=== PATIENT | female | born 1945 | race American Indian/Alaskan Native ===

== ENCOUNTER 2019-01-13 01:59 | Inpatient (IN) | payer MEDICARE ==
[2019-01-13 02:06] VITALS: BMI 47.2
--- NOTE | 2019-01-13 02:09 | ED PDOC ---
Arrival/HPI <Pete Bear - Last Filed: 01/13/19 04:54> - General Historian: Patient - History of Present Illness Narrative History of Present Illness (Text): 01/13/19 02:09 Patient is a 73 yo AA female with T2DM, PVD, GERD, uterine CA s/p radiation, iron deficiency anemia, CKD, and obesity who presents with abdominal pain. Patient states that she ate dinner around 9PM that consisted of mac and cheese, ribs, and su greens. Soon after eating, she felt intense abdominal cramping and acid reflux. She took Mylanta and Rika-seltzer without relief. She then felt nauseated and vomited twice. She says the pain is now radiating to her back. She states that she also feels constipated. She attempted to have a BM tonight but could not. She had a BM on Sunday, but prior to that, she had no BM for a week. She reports ending her radiation sessions about 1 week ago. Time/Duration: 4-6 hours Symptom Onset: Gradual Symptom Course: Worsening Quality: Cramping Severity Level: 10 Activities at Onset: Eating <Ivis Echavarria - Last Filed: 01/13/19 05:20> - General Chief Complaint: Abdominal Pain Time Seen by Provider: 01/13/19 02:00 Past Medical History - Provider Review Nursing Documentation Reviewed: Yes - Tetanus Immunization Tetanus Immunization: Unknown <Ivis Echavarria - Last Filed: 01/13/19 05:20> Family/Social History - Physician Review Nursing Documentation Reviewed: Yes Family/Social History: Unknown Family HX <Ivis Echavarria - Last Filed: 01/13/19 05:20> Allergies/Home Meds <Pete Bear - Last Filed: 01/13/19 04:54> <Ivis Echavarria - Last Filed: 01/13/19 05:20> Allergies/Adverse Reactions: Allergies Penicillins Allergy (Verified 01/13/19 05:05) ANGIOEDEMA strawberry Allergy (Verified 01/13/19 05:05) ANGIOEDEMA Home Medications: Home Meds Medication Instructions Recorded Confirmed Rosuvastatin Calcium [Crestor] 20 mg PO HS 01/13/19 01/13/19 amLODIPine [Norvasc] 5 mg PO DAILY 01/13/19 01/13/19 Review of Systems - Review of Systems Constitutional: absent: Fatigue, Fevers Eyes: absent: Vision Changes ENT: absent: Hearing Changes Respiratory: absent: SOB, Cough Cardiovascular: Chest Pain. absent: Palpitations Gastrointestinal: Abdominal Pain, Constipation, Nausea, Vomiting. absent: Diarrhea, Hematemesis Genitourinary Female: absent: Dysuria, Hematuria Musculoskeletal: Back Pain Skin: absent: Rash, Pruritis, Skin Lesions Neurological: absent: Headache, Dizziness, Focal Weakness Endocrine: absent: Diaphoresis Hemo/Lymphatic: absent: Adenopathy <Ivis Echavarria - Last Filed: 01/13/19 05:20> Physical Exam Vital Signs Temp Pulse Resp BP Pulse Ox 01/13/19 02:06 97.5 F L 72 18 167/71 H 99 <Pete Bear - Last Filed: 01/13/19 04:54> Vital Signs Reviewed: Yes - Systems Exam Head: Present: Atraumatic, Normocephalic Pupils: Present: PERRL Extroacular Muscles: Present: EOMI Conjunctiva: Present: Normal Mouth: Present: Dry Respiratory/Chest: Present: Clear to Auscultation, Good Air Exchange Cardiovascular: Present: Regular Rate and Rhythm, Normal S1, S2 Abdomen: Present: Tenderness, Normal Bowel Sounds. No: Distention, Peritoneal Signs Back: Present: Normal Inspection, Paraspinal Tenderness Lower Extremity: Present: Normal Inspection. No: Edema Neurological: Present: GCS=15, CN II-XII Intact, Speech Normal Skin: Present: Warm, Dry, Normal Color Psychiatric: Present: Alert, Oriented x 3, Normal Insight, Normal Concentration <Ivis Echavarria - Last Filed: 01/13/19 05:20> Medical Decision Making ED Course and Treatment: Impression: Patient Seen with Resident: In agreement with resident note which contains more details about the patient. Patient seen and evaluated with resident. Came up with plan and treatment together. Pt, whose past medical history includes Type 2 diabetes, peripheral vascular disease, GERD, uterine cancer s/p radiating, anemia, chronic kidney disease, and obesity, presented for abdominal cramping, nausea, and vomiting. Plan: -- CT Abdomen and Pelvis -- Labs, lipase -- IV fluids -- Zofran -- Morphine -- Reassess and disposition - RAD Interpretation Narrative RAD Interpretations (Text): CT Abdomen and Pelvis: FINDINGS: Mild cardiomegaly. Mild pericardial effusion. Enlarged uterus. 3.9 cm intramural fundal uterine fibroid. Mild diffuse thickening of the bladder, probably cystitis. Moderate partial uncomplicated small bowel obstruction. No bowel perforation or pneumatosis intestinalis. Transition zone in the right lower quadrant. Uncomplicated colonic diverticulosis. Mild amount of fecal residue in the large bowel suggestive of mild constipation. 3 mm left renal nonobstructing stone. Cholelithiasis without acute cholecystitis. Mild left renal atrophy, chronic finding. The visualized lung bases are unremarkable. Normal unenhanced liver. Normal extrahepatic biliary system. Normal unenhanced spleen. Normal pancreas. Normal bilateral adrenal glands. Normal size of the right kidney. There is no right renal mass. There are no right renal calculi. There is no right hydronephrosis. Normal visualized right ureter. There is no left renal mass. There is no left hydronephrosis. Normal visualized left ureter. The appendix is visualized and appears normal. There is no demonstrated peritoneal fluid. Normal abdominal aorta. Normal inferior vena cava. Normal retroperitoneum. Normal urinary bladder. There is no pelvic mass lesion or lymphadenopathy. There is no pelvic fluid. Normal abdominal wall. Moderate diffuse spondylosis. IMPRESSION: Mild cardiomegaly. Mild pericardial effusion. Enlarged uterus. 3.9 cm intramural fundal uterine fibroid. Mild diffuse thickening of the bladder, probably cystitis. Moderate partial uncomplicated small bowel obstruction. No bowel perforation or pneumatosis intestinalis. Transition zone in the right lower quadrant. Uncomplicated colonic diverticulosis. Mild amount of fecal residue in the large bowel suggestive of mild constipation. 3 mm left renal nonobstructing stone. Cholelithiasis without acute cholecystitis. Mild left renal atrophy, chronic finding. Electronically signed on January 13, 2019 4:54:03 AM EDT by: Asa Yates M.D., Certified by ABR, MSK, Neuroradiology Radiology Orders: 01/13/19 02:15 ABD & PELVIS W/O PO OR IV CONT [CT] Stat Hatchery Man: Radiologist - Medication Orders Current Medication Orders: Discontinued Medications Sodium Chloride (Sodium Chloride 0.9%) 1,000 mls @ 999 mls/hr IV .Q1H1M STA Stop: 01/13/19 03:15 Last Admin: 01/13/19 02:50 Dose: 999 mls/hr eMAR Start Stop Document 01/13/19 02:50 KV (Rec: 01/13/19 02:56 KV [id number]) Intravenous Solution Start Date 01/13/19 Start Time 02:50 Morphine Sulfate (Morphine) 4 mg IVP STAT STA Stop: 01/13/19 02:16 Last Admin: 01/13/19 02:50 Dose: 4 mg MAR Pain Assessment Document 01/13/19 02:50 KV (Rec: 01/13/19 02:54 KV [id number]) Pain Reassessment Is this a pain reassessment? No Presence of Pain Presence of Pain Yes Pain Scale Used Protocol: PSCALES Pain Scale Used Numeric Location Pain Location Body Site Abdomen Description Description Constant Intensity of Pain at present 6 IVP Administration Document 01/13/19 02:50 KV (Rec: 01/13/19 02:54 KV [id number]) Charges for Administration # of IVP Administrations 1 Ondansetron HCl (Zofran Inj) 4 mg IVP STAT STA Stop: 01/13/19 02:16 Last Admin: 01/13/19 02:50 Dose: 4 mg IVP Administration Document 01/13/19 02:50 KV (Rec: 01/13/19 02:53 KV [id number]) Charges for Administration # of IVP Administrations 1 <Pete Bear - Last Filed: 01/13/19 04:54> ED Course and Treatment: 01/13/19 04:59 Gen surg consult for partial SBO 01/13/19 05:08 Patient vomiting- nonbloody, nonbilious. 01/13/19 05:[address] Gomez who accepts patient for observation. Re-evaluation Time: 04:59 Reassessment Condition: Unchanged - RAD Interpretation Radiology Orders: CT A/P - EKG Interpretation EKG Interpretation (Text): 01/13/19 02:24 NSR, LBBB Interpreted by ED Physician: Yes Type: 12 lead EKG Comparison: No previous EKG avail. - Medication Orders Current Medication Orders: 01/13/19 02:19 Morphine 4 mg IVP Zofran 4 mg IVP NS 1L bouls <Ivis Echavarria - Last Filed: 01/13/19 05:20> Disposition/Present on Arrival <Pete Bear - Last Filed: 01/13/19 04:54> - Present on Arrival Any Indicators Present on Arrival: No - Disposition Have Diagnosis and Disposition been Completed?: Yes Disposition Time: 05:20 Patient Plan: Admission, Observation <Ivis Echavarria - Last Filed: 01/13/19 05:20> - Disposition Diagnosis: SBO (small bowel obstruction) Disposition: HOSPITALIZED Condition: FAIR Forms: [employer]ise (Maltese)
[2019-01-13] MEDS ORDERED: Sodium Chloride 0.9% 1,000 ML IV STA ×2 (02:15→06:09)
[2019-01-13] MEDS ORDERED: Morphine 4 mg/ml ISec IVP STA ×2 (02:15→05:05)
[2019-01-13 02:45] LABS: BASO # 0.01 K/mm3 (0.0-2.0); BASO % 0.1 % (0.0-3.0); EOS # 0.1 (0.0-0.7); EOS % 1.5 % (1.5-5.0); HEMOGLOBIN 10.5 g/dL (12.0-16.0); LYMPH # 0.8 (1.2-3.4); LYMPH % 8.6 % (22.0-35.0); MEAN CELL VOLUME 76.5 fl (80.0-105.0); MEAN CORPUSCULAR HEMOGLOBIN 24.4 pg (25.0-35.0); MEAN CORPUSCULAR HGB CONC 31.9 g/dl (31.0-37.0); MEAN PLATELET VOLUME 10.8 fl (7.0-11.0); MONO # 0.3 (0.1-0.6); MONO % 3.3 % (1.0-6.0); RBC 4.3 10^6/uL (3.5-6.1); RED CELL DISTRIBUTION WIDTH 17.8 % (11.5-14.5); WHITE BLOOD COUNT 9.5 10^3/uL (4.5-11.0)
[2019-01-13] MEDS ORDERED: Magnesium Citrate Oral SOL (300 ml) PO ONE (03:19)
[2019-01-13] MEDS ORDERED: Bisacodyl 5mg EC Tab PO ONE (03:19)
[2019-01-13 03:24] LABS: ALBUMIN 4.2 g/dL (3.0-4.8); CALCIUM 9.8 mg/dL (8.4-10.5)
[2019-01-13 03:34] LABS: TROPONIN I 0.02 ng/mL
--- NOTE | 2019-01-13 06:01 | CP.PCM.HP ---
<Uriah Ma - Last Filed: 01/14/19 03:26> History of Present Illness - History of Present Illness History of Present Illness: HISTORY & PHYSICAL NOTE FOR HOSPITALIST SERVICE URIAH MA PGY1 73 y/o F with PMH uterine ca s/p radiation therapy, CAD s/p 6 stents, IDDM2, CKD, PVD, HTN, chronic iron-deficiency anemia (previously had aranesp infusions), PVD, L-sided carotid stenosis s/p endarterectomy, obesity presents to ED with complaints of severe, 10/10, diffuse, crampy abdominal pain with associated nausea & non-bloody non-bilious vomiting that began yesterday evening about 9pm after she ate dinner consisting of mac and cheese, ribs, and su greens. She noticed intense, severe pain after her meal. She tried mylanta & danish-seltzer without relief. She said her last BM was 2 days ago and hasn't passed gas or had a bowel movement since. She reports she completed her 5-week course of radiation therapy for uterine cancer on 12/30/18. She she completed her therapy, she noted some uterine spotting. She report she has been following with her doctors as scheduled. 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 She reports she has had chills for several weeks as well. She denies fevers, headache, dizziness, numbness, tingling, chest pain, palpitations, shortness of breath, dysuria, hematuria, hematochezia. PMH: uterine ca s/p radiation therapy, CAD s/p 6 stents, IDDM2, CKD, PVD, HTN, chronic anemia, PVD, L-sided carotid stenosis s/p endarterectomy, obesity All: PCN: itchiness, strawberry PSH: L toe amputation: 2010 SH: Denies smoking. Occasional ETOH use, Denies illicit drug. 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 [place]: Breast ca Meds: reviewed & reconciled on NOV Colonoscopy 2002: negative Mammogram 2017: negative PMD: Dr[facility] Cam[facility] Dr[facility] Narayan Kelley Pharm: [facility] MAR, 1 [facility] Present on Admission - Present on Admission Any Indicators Present on Admission: No Review of Systems - Review of Systems Review of Systems: per HPI Past Patient History - Tetanus Immunizations Tetanus Immunization: Unknown - Past Social History Smoking Status: Never Smoked - CARDIAC Hx Cardiac Disorders: Yes Hx Heart Attack: Yes Hx Hypercholesterolemia: Yes Hx Hypertension: Yes - PULMONARY Hx Respiratory Disorders: No - NEUROLOGICAL Hx Neurological Disorder: Yes HX Cerebrovascular Accident: Yes - HEENT Hx HEENT Problems: No - RENAL Hx Chronic Kidney Disease: Yes Hx Renal Failure: Yes (stage 4 renal failure, denies having dialysis tx) - ENDOCRINE/METABOLIC Hx Endocrine Disorders: Yes Hx Diabetes Mellitus Type 2: Yes - HEMATOLOGICAL/ONCOLOGICAL Hx Blood Disorders: Yes Hx Anemia: Yes - INTEGUMENTARY Hx Dermatological Problems: No - MUSCULOSKELETAL/RHEUMATOLOGICAL Hx Musculoskeletal Disorders: No - GASTROINTESTINAL Hx Gastrointestinal Disorders: No - GENITOURINARY/GYNECOLOGICAL Hx Genitourinary Disorders: Yes Hx Uterine Cancer: Yes - PSYCHIATRIC Hx Psychophysiologic Disorder: No Hx Substance Use: No - SURGICAL HISTORY Hx Surgeries: Yes Hx Amputation: Yes (L great toe) Hx Cardiac Catheterization: Yes Hx Coronary Stent: Yes Hx Vascular Surgery: Yes (2 stents placed in legs bilaterally d/t PVD) - ANESTHESIA Hx Anesthesia: Yes Hx Anesthesia Reactions: No Hx Malignant Hyperthermia: No Meds Allergies/Adverse Reactions: Allergies Allergy/AdvReac Type Severity Reaction Status Date / Time Penicillins Allergy ANGIOEDEMA Verified 01/13/19 05:05 strawberry Allergy ANGIOEDEMA Verified 01/13/19 05:05 Physical Exam - Constitutional Appears: Well, Non-toxic, Chronically Ill - Head Exam Head Exam: NORMAL INSPECTION, NORMOCEPHALIC - Eye Exam Eye Exam: EOMI, Normal appearance - ENT Exam ENT Exam: Mucous Membranes Moist, Normal Exam - Neck Exam Neck exam: Positive for: Normal Inspection Additional comments: L CEA scar noted. - Respiratory Exam Respiratory Exam: Clear to Auscultation Bilateral, NORMAL BREATHING PATTERN - Cardiovascular Exam Cardiovascular Exam: REGULAR RHYTHM, +S1, +S2 - GI/Abdominal Exam GI & Abdominal Exam: Hypoactive Bowel Sounds, Soft, Tenderness (diffuse). absent: Pulsatile Mass, Rebound, Rigid - Extremities Exam Extremities exam: Positive for: normal inspection. Negative for: calf tenderness - Back Exam Back exam: NORMAL INSPECTION - Neurological Exam Neurological exam: Alert, Oriented x3 - Psychiatric Exam Psychiatric exam: Normal Affect, Normal Mood - Skin Skin Exam: Dry, Intact, Warm Results - Vital Signs Recent Vital Signs: Last Vital Signs Temp 97.5 F L 01/13/19 02:06 Pulse 72 01/13/19 04:23 Resp 16 01/13/19 04:23 BP 188/87 H 01/13/19 04:23 Pulse Ox 97 01/13/19 04:23 - Labs Result Diagrams: 01/13/19 02:37 01/13/19 02:45 Labs: Laboratory Results - last 24 hr 01/13/19 01/13/19 02:37 02:45 WBC 9.5 RBC 4.30 Hgb 10.5 L Hct 32.9 L MCV 76.5 L MCH 24.4 L MCHC 31.9 RDW 17.8 H Plt Count 228 MPV 10.8 Neut % (Auto) 86.5 H Lymph % (Auto) 8.6 L Sully % (Auto) 3.3 Eos % (Auto) 1.5 Baso % (Auto) 0.1 Lymph # (Auto) 0.8 L Sully # (Auto) 0.3 Eos # (Auto) 0.1 Baso # (Auto) 0.01 Absolute Neuts (auto) 8.25 H Sodium 142 Potassium 4.0 Chloride 101 Carbon Dioxide 29 Anion Gap 15 BUN 31 H Creatinine 2.5 H Est GFR ( Amer) 23 Est GFR (Non-Af Amer) 19 Random Glucose 111 H Calcium 9.8 Phosphorus 3.5 Magnesium 2.0 Total Bilirubin 0.4 AST 30 ALT 13 Alkaline Phosphatase 89 Total Creatine Kinase 110 Troponin I 0.02 Total Protein 8.5 H Albumin 4.2 Globulin 4.3 Albumin/Globulin Ratio 1.0 L Lipase 150 Assessment & Plan - Assessment and Plan (Free Text) Assessment: 73 y/o F with PMH uterine ca s/p radiation therapy, CAD s/p 6 stents, IDDM2, CKD, PVD, HTN, chronic anemia, PVD, L-sided carotid stenosis s/p endarterectomy, obesity admitted for partial small bowel obstruct Plan: Partial Small Bowel obstruction -Abdomen, soft, diffusely tender, hypoactive bowel sounds. No peritoneal signs noted. No history of abdominal surgeries. Likely in the setting of radiation -CT A/P 01/13 (prelim): Mild cardiomegaly. Mild pericardial effusion. Enlarged uterus. 3.9cm intramural fundal uterine fibroid. Mild diffuse thickening of the bladder, probabaly cystitis. Moderate partial uncomplicated small bowel obstruction. No bowel perforation or pneumatosis intestinalis. Transition zone in the RLQ, Uncomplicated colonic diverticulosis. Mild amount of fecal residue in the large bowel suggestive of mild constipation. 3mm L renal nonobstructing stoene. Cholelithiasis w/o acute cholecystitis. Mild L renal atrophy, chronic findings. -Keep NPO -NS@ 150/hr -Pain control, antiemetics w/ zofran -Monitor for BM/flatus -NGT if symptoms worsen -serial abdominal exams -surgery consulted, appreciate recs CKD -no baseline creatinine -f/u U/A, urine lytes, urine creatinine, urine output CAD s/p stents No chest pain. EKG reveals NSR, LBBB. Initial trop <0.02 continue aspirin, plavix, beta-poly, IDDM2 -continue home levemir 15u SC q12 HTN -continue amlodipine, carvedilol, hydralazine, imdur HLD -continue home rosuvastatin DVT/GI: Hep SC/pepcid Case seen, examined and discussed with attending physician, Dr. Jason Ma PGY1 <Kalpesh Gomez - Last Filed: 01/16/19 05:58> Results - Vital Signs Recent Vital Signs: Last Vital Signs Temp 98.8 F 01/15/19 22:00 Pulse 103 H 01/15/19 22:00 Resp 21 01/15/19 16:25 BP 80/44 L 01/15/19 17:30 Pulse Ox 98 01/15/19 17:29 - Labs Result Diagrams: 01/16/19 05:15 01/16/19 05:15 Labs: Laboratory Results - last 24 hr 01/14/19 01/15/19 01/15/19 15:43 01:39 06:00 WBC 14.7 H D RBC 3.89 Hgb 9.2 L Hct 30.7 L MCV 78.9 L MCH 23.7 L MCHC 30.0 L RDW 18.9 H Plt Count 191 MPV 10.5 Neut % (Auto) 88.7 H Lymph % (Auto) 3.2 L Sully % (Auto) 8.0 H Eos % (Auto) 0.0 L Baso % (Auto) 0.1 Lymph # (Auto) 0.5 L Sully # (Auto) 1.2 H Eos # (Auto) 0.0 Baso # (Auto) 0.01 Absolute Neuts (auto) 13.06 H Neutrophils % (Manual) 77 H Band Neutrophils % 9 H Lymphocytes % (Manual) 8 L Monocytes % (Manual) 6 Platelet Evaluation Normal Anisocytosis (manual) 1+ Microcytosis (manual) 1+ Schistocytes Slight PT INR APTT pCO2 pO2 HCO3 ABG pH ABG Total CO2 ABG O2 Saturation ABG Base Excess ABG Potassium Glucose Lactate FiO2 Crit Value Called To Crit Value Called By Blood Gas Notified Time Sodium Potassium Chloride Carbon Dioxide Anion Gap BUN Creatinine Est GFR ( Amer) Est GFR (Non-Af Amer) POC Glucose (mg/dL) 185 H Random Glucose Calcium Phosphorus Magnesium Total Bilirubin AST ALT Alkaline Phosphatase Troponin I Total Protein Albumin Globulin Albumin/Globulin Ratio Arterial Blood Potassium Blood Type O POSITIVE Antibody Screen Negative Crossmatch See Detail BBK History Checked No verified bt 01/15/19 01/15/19 01/15/19 06:00 11:06 12:40 WBC 10.2 D RBC 3.31 L Hgb 8.0 L Hct 26.0 L MCV 78.5 L MCH 24.2 L MCHC 30.8 L RDW 19.1 H Plt Count 158 MPV 10.6 Neut % (Auto) 88.5 H Lymph % (Auto) 4.7 L Sully % (Auto) 6.7 H Eos % (Auto) 0.0 L Baso % (Auto) 0.1 Lymph # (Auto) 0.5 L Sully # (Auto) 0.7 H Eos # (Auto) 0.0 Baso # (Auto) 0.01 Absolute Neuts (auto) 9.02 H Neutrophils % (Manual) Band Neutrophils % Lymphocytes % (Manual) Monocytes % (Manual) Platelet Evaluation Anisocytosis (manual) Microcytosis (manual) Schistocytes PT INR APTT pCO2 pO2 HCO3 ABG pH ABG Total CO2 ABG O2 Saturation ABG Base Excess ABG Potassium Glucose Lactate FiO2 Crit Value Called To Crit Value Called By Blood Gas Notified Time Sodium 140 Potassium 5.5 H Chloride 110 H Carbon Dioxide 16 L Anion Gap 19 BUN 52 H Creatinine 5.3 H Est GFR ( Amer) 10 Est GFR (Non-Af Amer) 8 POC Glucose (mg/dL) 133 H Random Glucose 140 H Calcium 7.9 L Phosphorus 9.0 H Magnesium 2.3 H Total Bilirubin 0.4 AST 852 H D ALT 833 H Alkaline Phosphatase 57 Troponin I Total Protein 5.9 Albumin 2.7 L Globulin 3.2 Albumin/Globulin Ratio 0.8 L Arterial Blood Potassium Blood Type Antibody Screen Crossmatch BBK History Checked 01/15/19 01/15/19 01/15/19 12:40 13:00 16:09 WBC 6.9 D RBC 4.16 Hgb 10.5 L D Hct 33.0 L MCV 79.3 L MCH 25.2 MCHC 31.8 RDW 18.6 H Plt Count 131 MPV Neut % (Auto) 90.3 H Lymph % (Auto) 4.9 L Sully % (Auto) 4.8 Eos % (Auto) 0.0 L Baso % (Auto) 0.0 Lymph # (Auto) 0.3 L Sully # (Auto) 0.3 Eos # (Auto) 0.0 Baso # (Auto) 0.00 Absolute Neuts (auto) 6.26 Neutrophils % (Manual) Band Neutrophils % Lymphocytes % (Manual) Monocytes % (Manual) Platelet Evaluation Anisocytosis (manual) Microcytosis (manual) Schistocytes PT INR APTT pCO2 34 L pO2 180.0 H HCO3 12.7 L ABG pH 7.18 L* ABG Total CO2 13.7 L ABG O2 Saturation 99.5 H ABG Base Excess -14.6 L ABG Potassium 4.7 Glucose 118 H Lactate 5.8 H* FiO2 100.0 Crit Value Called To maryellen Cardenas Crit Value Called By Xena Blood Gas Notified Time 1310 Sodium 140 139.0 Potassium 5.1 H Chloride 111 H 115.0 H Carbon Dioxide 16 L Anion Gap 17 BUN 51 H Creatinine 4.5 H Est GFR ( Amer) 12 Est GFR (Non-Af Amer) 10 POC Glucose (mg/dL) Random Glucose 117 H Calcium 7.3 L Phosphorus 7.1 H Magnesium 1.9 Total Bilirubin 0.3 AST 961 H ALT 857 H Alkaline Phosphatase 50 Troponin I Total Protein 4.7 L Albumin 2.1 L Globulin 2.6 Albumin/Globulin Ratio 0.8 L Arterial Blood Potassium 4.7 Blood Type Antibody Screen Crossmatch BBK History Checked 01/15/19 01/15/19 01/15/19 16:09 16:09 16:09 WBC RBC Hgb Hct MCV MCH MCHC RDW Plt Count MPV Neut % (Auto) Lymph % (Auto) Sully % (Auto) Eos % (Auto) Baso % (Auto) Lymph # (Auto) Sully # (Auto) Eos # (Auto) Baso # (Auto) Absolute Neuts (auto) Neutrophils % (Manual) Band Neutrophils % Lymphocytes % (Manual) Monocytes % (Manual) Platelet Evaluation Anisocytosis (manual) Microcytosis (manual) Schistocytes PT 18.8 H INR 1.69 APTT 29.1 pCO2 pO2 HCO3 ABG pH ABG Total CO2 ABG O2 Saturation ABG Base Excess ABG Potassium Glucose Lactate FiO2 Crit Value Called To Crit Value Called By Blood Gas Notified Time Sodium 140 Potassium 4.9 Chloride 113 H Carbon Dioxide 18 L Anion Gap 13 BUN 52 H Creatinine 4.6 H Est GFR ( Amer) 11 Est GFR (Non-Af Amer) 9 POC Glucose (mg/dL) Random Glucose 125 H Calcium 7.9 L Phosphorus 6.7 H Magnesium 1.9 Total Bilirubin 0.5 AST 1285 H ALT 1163 H Alkaline Phosphatase 52 Troponin I 0.23 H* Total Protein 5.0 L Albumin 2.2 L Globulin 2.8 Albumin/Globulin Ratio 0.8 L Arterial Blood Potassium Blood Type Antibody Screen Crossmatch BBK History Checked 01/15/19 01/15/19 01/15/19 16:13 17:46 21:20 WBC RBC Hgb Hct MCV MCH MCHC RDW Plt Count MPV Neut % (Auto) Lymph % (Auto) Sully % (Auto) Eos % (Auto) Baso % (Auto) Lymph # (Auto) Sully # (Auto) Eos # (Auto) Baso # (Auto) Absolute Neuts (auto) Neutrophils % (Manual) Band Neutrophils % Lymphocytes % (Manual) Monocytes % (Manual) Platelet Evaluation Anisocytosis (manual) Microcytosis (manual) Schistocytes PT INR APTT pCO2 39 36 pO2 103.0 H 112.0 H HCO3 16.0 L 16.2 L ABG pH 7.22 L 7.26 L ABG Total CO2 17.2 L 17.3 L ABG O2 Saturation 98.8 H 98.9 H ABG Base Excess -11.1 L -10.0 L ABG Potassium 4.4 4.0 Glucose 130 H 114 H Lactate 3.2 H 2.3 H FiO2 70.0 70.0 Crit Value Called To cristy Smith Crit Value Called By Xena pino Blood Gas Notified Time 1750 2132 Sodium 140.0 140.0 Potassium Chloride 115.0 H 117.0 H Carbon Dioxide Anion Gap BUN Creatinine Est GFR ( Amer) Est GFR (Non-Af Amer) POC Glucose (mg/dL) 135 H Random Glucose Calcium Phosphorus Magnesium Total Bilirubin AST ALT Alkaline Phosphatase Troponin I Total Protein Albumin Globulin Albumin/Globulin Ratio Arterial Blood Potassium 4.4 4.0 Blood Type Antibody Screen Crossmatch BBK History Checked 01/15/19 01/16/19 01/16/19 21:31 05:00 05:15 WBC 7.5 RBC 3.71 Hgb 9.3 L Hct 28.4 L MCV 76.5 L MCH 25.1 MCHC 32.7 RDW 17.9 H Plt Count 119 L MPV Neut % (Auto) 91.6 H Lymph % (Auto) 4.0 L Sully % (Auto) 4.0 Eos % (Auto) 0.3 L Baso % (Auto) 0.1 Lymph # (Auto) 0.3 L Sully # (Auto) 0.3 Eos # (Auto) 0.0 Baso # (Auto) 0.01 Absolute Neuts (auto) 6.83 H Neutrophils % (Manual) Band Neutrophils % Lymphocytes % (Manual) Monocytes % (Manual) Platelet Evaluation Anisocytosis (manual) Microcytosis (manual) Schistocytes PT INR APTT pCO2 38 pO2 131.0 H HCO3 18.7 L ABG pH 7.30 L ABG Total CO2 19.9 L ABG O2 Saturation 99.2 H ABG Base Excess -7.1 L ABG Potassium 4.2 Glucose 83 Lactate 1.5 FiO2 70.0 Crit Value Called To Crit Value Called By Blood Gas Notified Time Sodium 141.0 Potassium Chloride 116.0 H Carbon Dioxide Anion Gap BUN Creatinine Est GFR ( Amer) Est GFR (Non-Af Amer) POC Glucose (mg/dL) Random Glucose Calcium Phosphorus Magnesium Total Bilirubin AST ALT Alkaline Phosphatase Troponin I 0.78 H* D Total Protein Albumin Globulin Albumin/Globulin Ratio Arterial Blood Potassium 4.2 Blood Type Antibody Screen Crossmatch BBK History Checked 01/16/19 05:15 WBC RBC Hgb Hct MCV MCH MCHC RDW Plt Count MPV Neut % (Auto) Lymph % (Auto) Sully % (Auto) Eos % (Auto) Baso % (Auto) Lymph # (Auto) Sully # (Auto) Eos # (Auto) Baso # (Auto) Absolute Neuts (auto) Neutrophils % (Manual) Band Neutrophils % Lymphocytes % (Manual) Monocytes % (Manual) Platelet Evaluation Anisocytosis (manual) Microcytosis (manual) Schistocytes PT INR APTT pCO2 pO2 HCO3 ABG pH ABG Total CO2 ABG O2 Saturation ABG Base Excess ABG Potassium Glucose Lactate FiO2 Crit Value Called To Crit Value Called By Blood Gas Notified Time Sodium 140 Potassium 4.6 Chloride 112 H Carbon Dioxide 21 Anion Gap 11 BUN 58 H Creatinine 4.8 H Est GFR ( Amer) 11 Est GFR (Non-Af Amer) 9 POC Glucose (mg/dL) Random Glucose 91 Calcium 7.2 L Phosphorus 5.5 H Magnesium 1.8 Total Bilirubin 0.6 AST 704 H D ALT 889 H Alkaline Phosphatase 52 Troponin I Total Protein 4.8 L Albumin 2.1 L Globulin 2.7 Albumin/Globulin Ratio 0.8 L Arterial Blood Potassium Blood Type Antibody Screen Crossmatch BBK History Checked Attending/Attestation - Attestation I have personally seen and examined this patient.: Yes I have fully participated in the care of the patient.: Yes I have reviewed all pertinent clinical information: Yes
--- NOTE | 2019-01-13 06:11 | CP.PCM.CON ---
History of Present Illness - History of Present Illness History of Present Illness: SURGERY NOTE FOR DR. JACOBSON Reason: SBO 73F presents with abdominal pain that began yesterday. Patient states the pain started in the lower abdomen. She has never had this type of pain before. She denies nausea, but admits to vomiting even while in the ED. She denies any fevers but admits to chills since she is anemic. She states the pain started after eating last night. She denies being able to pass gas since last night. She feels as though her abdomen is distended. Last BM was sunday. Patient was diagnoses with uterine Ca and is on her 5th dose of radiation. She has not had surgery for it because she had poor cardiac disease. PMH: DM, PVD, GERD, Uterine ca, Anemic, CKD PSH: Left hallux amp, Left LE bypass, Breast cyst excision Social: Denies tobacco, alcohol, or illicit drug use Allergies: Penicillins, strawberry Past Patient History - Tetanus Immunizations Tetanus Immunization: Unknown - Past Social History Smoking Status: Never Smoked - CARDIAC Hx Cardiac Disorders: Yes Hx Heart Attack: Yes Hx Hypercholesterolemia: Yes Hx Hypertension: Yes - PULMONARY Hx Respiratory Disorders: No - NEUROLOGICAL Hx Neurological Disorder: Yes HX Cerebrovascular Accident: Yes - HEENT Hx HEENT Problems: No - RENAL Hx Chronic Kidney Disease: Yes Hx Renal Failure: Yes (stage 4 renal failure, denies having dialysis tx) - ENDOCRINE/METABOLIC Hx Endocrine Disorders: Yes Hx Diabetes Mellitus Type 2: Yes - HEMATOLOGICAL/ONCOLOGICAL Hx Blood Disorders: Yes Hx Anemia: Yes - INTEGUMENTARY Hx Dermatological Problems: No - MUSCULOSKELETAL/RHEUMATOLOGICAL Hx Musculoskeletal Disorders: No - GASTROINTESTINAL Hx Gastrointestinal Disorders: No - GENITOURINARY/GYNECOLOGICAL Hx Genitourinary Disorders: Yes Hx Uterine Cancer: Yes - PSYCHIATRIC Hx Psychophysiologic Disorder: No Hx Substance Use: No - SURGICAL HISTORY Hx Surgeries: Yes Hx Amputation: Yes (L great toe) Hx Cardiac Catheterization: Yes Hx Coronary Stent: Yes Hx Vascular Surgery: Yes (2 stents placed in legs bilaterally d/t PVD) - ANESTHESIA Hx Anesthesia: Yes Hx Anesthesia Reactions: No Hx Malignant Hyperthermia: No Meds Allergies/Adverse Reactions: Allergies Allergy/AdvReac Type Severity Reaction Status Date / Time Penicillins Allergy ANGIOEDEMA Verified 01/13/19 05:05 strawberry Allergy ANGIOEDEMA Verified 01/13/19 05:05 - Medications Medications: Current Medications Amlodipine Besylate (Norvasc) 5 mg PO DAILY [facility] Aspirin (Ecotrin) 81 mg PO DAILY [facility] Carvedilol (Coreg) 12.5 mg PO BID [facility] Clopidogrel Bisulfate (Plavix) 75 mg PO DAILY [facility] Hydralazine HCl (Apresoline) 25 mg PO QID [facility] Insulin Detemir (Levemir) 15 unit SC Q12 [facility] Insulin Human Regular (Humulin R Low) 0 units SC ACHS [facility]; Protocol Isosorbide Mononitrate (Imdur) 60 mg PO DAILY [facility] Non-Formulary Medication (Rosuvastatin Calcium [Crestor]) 20 mg PO HS [facility] Physical Exam - Constitutional Appears: Non-toxic, No Acute Distress, Other (obese) - Eye Exam Eye Exam: EOMI, PERRL - ENT Exam ENT Exam: Mucous Membranes Moist - Respiratory Exam Respiratory Exam: Clear to Auscultation Bilateral, NORMAL BREATHING PATTERN - Cardiovascular Exam Cardiovascular Exam: REGULAR RHYTHM, +S1, +S2 - GI/Abdominal Exam GI & Abdominal Exam: Distended (mildly distended), Soft, Tenderness (lower abdomen). absent: Firm, Guarding, Rebound, Rigid - Extremities Exam Extremities exam: Negative for: pedal edema, tenderness - Neurological Exam Neurological exam: Alert, Oriented x3 - Skin Skin Exam: Dry, Intact, Normal Color, Warm Results - Vital Signs Recent Vital Signs: Last Vital Signs Temp 97.5 F L 01/13/19 02:06 Pulse 72 01/13/19 04:23 Resp 16 01/13/19 04:23 BP 188/87 H 01/13/19 04:23 Pulse Ox 97 01/13/19 04:23 - Labs Result Diagrams: 01/13/19 02:37 01/13/19 02:45 Labs: Laboratory Results - last 24 hr 01/13/19 01/13/19 02:37 02:45 WBC 9.5 RBC 4.30 Hgb 10.5 L Hct 32.9 L MCV 76.5 L MCH 24.4 L MCHC 31.9 RDW 17.8 H Plt Count 228 MPV 10.8 Neut % (Auto) 86.5 H Lymph % (Auto) 8.6 L [place] % (Auto) 3.3 Eos % (Auto) 1.5 Baso % (Auto) 0.1 Lymph # (Auto) 0.8 L [place] # (Auto) 0.3 Eos # (Auto) 0.1 Baso # (Auto) 0.01 Absolute Neuts (auto) 8.25 H Sodium 142 Potassium 4.0 Chloride 101 Carbon Dioxide 29 Anion Gap 15 BUN 31 H Creatinine 2.5 H Est GFR ( Amer) 23 Est GFR (Non-Af Amer) 19 Random Glucose 111 H Calcium 9.8 Phosphorus 3.5 Magnesium 2.0 Total Bilirubin 0.4 AST 30 ALT 13 Alkaline Phosphatase 89 Total Creatine Kinase 110 Troponin I 0.02 Total Protein 8.5 H Albumin 4.2 Globulin 4.3 Albumin/Globulin Ratio 1.0 L Lipase 150 Assessment & Plan - Assessment and Plan (Free Text) Assessment: 73F with hx of uterine ca and radiation presents with small bowel obstruction Plan: - NPO - IVF - UA - Pain control - Anti-emetic - Monitor for BM, Flatus - NGT if she feels nauseous - Serial abdominal exams - Further recs discuss with Dr. Lonny Pappas, PGY3
[2019-01-13] MEDS ORDERED: Sodium Chloride 0.9% 1,000 ML IV SCH ×2 (06:30→12:30)
[2019-01-13 08:47] LABS: FREE T4 1.12 ng/dL (0.78-2.19)
[2019-01-13 09:05] LABS: TOTAL IRON BINDING CAPACITY 232 ug/dL (265-497)
[2019-01-13] MEDS: Insulin Reg-LOW-Coverage SC SCH ×4 (09:05→22:07)
[2019-01-13 09:10] LABS: % IRON SATURATION 33 % (20-55); IRON 76 ug/dL (45-180)
[2019-01-13 09:31] LABS: INR 1.06; PARTIAL THROMBOPLASTIN TIME 32.2 Seconds (26.9-38.3)
[2019-01-13] MEDS: Insulin Detemir 100 units/ml Vial (Levemir) SC SCH ×2 (09:51→22:12)
[2019-01-13] MEDS: HYDROmorphone 0.5 mg/0.5 ml ISec IVP PRN ×2 (10:00→15:15)
[2019-01-13] MEDS: CALCIFEDIOL 30 MCG PO SCH (10:01)
--- NOTE | 2019-01-13 11:00 | CT ---
Date of service: 01/13/2019 PROCEDURE: CT Abdomen and Pelvis without intravenous contrast HISTORY: abd pain COMPARISON: None. TECHNIQUE: Without contrast.. Contrast dose: Radiation dose: Total exam DLP = 1057.16 mGy-cm. This CT exam was performed using one or more of the following dose reduction techniques: Automated exposure control, adjustment of the mA and/or kV according to patient size, and/or use of iterative reconstruction technique. FINDINGS: LOWER THORAX: Unremarkable. LIVER: Unremarkable. No gross lesion or ductal dilatation. GALLBLADDER AND BILE DUCTS: Small gallstone PANCREAS: Unremarkable. No gross lesion or ductal dilatation. SPLEEN: Unremarkable. ADRENALS: Unremarkable. No mass. KIDNEYS AND URETERS: Unremarkable. No hydronephrosis. No solid mass. VASCULATURE: Unremarkable. No aortic aneurysm. Aortic calcification BOWEL: There is partial small bowel obstruction with multiple fluid-filled loops of bowel in the mid and upper abdomen. There is a transition point in the right lower quadrant APPENDIX: Unremarkable. Normal appendix. PERITONEUM: Unremarkable. No free fluid. No free air. LYMPH NODES: Unremarkable. No enlarged lymph nodes. BLADDER: Unremarkable. REPRODUCTIVE: Calcified fibroid measuring 36 mm BONES: No acute fracture. OTHER FINDINGS: The report concurs with the preliminary [facility] report IMPRESSION: There is partial small bowel obstruction with multiple fluid-filled loops of bowel in the mid and upper abdomen. There is a transition point in the right lower quadrant
[2019-01-13 13:02] LABS: FOLATE 10.7 ng/mL
--- NOTE | 2019-01-13 14:02 | CP.PCM.CON ---
History of Present Illness - History of Present Illness History of Present Illness: Nephrology Consultation Note: Assessment: Stable partial SBO Diabetic chronic Kidney Disease (E11.22) Hypertensive Chronic Kidney Disease (I12.9) with HTN urgency Chronic Kidney Disease (N18.4) Stage Anemia (D64.9), Hyperphosphatemia (E83.39), Secondary Hyperparathyroidism (E21.1), HTN (I12.9) obesity uterine ca s/p radiation therapy CAD s/p stents, PVD, L-sided carotid stenosis s/p endarterectomy Plan No acute need for renal replacement therapy at this time. Hypertension control with meds as ordered. Maintain hemodynamics stable. Avoid hypotension. Patient not on ACEI/ARB, can consider as outpt. resume home bp meds Monitor Input/Output, daily weights and renal function with basic metabolic panel continue with current meds pt follows up with magneto repairer for anemia management. TRANG if Hb <10 surgery following lower IVF to NS @ 5o ml/hr while pt npo Dose meds/antibiotics for reduced GFR. Avoid fleets enema/magnesium based laxatives. Avoid nephrotoxins/NSAIDs/ iodinated contrast (unless needed emergently) Glycemic control Further work up/management as per primary team Thanks for allowing me to participate in care of your patient. Will follow patient with you. Please call if any Qs. had d/w team Dr Ant Burrell Office: [phone] Chief Complaint; pain abdomen Reason for consult: CKD management HPI: Pt is a 73 y/o F with PMHx of uterine ca s/p radiation therapy which she completed in december 2018, CAD s/p stents, DM, CKD 4 with baseline cr 2.4, PVD, HTN, L-sided carotid stenosis s/p endarterectomy, obesity presented with complaints of pain abdomen and found to have partial SBO. renal consult for CKD management. she feels better at present. pain abdomen is better. denies CP/SOB Denies OTC/herbal meds or NSAIDs No recent iodinated contrast exposure. No obvious episodes of low BP. ROS: Cardiovascular: No chest pain. Pulmonary: No shortness of breath Gastrointestinal: denies abdominal pain at present No nausea. No vomiting. Genitourinary: No pain while urinating. Denies blood in urine. All other negative except as mentioned in HPI Physical Examination: General Appearance: Comfortable, in no acute respiratory distress, co-operative . obese Vitals reviewed and noted as below Head; Atraumatic, normocephalic ENT: no ulcers no thrush. Tongue is midline. Oropharynx: no rash or ulcers. EYES: Pupils are equal, round and reactive to light accommodation. Eye muscles and extraocular movement intact. Sclera is anicteric. Neck; supple no lymphadenopathy, no thyromegaly or bruit Lungs: Normal respiratory rate/effort. Breath sounds bilateral equal and clear Heart: Normal rate. s1s2 normal. No rub or gallop. Extremities: no edema. No varicose veins Neurological: Patient is alert, awake and oriented to person, place and time. No focal deficit. Strength bilateral appropriate and equal Skin: Warm and dry. Normal turgor. No rash. Palpitation: Normal elasticity for age Abdomen: Abdomen is soft. Bowel sounds +. There is no abdominal tenderness, no guarding/rigidity no organomegaly Psych: normal insight and normal affect/mood MSK: no joint tenderness or swelling. Digits and nails normal, no deformity : kidney or bladder not palpable Labs/imaging reviewed. Past medical history, past surgical history, family history, social history, allergy reviewed and noted as below Family hx: hx of ESKD in son. Rest non-contributory Past Patient History - Tetanus Immunizations Tetanus Immunization: Unknown - Past Social History Smoking Status: Never Smoked - CARDIAC Hx Cardiac Disorders: Yes Hx Hypercholesterolemia: Yes Hx Hypertension: Yes Other/Comment: HEART ATTACK - PULMONARY Hx Respiratory Disorders: No - NEUROLOGICAL Hx Neurological Disorder: Yes HX Cerebrovascular Accident: Yes - HEENT Hx HEENT Problems: No - RENAL Hx Chronic Kidney Disease: Yes Hx Renal Failure: Yes (stage 4 renal failure, denies having dialysis tx) - ENDOCRINE/METABOLIC Hx Endocrine Disorders: Yes Hx Diabetes Mellitus Type 2: Yes - HEMATOLOGICAL/ONCOLOGICAL Hx Blood Disorders: Yes Hx Anemia: Yes - INTEGUMENTARY Hx Dermatological Problems: No - MUSCULOSKELETAL/RHEUMATOLOGICAL Hx Musculoskeletal Disorders: No - GASTROINTESTINAL Hx Gastrointestinal Disorders: No - GENITOURINARY/GYNECOLOGICAL Hx Genitourinary Disorders: Yes - PSYCHIATRIC Hx Psychophysiologic Disorder: No - SURGICAL HISTORY Hx Surgeries: Yes Hx Amputation: Yes (L great toe) Hx Cardiac Catheterization: Yes Hx Coronary Stent: Yes - ANESTHESIA Hx Anesthesia: Yes Hx Anesthesia Reactions: No Hx Malignant Hyperthermia: No Meds Allergies/Adverse Reactions: Allergies Allergy/AdvReac Type Severity Reaction Status Date / Time Penicillins Allergy ANGIOEDEMA Verified 01/13/19 05:05 strawberry Allergy ANGIOEDEMA Verified 01/13/19 05:05 - Medications Medications: Current Medications Amlodipine Besylate (Norvasc) 5 mg PO DAILY [facility] Last Admin: 01/13/19 10:02 Dose: 5 mg Aspirin (Ecotrin) 81 mg PO DAILY [facility] Atorvastatin Calcium (Lipitor) 80 mg PO HS [facility] Carvedilol (Coreg) 12.5 mg PO BID [facility] Last Admin: 01/13/19 10:04 Dose: 12.5 mg Clopidogrel Bisulfate (Plavix) 75 mg PO DAILY [facility] Last Admin: 01/13/19 10:02 Dose: Not Given Famotidine (Pepcid) 20 mg IVP DAILY [facility] Last Admin: 01/13/19 10:04 Dose: 20 mg Heparin Sodium (Porcine) (Heparin) 5,000 units SC Q8 [facility]; Protocol Home Med (Home Med) 1 unit PO DAILY [facility] Last Admin: 01/13/19 10:01 Dose: 1 unit Hydralazine HCl (Apresoline) 25 mg PO QID [facility] Last Admin: 01/13/19 10:03 Dose: 25 mg Hydralazine HCl (Apresoline) 10 mg IVP Q6 PRN PRN Reason: Systolic Blood Pressure Hydromorphone HCl (Dilaudid) 0.5 mg IVP Q6H PRN PRN Reason: Pain, severe (8-10) Last Admin: 01/13/19 10:00 Dose: 0.5 mg Sodium Chloride (Sodium Chloride 0.9%) 1,000 mls @ 50 mls/hr IV .Q20H [facility] Insulin Detemir (Levemir) 15 unit SC Q12 [facility] Last Admin: 01/13/19 09:51 Dose: Not Given Insulin Human Regular (Humulin R Low) 0 units SC ACHS [facility]; Protocol Last Admin: 01/13/19 12:17 Dose: Not Given Isosorbide Mononitrate (Imdur) 60 mg PO DAILY [facility] Last Admin: 01/13/19 10:02 Dose: 60 mg Ondansetron HCl (Zofran Inj) 4 mg IVP Q6 PRN PRN Reason: Nausea/Vomiting Last Admin: 01/13/19 10:04 Dose: 4 mg Results - Vital Signs Recent Vital Signs: Last Vital Signs Temp 98.2 F 01/13/19 07:58 Pulse 81 01/13/19 10:04 Resp 18 01/13/19 08:05 BP 155/71 H 01/13/19 10:04 Pulse Ox 98 01/13/19 06:14 - Labs Result Diagrams: 01/13/19 02:37 01/13/19 02:45 Labs: Laboratory Results - last 24 hr 01/13/19 01/13/19 01/13/19 02:37 02:45 05:16 WBC 9.5 RBC 4.30 Hgb 10.5 L Hct 32.9 L MCV 76.5 L MCH 24.4 L MCHC 31.9 RDW 17.8 H Plt Count 228 MPV 10.8 Neut % (Auto) 86.5 H Lymph % (Auto) 8.6 L [place] % (Auto) 3.3 Eos % (Auto) 1.5 Baso % (Auto) 0.1 Lymph # (Auto) 0.8 L [place] # (Auto) 0.3 Eos # (Auto) 0.1 Baso # (Auto) 0.01 Absolute Neuts (auto) 8.25 H PT INR APTT Sodium 142 Potassium 4.0 Chloride 101 Carbon Dioxide 29 Anion Gap 15 BUN 31 H Creatinine 2.5 H Est GFR ( Amer) 23 Est GFR (Non-Af Amer) 19 POC Glucose (mg/dL) 184 H Random Glucose 111 H Hemoglobin A1c Calcium 9.8 Phosphorus 3.5 Magnesium 2.0 Iron TIBC % Saturation Ferritin Total Bilirubin 0.4 AST 30 ALT 13 Alkaline Phosphatase 89 Total Creatine Kinase 110 Troponin I 0.02 Total Protein 8.5 H Albumin 4.2 Globulin 4.3 Albumin/Globulin Ratio 1.0 L Triglycerides Cholesterol LDL Cholesterol Direct HDL Cholesterol Lipase 150 Vitamin B12 Folate Free T4 TSH 3rd Generation 01/13/19 01/13/19 01/13/19 08:00 08:00 08:00 WBC RBC Hgb Hct MCV MCH MCHC RDW Plt Count MPV Neut % (Auto) Lymph % (Auto) [place] % (Auto) Eos % (Auto) Baso % (Auto) Lymph # (Auto) [place] # (Auto) Eos # (Auto) Baso # (Auto) Absolute Neuts (auto) PT INR APTT Sodium Potassium Chloride Carbon Dioxide Anion Gap BUN Creatinine Est GFR ( Amer) Est GFR (Non-Af Amer) POC Glucose (mg/dL) Random Glucose Hemoglobin A1c 6.8 H Calcium Phosphorus 4.1 Magnesium 1.9 Iron TIBC % Saturation Ferritin 151.0 Total Bilirubin AST ALT Alkaline Phosphatase Total Creatine Kinase Troponin I Total Protein Albumin Globulin Albumin/Globulin Ratio Triglycerides 74 Cholesterol 136 LDL Cholesterol Direct 72 HDL Cholesterol 34 Lipase 88 Vitamin B12 426 Folate 10.7 Free T4 TSH 3rd Generation 01/13/19 01/13/19 01/13/19 08:00 08:00 08:15 WBC RBC Hgb Hct MCV MCH MCHC RDW Plt Count MPV Neut % (Auto) Lymph % (Auto) [place] % (Auto) Eos % (Auto) Baso % (Auto) Lymph # (Auto) [place] # (Auto) Eos # (Auto) Baso # (Auto) Absolute Neuts (auto) PT INR APTT Sodium Potassium Chloride Carbon Dioxide Anion Gap BUN Creatinine Est GFR ( Amer) Est GFR (Non-Af Amer) POC Glucose (mg/dL) 170 H Random Glucose Hemoglobin A1c Calcium Phosphorus Magnesium Iron 76 TIBC 232 L % Saturation 33 Ferritin Total Bilirubin AST ALT Alkaline Phosphatase Total Creatine Kinase Troponin I Total Protein Albumin Globulin Albumin/Globulin Ratio Triglycerides Cholesterol LDL Cholesterol Direct HDL Cholesterol Lipase Vitamin B12 Folate Free T4 1.12 TSH 3rd Generation 2.69 01/13/19 01/13/19 09:00 11:16 WBC RBC Hgb Hct MCV MCH MCHC RDW Plt Count MPV Neut % (Auto) Lymph % (Auto) [place] % (Auto) Eos % (Auto) Baso % (Auto) Lymph # (Auto) [place] # (Auto) Eos # (Auto) Baso # (Auto) Absolute Neuts (auto) PT 12.0 INR 1.06 APTT 32.2 Sodium Potassium Chloride Carbon Dioxide Anion Gap BUN Creatinine Est GFR ( Amer) Est GFR (Non-Af Amer) POC Glucose (mg/dL) 169 H Random Glucose Hemoglobin A1c Calcium Phosphorus Magnesium Iron TIBC % Saturation Ferritin Total Bilirubin AST ALT Alkaline Phosphatase Total Creatine Kinase Troponin I Total Protein Albumin Globulin Albumin/Globulin Ratio Triglycerides Cholesterol LDL Cholesterol Direct HDL Cholesterol Lipase Vitamin B12 Folate Free T4 TSH 3rd Generation
--- NOTE | 2019-01-13 14:55 | US ---
Date of service: 01/13/2019 PROCEDURE: Ultrasound of the Kidneys HISTORY: CKD, Cr 2.5 COMPARISON: None available. TECHNIQUE: Sonogram of the kidneys. FINDINGS: RIGHT KIDNEY: Measures: 9.8 cm. Normal in size, contour diffuse echogenicity. No stone, solid mass lesion or hydronephrosis visualized. LEFT KIDNEY: Measures: 9.7 cm. Normal in size, contour with diffuse increased echogenicity. No stone, solid mass lesion or hydronephrosis visualized. OTHER FINDINGS: None. IMPRESSION: Normal with medical renal disease. No hydronephrosis or nephrolithiasis.
[2019-01-13 16:16] LABS: TRANSFERRIN 148.95 mg/dL (206-381)
--- NOTE | 2019-01-13 17:41 | CARD ---
APPROVED REPORT Date of service: 01/13/2019 EKG Measurement Heart [id number] <Conclusion> Normal sinus rhythm Left bundle branch block Abnormal ECG
[2019-01-13 18:20] LABS: URINE APPEARANCE CLEAR (CLEAR); URINE BILIRUBIN NEGATIVE (NEGATIVE); URINE BLOOD SMALL (NEGATIVE); URINE COLOR YELLOW (YELLOW); URINE GLUCOSE (UA) NEGATIVE (NEGATIVE); URINE LEUKOCYTE ESTERASE NEGATIVE Leu/uL (NEGATIVE); URINE PROTEIN >=300 mg/dL (<30 mg/dL); URINE UROBILINOGEN 0.2 E.U./dL (<1 E.U./dL)
[2019-01-13] MEDS ORDERED: HYDROmorphone 0.5 mg/0.5 ml ISec IVP PRN (18:21)
[2019-01-13 18:31] LABS: URINE BACTERIA TRACE /hpf; URINE EPITHELIAL CELLS 0 - 2 /hpf (0-5); URINE WBC 0 - 2 /hpf (0-6)
[2019-01-13] MEDS ORDERED: Benzocaine/Menthol (Cepacol) Lozenge MT PRN (18:53)
--- NOTE | 2019-01-13 19:01 | CP.PCM.PCO ---
Physician Communication Note - Physician Communication Note Physician Communication Note: Billious emesis --> NGT placed, zofran, cepacol.
[2019-01-13] MEDS ORDERED: HYDROmorphone 0.5 mg/0.5 ml ISec IVP STA (20:06)
[2019-01-13 20:33] LABS: HEMOGLOBIN 10.6 g/dL (12.0-16.0); MEAN CORPUSCULAR HEMOGLOBIN 24.1 pg (25.0-35.0); MEAN CORPUSCULAR HGB CONC 31.3 g/dl (31.0-37.0); RBC 4.4 10^6/uL (3.5-6.1); RED CELL DISTRIBUTION WIDTH 17.9 % (11.5-14.5); WHITE BLOOD COUNT 7.3 10^3/uL (4.5-11.0)
[2019-01-13 20:45] LABS: ALB/GLOB RATIO 0.9 (1.1-1.8); ALBUMIN 3.8 g/dL (3.0-4.8); CALCIUM 9.3 mg/dL (8.4-10.5)
[2019-01-13] MEDS ORDERED: HYDROmorphone 1 mg/ml ISec IVP PRN (20:52)
[2019-01-13] MEDS ORDERED: HYDROmorphone 1 mg/ml ISec IVP STA (21:28)
--- NOTE | 2019-01-13 22:43 | CON ---
DATE: 01/13/2019 CONSULT SERVICE: Cardiology REASON FOR CONSULTATION: Cardiac evaluation, history of coronary stent, history of peripheral stent, history of carotid stent, admitted with a small bowel obstruction, left bundle-branch block. BRIEF CLINICAL HISTORY: This is a 73-year-old morbidly obese female with a past medical history significant for coronary artery disease status post 2 stents in the coronaries, history of severe peripheral arterial disease, 3 stents in the left leg and history of a stent in the left carotid artery, history of a uterine cancer status post radiation therapy, history of hypertension and history of left big toe amputation, admitted with abdominal pain, vomiting, nausea. Working diagnosis of small-bowel obstruction. Cardiology consult was called because the patient is a baseline left bundle branch block and history of multiple stents. The patient denies any history chest pain, shortness of breath, or any palpitation. The patient is not in apparent distress. PAST MEDICAL HISTORY: Significant for coronary stent in 2008 at [place], a year ago at [place] and history of 3 peripheral stents in 2013, history of amputation of the left toe, history of left carotid artery stent in 2008, history of CVA in 2003. PAST SURGICAL HISTORY: History of carotid artery stent, history of multiple lower extremity stents and history of 2 coronary stents and 3 lower extremity stents as well as a carotid artery stent. History of peripheral vascular disease status post left amputation, history of uterine cancer status post radiation and medical treatment. FAMILY HISTORY: Significant for coronary artery disease, having hypertension and breast cancer in the granddaughter and herself with a uterine cancer. SOCIAL HISTORY: Denies any smoking, denies any history of alcohol abuse. ALLERGIES: TO PENICILLIN AND STRAWBERRY. CURRENT MEDICATIONS: The patient at home was taking nifedipine 1 tablet daily, Pletal 1 tablet daily, amlodipine, Norvasc 5 mg daily, Calciferol 1 tablet daily, Protonix 40 mg daily, Coreg 6.25 mg with insulin, hydralazine, Plavix 75 mg daily, aspirin 81 mg daily, and Crestor 20 mg daily. REVIEW OF SYSTEMS: As per history of present illness. PHYSICAL EXAMINATION GENERAL: Height of the patient is 4 feet 11 inches, weight of the patient 239 pounds, body mass index 47 kg/m2. VITAL SIGNS: Temperature afebrile, heart rate of 81, blood pressure 155/71. HEENT: PERRLA, Extraocular muscles intact. NECK: Supple. No carotid bruit or thyromegaly. CHEST: Clear to auscultation. HEART: S1 and S2 regular. ABDOMEN: Soft. EXTREMITIES: Clubbing and cyanosis negative. LABORATORY DATA: Blood workup as follows; WBC of 9.1, hemoglobin of 10.1, hematocrit 32.9, platelet count of 228. Chemistry shows sodium of 140, potassium of 4, chloride of 101, carbon dioxide 21, anion gap of 9, BUN 13, creatinine of 2.5, TSH of 2.69. EKG shows normal sinus, left bundle branch block, no acute ST-T wave changes noted. IMPRESSION: A 73-year-old female with past medical history of obesity, history of uterine cancer, history of coronary artery disease status post 2 stents, one in 2013 possibly in [place], then recently a year ago in [place]. History of peripheral artery disease status post 3 stents in the left lower extremity, history of carotid artery stent, admitted with acute small bowel obstruction, on aspirin and Plavix. No cardiac symptoms at this time. She is at baseline. EKG; left bundle branch block. RECOMMENDATION: We will get echo to assess LV function. We will get lipid profile and hemoglobin A1c, monitor closely with surgical consult. Should the patient need to go for acute surgical exploration, can then go with a [id number] risk level because of underlying comorbidity, but no absolute contraindication. We will follow with you. Thank you Dr. Hernandez for providing us the opportunity in taking care of the patient, Lizabeth Guido. Paula Coronel MD
[2019-01-14] MEDS: HYDROmorphone 1 mg/ml ISec IVP PRN ×2 (00:52→05:34)
--- NOTE | 2019-01-14 07:39 | CP.PCM.PN ---
Subjective - Date & Time of Evaluation Date of Evaluation: 01/14/19 Time of Evaluation: 07:36 - Subjective Subjective: SURGERY NOTE FOR DR. JACOBSON 73F seen and examined at bedside. Patient currently tired from pain medications which have been helping her abdominal pain. Overnight patient has episode of nausea and vomiting, NGT was placed after vomiting which only expressed 20cc of gastric content. NGT was pulled out by patient due to comfort. She currently denies nausea. She denies flatus. Objective - Vital Signs/Intake and Output Vital Signs (last 24 hours): Temp Pulse Resp BP Pulse Ox 98.3 F 78 20 186/97 H 98 01/13/19 16:55 01/14/19 00:24 01/13/19 16:55 01/14/19 00:24 01/13/19 16:55 Intake and Output: 01/14/19 01/14/19 06:59 18:59 Intake Total 0 Balance 0 - Medications Medications: Current Medications Amlodipine Besylate (Norvasc) 10 mg PO DAILY [facility] Aspirin (Ecotrin) 81 mg PO DAILY [facility] Atorvastatin Calcium (Lipitor) 80 mg PO HS [facility] Last Admin: 01/13/19 22:13 Dose: Not Given Benzocaine/Menthol (Cepacol Sore Throat) 1 alyssa [place] Q2H PRN PRN Reason: Sore Throat Carvedilol (Coreg) 12.5 mg PO BID [facility] Last Admin: 01/13/19 17:50 Dose: 12.5 mg Clopidogrel Bisulfate (Plavix) 75 mg PO DAILY [facility] Last Admin: 01/13/19 10:02 Dose: Not Given Famotidine (Pepcid) 20 mg IVP DAILY [facility] Last Admin: 01/13/19 10:04 Dose: 20 mg Heparin Sodium (Porcine) (Heparin) 5,000 units SC Q8 [facility]; Protocol Last Admin: 01/14/19 05:37 Dose: 5,000 units Home Med (Home Med) 1 unit PO DAILY [facility] Last Admin: 01/13/19 10:01 Dose: 1 unit Hydralazine HCl (Apresoline) 25 mg PO QID [facility] Last Admin: 01/13/19 22:11 Dose: Not Given Hydralazine HCl (Apresoline) 10 mg IVP Q6 PRN PRN Reason: Systolic Blood Pressure Last Admin: 01/14/19 00:24 Dose: 10 mg Hydromorphone HCl (Dilaudid) 0.5 mg IVP Q3H PRN PRN Reason: Pain, moderate (4-7) Hydromorphone HCl (Dilaudid) 1 mg IVP Q3H PRN PRN Reason: Pain, severe (8-10) Last Admin: 01/14/19 05:34 Dose: 1 mg Sodium Chloride (Sodium Chloride 0.9%) 1,000 mls @ 50 mls/hr IV .Q20H [facility] Last Admin: 01/13/19 12:30 Dose: 50 mls/hr Insulin Detemir (Levemir) 15 unit SC Q12 [facility] Last Admin: 01/13/19 22:12 Dose: 15 units Insulin Human Regular (Humulin R Low) 0 units SC ACHS [facility]; Protocol Last Admin: 01/13/19 22:07 Dose: Not Given Isosorbide Mononitrate (Imdur) 60 mg PO DAILY [facility] Last Admin: 01/13/19 10:02 Dose: 60 mg Ondansetron HCl (Zofran Inj) 4 mg IVP Q4H PRN PRN Reason: Nausea/Vomiting Last Admin: 01/14/19 05:36 Dose: 4 mg - Labs Labs: 01/13/19 20:25 01/13/19 20:25 PT 12.0 SECONDS (9.4-12.5) 01/13/19 09:00 INR 1.06 01/13/19 09:00 APTT 32.2 Seconds (26.9-38.3) 01/13/19 09:00 - Constitutional Appears: Non-toxic, No Acute Distress, Other (confused to to pain meds) - ENT Exam ENT Exam: Mucous Membranes Moist - Respiratory Exam Respiratory Exam: Clear to Ausculation Bilateral, NORMAL BREATHING PATTERN - Cardiovascular Exam Cardiovascular Exam: REGULAR RHYTHM, +S1, +S2 - GI/Abdominal Exam GI & Abdominal Exam: Distended, Soft, Tenderness. absent: Firm, Guarding, Rig id, Rebound - Extremities Exam Extremities Exam: absent: Pedal Edema, Tenderness - Neurological Exam Neurological Exam: Alert, Awake - Skin Skin Exam: Dry, Intact, Normal Color, Warm Assessment and Plan - Assessment and Plan (Free Text) Assessment: 73F with hx of uterine ca and radiation presents with small bowel obstruction Plan: - NPO - Serial abdominal exams - Monitor for nausea/vomiting - Attempt NGT again once nauseous - Pain control - Monitor for BM - Echocardiogram Further recs discuss with Dr. Lonny Pappas, PGY3
--- NOTE | 2019-01-14 07:40 | CP.PCM.PN ---
Subjective - Date & Time of Evaluation Date of Evaluation: 01/14/19 Time of Evaluation: 06:35 - Subjective Subjective: No distress, lying in bed Reason for consultation and follow up: Cardiac evaluation of bundle branch block on EKG, history of coronary artery disease post stents, peripheral vascular disease post peripheral left leg stents, post left carotid stents, Seen and examined by me and Dr. Coronel Objective - Vital Signs/Intake and Output Vital Signs (last 24 hours): Temp Pulse Resp BP Pulse Ox 98.3 F 78 20 186/97 H 98 01/13/19 16:55 01/14/19 00:24 01/13/19 16:55 01/14/19 00:24 01/13/19 16:55 Intake and Output: 01/14/19 01/14/19 06:59 18:59 Intake Total 0 Balance 0 - Medications Medications: Current Medications Amlodipine Besylate (Norvasc) 10 mg PO DAILY [facility] Aspirin (Ecotrin) 81 mg PO DAILY [facility] Atorvastatin Calcium (Lipitor) 80 mg PO HS [facility] Last Admin: 01/13/19 22:13 Dose: Not Given Benzocaine/Menthol (Cepacol Sore Throat) 1 alyssa MT Q2H PRN PRN Reason: Sore Throat Carvedilol (Coreg) 12.5 mg PO BID [facility] Last Admin: 01/13/19 17:50 Dose: 12.5 mg Clopidogrel Bisulfate (Plavix) 75 mg PO DAILY [facility] Last Admin: 01/13/19 10:02 Dose: Not Given Famotidine (Pepcid) 20 mg IVP DAILY [facility] Last Admin: 01/13/19 10:04 Dose: 20 mg Heparin Sodium (Porcine) (Heparin) 5,000 units SC Q8 [facility]; Protocol Last Admin: 01/14/19 05:37 Dose: 5,000 units Home Med (Home Med) 1 unit PO DAILY [facility] Last Admin: 01/13/19 10:01 Dose: 1 unit Hydralazine HCl (Apresoline) 25 mg PO QID [facility] Last Admin: 01/13/19 22:11 Dose: Not Given Hydralazine HCl (Apresoline) 10 mg IVP Q6 PRN PRN Reason: Systolic Blood Pressure Last Admin: 01/14/19 00:24 Dose: 10 mg Hydromorphone HCl (Dilaudid) 0.5 mg IVP Q3H PRN PRN Reason: Pain, moderate (4-7) Hydromorphone HCl (Dilaudid) 1 mg IVP Q3H PRN PRN Reason: Pain, severe (8-10) Last Admin: 01/14/19 05:34 Dose: 1 mg Sodium Chloride (Sodium Chloride 0.9%) 1,000 mls @ 50 mls/hr IV .Q20H [facility] Last Admin: 01/13/19 12:30 Dose: 50 mls/hr Insulin Detemir (Levemir) 15 unit SC Q12 [facility] Last Admin: 01/13/19 22:12 Dose: 15 units Insulin Human Regular (Humulin R Low) 0 units SC ACHS [facility]; Protocol Last Admin: 01/13/19 22:07 Dose: Not Given Isosorbide Mononitrate (Imdur) 60 mg PO DAILY [facility] Last Admin: 01/13/19 10:02 Dose: 60 mg Ondansetron HCl (Zofran Inj) 4 mg IVP Q4H PRN PRN Reason: Nausea/Vomiting Last Admin: 01/14/19 05:36 Dose: 4 mg - Labs Labs: 01/13/19 20:25 01/13/19 20:25 PT 12.0 SECONDS (9.4-12.5) 01/13/19 09:00 INR 1.06 01/13/19 09:00 APTT 32.2 Seconds (26.9-38.3) 01/13/19 09:00 Assessment and Plan - Assessment and Plan (Free Text) Assessment: A 73 year old morbidly obese female who came in to the ER due to abdominal pain with nausea and vomiting. History of coronary artery disease post stents,(2008, 2017) peripheral vascular disease, post peripheral left leg stents,post left toe amputation, post left carotid endarterectomy (2008), CVA in 2003 chronic kidney disease, hypertension, chronic iron-deficiency anemia, uterine cancer post radiation therapy, diabetes. Baseline EKG showed Left bundle branch block, no ST-T wave changes, denies chest pain. Will order echo to evaluate LV function. Admitted for small bowel obstruction. Cleared for surgery moderate to high risk considering co-morbidities if decided to go for surgery. No absolute contraindication. Had nausea and vomiting overnight. NGT tube inserted with 20 cc drainage however patient pulled out NGT due to discomfort. Cardiac status stable. Plan: Nausea and vomiting overnight NGT inserted however patient pulled out Abdominal X ray done pending results Kept NPO Heart rate stable Blood pressure uncontrolled Unable to take oral medication will switch to IV Cardiac status stable For echo to evaluate LV function Continue current treatment Continue current medications Continue IV for hydration Will follow up Plan and treatment discussed with Dr. Coronel
[2019-01-14] MEDS: Insulin Reg-LOW-Coverage SC SCH ×4 (07:41→22:35)
--- NOTE | 2019-01-14 07:58 | RAD ---
Date of service: 01/13/2019 HISTORY: s/p NGT placement COMPARISON: No prior. TECHNIQUE: 1 view obtained. FINDINGS: LUNGS: No active pulmonary disease. PLEURA: No significant pleural effusion identified, no pneumothorax apparent. CARDIOVASCULAR: No aortic atherosclerotic calcification present. Normal cardiac size. No pulmonary vascular congestion. OSSEOUS STRUCTURES: No significant abnormalities. VISUALIZED UPPER ABDOMEN: Normal. OTHER FINDINGS: None. IMPRESSION: No active disease. Nasogastric tube in satisfactory position
[2019-01-14] MEDS ORDERED: Sodium Chloride 0.9% 1,000 ML IV STA ×4 (08:20→14:38)
--- NOTE | 2019-01-14 08:21 | RAD ---
Date of service: 01/13/2019 HISTORY: abdominal pain COMPARISON: None available. TECHNIQUE: Three view obtained. FINDINGS: BOWEL: Mildly dilated loops of small bowel are seen in the left upper quadrant. The nasogastric tube is in satisfactory position. BONES: Normal. OTHER FINDINGS: None. IMPRESSION: Mildly dilated loops of small bowel are seen in the left upper quadrant. The nasogastric tube is in satisfactory position.
[2019-01-14] MEDS ORDERED: Sodium Chloride 0.9% 500 ML IV STA (09:50)
--- NOTE | 2019-01-14 09:53 | RAD ---
Date of service: 01/14/2019 HISTORY: sbo, hypotensive, N/V COMPARISON: 01/13/2019 TECHNIQUE: 1 view obtained. FINDINGS: LUNGS: No active pulmonary disease. PLEURA: No significant pleural effusion identified, no pneumothorax apparent. CARDIOVASCULAR: No aortic atherosclerotic calcification present. Normal cardiac size. No pulmonary vascular congestion. OSSEOUS STRUCTURES: No significant abnormalities. VISUALIZED UPPER ABDOMEN: Normal. OTHER FINDINGS: None. IMPRESSION: No active disease.
[2019-01-14] MEDS ORDERED: Sodium Chloride 0.9% 1,000 ML IV SCH ×2 (10:25)
[2019-01-14] MEDS: CALCIFEDIOL 30 MCG PO SCH (10:40)
[2019-01-14] MEDS: Insulin Detemir 100 units/ml Vial (Levemir) SC SCH ×2 (10:42→22:40)
--- NOTE | 2019-01-14 12:16 | CP.PCM.PN ---
Subjective - Date & Time of Evaluation Date of Evaluation: 01/14/19 Time of Evaluation: 12:14 - Subjective Subjective: Nephrology Consultation Note: Assessment: critical partial SBO Diabetic chronic Kidney Disease (E11.22) Hypertensive Chronic Kidney Disease (I12.9) with HTN urgency Chronic Kidney Disease (N18.4) Stage Anemia (D64.9), Hyperphosphatemia (E83.39), Secondary Hyperparathyroidism (E21.1), HTN (I12.9) obesity uterine ca s/p radiation therapy CAD s/p stents, PVD, L-sided carotid stenosis s/p endarterectomy Plan No acute need for renal replacement therapy at this time. Hypertension control with meds as ordered. Maintain hemodynamics stable. Avoid hypotension. Patient not on ACEI/ARB, can consider as outpt. resume home bp meds Monitor Input/Output, daily weights and renal function with basic metabolic panel continue with current meds pt follows up with fiber locking supervisor as outpt for anemia management. TRANG if Hb <10 surgery following continue IVF as NS @ 75 ml/hr while pt npo Dose meds/antibiotics for reduced GFR. Avoid fleets enema/magnesium based laxatives. Avoid nephrotoxins/NSAIDs/ iodinated contrast (unless needed emergently) Glycemic control Further work up/management as per primary team Thanks for allowing me to participate in care of your patient. Will follow patient with you. Please call if any Qs. had d/w team Dr Ant Burrell Office: [phone] Chief Complaint; pain abdomen Reason for consult: CKD management HPI: Pt is a 73 y/o F with PMHx of uterine ca s/p radiation therapy which she completed in december 2018, CAD s/p stents, DM, CKD 4 with baseline cr 2.4, PVD, HTN, L-sided carotid stenosis s/p endarterectomy, obesity presented with complaints of pain abdomen and found to have partial SBO. renal consult for CKD management. she feels better at present. pain abdomen is better. denies CP/SOB Denies OTC/herbal meds or NSAIDs No recent iodinated contrast exposure. No obvious episodes of low BP. ROS: noted ovenight events. she got pain meds and she is sleepy at present. unable to provide ros Physical Examination: General Appearance: uncomfortable, in no acute respiratory distress, obese Vitals reviewed and noted as below Head; Atraumatic, normocephalic ENT: no ulcers no thrush. Tongue is midline. Oropharynx: no rash or ulcers. EYES: Pupils are equal, round and reactive to light accommodation. Eye muscles and extraocular movement intact. Sclera is anicteric. Neck; supple no lymphadenopathy, no thyromegaly or bruit Lungs: Normal respiratory rate/effort. Breath sounds bilateral equal and clear Heart: Normal rate. s1s2 normal. No rub or gallop. Extremities: no edema. No varicose veins Neurological: Patient is sleepy but arousable. Skin: Warm and dry. Normal turgor. No rash. Palpitation: Normal elasticity for age Abdomen: There is abdominal tenderness with guarding no organomegaly Psych: deferred MSK: no joint tenderness or swelling. Digits and nails normal, no deformity : kidney or bladder not palpable Labs/imaging reviewed. Past medical history, past surgical history, family history, social history, allergy reviewed and noted as below Family hx: hx of ESKD in son. Rest non-contributory Objective - Vital Signs/Intake and Output Vital Signs (last 24 hours): Temp Pulse Resp BP Pulse Ox 97.8 F 72 20 90/61 L 98 01/14/19 09:38 01/14/19 09:38 01/14/19 09:38 01/14/19 09:38 01/14/19 09:38 Intake and Output: 01/14/19 01/14/19 06:59 18:59 Intake Total 0 Balance 0 - Medications Medications: Current Medications Amlodipine Besylate (Norvasc) 10 mg PO DAILY [facility] Aspirin (Ecotrin) 81 mg PO DAILY [facility] Atorvastatin Calcium (Lipitor) 80 mg PO HS [facility] Last Admin: 01/13/19 22:13 Dose: Not Given Benzocaine/Menthol (Cepacol Sore Throat) 1 alyssa MT Q2H PRN PRN Reason: Sore Throat Carvedilol (Coreg) 12.5 mg PO BID [facility] Clonidine HCl (Catapres-Tts2 0.2 Mg/24 Hr) 1 patch TD Q7D@1000 [facility] Clopidogrel Bisulfate (Plavix) 75 mg PO DAILY [facility] Last Admin: 01/13/19 10:02 Dose: Not Given Famotidine (Pepcid) 20 mg IVP DAILY [facility] Last Admin: 01/13/19 10:04 Dose: 20 mg Heparin Sodium (Porcine) (Heparin) 5,000 units SC Q8 [facility]; Protocol Last Admin: 01/14/19 05:37 Dose: 5,000 units Home Med (Home Med) 1 unit PO DAILY [facility] Last Admin: 01/13/19 10:01 Dose: 1 unit Hydralazine HCl (Apresoline) 25 mg PO QID [facility] Last Admin: 01/13/19 22:11 Dose: Not Given Hydralazine HCl (Apresoline) 10 mg IVP Q6 PRN PRN Reason: Systolic Blood Pressure Last Admin: 01/14/19 00:24 Dose: 10 mg Hydromorphone HCl (Dilaudid) 0.5 mg IVP Q3H PRN PRN Reason: Pain, moderate (4-7) Hydromorphone HCl (Dilaudid) 1 mg IVP Q3H PRN PRN Reason: Pain, severe (8-10) Last Admin: 01/14/19 05:34 Dose: 1 mg Sodium Chloride (Sodium Chloride 0.9%) 1,000 mls @ 75 mls/hr IV .[id number] [facility] Insulin Detemir (Levemir) 15 unit SC Q12 [facility] Last Admin: 01/13/19 22:12 Dose: 15 units Insulin Human Regular (Humulin R Low) 0 units SC ACHS [facility]; Protocol Last Admin: 01/13/19 22:07 Dose: Not Given Isosorbide Mononitrate (Imdur) 60 mg PO DAILY [facility] Last Admin: 01/13/19 10:02 Dose: 60 mg Ondansetron HCl (Zofran Inj) 4 mg IVP Q4H PRN PRN Reason: Nausea/Vomiting Last Admin: 01/14/19 05:36 Dose: 4 mg - Labs Labs: 01/13/19 20:25 01/13/19 20:25 PT 12.0 SECONDS (9.4-12.5) 01/13/19 09:00 INR 1.06 01/13/19 09:00 APTT 32.2 Seconds (26.9-38.3) 01/13/19 09:00
--- NOTE | 2019-01-14 12:59 | CARD ---
APPROVED REPORT Date of service: 01/14/2019 EXAM: Two-dimensional and M-mode echocardiogram with Doppler and color Doppler. INDICATION SBO,POSSIBLE PRE-OP 2D DIMENSIONS Left Atrium (2D)3.7 (1.6-4.0cm)IVSd1.6 (0.7-1.1cm) LVDd3.0 (3.9-5.9cm)PWd1.6 (0.7-1.1cm) LVDs2.2 (2.5-4.0cm)FS (%) 24.7 % LVEF (%)50.6 (>50%) M-Mode DIMENSIONS Aortic Root3.10 (2.2-3.7cm)Aortic Cusp Exc.1.60 (1.5-2.0cm) Aortic Valve AoV Peak Khpvzqcx919.0cm/Yo Peak GR.8mmHg Mitral Valve MV E Tsnpxzsi26.8cm/sMV A Hvifiefq419.0cm/sE/A ratio0.5 TDI Lateral E' Peak V5.95cm/sMedial E' Peak V4.58cm/sE/Lateral E'8.7 E/Medial E'11.3 Pulmonary Valve PV Peak Zsbqpxih211.0cm/sPV Peak Grad.4mmHg Tricuspid Valve TR Peak Mrlnbnkq247qw/sRAP OSAFQVPP48mtLdQP Peak Gr.23mmHg [id number] LEFT VENTRICLE The left ventricle is normal size. There is moderate concentric left ventricular hypertrophy. The left ventricular function is normal.EF50-55% There is mild hypokinesis in the mid-inferoseptal wall. Transmitral Doppler flow pattern is Grade III-reversible restrictive diastolic dysfunction. No left ventricle thrombus noted on this study. There is no ventricular septal defect visualized. There is no left ventricular aneurysm. There is no mass noted in the left ventricle. RIGHT VENTRICLE The right ventricle is normal size. There is normal right ventricular wall thickness. The right ventricular systolic function is normal. ATRIA The left atrium size is normal. The right atrium size is normal. The interatrial septum is intact with no evidence for an atrial septal defect. AORTIC VALVE The aortic valve is thickened but opens well. The aortic valve is moderately sclerotic. There is trace aortic regurgitation. There is no aortic valvular stenosis. There is no aortic valvular vegetation. MITRAL VALVE The mitral valve is thickened but opens well. Mitral annular calcification is severe. TRIVIAL MR There is no mitral valve stenosis. There is no evidence of mitral valve prolapse. TRICUSPID VALVE The tricuspid valve leaflets are thickened , but open well. There is mild tricuspid regurgitation.RVSP-33 mm of Hg. There is no tricuspid valve stenosis. There is no tricuspid valve prolapse or vegetation. PULMONIC VALVE The pulmonary valve is normal in structure. There is trace pulmonic valvular regurgitation. There is no pulmonic valvular stenosis. GREAT VESSELS The aortic root is normal in size. The ascending aorta is normal in size. The pulmonary artery is normal. The IVC is normal in size and collapses >50% with inspiration. PERICARDIAL EFFUSION There is no pleural effusion. There is a trace pericardial effusion. <Conclusion> The left ventricle is normal size. There is moderate concentric left ventricular hypertrophy. The left ventricular function is normal.EF50-55% There is trace aortic regurgitation. TRIVIAL MR There is mild tricuspid regurgitation.RVSP-33 mm of Hg. The IVC is normal in size and collapses >50% with inspiration. There is a trace pericardial effusion.
--- NOTE | 2019-01-14 13:00 | CP.PCM.PN ---
<Paddy Moreno - Last Filed: 01/14/19 16:20> Subjective - Date & Time of Evaluation Date of Evaluation: 01/14/19 Time of Evaluation: 07:30 - Subjective Subjective: Paddy Moreno DO PGY1 Hospitalist Progress Note for Dr Donovan Patient seen and examined at bedside. She is somnolent, lethargic this am and c/o diffuse abdominal pain. As per nursing, she received 4 mg of dilaudid and one ativan dose. Afebrile but hypotensive. Objective - Vital Signs/Intake and Output Vital Signs (last 24 hours): Temp Pulse Resp BP Pulse Ox 97.8 F 72 20 90/61 L 98 01/14/19 09:38 01/14/19 09:38 01/14/19 09:38 01/14/19 09:38 01/14/19 09:38 Intake and Output: 01/14/19 01/14/19 06:59 18:59 Intake Total 0 Balance 0 - Medications Medications: Current Medications Amlodipine Besylate (Norvasc) 10 mg PO DAILY [facility] Aspirin (Ecotrin) 81 mg PO DAILY [facility] Atorvastatin Calcium (Lipitor) 80 mg PO HS [facility] Last Admin: 01/13/19 22:13 Dose: Not Given Benzocaine/Menthol (Cepacol Sore Throat) 1 alyssa MT Q2H PRN PRN Reason: Sore Throat Carvedilol (Coreg) 12.5 mg PO BID [facility] Clonidine HCl (Catapres-Tts2 0.2 Mg/24 Hr) 1 patch TD Q7D@1000 [facility] Clopidogrel Bisulfate (Plavix) 75 mg PO DAILY [facility] Last Admin: 01/13/19 10:02 Dose: Not Given Famotidine (Pepcid) 20 mg IVP DAILY [facility] Last Admin: 01/13/19 10:04 Dose: 20 mg Heparin Sodium (Porcine) (Heparin) 5,000 units SC Q8 [facility]; Protocol Last Admin: 01/14/19 05:37 Dose: 5,000 units Home Med (Home Med) 1 unit PO DAILY [facility] Last Admin: 01/13/19 10:01 Dose: 1 unit Hydralazine HCl (Apresoline) 25 mg PO QID [facility] Last Admin: 01/13/19 22:11 Dose: Not Given Hydralazine HCl (Apresoline) 10 mg IVP Q6 PRN PRN Reason: Systolic Blood Pressure Last Admin: 01/14/19 00:24 Dose: 10 mg Hydromorphone HCl (Dilaudid) 0.5 mg IVP Q3H PRN PRN Reason: Pain, moderate (4-7) Hydromorphone HCl (Dilaudid) 1 mg IVP Q3H PRN PRN Reason: Pain, severe (8-10) Last Admin: 01/14/19 05:34 Dose: 1 mg Sodium Chloride (Sodium Chloride 0.9%) 1,000 mls @ 75 mls/hr IV .[id number] [facility] Insulin Detemir (Levemir) 15 unit SC Q12 [facility] Last Admin: 01/13/19 22:12 Dose: 15 units Insulin Human Regular (Humulin R Low) 0 units SC ACHS [facility]; Protocol Last Admin: 01/13/19 22:07 Dose: Not Given Isosorbide Mononitrate (Imdur) 60 mg PO DAILY [facility] Last Admin: 01/13/19 10:02 Dose: 60 mg Ondansetron HCl (Zofran Inj) 4 mg IVP Q4H PRN PRN Reason: Nausea/Vomiting Last Admin: 01/14/19 05:36 Dose: 4 mg - Labs Labs: 01/13/19 20:25 01/13/19 20:25 PT 12.0 SECONDS (9.4-12.5) 01/13/19 09:00 INR 1.06 01/13/19 09:00 APTT 32.2 Seconds (26.9-38.3) 01/13/19 09:00 - Additional Findings Additional findings: - Constitutional Appears: Non-toxic, lethargic Additional Comments: pale, dry mucous membranes - Head Head Exam: ATRAUMATIC, NORMAL INSPECTION, NORMOCEPHALIC - Eyes Eye Exam: EOMI - Respiratory Exam Respiratory Exam: Clear to Ausculation Bilateral. absent: Rales, Rhonchi, Whee zes - Cardiovascular Exam Cardiovascular Exam: +S1, +S2. absent: Gallop, Rubs - GI/Abdominal Exam GI & Abdominal Exam: Guarding, Soft, Tenderness (diffuse abdominal tenderness in all 4 quadrants), Hypoactive Bowel Sounds. absent: Rigid - Neurological Exam Neurological Exam: Awake, Oriented x3 - Extremities Exam Extremities Exam: Full ROM, Normal Inspection. absent: Pedal Edema Assessment and Plan - Assessment and Plan (Free Text) Assessment: 73 y/o F with PMH uterine ca s/p radiation therapy, CAD s/p PCI, IDDM2, CKD, PVD, HTN, chronic iron-deficiency anemia admitted to med/surg for medical management of SBO Plan: SBO: -CT A/P 01/13: Moderate partial uncomplicated small bowel obstruction. No bowel perforation or pneumatosis intestinalis. Transition zone in the RLQ -afebrile, no leukocytosis -NPO -IVF NS 1L bolus given for hypotension then @150 cc/hr -zofran prn -protonix ivp -serial abdominal exams -dilaudid prn for severe pain -continue medical management -surgery following, Dr Mukherjee CAD s/p PCI: -EKG reveals NSR, LBBB. -trops nagative initially. icreased from 0.02 to 0.11 likely due to hypoperfusion/hypotension -hold anti HTN meds for hypotension -hold anticoagulant DM2: -accucheck -ISS-low -HgA1c 6.8 PPX: DVT: SCD GI:protonix Case reviewed and plan discussed with attending Dr Zion Moreno, DO <Carmel Donovan - Last Filed: 01/15/19 16:01> Objective - Vital Signs/Intake and Output Vital Signs (last 24 hours): Temp Pulse Resp BP Pulse Ox 97.8 F 108 H 20 113/58 L 100 01/14/19 09:38 01/15/19 13:02 01/15/19 09:25 01/15/19 13:02 01/15/19 13:02 Intake and Output: 01/15/19 01/15/19 06:59 18:59 Intake Total 1300 152 Output Total 100 0 Balance 1200 152 - Medications Medications: Current Medications Benzocaine/Menthol (Cepacol Sore Throat) 1 alyssa MT Q2H PRN PRN Reason: Sore Throat Carvedilol (Coreg) 12.5 mg PO BID [facility] Last Admin: 01/15/19 11:31 Dose: Not Given Famotidine (Pepcid) 20 mg IVP DAILY [facility] Last Admin: 01/15/19 11:50 Dose: 20 mg Heparin Sodium (Porcine) (Heparin) 5,000 units SC Q8 [facility]; Protocol Last Admin: 01/15/19 15:48 Dose: Not Given Home Med (Home Med) 1 unit PO DAILY [facility] Last Admin: 01/15/19 11:33 Dose: Not Given Hydromorphone HCl (Dilaudid) 0.5 mg IVP Q3H PRN PRN Reason: Pain, moderate (4-7) Last Admin: 01/15/19 05:26 Dose: 0.5 mg NOREPINEPHRINE BIT/0.9 % NACL (Levophed 4 Mg/ 250 Ml Ns Premixed) 4 mg in 250 mls @ 15 mls/hr IV .[id number] PRN; Protocol PRN Reason: TITRATE PER MD ORDER Last Titration: 01/15/19 09:40 Dose: 0 mcg/min, 0 mls/hr Metronidazole (Flagyl) 500 mg in 100 mls @ 100 mls/hr IVPB Q8 [facility]; Protocol Last Admin: 01/15/19 15:47 Dose: 100 mls/hr Sodium Bicarbonate 75 meq/ (Sodium Chloride) 1,075 mls @ 100 mls/hr IV .[id number] [facility] Aztreonam 500 mg/ Sodium (Chloride) 100 mls @ 100 mls/hr IVPB Q8 [facility] Stop: 01/16/19 06:59 Insulin Detemir (Levemir) 15 unit SC Q12 [facility] Last Admin: 01/14/19 22:40 Dose: Not Given Insulin Human Regular (Humulin R Low) 0 units SC ACHS [facility]; Protocol Last Admin: 01/15/19 11:34 Dose: Not Given Ondansetron HCl (Zofran Inj) 4 mg IVP Q4H PRN PRN Reason: Nausea/Vomiting Last Admin: 01/14/19 05:36 Dose: 4 mg - Labs Labs: 01/15/19 12:40 01/15/19 12:40 PT 14.6 SECONDS (9.4-12.5) H 01/14/19 15:11 INR 1.32 01/14/19 15:11 APTT 29.4 Seconds (26.9-38.3) 01/14/19 15:11 Attending/Attestation - Attestation I have personally seen and examined this patient.: Yes I have fully participated in the care of the patient.: Yes I have reviewed all pertinent clinical information, including history, physical exam and plan: Yes Notes (Text): 01/15/19 15:53 Attending note; Patient seen and examined with resident in the morning. Patient is Lethargic. Able to open her eyes and answers few questions. Patient got multiple doses of Dilaudid and 1 dose of Ativan last night. Patient pulled out NG tube. Currently not in any acute distress. Patient is n.p.o. .continue IV fluids. Patient is a 73-year-old female with PMH uterine cancer s/p radiation therapy, CAD s/p 6 stents, IDDM2, CKD, PVD, HTN, chronic iron-deficiency anemia (previously had aranesp infusions), PVD, L-sided carotid stenosis s/p en darterectomy, obesity presents to ED with complaints of severe, 10/10, diffuse, crampy abdominal pain with associated nausea & non-bloody non-bilious vomiting. 1. Partial small bowel obstruction; CT abdomen and pelvis showed partial small bowel obstruction with multiple air-fluid level and transition point in the right lower quadrant. Patient was evaluated by surgery. Patient had NG tube placement last night. Patient pulled out. Currently n.p.o.. Continue IV fluids. Follow-up with surgery closely. 2. Poor IV access; midline ordered. 3. Hypertension; currently blood pressures on the low side. Hold antihypertensive medication. continue IV fluid hydration. 4. Chronic kidney disease stage III; creatinine at baseline. Nephrology evaluation appreciated. 5. Diabetes; continue Levemir and insulin sliding scale . 6. Anemia; monitor closely. 7. Uterine cancer; status post radiation therapy. Message left with patient's primary oncology team at [facility]. 8. History of coronary stent; cardiology evaluation appreciated. Patient is moderate risk for surgical procedure. 9. carotid endarterectomy peripheral vascular stent; currently aspirin and Plavix on hold. Monitor closely with aggressive IV hydration. Case discussed with patient's family in detail. Patient's daughter and grandson by the bedside.
[2019-01-14] MEDS ORDERED: Naloxone 0.4 mg/ml Inj (Adult) IVP ONE (14:39)
--- NOTE | 2019-01-14 14:47 | CP.PCM.PN ---
Subjective - Date & Time of Evaluation Date of Evaluation: 01/14/19 Time of Evaluation: 14:43 - Subjective Subjective: Surgery Note 73F seen and examined at bedside. Patient continues to be hypotensive, Informed that patient is a hardstick and has not been able to receive fluids, systolics were currently 80s. Spoke with family bedside, daughter. Spoke about patient condition and necessity of central line for fluid resuscitation. Family agrees. Placed central line with medicine team bedside. No complications. Patient continues to have abdominal pain which she states is not improving. Patient receiving fluid and ICU eval. Will follow up CXR and consider re-scan. Further recs will discuss with Dr. Lonny Pappas, PGY3 Objective - Vital Signs/Intake and Output Vital Signs (last 24 hours): Temp Pulse Resp BP Pulse Ox 97.8 F 72 20 90/61 L 98 01/14/19 09:38 01/14/19 09:38 01/14/19 09:38 01/14/19 09:38 01/14/19 09:38 Intake and Output: 01/14/19 01/14/19 06:59 18:59 Intake Total 0 Balance 0 - Medications Medications: Current Medications Amlodipine Besylate (Norvasc) 10 mg PO DAILY [facility] Last Admin: 01/14/19 10:43 Dose: Not Given Atorvastatin Calcium (Lipitor) 80 mg PO HS [facility] Last Admin: 01/13/19 22:13 Dose: Not Given Benzocaine/Menthol (Cepacol Sore Throat) 1 alyssa MT Q2H PRN PRN Reason: Sore Throat Carvedilol (Coreg) 12.5 mg PO BID [facility] Clonidine HCl (Catapres-Tts2 0.2 Mg/24 Hr) 1 patch TD Q7D@1000 [facility] Famotidine (Pepcid) 20 mg IVP DAILY [facility] Last Admin: 01/14/19 10:46 Dose: Not Given Heparin Sodium (Porcine) (Heparin) 5,000 units SC Q8 [facility]; Protocol Last Admin: 01/14/19 10:40 Dose: Not Given Home Med (Home Med) 1 unit PO DAILY [facility] Last Admin: 01/14/19 10:40 Dose: Not Given Hydralazine HCl (Apresoline) 25 mg PO QID [facility] Last Admin: 01/13/19 22:11 Dose: Not Given Hydralazine HCl (Apresoline) 10 mg IVP Q6 PRN PRN Reason: Systolic Blood Pressure Last Admin: 01/14/19 00:24 Dose: 10 mg Hydromorphone HCl (Dilaudid) 0.5 mg IVP Q3H PRN PRN Reason: Pain, moderate (4-7) Hydromorphone HCl (Dilaudid) 1 mg IVP Q3H PRN PRN Reason: Pain, severe (8-10) Last Admin: 01/14/19 05:34 Dose: 1 mg Sodium Chloride (Sodium Chloride 0.9%) 1,000 mls @ 75 mls/hr IV .[id number] [facility] Sodium Chloride (Sodium Chloride 0.9%) 1,000 mls @ 999 mls/hr IV .Q1H1M [facility] Stop: 01/14/19 15:37 Sodium Chloride (Sodium Chloride 0.9%) 1,000 mls @ 999 mls/hr IV .Q1H1M [facility] Stop: 01/14/19 15:38 Sodium Chloride (Sodium Chloride 0.9%) 1,000 mls @ 999 mls/hr IV .Q1H1M [facility] Stop: 01/14/19 15:38 Insulin Detemir (Levemir) 15 unit SC Q12 [facility] Last Admin: 01/14/19 10:42 Dose: Not Given Insulin Human Regular (Humulin R Low) 0 units SC ACHS [facility]; Protocol Last Admin: 01/14/19 12:42 Dose: Not Given Isosorbide Mononitrate (Imdur) 60 mg PO DAILY [facility] Last Admin: 01/13/19 10:02 Dose: 60 mg Ondansetron HCl (Zofran Inj) 4 mg IVP Q4H PRN PRN Reason: Nausea/Vomiting Last Admin: 01/14/19 05:36 Dose: 4 mg - Labs Labs: 01/13/19 20:25 01/13/19 20:25 PT 12.0 SECONDS (9.4-12.5) 01/13/19 09:00 INR 1.06 01/13/19 09:00 APTT 32.2 Seconds (26.9-38.3) 01/13/19 09:00
--- NOTE | 2019-01-14 15:00 | PCM.RRT ---
I.Reason for [employer]IONAL OPERATIONS MANAGER - A) Acute Change in Patient: (Select all that apply): Acute change in SBP below Plan - Assessment of Findings&Treatment Plan -EKG -CXR -CBC, CMP -CTAP -IVF
--- NOTE | 2019-01-14 15:10 | PCM.RRT ---
VAMP STRAP IRONER Nurse Assessment - Situation Date: 01/14/19 Time VAMP STRAP IRONER was called: 14:50 VAMP STRAP IRONER Responder Arrival Time: 14:50 VAMP STRAP IRONER Location:: [address] [place] [address] VAMP STRAP IRONER Reason for Call: Hypotension VAMP STRAP IRONER Called By: Physician - IV IV Inserted during VAMP STRAP IRONER?: Yes - Respiratory Oxygen Delivery Method: Nasal Cannula @L/min Received Nebulizer Treatments:: No Was the Patient Ventilated with Bag/Mask 100% O2?: No Secretions Suctioned?: No Was the Patient Intubated?: No Was the Patient Placed on a Ventilator?: No - Diagnostic Test Ordered EKG: Yes Chest X-Ray: Yes - Stat Labs Ordered VAMP STRAP IRONER Stat Labs Ordered: CBC, BMP, PT/PTT, LACTIC ACID CPR started during VAMP STRAP IRONER?: No - Sheri Coma Scale Coma Scale Eye Opening: Spontaneous Coma Scale Motor: Obeys Commands Movement Coma Scale Verbal: Confused/able to answer - Sepsis Screen Part 1 Sepsis Screen Part 1: Hypotensive - Recommendations 5) VAMP STRAP IRONER Level of Care Recommendations: Remain in current setting Notifications: Attending Physician, Consultations I.Reason for VAMP STRAP IRONER - A) Acute Change in Patient: (Select all that apply): Acute change in SBP below (80/52) - Neurological Status (Select all that apply): Follows Commands, Confused, Lethargic - Respiratory Oxygen Delivery Method: Nasal Cannula @L/min - Constitutional Appears: Non-toxic, Confused - Head Head Exam: ATRAUMATIC, NORMAL INSPECTION, NORMOCEPHALIC - Eyes Eye Exam: EOMI, Normal appearance - Respiratory Exam Respiratory Exam: Clear to Ausculation Bilateral - Cardiovascular Exam Cardiovascular Exam: +S1, +S2. absent: Gallop, RRR - GI/Abdominal Exam GI & Abdominal Exam: Tenderness. absent: Mass - Neurological Exam Neurological Exam: Awake, Oriented x3 - Extremities Exam Extremities Exam: Full ROM Plan - Assessment of Findings&Treatment Plan 73 y/o female admitted to med/surg for SBO. VAMP STRAP IRONER was called as patient was hypotensive and more lethargic. Plan: -
[2019-01-14 15:18] LABS: HEMOGLOBIN 10.7 g/dL (12.0-16.0); LYMPH # 0.6 (1.2-3.4); LYMPH % 6.7 % (22.0-35.0); MEAN CELL VOLUME 79.3 fl (80.0-105.0); MEAN CORPUSCULAR HEMOGLOBIN 24.1 pg (25.0-35.0); MEAN CORPUSCULAR HGB CONC 30.4 g/dl (31.0-37.0); MEAN PLATELET VOLUME 10.1 fl (7.0-11.0); MONO # 0.9 (0.1-0.6); MONO % 9.4 % (1.0-6.0); RBC 4.44 10^6/uL (3.5-6.1); RED CELL DISTRIBUTION WIDTH 18.8 % (11.5-14.5); WHITE BLOOD COUNT 9.1 10^3/uL (4.5-11.0)
--- NOTE | 2019-01-14 15:24 | RAD ---
Date of service: 01/14/2019 HISTORY: 3 LUMEN PLACEMENT COMPARISON: 01/14/2019 FINDINGS: Right-sided central venous catheter terminates at the cavoatrial junction LUNGS: There are low lung volumes. The lungs are clear. PLEURA: No pleural effusions or pneumothorax. CARDIOVASCULAR: The heart is normal in size. No aortic atherosclerotic calcifications present. OSSEOUS STRUCTURES: Within normal limits for the patient's age. VISUALIZED UPPER ABDOMEN: Normal. OTHER FINDINGS: None. IMPRESSION: Right-sided central venous catheter terminates at the cavoatrial junction. No acute findings.
--- NOTE | 2019-01-14 15:25 | PCM.RRT ---
<Paddy Moreno - Last Filed: 01/14/19 15:45> RAISED PRINTER Nurse Assessment - Situation Date: 01/14/19 Time RAISED PRINTER was called: 14:50 RAISED PRINTER Responder Arrival Time: 14:50 RAISED PRINTER Location:: [address] [place] [address] RAISED PRINTER Reason for Call: Hypotension RAISED PRINTER Called By: Physician - IV IV Inserted during RAISED PRINTER?: Yes - Respiratory Oxygen Delivery Method: Nasal Cannula @L/min Received Nebulizer Treatments:: No Was the Patient Ventilated with Bag/Mask 100% O2?: No Secretions Suctioned?: No Was the Patient Intubated?: No Was the Patient Placed on a Ventilator?: No - Medication Medications Administered During RAISED PRINTER: narcan given - Diagnostic Test Ordered EKG: Yes Chest X-Ray: Yes CT Scan: Yes (A/P w PO/IV contrast) - Stat Labs Ordered RAISED PRINTER Stat Labs Ordered: CBC, BMP, PT/PTT, LACTIC ACID CPR started during RAISED PRINTER?: No - Vital Signs Vital Sign: Rapid Response Vital Sign Blood Pressure 118/75 Pulse Rate 87 Respiratory Rate 20 Temperature 98.0 F Oxygen Saturation 98 - Finger Stick Blood Glucose Finger Stick Blood Glucose: 206 - [place] Coma Scale Coma Scale Eye Opening: Spontaneous Coma Scale Motor: Obeys Commands Movement Coma Scale Verbal: Confused/able to answer - Sepsis Screen Part 1 Sepsis Screen Part 1: Hypotensive - Sepsis Screen Part 2 Sepsis Screen Part 2: Glucose elevated, Pt not on steroids - Time RAISED PRINTER Ended Time RAISED PRINTER Ended: 15:05 - Vital Signs at end of RAISED PRINTER Vital Signs at end of RAISED PRINTER: Rapid Response End Vital Sign Blood Pressure 118/72 Pulse Rate 88 Respiratory Rate 20 Temperature 98.0 F O2 Sat by Pulse Oximetry 97 - Recommendations 5) RAISED PRINTER Level of Care Recommendations: Remain in current setting Notifications: Attending Physician, Consultations I.Reason for RAISED PRINTER - A) Acute Change in Patient: (Select all that apply): Acute change in SBP below (80/52) - Neurological Status (Select all that apply): Confused, Lethargic - Respiratory Oxygen Delivery Method: Nasal Cannula @L/min - Constitutional Appears: Non-toxic, Confused Additional Comments: pale, dry mucous membranes - Head Head Exam: ATRAUMATIC, NORMAL INSPECTION, NORMOCEPHALIC - Eyes Eye Exam: EOMI - Respiratory Exam Respiratory Exam: Clear to Ausculation Bilateral. absent: Rales, Rhonchi, Wheezes - Cardiovascular Exam Cardiovascular Exam: +S1, +S2. absent: Gallop, Rubs - GI/Abdominal Exam GI & Abdominal Exam: Guarding, Soft, Tenderness (diffuse abdominal tenderness in all 4 quadrants), Hypoactive Bowel Sounds. absent: Rigid - Neurological Exam Neurological Exam: Awake, Oriented x3 - Extremities Exam Extremities Exam: Full ROM, Normal Inspection. absent: Pedal Edema Plan - Assessment of Findings&Treatment Plan 73 y/o male admitted to med/surg for SBO mangament. RAISED PRINTER was called as patient was getting more lethargic, hypotensive. TLC on right IJ placed prior to Rapid call due to hypotension Plan: -stat EKG: NSR@90 non specific IV block -stat CXR NAD -CBC/CMP/lactic a. -3L bolus NS started -Narcan 1 dose stat given -NG tube placed: yield ~500 of yellowish fluid -CT A/P w po/iv contrast ordered -patient started to feel better after narcan and IVF and NGT placement. BP 118/72 O2 sat 94 on 2L NC -patient transfered to tele -ICU consulted, no indication for ICU transfer -surgery following -night team will follow up with the results -patient seen and examined with attending Dr Zion Moreno, - <Carmel Donovan - Last Filed: 01/15/19 16:04> RAISED PRINTER Nurse Assessment - Vital Signs Vital Sign: Rapid Response Vital Sign Blood Pressure 118/75 Pulse Rate 87 Respiratory Rate 20 Temperature 98.0 F Oxygen Saturation 98 - Vital Signs at end of RAISED PRINTER Vital Signs at end of RAISED PRINTER: Rapid Response End Vital Sign Blood Pressure 118/72 Pulse Rate 88 Respiratory Rate 20 Temperature 98.0 F O2 Sat by Pulse Oximetry 97 Attending/Attestation - Attestation I have personally seen and examined this patient.: Yes I have fully participated in the care of the patient.: Yes I have reviewed all pertinent clinical information, including history, physical exam and plan: Yes Notes (Text): 01/15/19 16:01 Attending note; Patient seen and examined during rapid response. Patient is alert and awake. Patient had right IJ triple-lumen placed. Started on IV fluids. Patient was complaining of severe abdominal and chest discomfort. Episodes of hypotension noted. Hypotension resolved with IV fluid hydration. EKG showed no acute ST elevation. Troponins ordered. Stat blood work ordered. ICU attending by the bedside. Patient's daughter by the bedside. NG tube placed. Had a yellowish drainage. engineering vice president by the bedside. Repeat labs shows acidosis with elevated lactic acid level. BMP showed acute Increase in creatinine. Continue IV fluids. BMP showed elevated potassium. Treated with DuoNeb, IV insulin. Patient will be transferred to ICU. Stat CT abdomen and pelvis ordered. Case discussed with Dr. Mukherjee in detail. Patient was evaluated by surgical team.
[2019-01-14 15:28] LABS: INR 1.32; PARTIAL THROMBOPLASTIN TIME 29.4 Seconds (26.9-38.3); PROTHROMBIN TIME 14.6 SECONDS (9.4-12.5)
[2019-01-14 15:50] LABS: TROPONIN I 0.11 ng/mL
[2019-01-14] MEDS: HYDROmorphone 0.5 mg/0.5 ml ISec IVP PRN ×3 (15:54→23:00)
[2019-01-14] MEDS ORDERED: Barium Sulfate Susp 2.1% w/v, 2.0% w/w 450 mL Bottle PO ONE (16:02)
[2019-01-14 16:05] LABS: ALB/GLOB RATIO 0.9 (1.1-1.8); ALBUMIN 3.1 g/dL (3.0-4.8); CALCIUM 8.3 mg/dL (8.4-10.5)
[2019-01-14] MEDS ORDERED: Insulin Regular 1 UNITS/0.01 ML ML IV ONE (16:17)
[2019-01-14] MEDS ORDERED: Albuterol 0.083% Inhal Sol (2.5 mg/3 mL) UD INH STA (16:17)
[2019-01-14] MEDS ORDERED: Dextrose 50% SYRINGE Inj (50 ml) IVP ONE (16:17)
[2019-01-14] MEDS ORDERED: Iohexol 240 (50 ml) ONE (16:21)
--- NOTE | 2019-01-14 16:25 | RAD ---
Date of service: 01/14/2019 HISTORY: cxr placement of tripple lumen COMPARISON: No prior. TECHNIQUE: 1 view obtained. FINDINGS: LUNGS: No active pulmonary disease. PLEURA: No significant pleural effusion identified, no pneumothorax apparent. CARDIOVASCULAR: No aortic atherosclerotic calcification present. Normal cardiac size. No pulmonary vascular congestion. OSSEOUS STRUCTURES: No significant abnormalities. VISUALIZED UPPER ABDOMEN: Normal. OTHER FINDINGS: NG tube in satisfactory position IMPRESSION: The right IJ line is seen at the junction of the SVC and right atrium. There is no pneumothorax.
[2019-01-14] MEDS ORDERED: Calcium Gluconate in NS 1 GM/50 ML BAG IV ONE (16:30)
--- NOTE | 2019-01-14 16:57 | CP.PCM.CON ---
History of Present Illness - History of Present Illness History of Present Illness: MICU Consult 73F with hx of CAD, uterine Ca s/p reds now admitted with abdominal pain found to have partial SBO. Overnight while have NGT placed was given large doses of dilaudid. Lethargic all day today and borderline hypotensive. PMH: DM, PVD, GERD, Uterine ca, Anemic, CKD PSH: Left hallux amp, Left LE bypass, Breast cyst excision Social: Denies tobacco, alcohol, or illicit drug use Allergies: Penicillins, Past Patient History - Tetanus Immunizations Tetanus Immunization: Unknown - Past Social History Smoking Status: Never Smoked - CARDIAC Hx Cardiac Disorders: Yes Hx Heart Attack: Yes Hx Hypercholesterolemia: Yes Hx Hypertension: Yes - PULMONARY Hx Respiratory Disorders: No - NEUROLOGICAL Hx Neurological Disorder: Yes HX Cerebrovascular Accident: Yes - HEENT Hx HEENT Problems: No - RENAL Hx Chronic Kidney Disease: Yes Hx Renal Failure: Yes (stage 4 renal failure, denies having dialysis tx) - ENDOCRINE/METABOLIC Hx Endocrine Disorders: Yes Hx Diabetes Mellitus Type 2: Yes - HEMATOLOGICAL/ONCOLOGICAL Hx Blood Disorders: Yes Hx Anemia: Yes - INTEGUMENTARY Hx Dermatological Problems: No - MUSCULOSKELETAL/RHEUMATOLOGICAL Hx Musculoskeletal Disorders: No - GASTROINTESTINAL Hx Gastrointestinal Disorders: No - GENITOURINARY/GYNECOLOGICAL Hx Genitourinary Disorders: Yes Hx Uterine Cancer: Yes - PSYCHIATRIC Hx Psychophysiologic Disorder: No Hx Substance Use: No - SURGICAL HISTORY Hx Surgeries: Yes Hx Amputation: Yes (L great toe) Hx Cardiac Catheterization: Yes Hx Coronary Stent: Yes Hx Vascular Surgery: Yes (2 stents placed in legs bilaterally d/t PVD) - ANESTHESIA Hx Anesthesia: Yes Hx Anesthesia Reactions: No Hx Malignant Hyperthermia: No Meds Allergies/Adverse Reactions: Allergies Allergy/AdvReac Type Severity Reaction Status Date / Time Penicillins Allergy ANGIOEDEMA Verified 01/13/19 05:05 strawberry Allergy ANGIOEDEMA Verified 01/13/19 05:05 - Medications Medications: Current Medications Amlodipine Besylate (Norvasc) 10 mg PO DAILY [facility] Last Admin: 01/14/19 10:43 Dose: Not Given Atorvastatin Calcium (Lipitor) 80 mg PO HS [facility] Last Admin: 01/13/19 22:13 Dose: Not Given Benzocaine/Menthol (Cepacol Sore Throat) 1 alyssa MT Q2H PRN PRN Reason: Sore Throat Carvedilol (Coreg) 12.5 mg PO BID [facility] Clonidine HCl (Catapres-Tts2 0.2 Mg/24 Hr) 1 patch TD Q7D@1000 [facility] Famotidine (Pepcid) 20 mg IVP DAILY [facility] Last Admin: 01/14/19 10:46 Dose: Not Given Heparin Sodium (Porcine) (Heparin) 5,000 units SC Q8 [facility]; Protocol Last Admin: 01/14/19 10:40 Dose: Not Given Home Med (Home Med) 1 unit PO DAILY [facility] Last Admin: 01/14/19 10:40 Dose: Not Given Hydralazine HCl (Apresoline) 25 mg PO QID [facility] Last Admin: 01/13/19 22:11 Dose: Not Given Hydralazine HCl (Apresoline) 10 mg IVP Q6 PRN PRN Reason: Systolic Blood Pressure Last Admin: 01/14/19 00:24 Dose: 10 mg Hydromorphone HCl (Dilaudid) 0.5 mg IVP Q3H PRN PRN Reason: Pain, moderate (4-7) Last Admin: 01/14/19 15:54 Dose: 0.5 mg Hydromorphone HCl (Dilaudid) 1 mg IVP Q3H PRN PRN Reason: Pain, severe (8-10) Last Admin: 01/14/19 05:34 Dose: 1 mg Sodium Chloride (Sodium Chloride 0.9%) 1,000 mls @ 75 mls/hr IV .[id number] [facility] Calcium Gluconate (Calcium Gluconate 1g/50ml Ns) 1 gm in 50 mls @ 50 mls/hr IV ONCE ONE Stop: 01/14/19 17:29 Insulin Detemir (Levemir) 15 unit SC Q12 [facility] Last Admin: 01/14/19 10:42 Dose: Not Given Insulin Human Regular (Humulin R Low) 0 units SC ACHS [facility]; Protocol Last Admin: 01/14/19 12:42 Dose: Not Given Isosorbide Mononitrate (Imdur) 60 mg PO DAILY [facility] Last Admin: 01/13/19 10:02 Dose: 60 mg Ondansetron HCl (Zofran Inj) 4 mg IVP Q4H PRN PRN Reason: Nausea/Vomiting Last Admin: 01/14/19 05:36 Dose: 4 mg Physical Exam - Constitutional Appears: In Acute Distress Additional comments: awake alert - Head Exam Head Exam: ATRAUMATIC, NORMAL INSPECTION, NORMOCEPHALIC - Neck Exam Neck exam: Positive for: Normal Inspection - Respiratory Exam Respiratory Exam: Clear to Auscultation Bilateral, NORMAL BREATHING PATTERN. absent: Wheezes - Cardiovascular Exam Cardiovascular Exam: REGULAR RHYTHM - GI/Abdominal Exam GI & Abdominal Exam: Distended, Tenderness Results - Vital Signs Recent Vital Signs: Last Vital Signs Temp 97.8 F 01/14/19 09:38 Pulse 72 01/14/19 09:38 Resp 20 01/14/19 09:38 BP 90/61 L 01/14/19 09:38 Pulse Ox 98 01/14/19 09:38 - Labs Result Diagrams: 01/14/19 15:11 01/14/19 15:11 Labs: Laboratory Results - last 24 hr 01/13/19 01/13/19 01/13/19 18:13 20:25 20:25 WBC 7.3 D RBC 4.40 Hgb 10.6 L Hct 33.9 L MCV 77.0 L MCH 24.1 L MCHC 31.3 RDW 17.9 H Plt Count 214 MPV 10.0 Neut % (Auto) Lymph % (Auto) Imperial % (Auto) Eos % (Auto) Baso % (Auto) Lymph # (Auto) [place] # (Auto) Eos # (Auto) Baso # (Auto) Absolute Neuts (auto) PT INR APTT Sodium Potassium Chloride Carbon Dioxide Anion Gap BUN Creatinine Est GFR ( Amer) Est GFR (Non-Af Amer) POC Glucose (mg/dL) Random Glucose Lactic Acid 1.4 Calcium Phosphorus Magnesium Total Bilirubin AST ALT Alkaline Phosphatase Troponin I Total Protein Albumin Globulin Albumin/Globulin Ratio Urine Color Yellow Urine Appearance Clear Urine pH 6.0 Ur Specific Reese >= 1.030 Urine Protein >=300 H Urine Glucose (UA) Negative Urine Ketones Negative Urine Blood Small H Urine Nitrate Negative Urine Bilirubin Negative Urine Urobilinogen 0.2 Ur Leukocyte Esterase Negative Urine RBC 1 - 3 H Urine WBC 0 - 2 Ur Epithelial Cells 0 - 2 Urine Bacteria Trace Blood Type Antibody Screen Crossmatch BBK History Checked 01/13/19 01/13/19 01/14/19 20:25 21:57 07:29 WBC RBC Hgb Hct MCV MCH MCHC RDW Plt Count MPV Neut % (Auto) Lymph % (Auto) Imperial % (Auto) Eos % (Auto) Baso % (Auto) Lymph # (Auto) Imperial # (Auto) Eos # (Auto) Baso # (Auto) Absolute Neuts (auto) PT INR APTT Sodium 141 Potassium 4.1 Chloride 106 Carbon Dioxide 24 Anion Gap 14 BUN 28 H Creatinine 2.3 H Est GFR ( Amer) 25 Est GFR (Non-Af Amer) 21 POC Glucose (mg/dL) 265 H 294 H Random Glucose 245 H Lactic Acid Calcium 9.3 Phosphorus Magnesium Total Bilirubin 0.5 AST 31 ALT 15 Alkaline Phosphatase 89 Troponin I Total Protein 7.8 Albumin 3.8 Globulin 4.0 Albumin/Globulin Ratio 0.9 L Urine Color Urine Appearance Urine pH Ur Specific Reese Urine Protein Urine Glucose (UA) Urine Ketones Urine Blood Urine Nitrate Urine Bilirubin Urine Urobilinogen Ur Leukocyte Esterase Urine RBC Urine WBC Ur Epithelial Cells Urine Bacteria Blood Type Antibody Screen Crossmatch BBK History Checked 01/14/19 01/14/19 01/14/19 09:07 11:08 15:11 WBC 9.1 D RBC 4.44 Hgb 10.7 L Hct 35.2 L MCV 79.3 L MCH 24.1 L MCHC 30.4 L RDW 18.8 H Plt Count 219 MPV 10.1 Neut % (Auto) 83.9 H Lymph % (Auto) 6.7 L Imperial % (Auto) 9.4 H Eos % (Auto) 0.0 L Baso % (Auto) 0.0 Lymph # (Auto) 0.6 L Imperial # (Auto) 0.9 H Eos # (Auto) 0.0 Baso # (Auto) 0.00 Absolute Neuts (auto) 7.63 H PT INR APTT Sodium Potassium Chloride Carbon Dioxide Anion Gap BUN Creatinine Est GFR ( Amer) Est GFR (Non-Af Amer) POC Glucose (mg/dL) 261 H 227 H Random Glucose Lactic Acid Calcium Phosphorus Magnesium Total Bilirubin AST ALT Alkaline Phosphatase Troponin I Total Protein Albumin Globulin Albumin/Globulin Ratio Urine Color Urine Appearance Urine pH Ur Specific Reese Urine Protein Urine Glucose (UA) Urine Ketones Urine Blood Urine Nitrate Urine Bilirubin Urine Urobilinogen Ur Leukocyte Esterase Urine RBC Urine WBC Ur Epithelial Cells Urine Bacteria Blood Type Antibody Screen Crossmatch BBK History Checked 01/14/19 01/14/19 01/14/19 15:11 15:11 15:40 WBC RBC Hgb Hct MCV MCH MCHC RDW Plt Count MPV Neut % (Auto) Lymph % (Auto) Imperial % (Auto) Eos % (Auto) Baso % (Auto) Lymph # (Auto) Imperial # (Auto) Eos # (Auto) Baso # (Auto) Absolute Neuts (auto) PT 14.6 H INR 1.32 APTT 29.4 Sodium 141 Potassium 5.7 H* D Chloride 108 H Carbon Dioxide 17 L Anion Gap 22 H BUN 42 H Creatinine 4.1 H Est GFR ( Amer) 13 Est GFR (Non-Af Amer) 11 POC Glucose (mg/dL) Random Glucose 179 H Lactic Acid 7.4 H* Calcium 8.3 L Phosphorus 9.3 H Magnesium 2.4 H Total Bilirubin 0.4 AST 173 H D ALT 121 H Alkaline Phosphatase 69 Troponin I 0.11 D Total Protein 6.5 Albumin 3.1 Globulin 3.4 Albumin/Globulin Ratio 0.9 L Urine Color Urine Appearance Urine pH Ur Specific Reese Urine Protein Urine Glucose (UA) Urine Ketones Urine Blood Urine Nitrate Urine Bilirubin Urine Urobilinogen Ur Leukocyte Esterase Urine RBC Urine WBC Ur Epithelial Cells Urine Bacteria Blood Type Antibody Screen Crossmatch BBK History Checked 01/14/19 15:43 WBC RBC Hgb Hct MCV MCH MCHC RDW Plt Count MPV Neut % (Auto) Lymph % (Auto) [place] % (Auto) Eos % (Auto) Baso % (Auto) Lymph # (Auto) [place] # (Auto) Eos # (Auto) Baso # (Auto) Absolute Neuts (auto) PT INR APTT Sodium Potassium Chloride Carbon Dioxide Anion Gap BUN Creatinine Est GFR ( Amer) Est GFR (Non-Af Amer) POC Glucose (mg/dL) Random Glucose Lactic Acid Calcium Phosphorus Magnesium Total Bilirubin AST ALT Alkaline Phosphatase Troponin I Total Protein Albumin Globulin Albumin/Globulin Ratio Urine Color Urine Appearance Urine pH Ur Specific Reese Urine Protein Urine Glucose (UA) Urine Ketones Urine Blood Urine Nitrate Urine Bilirubin Urine Urobilinogen Ur Leukocyte Esterase Urine RBC Urine WBC Ur Epithelial Cells Urine Bacteria Blood Type O POSITIVE Antibody Screen Negative Crossmatch See Detail BBK History Checked No verified bt Assessment & Plan - Assessment and Plan (Free Text) Assessment: 73F with hx of CAD, uterine Ca s/p reds now admitted with abdominal pain found to have partial SBO. Overnight while have NGT placed was given large doses of dilaudid. Lethargic all day today and borderline hypotensive. I suspected her volume status was low given her patial SBO and patients who drop their MAP with narcotics are often under resucitated.Patient lost IV access. Surg team placing TLC. I recommended IVF and narcan reversal. After TLC was placed, narcan fluids resulted in patient waking up being much more alert however in moderate amount of pain. Her BP 118/75 and HR 76 normalized and 02 sat was 97& on 2L NC At this time the patient does not require ICU Level care Patient should be upgraded to tele given cardiac history Follow surg recs for possible OR Please recall is any concerns or changes d/w Hospitalist and team Marybel Cevallos MD MICU Attending
--- NOTE | 2019-01-14 18:17 | CP.PCM.PCO ---
Physician Communication Note - Physician Communication Note Physician Communication Note: Communicated lab work, EKG, x ray and transfer to ICU with daughter, Daxa.
[2019-01-14 20:22] LABS: ALB/GLOB RATIO 0.9 (1.1-1.8); ALBUMIN 2.6 g/dL (3.0-4.8)
[2019-01-14 20:33] LABS: TROPONIN I 0.15 ng/mL
--- NOTE | 2019-01-14 20:50 | CARD ---
APPROVED REPORT Date of service: 01/14/2019 EKG Measurement Heart [id number] <Conclusion> Normal sinus rhythm intraventricular block of LBBB type T wave abnormalities Abnormal ECG
[2019-01-15] MEDS: HYDROmorphone 0.5 mg/0.5 ml ISec IVP PRN ×3 (02:33→21:13)
--- NOTE | 2019-01-15 06:13 | CP.PCM.PN ---
Subjective - Date & Time of Evaluation Date of Evaluation: 01/14/19 Time of Evaluation: 21:30 - Subjective Subjective: ICU Overnight Progress Note: Lab work from 8 PM reviewed: Lactic acid trending down 7.4->5.9, Cr 4.2, troponin 0.15 (from 0.11 earlier). EKG NSR, LBBB, no new changes. Dr Coronel aware, recommends continuing current treatment, no intervention currently. Will monitor closely. Misty Wallace, PGY2 Objective - Vital Signs/Intake and Output Vital Signs (last 24 hours): Temp Pulse Resp BP Pulse Ox 97.8 F 80 33 H 101/43 L 96 01/14/19 09:38 01/15/19 05:36 01/15/19 01:16 01/15/19 01:01 01/15/19 01:10 Intake and Output: 01/14/19 01/15/19 18:59 06:59 Intake Total 1300 Output Total 100 Balance 1200 - Medications Medications: Current Medications Amlodipine Besylate (Norvasc) 10 mg PO DAILY [facility] Last Admin: 01/14/19 10:43 Dose: Not Given Atorvastatin Calcium (Lipitor) 80 mg PO HS [facility] Last Admin: 01/13/19 22:13 Dose: Not Given Benzocaine/Menthol (Cepacol Sore Throat) 1 alyssa MT Q2H PRN PRN Reason: Sore Throat Carvedilol (Coreg) 12.5 mg PO BID [facility] Last Admin: 01/14/19 17:47 Dose: Not Given Clonidine HCl (Catapres-Tts2 0.2 Mg/24 Hr) 1 patch TD Q7D@1000 [facility] Famotidine (Pepcid) 20 mg IVP DAILY [facility] Last Admin: 01/14/19 10:46 Dose: Not Given Heparin Sodium (Porcine) (Heparin) 5,000 units SC Q8 [facility]; Protocol Last Admin: 01/15/19 05:09 Dose: 5,000 units Home Med (Home Med) 1 unit PO DAILY [facility] Last Admin: 01/14/19 10:40 Dose: Not Given Hydralazine HCl (Apresoline) 25 mg PO QID [facility] Last Admin: 01/13/19 22:11 Dose: Not Given Hydralazine HCl (Apresoline) 10 mg IVP Q6 PRN PRN Reason: Systolic Blood Pressure Last Admin: 01/14/19 00:24 Dose: 10 mg Hydromorphone HCl (Dilaudid) 0.5 mg IVP Q3H PRN PRN Reason: Pain, moderate (4-7) Last Admin: 01/15/19 05:26 Dose: 0.5 mg Hydromorphone HCl (Dilaudid) 1 mg IVP Q3H PRN PRN Reason: Pain, severe (8-10) Last Admin: 01/14/19 05:34 Dose: 1 mg Insulin Detemir (Levemir) 15 unit SC Q12 [facility] Last Admin: 01/14/19 22:40 Dose: Not Given Insulin Human Regular (Humulin R Low) [address] [facility]; Protocol Last Admin: 01/14/19 22:35 Dose: Not Given Isosorbide Mononitrate (Imdur) 60 mg PO DAILY [facility] Last Admin: 01/13/19 10:02 Dose: 60 mg Ondansetron HCl (Zofran Inj) 4 mg IVP Q4H PRN PRN Reason: Nausea/Vomiting Last Admin: 01/14/19 05:36 Dose: 4 mg - Labs Labs: 01/14/19 15:11 01/14/19 20:00 PT 14.6 SECONDS (9.4-12.5) H 01/14/19 15:11 INR 1.32 01/14/19 15:11 APTT 29.4 Seconds (26.9-38.3) 01/14/19 15:11
[2019-01-15] MEDS ORDERED: Sodium Chloride 0.9% 1,000 ML IV SCH (06:45)
[2019-01-15 07:01] LABS: BASO # 0.01 K/mm3 (0.0-2.0); BASO % 0.1 % (0.0-3.0); HEMOGLOBIN 9.2 g/dL (12.0-16.0); LYMPH # 0.5 (1.2-3.4); LYMPH % 3.2 % (22.0-35.0); MEAN CELL VOLUME 78.9 fl (80.0-105.0); MEAN CORPUSCULAR HEMOGLOBIN 23.7 pg (25.0-35.0); MEAN PLATELET VOLUME 10.5 fl (7.0-11.0); MONO # 1.2 (0.1-0.6); PLATELET COUNT 191 10^3/uL (120.0-450.0); RBC 3.89 10^6/uL (3.5-6.1); RED CELL DISTRIBUTION WIDTH 18.9 % (11.5-14.5); WHITE BLOOD COUNT 14.7 10^3/uL (4.5-11.0)
[2019-01-15 07:25] LABS: ALB/GLOB RATIO 0.8 (1.1-1.8); ALBUMIN 2.7 g/dL (3.0-4.8); CALCIUM 7.9 mg/dL (8.4-10.5)
[2019-01-15] MEDS ORDERED: Etomidate 20 mg/10ml Inj IV ONE ×2 (07:58→14:03)
[2019-01-15] MEDS ORDERED: Succinylcholine 200 mg/10 ml Inj IV ONE ×2 (07:59→14:04)
[2019-01-15] MEDS ORDERED: ePHEDrine 50 mg/ml Inj ONE (08:05)
[2019-01-15] MEDS ORDERED: Bupivacaine 0.5% 50 ML IJ ONE (08:12)
[2019-01-15] MEDS ORDERED: Bupivacaine Liposomal Inj 20 ml ONE (08:13)
[2019-01-15] MEDS ORDERED: Oxychlorosene Topical 2 gm Packet TOP ONE (08:13)
[2019-01-15] MEDS ORDERED: Rocuronium 10 mg/ml (5 ml) ONE (08:14)
[2019-01-15 08:25] LABS: BAND 9 % (0-2); LYMPHOCYTE 8 % (22.0-35.0); MONOCYTE 6 % (1.0-6.0); NEUTROPHIL 77 % (50.0-70.0)
[2019-01-15 08:26] LABS: ANISOCYTOSIS 1+; MICROCYTOSIS 1+; PLATELET ESTIMATE NORMAL (NORMAL); SCHISTOCYTES SLIGHT
[2019-01-15] MEDS ORDERED: metroNIDAZOLE IV 500 mg/100 ml 500 MG/100 ML BAG ONE (08:28)
[2019-01-15] MEDS ORDERED: Midazolam 2 MG/2 ML VIAL ONE ×2 (08:52→13:58)
[2019-01-15] MEDS ORDERED: NOREPINEPHRINE BIT/0.9 % NACL 4 MG/250 ML BAG IV PRN (09:03)
[2019-01-15] MEDS ORDERED: NOREPINEPHRINE BIT/0.9 % NACL 4 MG/250 ML BAG IV ONE (09:11)
[2019-01-15] MEDS: Lactated Ringer's 1,000 ML IV SCH ×3 (09:20→10:10)
[2019-01-15] MEDS: metroNIDAZOLE IV 500 mg/100 ml 500 MG/100 ML BAG IVPB SCH ×3 (09:46→21:13)
--- NOTE | 2019-01-15 10:12 | PCM.PROC ---
Procedures Attestation:: I certify that I have explained the specified Operation(s) or Procedure(s), risks, benefits and reasonable alternatives to the Patient and/or other person responsible. The opportunity was given to ask questions and all questions answered - Arterial Line Right Femoral Aseptic technique was employed throughout the procedure: Hand Hygiene done prior to procedure, Full sterile barriers (mask, hair cover, sterile gown, sterile gloves), Chloraprep Antiseptic: 2 minute prep for Femoral Time Out Performed: Yes Pt. placed on Pulse Ox Monitor: Yes Local Anesthesia Used: Lidocaine 1% Ultrasound Used for Placement: Yes Gauge (Size): 20 gauge Technique Used: Guide Wire Technique Secured by: Suture Post procedure dressing: Gauze, Chlorhexidine disc (Biopatch) Patient Tolerated Procedure: well Immediate Complications: none
[2019-01-15] MEDS ORDERED: Lactated Ringer's 1,000 ML IV SCH (10:30)
--- NOTE | 2019-01-15 11:10 | CP.CCUPN ---
<Delfin Hylton - Last Filed: 01/15/19 11:46> CCU Subjective - Physician Review Subjective (Free Text): PGY-2 ICU progress note for Dr Castle Patient received 6.5L NS yesterday and was put on maintenance fluids at 75 cc/hr, overnight she became hypotensive and rate was increased to 125 cc/hr. This morning surgery was aborted as patient became hypotensive after administration of anesthesia and returned back to ICU. Patient is now intubated, an a-line was put in, and is being aggressively resuscitated while on levophed. 01/15/19 11:46 Critical Care Time Spent (in minutes): 75 CCU Objective - Vital Signs / Intake & Output Vital Signs (Last 4 hours): Vital Signs Pulse Resp BP Pulse Ox 01/15/19 09:40 112 H 100 01/15/19 09:37 111 H 100 01/15/19 09:36 111 H 100 01/15/19 09:34 112 H 180/39 H 100 01/15/19 09:30 112 H 100 01/15/19 09:27 111 H 100 01/15/19 09:25 20 100 01/15/19 09:20 109 H 19 97 01/15/19 09:12 96/34 L 01/15/19 09:11 109 H 25 H 01/15/19 09:10 108 H 25 H 01/15/19 09:09 85/20 L 01/15/19 09:08 108 H 33 H 01/15/19 09:07 111 H 13 01/15/19 08:00 82 38 H 94/40 L 91 L 01/15/19 07:50 83 40 H 89 L 01/15/19 07:40 89 25 H 93 L 01/15/19 07:30 82 31 H 90 L 01/15/19 07:20 82 40 H 92 L 01/15/19 07:10 82 38 H 93 L Intake and Output (Last 8hrs): Intake & Output 01/14/19 01/15/19 01/15/19 22:59 06:59 14:59 Intake Total 1300 Output Total 100 Balance 1200 Intake: IV 1300 Right Internal Jugular 1300 Output: Urine 100 Urethral ([place]) 100 - Physical Exam Physical Exam Limitations: Positive for: Other (intubated) Head: Positive for: Atraumatic, Normocephalic Pupils: Positive for: PERRL Extroacular Muscles: Positive for: EOMI Conjunctiva: Positive for: Normal Mouth: Positive for: Dry Respiratory/Chest: Positive for: Clear to Auscultation, Good Air Exchange Cardiovascular: Positive for: Regular Rate and Rhythm, Normal S1, S2 Abdomen: Positive for: Tenderness, Distention. Negative for: Normal Bowel Sounds (hypoactive bowel sounds), Peritoneal Signs Upper Extremity: Positive for: Edema, Capillary Refill < 2s Lower Extremity: Positive for: Edema, Swelling, Capillary Refill < 2 s Skin: Positive for: Warm, Dry, Normal Color - Medications Active Medications: Active Medications Generic Name Dose Route Start Last Admin Trade Name Freq PRN Reason Stop Dose Admin Benzocaine/Menthol 1 alyssa 01/13/19 18:53 Cepacol Sore Throat MT Q2H PRN Sore Throat Carvedilol 12.5 mg 01/14/19 10:30 01/14/19 17:47 Coreg PO Not Given BID [facility] Famotidine 20 mg 01/13/19 10:00 01/14/19 10:46 Pepcid IVP Not Given DAILY [facility] Heparin Sodium (Porcine) 5,000 units 01/13/19 14:00 01/15/19 05:09 Heparin SC 5,000 units Q8 [facility] Administration Protocol Home Med 1 unit 01/13/19 10:00 01/14/19 10:40 Home Med PO Not Given DAILY [facility] Hydralazine HCl 10 mg 01/13/19 11:30 01/14/19 00:24 Apresoline IVP 10 mg Q6 PRN Administration Systolic Blood Pressure Hydromorphone HCl 0.5 mg 01/13/19 20:55 01/15/19 05:26 Dilaudid IVP 0.5 mg Q3H PRN Administration Pain, moderate (4-7) Hydromorphone HCl 1 mg 01/13/19 20:56 01/14/19 05:34 Dilaudid IVP 1 mg Q3H PRN Administration Pain, severe (8-10) Sodium Chloride 1,000 mls @ 125 mls/hr 01/15/19 06:45 01/15/19 07:01 Sodium Chloride 0.9% IV 125 mls/hr .Q8H [facility] Administration Aztreonam 500 mg/ Sodium 100 mls @ 100 mls/hr 01/15/19 08:30 01/15/19 09:30 Chloride IVPB 01/15/19 14:59 100 mls/hr Q8 [facility] Administration Protocol NOREPINEPHRINE BIT/0.9 % NACL 4 mg in 250 mls @ 15 mls/hr 01/15/19 09:03 Levophed 4 Mg/ 250 Ml Ns Premixed IV .[id number] PRN TITRATE PER MD ORDER Protocol 4 MCG/MIN Lactated Ringer's 1,000 mls @ 1,000 mls/hr 01/15/19 09:15 Lactated Ringer's IV 01/15/19 12:14 .Q1H [facility] Metronidazole 500 mg in 100 mls @ 100 mls/hr 01/15/19 09:45 01/15/19 09:46 Flagyl IVPB 100 mls/hr Q8 [facility] Administration Protocol Lactated Ringer's 1,000 mls @ 150 mls/hr 01/15/19 10:30 Lactated Ringer's IV .[id number] [facility] Insulin Detemir 15 unit 01/13/19 10:00 01/14/19 22:40 Levemir SC Not Given Q12 [facility] Insulin Human Regular 0 units 01/13/19 07:30 01/14/19 22:35 Humulin R Low SC Not Given ACHS [facility] Protocol Ondansetron HCl 4 mg 01/13/19 18:21 01/14/19 05:36 Zofran Inj IVP 4 mg Q4H PRN Administration Nausea/Vomiting - Patient Studies Lab Studies: Microbiology Studies 01/13/19 22:29 Urine Culture - Final Urine,Clean Catch No Growth (<1,000 CFU/ML) Lab Studies 01/15/19 01/15/19 01/15/19 Range/Units 06:00 06:00 01:39 WBC 14.7 H D (4.5-11.0) 10^3/uL RBC 3.89 (3.5-6.1) 10^6/uL Hgb 9.2 L (12.0-16.0) g/dL Hct 30.7 L (36.0-48.0) % MCV 78.9 L (80.0-105.0) fl MCH 23.7 L (25.0-35.0) pg MCHC 30.0 L (31.0-37.0) g/dl RDW 18.9 H (11.5-14.5) % Plt Count 191 (120.0-450.0) 10^3/uL MPV 10.5 (7.0-11.0) fl Neut % (Auto) 88.7 H (50.0-68.0) % Lymph % (Auto) 3.2 L (22.0-35.0) % Shelby % (Auto) 8.0 H (1.0-6.0) % Eos % (Auto) 0.0 L (1.5-5.0) % Baso % (Auto) 0.1 (0.0-3.0) % Lymph # (Auto) 0.5 L (1.2-3.4) Shelby # (Auto) 1.2 H (0.1-0.6) Eos # (Auto) 0.0 (0.0-0.7) Baso # (Auto) 0.01 (0.0-2.0) K/mm3 Absolute Neuts (auto) 13.06 H (1.4-6.5) Neutrophils % (Manual) 77 H (50.0-70.0) % Band Neutrophils % 9 H (0-2) % Lymphocytes % (Manual) 8 L (22.0-35.0) % Monocytes % (Manual) 6 (1.0-6.0) % Platelet Evaluation Normal (NORMAL) Anisocytosis (manual) 1+ Microcytosis (manual) 1+ Schistocytes Slight PT (9.4-12.5) SECONDS INR APTT (26.9-38.3) Seconds Sodium 140 (132-148) mmol/L Potassium 5.5 H (3.6-5.0) mmol/L Chloride 110 H (98-107) mmol/L Carbon Dioxide 16 L (21-33) mmol/L Anion Gap 19 (10-20) BUN 52 H (7-21) mg/dL Creatinine 5.3 H (0.7-1.2) mg/dl Est GFR ( Amer) 10 Est GFR (Non-Af Amer) 8 POC Glucose (mg/dL) 185 H (65-110) mg/dL Random Glucose 140 H (70-110) mg/dL Lactic Acid (0.7-2.1) mmol/L Calcium 7.9 L (8.4-10.5) mg/dL Phosphorus 9.0 H (2.5-4.5) mg/dL Magnesium 2.3 H (1.7-2.2) mg/dL Total Bilirubin 0.4 (0.2-1.3) mg/dL AST 852 H D (14-36) U/L ALT 833 H (7-56) U/L Alkaline Phosphatase 57 (38-126) U/L Troponin I ng/mL Total Protein 5.9 (5.8-8.3) g/dL Albumin 2.7 L (3.0-4.8) g/dL Globulin 3.2 gm/dL Albumin/Globulin Ratio 0.8 L (1.1-1.8) Blood Type Blood Type Confirm Antibody Screen Crossmatch BBK History Checked 01/15/19 01/14/19 01/14/19 Range/Units 01:30 20:00 20:00 WBC (4.5-11.0) 10^3/uL RBC (3.5-6.1) 10^6/uL Hgb (12.0-16.0) g/dL Hct (36.0-48.0) % MCV (80.0-105.0) fl MCH (25.0-35.0) pg MCHC (31.0-37.0) g/dl RDW (11.5-14.5) % Plt Count (120.0-450.0) 10^3/uL MPV (7.0-11.0) fl Neut % (Auto) (50.0-68.0) % Lymph % (Auto) (22.0-35.0) % Shelby % (Auto) (1.0-6.0) % Eos % (Auto) (1.5-5.0) % Baso % (Auto) (0.0-3.0) % Lymph # (Auto) (1.2-3.4) Shelby # (Auto) (0.1-0.6) Eos # (Auto) (0.0-0.7) Baso # (Auto) (0.0-2.0) K/mm3 Absolute Neuts (auto) (1.4-6.5) Neutrophils % (Manual) (50.0-70.0) % Band Neutrophils % (0-2) % Lymphocytes % (Manual) (22.0-35.0) % Monocytes % (Manual) (1.0-6.0) % Platelet Evaluation (NORMAL) Anisocytosis (manual) Microcytosis (manual) Schistocytes PT (9.4-12.5) SECONDS INR APTT (26.9-38.3) Seconds Sodium 140 (132-148) mmol/L Potassium 4.8 (3.6-5.0) mmol/L Chloride 110 H (98-107) mmol/L Carbon Dioxide 18 L (21-33) mmol/L Anion Gap 18 (10-20) BUN 45 H (7-21) mg/dL Creatinine 4.2 H (0.7-1.2) mg/dl Est GFR ( Amer) 13 Est GFR (Non-Af Amer) 10 POC Glucose (mg/dL) (65-110) mg/dL Random Glucose 210 H (70-110) mg/dL Lactic Acid 5.9 H* (0.7-2.1) mmol/L Calcium 8.0 L (8.4-10.5) mg/dL Phosphorus (2.5-4.5) mg/dL Magnesium (1.7-2.2) mg/dL Total Bilirubin 0.3 (0.2-1.3) mg/dL AST 612 H D (14-36) U/L ALT 563 H (7-56) U/L Alkaline Phosphatase 58 (38-126) U/L Troponin I 0.21 H* D 0.15 H* D ng/mL Total Protein 5.7 L (5.8-8.3) g/dL Albumin 2.6 L (3.0-4.8) g/dL Globulin 3.1 gm/dL Albumin/Globulin Ratio 0.9 L (1.1-1.8) Blood Type Blood Type Confirm Antibody Screen Crossmatch BBK History Checked 01/14/19 01/14/19 01/14/19 Range/Units 17:30 17:06 15:43 WBC (4.5-11.0) 10^3/uL RBC (3.5-6.1) 10^6/uL Hgb (12.0-16.0) g/dL Hct (36.0-48.0) % MCV (80.0-105.0) fl MCH (25.0-35.0) pg MCHC (31.0-37.0) g/dl RDW (11.5-14.5) % Plt Count (120.0-450.0) 10^3/uL MPV (7.0-11.0) fl Neut % (Auto) (50.0-68.0) % Lymph % (Auto) (22.0-35.0) % Shelby % (Auto) (1.0-6.0) % Eos % (Auto) (1.5-5.0) % Baso % (Auto) (0.0-3.0) % Lymph # (Auto) (1.2-3.4) Shelby # (Auto) (0.1-0.6) Eos # (Auto) (0.0-0.7) Baso # (Auto) (0.0-2.0) K/mm3 Absolute Neuts (auto) (1.4-6.5) Neutrophils % (Manual) (50.0-70.0) % Band Neutrophils % (0-2) % Lymphocytes % (Manual) (22.0-35.0) % Monocytes % (Manual) (1.0-6.0) % Platelet Evaluation (NORMAL) Anisocytosis (manual) Microcytosis (manual) Schistocytes PT (9.4-12.5) SECONDS INR APTT (26.9-38.3) Seconds Sodium (132-148) mmol/L Potassium (3.6-5.0) mmol/L Chloride (98-107) mmol/L Carbon Dioxide (21-33) mmol/L Anion Gap (10-20) BUN (7-21) mg/dL Creatinine (0.7-1.2) mg/dl Est GFR ( Amer) Est GFR (Non-Af Amer) POC Glucose (mg/dL) 161 H (65-110) mg/dL Random Glucose (70-110) mg/dL Lactic Acid (0.7-2.1) mmol/L Calcium (8.4-10.5) mg/dL Phosphorus (2.5-4.5) mg/dL Magnesium (1.7-2.2) mg/dL Total Bilirubin (0.2-1.3) mg/dL AST (14-36) U/L ALT (7-56) U/L Alkaline Phosphatase (38-126) U/L Troponin I ng/mL Total Protein (5.8-8.3) g/dL Albumin (3.0-4.8) g/dL Globulin gm/dL Albumin/Globulin Ratio (1.1-1.8) Blood Type O POSITIVE Blood Type Confirm O POSITIVE Antibody Screen Negative Crossmatch See Detail BBK History Checked No verified bt 01/14/19 01/14/19 01/14/19 Range/Units 15:40 15:11 15:11 WBC (4.5-11.0) 10^3/uL RBC (3.5-6.1) 10^6/uL Hgb (12.0-16.0) g/dL Hct (36.0-48.0) % MCV (80.0-105.0) fl MCH (25.0-35.0) pg MCHC (31.0-37.0) g/dl RDW (11.5-14.5) % Plt Count (120.0-450.0) 10^3/uL MPV (7.0-11.0) fl Neut % (Auto) (50.0-68.0) % Lymph % (Auto) (22.0-35.0) % Shelby % (Auto) (1.0-6.0) % Eos % (Auto) (1.5-5.0) % Baso % (Auto) (0.0-3.0) % Lymph # (Auto) (1.2-3.4) Shelby # (Auto) (0.1-0.6) Eos # (Auto) (0.0-0.7) Baso # (Auto) (0.0-2.0) K/mm3 Absolute Neuts (auto) (1.4-6.5) Neutrophils % (Manual) (50.0-70.0) % Band Neutrophils % (0-2) % Lymphocytes % (Manual) (22.0-35.0) % Monocytes % (Manual) (1.0-6.0) % Platelet Evaluation (NORMAL) Anisocytosis (manual) Microcytosis (manual) Schistocytes PT 14.6 H (9.4-12.5) SECONDS INR 1.32 APTT 29.4 (26.9-38.3) Seconds Sodium 141 (132-148) mmol/L Potassium 5.7 H* D (3.6-5.0) mmol/L Chloride 108 H (98-107) mmol/L Carbon Dioxide 17 L (21-33) mmol/L Anion Gap 22 H (10-20) BUN 42 H (7-21) mg/dL Creatinine 4.1 H (0.7-1.2) mg/dl Est GFR ( Amer) 13 Est GFR (Non-Af Amer) 11 POC Glucose (mg/dL) (65-110) mg/dL Random Glucose 179 H (70-110) mg/dL Lactic Acid 7.4 H* (0.7-2.1) mmol/L Calcium 8.3 L (8.4-10.5) mg/dL Phosphorus 9.3 H (2.5-4.5) mg/dL Magnesium 2.4 H (1.7-2.2) mg/dL Total Bilirubin 0.4 (0.2-1.3) mg/dL AST 173 H D (14-36) U/L ALT 121 H (7-56) U/L Alkaline Phosphatase 69 (38-126) U/L Troponin I 0.11 D ng/mL Total Protein 6.5 (5.8-8.3) g/dL Albumin 3.1 (3.0-4.8) g/dL Globulin 3.4 gm/dL Albumin/Globulin Ratio 0.9 L (1.1-1.8) Blood Type Blood Type Confirm Antibody Screen Crossmatch BBK History Checked 01/14/19 01/14/19 Range/Units 15:11 11:08 WBC 9.1 D (4.5-11.0) 10^3/uL RBC 4.44 (3.5-6.1) 10^6/uL Hgb 10.7 L (12.0-16.0) g/dL Hct 35.2 L (36.0-48.0) % MCV 79.3 L (80.0-105.0) fl MCH 24.1 L (25.0-35.0) pg MCHC 30.4 L (31.0-37.0) g/dl RDW 18.8 H (11.5-14.5) % Plt Count 219 (120.0-450.0) 10^3/uL MPV 10.1 (7.0-11.0) fl Neut % (Auto) 83.9 H (50.0-68.0) % Lymph % (Auto) 6.7 L (22.0-35.0) % Shelby % (Auto) 9.4 H (1.0-6.0) % Eos % (Auto) 0.0 L (1.5-5.0) % Baso % (Auto) 0.0 (0.0-3.0) % Lymph # (Auto) 0.6 L (1.2-3.4) Shelby # (Auto) 0.9 H (0.1-0.6) Eos # (Auto) 0.0 (0.0-0.7) Baso # (Auto) 0.00 (0.0-2.0) K/mm3 Absolute Neuts (auto) 7.63 H (1.4-6.5) Neutrophils % (Manual) (50.0-70.0) % Band Neutrophils % (0-2) % Lymphocytes % (Manual) (22.0-35.0) % Monocytes % (Manual) (1.0-6.0) % Platelet Evaluation (NORMAL) Anisocytosis (manual) Microcytosis (manual) Schistocytes PT (9.4-12.5) SECONDS INR APTT (26.9-38.3) Seconds Sodium (132-148) mmol/L Potassium (3.6-5.0) mmol/L Chloride (98-107) mmol/L Carbon Dioxide (21-33) mmol/L Anion Gap (10-20) BUN (7-21) mg/dL Creatinine (0.7-1.2) mg/dl Est GFR ( Amer) Est GFR (Non-Af Amer) POC Glucose (mg/dL) 227 H (65-110) mg/dL Random Glucose (70-110) mg/dL Lactic Acid (0.7-2.1) mmol/L Calcium (8.4-10.5) mg/dL Phosphorus (2.5-4.5) mg/dL Magnesium (1.7-2.2) mg/dL Total Bilirubin (0.2-1.3) mg/dL AST (14-36) U/L ALT (7-56) U/L Alkaline Phosphatase (38-126) U/L Troponin I ng/mL Total Protein (5.8-8.3) g/dL Albumin (3.0-4.8) g/dL Globulin gm/dL Albumin/Globulin Ratio (1.1-1.8) Blood Type Blood Type Confirm Antibody Screen Crossmatch BBK History Checked Laboratory Results - last 24 hr 01/14/19 01/14/19 01/14/19 11:08 15:11 15:11 WBC 9.1 D RBC 4.44 Hgb 10.7 L Hct 35.2 L MCV 79.3 L MCH 24.1 L MCHC 30.4 L RDW 18.8 H Plt Count 219 MPV 10.1 Neut % (Auto) 83.9 H Lymph % (Auto) 6.7 L Shelby % (Auto) 9.4 H Eos % (Auto) 0.0 L Baso % (Auto) 0.0 Lymph # (Auto) 0.6 L Shelby # (Auto) 0.9 H Eos # (Auto) 0.0 Baso # (Auto) 0.00 Absolute Neuts (auto) 7.63 H Neutrophils % (Manual) Band Neutrophils % Lymphocytes % (Manual) Monocytes % (Manual) Platelet Evaluation Anisocytosis (manual) Microcytosis (manual) Schistocytes PT INR APTT Sodium 141 Potassium 5.7 H* D Chloride 108 H Carbon Dioxide 17 L Anion Gap 22 H BUN 42 H Creatinine 4.1 H Est GFR ( Amer) 13 Est GFR (Non-Af Amer) 11 POC Glucose (mg/dL) 227 H Random Glucose 179 H Lactic Acid Calcium 8.3 L Phosphorus 9.3 H Magnesium 2.4 H Total Bilirubin 0.4 AST 173 H D ALT 121 H Alkaline Phosphatase 69 Troponin I 0.11 D Total Protein 6.5 Albumin 3.1 Globulin 3.4 Albumin/Globulin Ratio 0.9 L Blood Type Blood Type Confirm Antibody Screen Crossmatch BBK History Checked 01/14/19 01/14/19 01/14/19 15:11 15:40 15:43 WBC RBC Hgb Hct MCV MCH MCHC RDW Plt Count MPV Neut % (Auto) Lymph % (Auto) Shelby % (Auto) Eos % (Auto) Baso % (Auto) Lymph # (Auto) Shelby # (Auto) Eos # (Auto) Baso # (Auto) Absolute Neuts (auto) Neutrophils % (Manual) Band Neutrophils % Lymphocytes % (Manual) Monocytes % (Manual) Platelet Evaluation Anisocytosis (manual) Microcytosis (manual) Schistocytes PT 14.6 H INR 1.32 APTT 29.4 Sodium Potassium Chloride Carbon Dioxide Anion Gap BUN Creatinine Est GFR ( Amer) Est GFR (Non-Af Amer) POC Glucose (mg/dL) Random Glucose Lactic Acid 7.4 H* Calcium Phosphorus Magnesium Total Bilirubin AST ALT Alkaline Phosphatase Troponin I Total Protein Albumin Globulin Albumin/Globulin Ratio Blood Type O POSITIVE Blood Type Confirm Antibody Screen Negative Crossmatch See Detail BBK History Checked No verified bt 01/14/19 01/14/19 01/14/19 17:06 17:30 20:00 WBC RBC Hgb Hct MCV MCH MCHC RDW Plt Count MPV Neut % (Auto) Lymph % (Auto) Shelby % (Auto) Eos % (Auto) Baso % (Auto) Lymph # (Auto) Shelby # (Auto) Eos # (Auto) Baso # (Auto) Absolute Neuts (auto) Neutrophils % (Manual) Band Neutrophils % Lymphocytes % (Manual) Monocytes % (Manual) Platelet Evaluation Anisocytosis (manual) Microcytosis (manual) Schistocytes PT INR APTT Sodium 140 Potassium 4.8 Chloride 110 H Carbon Dioxide 18 L Anion Gap 18 BUN 45 H Creatinine 4.2 H Est GFR ( Amer) 13 Est GFR (Non-Af Amer) 10 POC Glucose (mg/dL) 161 H Random Glucose 210 H Lactic Acid Calcium 8.0 L Phosphorus Magnesium Total Bilirubin 0.3 AST 612 H D ALT 563 H Alkaline Phosphatase 58 Troponin I 0.15 H* D Total Protein 5.7 L Albumin 2.6 L Globulin 3.1 Albumin/Globulin Ratio 0.9 L Blood Type Blood Type Confirm O POSITIVE Antibody Screen Crossmatch BBK History Checked 01/14/19 01/15/19 01/15/19 20:00 01:30 01:39 WBC RBC Hgb Hct MCV MCH MCHC RDW Plt Count MPV Neut % (Auto) Lymph % (Auto) Shelby % (Auto) Eos % (Auto) Baso % (Auto) Lymph # (Auto) Shelby # (Auto) Eos # (Auto) Baso # (Auto) Absolute Neuts (auto) Neutrophils % (Manual) Band Neutrophils % Lymphocytes % (Manual) Monocytes % (Manual) Platelet Evaluation Anisocytosis (manual) Microcytosis (manual) Schistocytes PT INR APTT Sodium Potassium Chloride Carbon Dioxide Anion Gap BUN Creatinine Est GFR ( Amer) Est GFR (Non-Af Amer) POC Glucose (mg/dL) 185 H Random Glucose Lactic Acid 5.9 H* Calcium Phosphorus Magnesium Total Bilirubin AST ALT Alkaline Phosphatase Troponin I 0.21 H* D Total Protein Albumin Globulin Albumin/Globulin Ratio Blood Type Blood Type Confirm Antibody Screen Crossmatch BBK History Checked 01/15/19 01/15/19 06:00 06:00 WBC 14.7 H D RBC 3.89 Hgb 9.2 L Hct 30.7 L MCV 78.9 L MCH 23.7 L MCHC 30.0 L RDW 18.9 H Plt Count 191 MPV 10.5 Neut % (Auto) 88.7 H Lymph % (Auto) 3.2 L Shelby % (Auto) 8.0 H Eos % (Auto) 0.0 L Baso % (Auto) 0.1 Lymph # (Auto) 0.5 L Shelby # (Auto) 1.2 H Eos # (Auto) 0.0 Baso # (Auto) 0.01 Absolute Neuts (auto) 13.06 H Neutrophils % (Manual) 77 H Band Neutrophils % 9 H Lymphocytes % (Manual) 8 L Monocytes % (Manual) 6 Platelet Evaluation Normal Anisocytosis (manual) 1+ Microcytosis (manual) 1+ Schistocytes Slight PT INR APTT Sodium 140 Potassium 5.5 H Chloride 110 H Carbon Dioxide 16 L Anion Gap 19 BUN 52 H Creatinine 5.3 H Est GFR ( Amer) 10 Est GFR (Non-Af Amer) 8 POC Glucose (mg/dL) Random Glucose 140 H Lactic Acid Calcium 7.9 L Phosphorus 9.0 H Magnesium 2.3 H Total Bilirubin 0.4 AST 852 H D ALT 833 H Alkaline Phosphatase 57 Troponin I Total Protein 5.9 Albumin 2.7 L Globulin 3.2 Albumin/Globulin Ratio 0.8 L Blood Type Blood Type Confirm Antibody Screen Crossmatch BBK History Checked Radiology Impressions: Radiology Impressions Chest X-Ray 01/14/19 14:32 IMPRESSION: Right-sided central venous catheter terminates at the cavoatrial junction. No acute findings. Chest X-Ray 01/14/19 15:37 IMPRESSION: The right IJ line is seen at the junction of the SVC and right atrium. There is no pneumothorax. EKG/Cardiology Studies: Cardiology / EKG Studies 01/14/19 14:49 EKG [ELECTROCARDIOGRAM] Stat Comment: Reason For Exam: chest pain Fingerstick Blood Sugar Results: 185 Review of Systems - Review of Systems Systems not reviewed;Unavailable: Intubated Critical Care Progress Note - Nutrition Nutrition: Nutrition Category Date Time Status NPO Diet [DIET] Diets 01/13/19 Breakfast Ordered Assessment/Plan - Assessment and Plan (Free Text) Plan: Mrs Guido is a 73 year old female with a PMHx of uterine ca s/p radiation therapy, CAD s/p 6 stents, IDDM2, CKD, PVD, HTN, chronic iron-deficiency anemia (previously had aranesp infusions), PVD, L-sided carotid stenosis s/p endarterectomy, obesity, LBBB who was found to have partial small bowel obstruction which worsened to high grade obstruction and now likely ichemic bowel: Cardiovascular #shock 2/2 ischemic bowel -on 01/14 patient received 6.5 liters of NS bolus throughout the day and was put on maintenance rate of 75 cc/hr, repeat bloodwork in the evening showed improvement in lactic acid (7.4 -> 5.9) and potassium (5.7 -> 4.8); overnight rate increased to 125 cc/hr as patient became hypotensive -AM surgery on 01/15 was aborted as patient became hypotensive after administration of anesthesia -per discussion with surgical team, plan is to re-attempt surgery in afternoon - will prepare patient with aggressive fluid resuscitation with 3L LR and maintenance at 150 cc/hr and check repeat labs and abg w/ lactate at 11:30AM -currently on levophed, pressures being monitored via arterial-line #CAD s/p 6 stents #PVD #L-sided carotid stenosis s/p endarterectomy #LBBB #HTN #NSTEMI -hold aspirin, hydralazine, imdur, norvasc, clonidine -Trop: 0.02 -> 0.11 -> 0.15 -> 0.21, likely 2/2 to demand ischemia -echo 01/14/19: Echo: EF 50%, mod concentric LVH, mild tricuspid regurgitation, rsvp 33 -cardiology consulted, Dr Coronel Gastrointestinal #High Grade Bowel Obstruction #Ischemic Bowel #Diffuse Abdominal and Pelvic Ascites 2/ 3rd Spacing -CT abd/pelvis 01/13: There is partial small bowel obstruction with multiple fluid-filled loops of bowel in the mid and upper abdomen. There is a transition point in the right lower quadrant -f/u repeat CT abd/pelvis w/ contrast 01/14: -uptrending LFTs 2/2 to shock liver -keep npo for now Neuro -intubated and still sedated from anesthesia received in OR Renal #GUIDO on CKD -Cr 2.5 -> 5.3, likely 22 to shock #Hyperkalemia -improved after administration of insulin 10u and amp of dextrose 50%, repeat labs now show K at 5.5 -f/u afternoon labs Infectious Disease #Leukocytosis w/ bandemia -empiric tx with flagyl 500mg ivpb q8 and azactam 500mg ivpb q8 -urine cx negative -f/u blood cx Endocrine #IDDM2 -hold home levemir as patient is npo -finger checks q6h -hgba1c 6.8 PPX #pepcid 20mg ivp qd, heparin 5000u sc q8 Seen and discussed with Dr Castle <Reynaldo Castle - Last Filed: 01/15/19 14:10> CCU Objective - Vital Signs / Intake & Output Vital Signs (Last 4 hours): Vital Signs Pulse BP Pulse Ox 01/15/19 13:02 108 H 113/58 L 100 01/15/19 13:01 107 H 01/15/19 13:00 106 H 01/15/19 12:50 108 H 100 01/15/19 12:40 107 H 100 01/15/19 12:30 107 H 100 01/15/19 12:20 107 H 100 01/15/19 12:10 110 H 100 01/15/19 12:03 108 H 01/15/19 12:02 109 H 01/15/19 12:00 109 H 98 01/15/19 11:50 109 H 96 01/15/19 11:40 112 H 100 01/15/19 11:31 82 94/40 L 01/15/19 11:30 107 H 100 01/15/19 11:20 106 H 100 01/15/19 11:10 106 H 100 01/15/19 11:03 108 H 01/15/19 11:02 107 H 01/15/19 11:01 107 H 01/15/19 11:00 106 H 01/15/19 10:50 110 H 100 01/15/19 10:40 110 H 100 01/15/19 10:30 114 H 100 01/15/19 10:20 111 H 100 01/15/19 10:10 113 H 100 Intake and Output (Last 8hrs): Intake & Output 01/14/19 01/15/19 01/15/19 22:59 06:59 14:59 Intake Total 1300 152 Output Total 100 0 Balance 1200 152 Intake: IV 1300 152 Right Internal Jugular 1300 Output: Urine 100 0 Urethral ([place]) 100 - Medications Active Medications: Active Medications Generic Name Dose Route Start Last Admin Trade Name Freq PRN Reason Stop Dose Admin Benzocaine/Menthol 1 alyssa 01/13/19 18:53 Cepacol Sore Throat MT Q2H PRN Sore Throat Carvedilol 12.5 mg 01/14/19 10:30 01/15/19 11:31 Coreg PO Not Given BID SANAM Famotidine 20 mg 01/13/19 10:00 01/15/19 11:50 Pepcid IVP 20 mg DAILY SANAM Administration Heparin Sodium (Porcine) 5,000 units 01/13/19 14:00 01/15/19 05:09 Heparin SC 5,000 units Q8 SANAM Administration Protocol Home Med 1 unit 01/13/19 10:00 01/15/19 11:33 Home Med PO Not Given DAILY SANAM Hydromorphone HCl 0.5 mg 01/13/19 20:55 01/15/19 05:26 Dilaudid IVP 0.5 mg Q3H PRN Administration Pain, moderate (4-7) Hydromorphone HCl 1 mg 01/13/19 20:56 01/14/19 05:34 Dilaudid IVP 1 mg Q3H PRN Administration Pain, severe (8-10) Aztreonam 500 mg/ Sodium 100 mls @ 100 mls/hr 01/15/19 08:30 01/15/19 09:30 Chloride IVPB 01/15/19 14:59 100 mls/hr Q8 SANAM Administration Protocol NOREPINEPHRINE BIT/0.9 % NACL 4 mg in 250 mls @ 15 mls/hr 01/15/19 09:03 01/15/19 09:40 Levophed 4 Mg/ 250 Ml Ns Premixed IV 0 mcg/min .[id number] PRN 0 mls/hr TITRATE PER MD ORDER Titration Protocol 4 MCG/MIN Metronidazole 500 mg in 100 mls @ 100 mls/hr 01/15/19 09:45 01/15/19 09:46 Flagyl IVPB 100 mls/hr Q8 SANAM Administration Protocol Lactated Ringer's 1,000 mls @ 150 mls/hr 01/15/19 10:30 Lactated Ringer's IV .[id number] [facility] Insulin Detemir 15 unit 01/13/19 10:00 01/14/19 22:40 Levemir SC Not Given Q12 [facility] Insulin Human Regular 0 units 01/13/19 07:30 01/15/19 11:34 Humulin R Low SC Not Given ACHS [facility] Protocol Ondansetron HCl 4 mg 01/13/19 18:21 01/14/19 05:36 Zofran Inj IVP 4 mg Q4H PRN Administration Nausea/Vomiting - Patient Studies Lab Studies: Microbiology Studies 01/13/19 22:29 Urine Culture - Final Urine,Clean Catch No Growth (<1,000 CFU/ML) Lab Studies 01/15/19 01/15/19 01/15/19 Range/Units 13:00 12:40 12:40 WBC 10.2 D (4.5-11.0) 10^3/uL RBC 3.31 L (3.5-6.1) 10^6/uL Hgb 8.0 L (12.0-16.0) g/dL Hct 26.0 L (36.0-48.0) % MCV 78.5 L (80.0-105.0) fl MCH 24.2 L (25.0-35.0) pg MCHC 30.8 L (31.0-37.0) g/dl RDW 19.1 H (11.5-14.5) % Plt Count 158 (120.0-450.0) 10^3/uL MPV 10.6 (7.0-11.0) fl Neut % (Auto) 88.5 H (50.0-68.0) % Lymph % (Auto) 4.7 L (22.0-35.0) % [place] % (Auto) 6.7 H (1.0-6.0) % Eos % (Auto) 0.0 L (1.5-5.0) % Baso % (Auto) 0.1 (0.0-3.0) % Lymph # (Auto) 0.5 L (1.2-3.4) [place] # (Auto) 0.7 H (0.1-0.6) Eos # (Auto) 0.0 (0.0-0.7) Baso # (Auto) 0.01 (0.0-2.0) K/mm3 Absolute Neuts (auto) 9.02 H (1.4-6.5) Neutrophils % (Manual) (50.0-70.0) % Band Neutrophils % (0-2) % Lymphocytes % (Manual) (22.0-35.0) % Monocytes % (Manual) (1.0-6.0) % Platelet Evaluation (NORMAL) Anisocytosis (manual) Microcytosis (manual) Schistocytes PT (9.4-12.5) SECONDS INR APTT (26.9-38.3) Seconds pCO2 34 L (35-45) mm/Hg pO2 180.0 H (80-100) mm/Hg HCO3 12.7 L (21-28) mmol/L ABG pH 7.18 L* (7.35-7.45) ABG Total CO2 13.7 L (22-28) mmol.L ABG O2 Saturation 99.5 H (95-98) % ABG Base Excess -14.6 L (-2.0-3.0) mmol/L ABG Potassium 4.7 (3.6-5.2) mmol/L Glucose 118 H (65-105) mg/dl Lactate 5.8 H* (0.7-2.1) mmol/L FiO2 100.0 % Crit Value Called To maryellen Cardenas Crit Value Called By Xena Blood Gas Notified Time 1310 Sodium 139.0 140 (132-148) mmol/L Potassium 5.1 H (3.6-5.0) mmol/L Chloride 115.0 H 111 H (98-107) mmol/L Carbon Dioxide 16 L (21-33) mmol/L Anion Gap 17 (10-20) BUN 51 H (7-21) mg/dL Creatinine 4.5 H (0.7-1.2) mg/dl Est GFR ( Amer) 12 Est GFR (Non-Af Amer) 10 POC Glucose (mg/dL) (65-110) mg/dL Random Glucose 117 H (70-110) mg/dL Lactic Acid (0.7-2.1) mmol/L Calcium 7.3 L (8.4-10.5) mg/dL Phosphorus 7.1 H (2.5-4.5) mg/dL Magnesium 1.9 (1.7-2.2) mg/dL Total Bilirubin 0.3 (0.2-1.3) mg/dL AST 961 H (14-36) U/L ALT 857 H (7-56) U/L Alkaline Phosphatase 50 (38-126) U/L Troponin I ng/mL Total Protein 4.7 L (5.8-8.3) g/dL Albumin 2.1 L (3.0-4.8) g/dL Globulin 2.6 gm/dL Albumin/Globulin Ratio 0.8 L (1.1-1.8) Arterial Blood Potassium 4.7 (3.6-5.2) mmol/L Blood Type Blood Type Confirm Antibody Screen Crossmatch BBK History Checked 01/15/19 01/15/19 01/15/19 Range/Units 11:06 06:00 06:00 WBC 14.7 H D (4.5-11.0) 10^3/uL RBC 3.89 (3.5-6.1) 10^6/uL Hgb 9.2 L (12.0-16.0) g/dL Hct 30.7 L (36.0-48.0) % MCV 78.9 L (80.0-105.0) fl MCH 23.7 L (25.0-35.0) pg MCHC 30.0 L (31.0-37.0) g/dl RDW 18.9 H (11.5-14.5) % Plt Count 191 (120.0-450.0) 10^3/uL MPV 10.5 (7.0-11.0) fl Neut % (Auto) 88.7 H (50.0-68.0) % Lymph % (Auto) 3.2 L (22.0-35.0) % Shelby % (Auto) 8.0 H (1.0-6.0) % Eos % (Auto) 0.0 L (1.5-5.0) % Baso % (Auto) 0.1 (0.0-3.0) % Lymph # (Auto) 0.5 L (1.2-3.4) [place] # (Auto) 1.2 H (0.1-0.6) Eos # (Auto) 0.0 (0.0-0.7) Baso # (Auto) 0.01 (0.0-2.0) K/mm3 Absolute Neuts (auto) 13.06 H (1.4-6.5) Neutrophils % (Manual) 77 H (50.0-70.0) % Band Neutrophils % 9 H (0-2) % Lymphocytes % (Manual) 8 L (22.0-35.0) % Monocytes % (Manual) 6 (1.0-6.0) % Platelet Evaluation Normal (NORMAL) Anisocytosis (manual) 1+ Microcytosis (manual) 1+ Schistocytes Slight PT (9.4-12.5) SECONDS INR APTT (26.9-38.3) Seconds pCO2 (35-45) mm/Hg pO2 (80-100) mm/Hg HCO3 (21-28) mmol/L ABG pH (7.35-7.45) ABG Total CO2 (22-28) mmol.L ABG O2 Saturation (95-98) % ABG Base Excess (-2.0-3.0) mmol/L ABG Potassium (3.6-5.2) mmol/L Glucose (65-105) mg/dl Lactate (0.7-2.1) mmol/L FiO2 % Crit Value Called To Crit Value Called By Blood Gas Notified Time Sodium 140 (132-148) mmol/L Potassium 5.5 H (3.6-5.0) mmol/L Chloride 110 H (98-107) mmol/L Carbon Dioxide 16 L (21-33) mmol/L Anion Gap 19 (10-20) BUN 52 H (7-21) mg/dL Creatinine 5.3 H (0.7-1.2) mg/dl Est GFR ( Amer) 10 Est GFR (Non-Af Amer) 8 POC Glucose (mg/dL) 133 H (65-110) mg/dL Random Glucose 140 H (70-110) mg/dL Lactic Acid (0.7-2.1) mmol/L Calcium 7.9 L (8.4-10.5) mg/dL Phosphorus 9.0 H (2.5-4.5) mg/dL Magnesium 2.3 H (1.7-2.2) mg/dL Total Bilirubin 0.4 (0.2-1.3) mg/dL AST 852 H D (14-36) U/L ALT 833 H (7-56) U/L Alkaline Phosphatase 57 (38-126) U/L Troponin I ng/mL Total Protein 5.9 (5.8-8.3) g/dL Albumin 2.7 L (3.0-4.8) g/dL Globulin 3.2 gm/dL Albumin/Globulin Ratio 0.8 L (1.1-1.8) Arterial Blood Potassium (3.6-5.2) mmol/L Blood Type Blood Type Confirm Antibody Screen Crossmatch BBK History Checked 01/15/19 01/15/19 01/14/19 Range/Units 01:39 01:30 20:00 WBC (4.5-11.0) 10^3/uL RBC (3.5-6.1) 10^6/uL Hgb (12.0-16.0) g/dL Hct (36.0-48.0) % MCV (80.0-105.0) fl MCH (25.0-35.0) pg MCHC (31.0-37.0) g/dl RDW (11.5-14.5) % Plt Count (120.0-450.0) 10^3/uL MPV (7.0-11.0) fl Neut % (Auto) (50.0-68.0) % Lymph % (Auto) (22.0-35.0) % [place] % (Auto) (1.0-6.0) % Eos % (Auto) (1.5-5.0) % Baso % (Auto) (0.0-3.0) % Lymph # (Auto) (1.2-3.4) [place] # (Auto) (0.1-0.6) Eos # (Auto) (0.0-0.7) Baso # (Auto) (0.0-2.0) K/mm3 Absolute Neuts (auto) (1.4-6.5) Neutrophils % (Manual) (50.0-70.0) % Band Neutrophils % (0-2) % Lymphocytes % (Manual) (22.0-35.0) % Monocytes % (Manual) (1.0-6.0) % Platelet Evaluation (NORMAL) Anisocytosis (manual) Microcytosis (manual) Schistocytes PT (9.4-12.5) SECONDS INR APTT (26.9-38.3) Seconds pCO2 (35-45) mm/Hg pO2 (80-100) mm/Hg HCO3 (21-28) mmol/L ABG pH (7.35-7.45) ABG Total CO2 (22-28) mmol.L ABG O2 Saturation (95-98) % ABG Base Excess (-2.0-3.0) mmol/L ABG Potassium (3.6-5.2) mmol/L Glucose (65-105) mg/dl Lactate (0.7-2.1) mmol/L FiO2 % Crit Value Called To Crit Value Called By Blood Gas Notified Time Sodium (132-148) mmol/L Potassium (3.6-5.0) mmol/L Chloride (98-107) mmol/L Carbon Dioxide (21-33) mmol/L Anion Gap (10-20) BUN (7-21) mg/dL Creatinine (0.7-1.2) mg/dl Est GFR ( Amer) Est GFR (Non-Af Amer) POC Glucose (mg/dL) 185 H (65-110) mg/dL Random Glucose (70-110) mg/dL Lactic Acid 5.9 H* (0.7-2.1) mmol/L Calcium (8.4-10.5) mg/dL Phosphorus (2.5-4.5) mg/dL Magnesium (1.7-2.2) mg/dL Total Bilirubin (0.2-1.3) mg/dL AST (14-36) U/L ALT (7-56) U/L Alkaline Phosphatase (38-126) U/L Troponin I 0.21 H* D ng/mL Total Protein (5.8-8.3) g/dL Albumin (3.0-4.8) g/dL Globulin gm/dL Albumin/Globulin Ratio (1.1-1.8) Arterial Blood Potassium (3.6-5.2) mmol/L Blood Type Blood Type Confirm Antibody Screen Crossmatch BBK History Checked 01/14/19 01/14/19 01/14/19 Range/Units 20:00 17:30 17:06 WBC (4.5-11.0) 10^3/uL RBC (3.5-6.1) 10^6/uL Hgb (12.0-16.0) g/dL Hct (36.0-48.0) % MCV (80.0-105.0) fl MCH (25.0-35.0) pg MCHC (31.0-37.0) g/dl RDW (11.5-14.5) % Plt Count (120.0-450.0) 10^3/uL MPV (7.0-11.0) fl Neut % (Auto) (50.0-68.0) % Lymph % (Auto) (22.0-35.0) % [place] % (Auto) (1.0-6.0) % Eos % (Auto) (1.5-5.0) % Baso % (Auto) (0.0-3.0) % Lymph # (Auto) (1.2-3.4) [place] # (Auto) (0.1-0.6) Eos # (Auto) (0.0-0.7) Baso # (Auto) (0.0-2.0) K/mm3 Absolute Neuts (auto) (1.4-6.5) Neutrophils % (Manual) (50.0-70.0) % Band Neutrophils % (0-2) % Lymphocytes % (Manual) (22.0-35.0) % Monocytes % (Manual) (1.0-6.0) % Platelet Evaluation (NORMAL) Anisocytosis (manual) Microcytosis (manual) Schistocytes PT (9.4-12.5) SECONDS INR APTT (26.9-38.3) Seconds pCO2 (35-45) mm/Hg pO2 (80-100) mm/Hg HCO3 (21-28) mmol/L ABG pH (7.35-7.45) ABG Total CO2 (22-28) mmol.L ABG O2 Saturation (95-98) % ABG Base Excess (-2.0-3.0) mmol/L ABG Potassium (3.6-5.2) mmol/L Glucose (65-105) mg/dl Lactate (0.7-2.1) mmol/L FiO2 % Crit Value Called To Crit Value Called By Blood Gas Notified Time Sodium 140 (132-148) mmol/L Potassium 4.8 (3.6-5.0) mmol/L Chloride 110 H (98-107) mmol/L Carbon Dioxide 18 L (21-33) mmol/L Anion Gap 18 (10-20) BUN 45 H (7-21) mg/dL Creatinine 4.2 H (0.7-1.2) mg/dl Est GFR ( Amer) 13 Est GFR (Non-Af Amer) 10 POC Glucose (mg/dL) 161 H (65-110) mg/dL Random Glucose 210 H (70-110) mg/dL Lactic Acid (0.7-2.1) mmol/L Calcium 8.0 L (8.4-10.5) mg/dL Phosphorus (2.5-4.5) mg/dL Magnesium (1.7-2.2) mg/dL Total Bilirubin 0.3 (0.2-1.3) mg/dL AST 612 H D (14-36) U/L ALT 563 H (7-56) U/L Alkaline Phosphatase 58 (38-126) U/L Troponin I 0.15 H* D ng/mL Total Protein 5.7 L (5.8-8.3) g/dL Albumin 2.6 L (3.0-4.8) g/dL Globulin 3.1 gm/dL Albumin/Globulin Ratio 0.9 L (1.1-1.8) Arterial Blood Potassium (3.6-5.2) mmol/L Blood Type Blood Type Confirm O POSITIVE Antibody Screen Crossmatch BBK History Checked 05/14/19 05/14/19 05/14/19 Range/Units 15:43 15:40 15:11 WBC (4.5-11.0) 10^3/uL RBC (3.5-6.1) 10^6/uL Hgb (12.0-16.0) g/dL Hct (36.0-48.0) % MCV (80.0-105.0) fl MCH (25.0-35.0) pg MCHC (31.0-37.0) g/dl RDW (11.5-14.5) % Plt Count (120.0-450.0) 10^3/uL MPV (7.0-11.0) fl Neut % (Auto) (50.0-68.0) % Lymph % (Auto) (22.0-35.0) % [place] % (Auto) (1.0-6.0) % Eos % (Auto) (1.5-5.0) % Baso % (Auto) (0.0-3.0) % Lymph # (Auto) (1.2-3.4) [place] # (Auto) (0.1-0.6) Eos # (Auto) (0.0-0.7) Baso # (Auto) (0.0-2.0) K/mm3 Absolute Neuts (auto) (1.4-6.5) Neutrophils % (Manual) (50.0-70.0) % Band Neutrophils % (0-2) % Lymphocytes % (Manual) (22.0-35.0) % Monocytes % (Manual) (1.0-6.0) % Platelet Evaluation (NORMAL) Anisocytosis (manual) Microcytosis (manual) Schistocytes PT 14.6 H (9.4-12.5) SECONDS INR 1.32 APTT 29.4 (26.9-38.3) Seconds pCO2 (35-45) mm/Hg pO2 (80-100) mm/Hg HCO3 (21-28) mmol/L ABG pH (7.35-7.45) ABG Total CO2 (22-28) mmol.L ABG O2 Saturation (95-98) % ABG Base Excess (-2.0-3.0) mmol/L ABG Potassium (3.6-5.2) mmol/L Glucose (65-105) mg/dl Lactate (0.7-2.1) mmol/L FiO2 % Crit Value Called To Crit Value Called By Blood Gas Notified Time Sodium (132-148) mmol/L Potassium (3.6-5.0) mmol/L Chloride (98-107) mmol/L Carbon Dioxide (21-33) mmol/L Anion Gap (10-20) BUN (7-21) mg/dL Creatinine (0.7-1.2) mg/dl Est GFR ( Amer) Est GFR (Non-Af Amer) POC Glucose (mg/dL) (65-110) mg/dL Random Glucose (70-110) mg/dL Lactic Acid 7.4 H* (0.7-2.1) mmol/L Calcium (8.4-10.5) mg/dL Phosphorus (2.5-4.5) mg/dL Magnesium (1.7-2.2) mg/dL Total Bilirubin (0.2-1.3) mg/dL AST (14-36) U/L ALT (7-56) U/L Alkaline Phosphatase (38-126) U/L Troponin I ng/mL Total Protein (5.8-8.3) g/dL Albumin (3.0-4.8) g/dL Globulin gm/dL Albumin/Globulin Ratio (1.1-1.8) Arterial Blood Potassium (3.6-5.2) mmol/L Blood Type O POSITIVE Blood Type Confirm Antibody Screen Negative Crossmatch See Detail BBK History Checked No verified bt 01/14/19 01/14/19 Range/Units 15:11 15:11 WBC 9.1 D (4.5-11.0) 10^3/uL RBC 4.44 (3.5-6.1) 10^6/uL Hgb 10.7 L (12.0-16.0) g/dL Hct 35.2 L (36.0-48.0) % MCV 79.3 L (80.0-105.0) fl MCH 24.1 L (25.0-35.0) pg MCHC 30.4 L (31.0-37.0) g/dl RDW 18.8 H (11.5-14.5) % Plt Count 219 (120.0-450.0) 10^3/uL MPV 10.1 (7.0-11.0) fl Neut % (Auto) 83.9 H (50.0-68.0) % Lymph % (Auto) 6.7 L (22.0-35.0) % [place] % (Auto) 9.4 H (1.0-6.0) % Eos % (Auto) 0.0 L (1.5-5.0) % Baso % (Auto) 0.0 (0.0-3.0) % Lymph # (Auto) 0.6 L (1.2-3.4) [place] # (Auto) 0.9 H (0.1-0.6) Eos # (Auto) 0.0 (0.0-0.7) Baso # (Auto) 0.00 (0.0-2.0) K/mm3 Absolute Neuts (auto) 7.63 H (1.4-6.5) Neutrophils % (Manual) (50.0-70.0) % Band Neutrophils % (0-2) % Lymphocytes % (Manual) (22.0-35.0) % Monocytes % (Manual) (1.0-6.0) % Platelet Evaluation (NORMAL) Anisocytosis (manual) Microcytosis (manual) Schistocytes PT (9.4-12.5) SECONDS INR APTT (26.9-38.3) Seconds pCO2 (35-45) mm/Hg pO2 (80-100) mm/Hg HCO3 (21-28) mmol/L ABG pH (7.35-7.45) ABG Total CO2 (22-28) mmol.L ABG O2 Saturation (95-98) % ABG Base Excess (-2.0-3.0) mmol/L ABG Potassium (3.6-5.2) mmol/L Glucose (65-105) mg/dl Lactate (0.7-2.1) mmol/L FiO2 % Crit Value Called To Crit Value Called By Blood Gas Notified Time Sodium 141 (132-148) mmol/L Potassium 5.7 H* D (3.6-5.0) mmol/L Chloride 108 H (98-107) mmol/L Carbon Dioxide 17 L (21-33) mmol/L Anion Gap 22 H (10-20) BUN 42 H (7-21) mg/dL Creatinine 4.1 H (0.7-1.2) mg/dl Est GFR ( Amer) 13 Est GFR (Non-Af Amer) 11 POC Glucose (mg/dL) (65-110) mg/dL Random Glucose 179 H (70-110) mg/dL Lactic Acid (0.7-2.1) mmol/L Calcium 8.3 L (8.4-10.5) mg/dL Phosphorus 9.3 H (2.5-4.5) mg/dL Magnesium 2.4 H (1.7-2.2) mg/dL Total Bilirubin 0.4 (0.2-1.3) mg/dL AST 173 H D (14-36) U/L ALT 121 H (7-56) U/L Alkaline Phosphatase 69 (38-126) U/L Troponin I 0.11 D ng/mL Total Protein 6.5 (5.8-8.3) g/dL Albumin 3.1 (3.0-4.8) g/dL Globulin 3.4 gm/dL Albumin/Globulin Ratio 0.9 L (1.1-1.8) Arterial Blood Potassium (3.6-5.2) mmol/L Blood Type Blood Type Confirm Antibody Screen Crossmatch BBK History Checked Laboratory Results - last 24 hr 01/14/19 01/14/19 01/14/19 15:11 15:11 15:11 WBC 9.1 D RBC 4.44 Hgb 10.7 L Hct 35.2 L MCV 79.3 L MCH 24.1 L MCHC 30.4 L RDW 18.8 H Plt Count 219 MPV 10.1 Neut % (Auto) 83.9 H Lymph % (Auto) 6.7 L [place] % (Auto) 9.4 H Eos % (Auto) 0.0 L Baso % (Auto) 0.0 Lymph # (Auto) 0.6 L [place] # (Auto) 0.9 H Eos # (Auto) 0.0 Baso # (Auto) 0.00 Absolute Neuts (auto) 7.63 H Neutrophils % (Manual) Band Neutrophils % Lymphocytes % (Manual) Monocytes % (Manual) Platelet Evaluation Anisocytosis (manual) Microcytosis (manual) Schistocytes PT 14.6 H INR 1.32 APTT 29.4 pCO2 pO2 HCO3 ABG pH ABG Total CO2 ABG O2 Saturation ABG Base Excess ABG Potassium Glucose Lactate FiO2 Crit Value Called To Crit Value Called By Blood Gas Notified Time Sodium 141 Potassium 5.7 H* D Chloride 108 H Carbon Dioxide 17 L Anion Gap 22 H BUN 42 H Creatinine 4.1 H Est GFR ( Amer) 13 Est GFR (Non-Af Amer) 11 POC Glucose (mg/dL) Random Glucose 179 H Lactic Acid Calcium 8.3 L Phosphorus 9.3 H Magnesium 2.4 H Total Bilirubin 0.4 AST 173 H D ALT 121 H Alkaline Phosphatase 69 Troponin I 0.11 D Total Protein 6.5 Albumin 3.1 Globulin 3.4 Albumin/Globulin Ratio 0.9 L Arterial Blood Potassium Blood Type Blood Type Confirm Antibody Screen Crossmatch BBK History Checked 01/14/19 01/14/19 01/14/19 15:40 15:43 17:06 WBC RBC Hgb Hct MCV MCH MCHC RDW Plt Count MPV Neut % (Auto) Lymph % (Auto) [place] % (Auto) Eos % (Auto) Baso % (Auto) Lymph # (Auto) [place] # (Auto) Eos # (Auto) Baso # (Auto) Absolute Neuts (auto) Neutrophils % (Manual) Band Neutrophils % Lymphocytes % (Manual) Monocytes % (Manual) Platelet Evaluation Anisocytosis (manual) Microcytosis (manual) Schistocytes PT INR APTT pCO2 pO2 HCO3 ABG pH ABG Total CO2 ABG O2 Saturation ABG Base Excess ABG Potassium Glucose Lactate FiO2 Crit Value Called To Crit Value Called By Blood Gas Notified Time Sodium Potassium Chloride Carbon Dioxide Anion Gap BUN Creatinine Est GFR ( Amer) Est GFR (Non-Af Amer) POC Glucose (mg/dL) 161 H Random Glucose Lactic Acid 7.4 H* Calcium Phosphorus Magnesium Total Bilirubin AST ALT Alkaline Phosphatase Troponin I Total Protein Albumin Globulin Albumin/Globulin Ratio Arterial Blood Potassium Blood Type O POSITIVE Blood Type Confirm Antibody Screen Negative Crossmatch See Detail BBK History Checked No verified bt 01/14/19 01/14/19 01/14/19 17:30 20:00 20:00 WBC RBC Hgb Hct MCV MCH MCHC RDW Plt Count MPV Neut % (Auto) Lymph % (Auto) [place] % (Auto) Eos % (Auto) Baso % (Auto) Lymph # (Auto) [place] # (Auto) Eos # (Auto) Baso # (Auto) Absolute Neuts (auto) Neutrophils % (Manual) Band Neutrophils % Lymphocytes % (Manual) Monocytes % (Manual) Platelet Evaluation Anisocytosis (manual) Microcytosis (manual) Schistocytes PT INR APTT pCO2 pO2 HCO3 ABG pH ABG Total CO2 ABG O2 Saturation ABG Base Excess ABG Potassium Glucose Lactate FiO2 Crit Value Called To Crit Value Called By Blood Gas Notified Time Sodium 140 Potassium 4.8 Chloride 110 H Carbon Dioxide 18 L Anion Gap 18 BUN 45 H Creatinine 4.2 H Est GFR ( Amer) 13 Est GFR (Non-Af Amer) 10 POC Glucose (mg/dL) Random Glucose 210 H Lactic Acid 5.9 H* Calcium 8.0 L Phosphorus Magnesium Total Bilirubin 0.3 AST 612 H D ALT 563 H Alkaline Phosphatase 58 Troponin I 0.15 H* D Total Protein 5.7 L Albumin 2.6 L Globulin 3.1 Albumin/Globulin Ratio 0.9 L Arterial Blood Potassium Blood Type Blood Type Confirm O POSITIVE Antibody Screen Crossmatch BBK History Checked 01/15/19 01/15/19 01/15/19 01:30 01:39 06:00 WBC 14.7 H D RBC 3.89 Hgb 9.2 L Hct 30.7 L MCV 78.9 L MCH 23.7 L MCHC 30.0 L RDW 18.9 H Plt Count 191 MPV 10.5 Neut % (Auto) 88.7 H Lymph % (Auto) 3.2 L [place] % (Auto) 8.0 H Eos % (Auto) 0.0 L Baso % (Auto) 0.1 Lymph # (Auto) 0.5 L [place] # (Auto) 1.2 H Eos # (Auto) 0.0 Baso # (Auto) 0.01 Absolute Neuts (auto) 13.06 H Neutrophils % (Manual) 77 H Band Neutrophils % 9 H Lymphocytes % (Manual) 8 L Monocytes % (Manual) 6 Platelet Evaluation Normal Anisocytosis (manual) 1+ Microcytosis (manual) 1+ Schistocytes Slight PT INR APTT pCO2 pO2 HCO3 ABG pH ABG Total CO2 ABG O2 Saturation ABG Base Excess ABG Potassium Glucose Lactate FiO2 Crit Value Called To Crit Value Called By Blood Gas Notified Time Sodium Potassium Chloride Carbon Dioxide Anion Gap BUN Creatinine Est GFR ( Amer) Est GFR (Non-Af Amer) POC Glucose (mg/dL) 185 H Random Glucose Lactic Acid Calcium Phosphorus Magnesium Total Bilirubin AST ALT Alkaline Phosphatase Troponin I 0.21 H* D Total Protein Albumin Globulin Albumin/Globulin Ratio Arterial Blood Potassium Blood Type Blood Type Confirm Antibody Screen Crossmatch BBK History Checked 01/15/19 01/15/19 01/15/19 06:00 11:06 12:40 WBC 10.2 D RBC 3.31 L Hgb 8.0 L Hct 26.0 L MCV 78.5 L MCH 24.2 L MCHC 30.8 L RDW 19.1 H Plt Count 158 MPV 10.6 Neut % (Auto) 88.5 H Lymph % (Auto) 4.7 L [place] % (Auto) 6.7 H Eos % (Auto) 0.0 L Baso % (Auto) 0.1 Lymph # (Auto) 0.5 L [place] # (Auto) 0.7 H Eos # (Auto) 0.0 Baso # (Auto) 0.01 Absolute Neuts (auto) 9.02 H Neutrophils % (Manual) Band Neutrophils % Lymphocytes % (Manual) Monocytes % (Manual) Platelet Evaluation Anisocytosis (manual) Microcytosis (manual) Schistocytes PT INR APTT pCO2 pO2 HCO3 ABG pH ABG Total CO2 ABG O2 Saturation ABG Base Excess ABG Potassium Glucose Lactate FiO2 Crit Value Called To Crit Value Called By Blood Gas Notified Time Sodium 140 Potassium 5.5 H Chloride 110 H Carbon Dioxide 16 L Anion Gap 19 BUN 52 H Creatinine 5.3 H Est GFR ( Amer) 10 Est GFR (Non-Af Amer) 8 POC Glucose (mg/dL) 133 H Random Glucose 140 H Lactic Acid Calcium 7.9 L Phosphorus 9.0 H Magnesium 2.3 H Total Bilirubin 0.4 AST 852 H D ALT 833 H Alkaline Phosphatase 57 Troponin I Total Protein 5.9 Albumin 2.7 L Globulin 3.2 Albumin/Globulin Ratio 0.8 L Arterial Blood Potassium Blood Type Blood Type Confirm Antibody Screen Crossmatch BBK History Checked 01/15/19 01/15/19 12:40 13:00 WBC RBC Hgb Hct MCV MCH MCHC RDW Plt Count MPV Neut % (Auto) Lymph % (Auto) [place] % (Auto) Eos % (Auto) Baso % (Auto) Lymph # (Auto) [place] # (Auto) Eos # (Auto) Baso # (Auto) Absolute Neuts (auto) Neutrophils % (Manual) Band Neutrophils % Lymphocytes % (Manual) Monocytes % (Manual) Platelet Evaluation Anisocytosis (manual) Microcytosis (manual) Schistocytes PT INR APTT pCO2 34 L pO2 180.0 H HCO3 12.7 L ABG pH 7.18 L* ABG Total CO2 13.7 L ABG O2 Saturation 99.5 H ABG Base Excess -14.6 L ABG Potassium 4.7 Glucose 118 H Lactate 5.8 H* FiO2 100.0 Crit Value Called To maryellen Cardenas Crit Value Called By Xena Blood Gas Notified Time 1310 Sodium 140 139.0 Potassium 5.1 H Chloride 111 H 115.0 H Carbon Dioxide 16 L Anion Gap 17 BUN 51 H Creatinine 4.5 H Est GFR ( Amer) 12 Est GFR (Non-Af Amer) 10 POC Glucose (mg/dL) Random Glucose 117 H Lactic Acid Calcium 7.3 L Phosphorus 7.1 H Magnesium 1.9 Total Bilirubin 0.3 AST 961 H ALT 857 H Alkaline Phosphatase 50 Troponin I Total Protein 4.7 L Albumin 2.1 L Globulin 2.6 Albumin/Globulin Ratio 0.8 L Arterial Blood Potassium 4.7 Blood Type Blood Type Confirm Antibody Screen Crossmatch BBK History Checked Radiology Impressions: Radiology Impressions Chest X-Ray 01/14/19 14:32 IMPRESSION: Right-sided central venous catheter terminates at the cavoatrial junction. No acute findings. Abdomen/Pelvis CT 01/14/19 15:15 IMPRESSION: Multiple dilated small bowel loops which appears thick walled; appearance consistent with obstruction. Mesenteric edema. Abdominal pelvic ascites. [place]jo catheter within the urinary bladder which contains air, presumably due to recent instrumentation. Cholelithiasis. Fibroid uterus. Small bilateral pleural effusions and bibasilar consolidations. Hiatal hernia and gastroesophageal reflux. Nasogastric tube. Partially imaged cardiomegaly and trace pericardial effusion. Additional findings as above. Preliminary impression was provided by [facility]. Chest X-Ray 01/14/19 15:37 IMPRESSION: The right IJ line is seen at the junction of the SVC and right atrium. There is no pneumothorax. EKG/Cardiology Studies: Cardiology / EKG Studies 01/14/19 14:49 EKG [ELECTROCARDIOGRAM] Stat Comment: Reason For Exam: chest pain Critical Care Progress Note - Nutrition Nutrition: Nutrition Category Date Time Status NPO Diet [DIET] Diets 01/13/19 Breakfast Ordered Assessment/Plan - Assessment and Plan (Free Text) Plan: I saw and examined the patient on rounds with resident, agree with note with following additions/exceptions: Patient is 73yo female with PMHx of uterine ca s/p radiation therapy, CAD s/p 6 stents, IDDM2, CKD, PVD, HTN, PVD, L-sided carotid stenosis s/p endarterectomy, obesity, LBBB a/w partial small bowel obstruction which worsened to high grade obstruction and now likely ichemic bowel Patient was given thus far 8L of NS/LR boluses, with intermittent use vasopressors R femoral TLC placed Labs, imaging, chart reviewed Suspect multi organ failure, 2/2 intrabdominal sepsis, in setting of likely third spacing Patient to be taken back to the OR this afternoon SBO rule out Ischemic Bowel Septic Shock CAD HTN Multi-organ failure renal failure Recommend: - cont with vent support, low tidal vol ventilation, goal sat 90%, daily sedation, vacation, ABG, CXR - broad spectrum abx, Aztreonam, Flagyl, Vanco IV - IVF LR 150cc/hr - NPO - NGT to suction - surgical follow up, OR possible today in afternoon - hold all BP meds - renal eval - FS control - GI ppx - DVT ppx - Monitor in MICU High risk for morbidity and mortality FULL CODE Critical care time 45 minutes
[2019-01-15] MEDS: CALCIFEDIOL 30 MCG PO SCH (11:33)
[2019-01-15] MEDS: Insulin Reg-LOW-Coverage SC SCH ×4 (11:33→22:04)
--- NOTE | 2019-01-15 11:57 | CT ---
PROCEDURE: CT Abdomen and Pelvis without IV contrast. HISTORY: SBO, Pain increase, hypotensive COMPARISON: CT abdomen pelvis without contrast 01/13/18 TECHNIQUE: Contiguous axial images of the abdomen and pelvis. Oral contrast was administered. No IV contrast given. Coronal and Sagittal reformats generated and reviewed. Radiation dose: Total exam DLP = 1209.43 mGy-cm. This CT exam was performed using one or more of the following dose reduction techniques: Automated exposure control, adjustment of the mA and/or kV according to patient size, and/or use of iterative reconstruction technique. FINDINGS: There is limited evaluation of the solid organs without the administration of IV contrast. LOWER THORAX: Small bilateral pleural effusions and associated consolidations. Partially imaged cardiomegaly. Trace pericardial effusion. Moderate hiatal hernia with gastroesophageal reflux. NG tube extends to the stomach. LIVER: Unremarkable. GALLBLADDER AND BILE DUCTS: Gallstones. PANCREAS: Unremarkable. SPLEEN: Unremarkable. ADRENALS: Unremarkable. KIDNEYS AND URETERS: Bilateral renal atrophy. No hydronephrosis or obstructing renal calculus. Bilateral punctate nonobstructing renal calculi/ vascular calcifications. 3 mm nonobstructing left renal calculus. BLADDER: Marmolejo catheter present. Thick-walled under distended urinary bladder which contains air likely related to recent instrumentation. REPRODUCTIVE: Uterus is present. Coarse uterine calcifications likely related to degenerating fibroids. APPENDIX: The appendix appears within normal limits of caliber. No secondary signs of acute appendicitis. BOWEL: The stomach is nondistended. The bowel loops appear within normal limits of caliber without evidence of intestinal obstruction. Multiple dilated small bowel loops measuring up to 4 cm in diameter which appears thick walled; transition point in right lower quadrant consistent with obstruction. PERITONEUM: Small abdominal and pelvic ascites. No definite free air. LYMPH NODES: No bulky lymphadenopathy identified. VASCULATURE: No aortic aneurysm. Atherosclerotic calcifications of the aorta and branches. BONES: Degenerative changes. OTHER FINDINGS: None. IMPRESSION: Multiple dilated small bowel loops which appears thick walled; appearance consistent with obstruction. Mesenteric edema. Abdominal pelvic ascites. Marmolejo catheter within the urinary bladder which contains air, presumably due to recent instrumentation. Cholelithiasis. Fibroid uterus. Small bilateral pleural effusions and bibasilar consolidations. Hiatal hernia and gastroesophageal reflux. Nasogastric tube. Partially imaged cardiomegaly and trace pericardial effusion. Additional findings as above. Preliminary impression was provided by [facility].
--- NOTE | 2019-01-15 12:10 | PCM.PCON ---
History of Present Illness - History of Present Illness History of Present Illness: Palliative consult requested by Dr Kayce Donovan Reason: Goals of care 73 year old female with history uterine ca s/p radiation therapy, CAD,, DM2, CKD, PVD, HTN who presented to ED on 01/13/19 with complaints of severe, 10/10, diffuse, crampy abdominal pain associated nausea & non-bloody non-bilious vomiting that began 24 hours prior. The pain intensified after her meal. Last BM was 2 days ago and hasn't passed gas or had a bowel movement since. She completed her 5-week course of radiation therapy for uterine cancer on 12/30/18. She also reported chills for several weeks as well. She denied fevers, headache, dizziness, numbness, tingling, chest pain, palpitations, shortness of breath, dysuria, hematuria, hematochezia. Initial CT of abdomen( 01/13) showed partial small bowel obstruction with multiple fluid filled loops in mid and upper abdomen. Patient symptoms intensified and an MASSAGE THERAPY INSTRUCTOR called. CT of abdomen repeated > SBO ,mesenteric edema, abdominal pelvic ascites, small bilateral pleural effusios, hiatal hernia, gastr ic reflux, cardiomegaly and trace pericardial effusion. transferrd to ICU,surgery pending PMHx: uterine ca s/p radiation therapy, CAD s, IDDM2, CKD, PVD, HTN, chronic anemia, PVD, L carotid stenosis s/p , obesit PSHx s/p 6 cardiac stents, endarterectomy,L toe amputation: Social History: Non smoker,occasional alcohol,no illicit drug use. Lives at home, independent. Family History: M> HTN, heart problems. Son> prostate cancer. Granddaughter> Breast cancer. Revie wof Syss: As per HPI, unable to obtain patient is sedated Physical Exam - Constitutional Appears: Chronically Ill - Eye Exam Eye Exam: Normal appearance, PERRL - ENT Exam ENT Exam: Mucous Membranes Moist - Respiratory Exam Respiratory Exam: Decreased Breath Sounds - Cardiovascular Exam Cardiovascular Exam: REGULAR RHYTHM, +S1, +S2 - GI/Abdominal Exam GI & Abdominal Exam: Distended, Tenderness - Extremities Exam Extremities exam: Positive for: pedal edema, pedal pulses present - Skin Skin Exam: Dry, Pallor, Warm - Additional Findings Additional findings: palliative performance scale rating 30% Palliative Care Assessment - Pain Scale Pain Score: 10 Pain Scale Used: Numeric - Pain Location Pain Location Body Site: Abdomen - Pain Description Description: Sharp, Throbbing, Acute, Stabbing, Cramping Pain Behavior: Moaning, Guarding, Restlessness, Facial Grimacing, VS Changes Aggravating Factors: ADL's, Exercise/Activity Alleviating Factors/Management Techniques: Medication - Negrito Scale Sensory Perception: Completely Limited Moisture: Occasionally Moist Activity: Bedfast Mobility: Completely Immobile Nutrition: Very Poor Friction & Shear: Problem Total Score - Skin Risk Assessment: 8 - Psychosocial Distress Patient screened for psychosocial distress: Yes Outcome: Referred to outreach and education social worker - Goals Treatment Goal(s): Alleviate symptoms, Improve ADLs, Improve quality of life - Plan Interdisciplinary involved: erp project manager, Physician Assessment & Plan - Assessment and Plan (Free Text) Assessment: Mrs Guido is a 73 year old female with a history of uterine ca s/p radiation therapy, CAD, DM2, CKD, PVD, HTN admitted with partial small bowel obstruction which worsened to high grade obstruction, likely ischemic bowel. Surgery pending. Family at bedside, patient's daughter Alyssa and son primary decision makers. Family has been updated of patients condition by MICU and surgical team. Palliative services introduced,explained as additional support for family in establishing goals of care and decision making. At this family wants every thing done. Family understands that patient is critically ill, with multiple comorbidities. Family is appreciative of palliative support. Pastoral care offered, family declined at this time. Time spent with family in goals of care discussion, 30 minutes Plan: Goals of care and advance care planning SBO/ischemic bowel: Surgery pending, Emperic Aztreonam, IVF's >lacated ringerse Vasopressor Vent support Pain management; Dilaudid as ordered Glucose monitoring, Insulin coverage
[2019-01-15 12:54] LABS: BASO # 0.01 K/mm3 (0.0-2.0); BASO % 0.1 % (0.0-3.0); LYMPH # 0.5 (1.2-3.4); LYMPH % 4.7 % (22.0-35.0); MEAN CELL VOLUME 78.5 fl (80.0-105.0); MEAN CORPUSCULAR HEMOGLOBIN 24.2 pg (25.0-35.0); MEAN CORPUSCULAR HGB CONC 30.8 g/dl (31.0-37.0); MEAN PLATELET VOLUME 10.6 fl (7.0-11.0); MONO # 0.7 (0.1-0.6); MONO % 6.7 % (1.0-6.0); RBC 3.31 10^6/uL (3.5-6.1); RED CELL DISTRIBUTION WIDTH 19.1 % (11.5-14.5); WHITE BLOOD COUNT 10.2 10^3/uL (4.5-11.0)
[2019-01-15 12:58] LABS: ALB/GLOB RATIO 0.8 (1.1-1.8); ALBUMIN 2.1 g/dL (3.0-4.8); CALCIUM 7.3 mg/dL (8.4-10.5)
[2019-01-15 13:11] LABS: ARTERIAL BLOOD GAS HCO3 12.7 mmol/L (21-28); ARTERIAL BLOOD GAS O2 SAT 99.5 % (95-98); ARTERIAL BLOOD GAS PCO2 34 mm/Hg (35-45); ARTERIAL BLOOD GAS PH 7.18 (7.35-7.45); ARTERIAL BLOOD GAS TCO2 13.7 mmol.L (22-28)
--- NOTE | 2019-01-15 13:59 | PN ---
DATE: 01/15/2019 REASON FOR CONSULTATION AND FOLLOWUP: Cardiac evaluation, admitted with small bowel obstruction, history of coronary artery disease, peripheral arterial disease, history of carotid artery stenting, status post rapid response, borderline troponin, positive acute renal failure, possible ischemic bowel. SUBJECTIVE: The patient is in the ICU, moved after having a rapid response yesterday with the patient very lethargic after having Dilaudid, hypotensive, responding to fluid, creatinine increased, WBC increased, lactate level is up, troponin is 0.11, repeat 0.21, increase of creatinine 5.3, probably significance unknown. Family is at the bedside. The patient is still complaining of abdominal pain and very tender with rebound tenderness. PHYSICAL EXAMINATION: GENERAL: The patient is not in apparent distress. NG tube in place. VITAL SIGNS: Temperature afebrile, heart rate of 80, blood pressure 101/43 and respiratory rate of 25. HEENT: PERRLA. Extraocular muscles intact. NECK: Supple. No carotid bruit or thyromegaly. CHEST: Clear to auscultation. HEART: S1 and S2 regular. ABDOMEN: Mild tenderness and rebound tenderness noted. EXTREMITIES: Clubbing and cyanosis, negative. LABORATORY DATA: WBC 14.7, hemoglobin 9.2, hematocrit 30.7, platelet count 191. Chemistry shows sodium of 140, potassium 5.5, chloride 110, carbon dioxide 16, anion gap of 19, BUN 52, creatinine of 5.3, troponin is 0.1. EKG shows normal sinus, left bundle is unchanged. On admission, the patient had a left bundle. The patient had an echocardiography done yesterday that reveal LVH, ejection fraction 50% to 55%, trace aortic regurgitation, trivial mitral regurgitation, mild tricuspid regurgitation, RV systolic pressure 33%. IMPRESSION: A 73-year-old female with past medical history significant for coronary artery disease, status post stent in 2008 in [place] and then probably in 2016 or 2018, in [facility], history of peripheral arterial disease, status post 3 stents in the left leg, history of amputation of the toe, history of carotid artery stent in 2008, history of cerebrovascular accident, admitted with small bowel obstruction. Yesterday, the patient became hypotensive, lethargic after having Dilaudid dose, responded to IV fluid, moved to Intensive Care Unit. First troponin is 0.11, repeat troponin is 0.21, increase of the kidney function, creatinine went up to 5.4, possibly not significant with creatinine clearance 8 mL with stage 5 chronic kidney disease with elevated WBC. Most likely, these symptoms are secondary to demand and supply, mismatch and acute sepsis, probably the source could be the abdomen, also the lactate level is elevated to 7.4. Possibly, the patient had acute bowel ischemia and septic that causes hemodynamic instability as well as the patient got Dilaudid. I doubt it as a primary cardiac event. Discussed with the resident last night taking care of the patient. This morning discussed with the patient's family about the risk of going to surgery, though the patient would be cleared to go for the high risk surgery because of very high risk underlying comorbidity, but no absolute contraindication from Cardiology point of view, probably the risk and benefit ratio plus the interest of the patient to go for surgery because of the ischemic bowel, the patient can from the sepsis and multiorgan dysfunction. We will leave the preop clearance in the nurse communication. Paula Coronel MD
[2019-01-15] MEDS ORDERED: Sodium Bicarbonate (8.4%) 50 Meq Syringe IVP ONE (14:10)
[2019-01-15] MEDS ORDERED: Calcium Chloride 1000 mg/10 ml Syringe ONE (14:21)
--- NOTE | 2019-01-15 14:51 | CP.PCM.PN ---
<Paddy Moreno - Last Filed: 01/15/19 16:00> Subjective - Date & Time of Evaluation Date of Evaluation: 01/15/19 Time of Evaluation: 09:20 - Subjective Subjective: Paddy Moreno DO PGY1 Hospitalist Progress Note for Dr Donovan Patient seen and examined at bedside in ICU. She c/o diffuse abdominal pain. Ex lap surgery cancelled for hypotension after receiving anasthesia in the OR. Patient transferred back to ICU for resuscitation on levophed. Objective - Vital Signs/Intake and Output Vital Signs (last 24 hours): Temp Pulse Resp BP Pulse Ox 97.8 F 108 H 20 113/58 L 100 01/14/19 09:38 01/15/19 13:02 01/15/19 09:25 01/15/19 13:02 01/15/19 13:02 Intake and Output: 01/15/19 01/15/19 06:59 18:59 Intake Total 1300 152 Output Total 100 0 Balance 1200 152 - Medications Medications: Current Medications Benzocaine/Menthol (Cepacol Sore Throat) 1 alyssa MT Q2H PRN PRN Reason: Sore Throat Carvedilol (Coreg) 12.5 mg PO BID [facility] Last Admin: 01/15/19 11:31 Dose: Not Given Famotidine (Pepcid) 20 mg IVP DAILY [facility] Last Admin: 01/15/19 11:50 Dose: 20 mg Heparin Sodium (Porcine) (Heparin) 5,000 units SC Q8 [facility]; Protocol Last Admin: 01/15/19 05:09 Dose: 5,000 units Home Med (Home Med) 1 unit PO DAILY [facility] Last Admin: 01/15/19 11:33 Dose: Not Given Hydromorphone HCl (Dilaudid) 0.5 mg IVP Q3H PRN PRN Reason: Pain, moderate (4-7) Last Admin: 01/15/19 05:26 Dose: 0.5 mg Hydromorphone HCl (Dilaudid) 1 mg IVP Q3H PRN PRN Reason: Pain, severe (8-10) Last Admin: 01/14/19 05:34 Dose: 1 mg Aztreonam 500 mg/ Sodium (Chloride) 100 mls @ 100 mls/hr IVPB Q8 [facility]; Protocol Stop: 01/15/19 14:59 Last Admin: 01/15/19 09:30 Dose: 100 mls/hr NOREPINEPHRINE BIT/0.9 % NACL (Levophed 4 Mg/ 250 Ml Ns Premixed) 4 mg in 250 mls @ 15 mls/hr IV .[id number] PRN; Protocol PRN Reason: TITRATE PER MD ORDER Last Titration: 01/15/19 09:40 Dose: 0 mcg/min, 0 mls/hr Metronidazole (Flagyl) 500 mg in 100 mls @ 100 mls/hr IVPB Q8 [facility]; Protocol Last Admin: 01/15/19 09:46 Dose: 100 mls/hr Lactated Ringer's (Lactated Ringer's) 1,000 mls @ 150 mls/hr IV .[id number] [facility] Insulin Detemir (Levemir) 15 unit SC Q12 [facility] Last Admin: 01/14/19 22:40 Dose: Not Given Insulin Human Regular (Humulin R Low) 0 units SC ACHS [facility]; Protocol Last Admin: 01/15/19 11:34 Dose: Not Given Ondansetron HCl (Zofran Inj) 4 mg IVP Q4H PRN PRN Reason: Nausea/Vomiting Last Admin: 01/14/19 05:36 Dose: 4 mg - Labs Labs: 01/15/19 12:40 01/15/19 12:40 PT 14.6 SECONDS (9.4-12.5) H 01/14/19 15:11 INR 1.32 01/14/19 15:11 APTT 29.4 Seconds (26.9-38.3) 01/14/19 15:11 - Constitutional Appears: Chronically Ill, Other (intubated) - Head Exam Head Exam: ATRAUMATIC, NORMAL INSPECTION, NORMOCEPHALIC - Eye Exam Eye Exam: EOMI, Normal appearance - ENT Exam ENT Exam: Mucous Membranes Dry - Neck Exam Neck Exam: Normal Inspection - Respiratory Exam Respiratory Exam: Clear to Ausculation Bilateral. absent: Rales, Rhonchi - Cardiovascular Exam Cardiovascular Exam: +S1, +S2. absent: Gallop, Rubs - GI/Abdominal Exam GI & Abdominal Exam: Distended, Soft, Tenderness, Hyperactive Bowel Sounds - Extremities Exam Extremities Exam: Pedal Edema - Back Exam Back Exam: NORMAL INSPECTION Additional comments: Capillary Refill < 2s - Skin Skin Exam: Dry, Normal Color, Warm Assessment and Plan - Assessment and Plan (Free Text) Assessment: 73 year old female with a PMHx of uterine ca s/p radiation therapy, CAD s/p 6 s tents, IDDM2, CKD, PVD, HTN, chronic iron-deficiency anemia (previously had aranesp infusions), PVD, L-sided carotid stenosis s/p endarterectomy, obesity, LBBB who was found to have partial SBO complicated by septic shock due to ischemic bowel. Patient is s/p ex-lap with small bowel resection/anastimosis Plan: SBO complicated by septic shock: -CT A/P 01/13: Moderate partial uncomplicated small bowel obstruction. No bowel perforation or pneumatosis intestinalis. Transition zone in the RLQ -CT A/P 01/14: multiple dilated, thick walled small bowel. Mesentric edema -patient went to surgery later today after resuscitation in the ICU with IVF and pressors. Ex-lap went well with lysis of adhesions, small bowel resection with anastomosis. Patient is currently in PACU and will be transferred to ICU later today. -patient remain intubated or levophed 4 mg, fentanyl -continue aztreonam/flagyl 500 mg Q8H -afebrile, mild leukocytosis -IVF NS @100cc/hr -zofran prn -protonix ivp -f/u VBG w/shock panel -f/u pathology/cultures of abdominal fluid -surgery following, Dr Mukherjee CAD s/p PCI: -EKG reveals NSR, LBBB. -trops nagative initially. icreased from 0.02 to 0.11 likely due to hypoperfusion/hypotension -hold anti HTN meds for hypotension -hold anticoagulant DM2: -accucheck -ISS-low -HgA1c 6.8 PPX: DVT: SCD GI:protonix Dispo: continue ICU management Case reviewed and plan discussed with attending Dr Zion Moreno, DO <Carmel Donovan - Last Filed: 01/17/19 13:31> Objective - Vital Signs/Intake and Output Vital Signs (last 24 hours): Temp Pulse Resp BP Pulse Ox 99.9 F H 112 H 26 H 154/102 H 98 01/17/19 00:10 01/17/19 13:07 01/17/19 00:10 01/17/19 13:07 01/17/19 00:10 Intake and Output: 01/17/19 01/17/19 06:59 18:59 Intake Total 1200 Output Total 840 Balance 360 - Medications Medications: Current Medications Benzocaine/Menthol (Cepacol Sore Throat) 1 alyssa MT Q2H PRN PRN Reason: Sore Throat Carvedilol (Coreg) 12.5 mg PO BID [facility] Last Admin: 01/17/19 10:10 Dose: Not Given Famotidine (Pepcid) 20 mg IVP DAILY [facility] Last Admin: 01/17/19 10:09 Dose: 20 mg Heparin Sodium (Porcine) (Heparin) 5,000 units SC Q8 [facility]; Protocol Last Admin: 01/17/19 05:38 Dose: 5,000 units Home Med (Home Med) 1 unit PO DAILY [facility] Last Admin: 01/17/19 10:12 Dose: Not Given NOREPINEPHRINE BIT/0.9 % NACL (Levophed 4 Mg/ 250 Ml Ns Premixed) 4 mg in 250 mls @ 15 mls/hr IV .[id number] PRN; Protocol PRN Reason: TITRATE PER MD ORDER Last Titration: 01/15/19 09:40 Dose: 0 mcg/min, 0 mls/hr Meropenem 250 mg/ Sodium (Chloride) 100 mls @ 100 mls/hr IVPB Q12H [facility]; Protocol Stop: 01/20/19 21:31 Last Admin: 01/17/19 10:09 Dose: 100 mls/hr Dextrose/Lactated Ringer's (Dextrose 5%/Lactated Ringer's) 1,000 mls @ 100 mls/hr IV .Q10H [facility] Last Admin: 01/17/19 10:11 Dose: 100 mls/hr Insulin Detemir (Levemir) 15 unit SC Q12 [facility] Last Admin: 01/15/19 15:58 Dose: Not Given Insulin Human Regular (Humulin R Low) 0 units SC ACHS [facility]; Protocol Last Admin: 01/17/19 13:11 Dose: Not Given Metoprolol Tartrate (Lopressor) 5 mg IVP Q6H [facility] Last Admin: 01/17/19 13:07 Dose: 5 mg Ondansetron HCl (Zofran Inj) 4 mg IVP Q4H PRN PRN Reason: Nausea/Vomiting Last Admin: 01/14/19 05:36 Dose: 4 mg - Labs Labs: 01/17/19 06:00 01/17/19 06:00 PT 18.8 SECONDS (9.4-12.5) H 01/15/19 16:09 INR 1.69 01/15/19 16:09 APTT 29.1 Seconds (26.9-38.3) 01/15/19 16:09 Attending/Attestation - Attestation I have personally seen and examined this patient.: Yes I have fully participated in the care of the patient.: Yes I have reviewed all pertinent clinical information, including history, physical exam and plan: Yes Notes (Text): 01/17/19 13:22 Attending note; Patient was transferred to ICU yesterday. Got aggressive fluid resuscitation Patient seen and examined with resident in the morning in ICU. Patient son and daughter and grandson by the bedside. Lactic acidosis is improving. Patient is going for ex-laparotomy today. Dr. Mukherjee explained the procedure to the family. Patient is a 73-year-old female with PMH uterine cancer s/p radiation therapy, CAD s/p 6 stents, IDDM2, CKD, PVD, HTN, chronic iron-deficiency anemia (previously had aranesp infusions), PVD, L-sided carotid stenosis s/p endarterectomy, obesity presents to ED with complaints of severe, 10/10, diffu se, crampy abdominal pain with associated nausea & non-bloody non-bilious vomiting. 1. Severe lactic acidosis /shock due to bowel obstruction; CT abdomen and pelvis showed partial small bowel obstruction with multiple air-fluid level and transition point in the right lower quadrant. Patient is going for ex lap today. 2. Acute on chronic renal insufficiency; patient had episodes of hypotension. Creatinine increased . Monitor urine output closely. Discussed with operational assistant in detail. 3. Hypotension; Hold antihypertensive medication. continue IV fluid hydration. 4. Elevated liver enzymes; secondary to hypotension and ischemic liver. Trending down slowly Monitor closely. 5. Diabetes; continue insulin sliding scale. monitor closely. 6. Anemia; monitor closely. 7. Elevated troponin; secondary to episodes of hypotension. Case discussed with mine shifter in detail. EKG shows no acute ST elevation. 8. Uterine cancer; status post radiation therapy. Message left with patient's primary oncology team at [facility]. 9. History of coronary stent; cardiology evaluation appreciated. Patient is moderate risk for surgical procedure. 10. carotid endarterectomy peripheral vascular stent; currently aspirin and Plavix on hold. Patient is going for ex lap today. Case discussed with surgery in detail. Case discussed with fur blower in detail. Monitor the patient closely in ICU. Case discussed with patient's family in detail. Patient's daughter, son and grandson by the bedside.
--- NOTE | 2019-01-15 15:35 | PCM.SURG1 ---
Surgeon's Initial Post Op Note - Surgeon's Notes Surgeon: MD Lonny Drug Abuse Technician: Elyse, PGY3. Antione, PGY4 Pre-Operative Diagnosis: Small bowel obstruction Operative Findings: Closed loop small bowel obstruction, ischemic small bowel, internal hernia, single band adhesion, hemorrhagic ascites Post-Operative Diagnosis: Closed loop small bowel obstruction, ischemic small bowel, internal hernia Operation Performed: Exploratory laparotomy, lysis of adhesions, small bowel resection with anastomosis Specimen/Specimens Removed: small bowel Estimated Blood Loss: EBL {In ML}: 25 Date of Surgery/Procedure: 01/15/19 Time of Surgery/Procedure: 13:30
--- NOTE | 2019-01-15 15:45 | CP.PCM.PN ---
Subjective - Date & Time of Evaluation Date of Evaluation: 01/15/19 Time of Evaluation: 15:41 - Subjective Subjective: Nephrology Consultation Note: Assessment: critical SBO with ischemic bowel and lactic acidosis s/p ex lap and small bowel resection 01/15/19 GUIDO due to ATN with hyperkalemia shock liver Diabetic chronic Kidney Disease (E11.22) Hypertensive Chronic Kidney Disease (I12.9) with HTN urgency Chronic Kidney Disease (N18.4) Stage Anemia (D64.9), Hyperphosphatemia (E83.39), Secondary Hyperparathyroidism (E21.1), HTN (I12.9) obesity uterine ca s/p radiation therapy CAD s/p stents, PVD, L-sided carotid stenosis s/p endarterectomy Plan No acute need for renal replacement therapy at this time but may need soon and will need close follow up. pt is hemodynamically stable now s/p ex lap and anticipate spontaneous renal recovery over next few days Maintain hemodynamics stable. Avoid hypotension. Patient not on ACEI/ARB due to GUIDO and hyperkalemia. Hold bp meds Monitor Input/Output, daily weights and renal function with basic metabolic panel PRBC as needed surgery following continue IVF as 0.45% saline with 75 meq sodium bicarb @ 100-125 ml/hr No kayexylate in view of GI surgery Dose meds/antibiotics for reduced GFR. Avoid fleets enema/magnesium based laxatives. Avoid nephrotoxins/NSAIDs/ iodinated contrast (unless needed emerge ntly) Glycemic control Further work up/management as per primary team Thanks for allowing me to participate in care of your patient. Will follow patient with you. Please call if any Qs. had d/w team Dr Ant Burrell Office: [phone] Chief Complaint; pain abdomen Reason for consult: CKD management HPI: Pt is a 73 y/o F with PMHx of uterine ca s/p radiation therapy which she completed in december 2018, CAD s/p stents, DM, CKD 4 with baseline cr 2.4, PVD, HTN, L-sided carotid stenosis s/p endarterectomy, obesity presented with complaints of pain abdomen and found to have partial SBO. renal consult for CKD management. she feels better at present. pain abdomen is better. denies CP/SOB Denies OTC/herbal meds or NSAIDs ROS: noted ovenight events. pt intubated and sedated unable to provide ros s/p ex lap 01/15/19 as she had ischemic bowel. Physical Examination: General Appearance: comfortable, in no acute respiratory distress, obese Vitals reviewed and noted as below Head; Atraumatic, normocephalic ENT: orally intubated EYES: Pupils are equal, round and reactive to light accommodation. Eye muscles and extraocular movement intact. Sclera is anicteric. Neck; supple no lymphadenopathy, no thyromegaly or bruit Lungs: Normal respiratory rate/effort. Breath sounds bilateral equal and clear Heart: Normal rate. s1s2 normal. No rub or gallop. Extremities: no edema. No varicose veins Neurological: Patient is sedated Skin: Warm and dry. Normal turgor. No rash. Palpitation: Normal elasticity for age Abdomen: There is no abdominal tenderness no organomegaly. s/p ex lap. soft now Psych: deferred MSK: no joint tenderness or swelling. Digits and nails normal, no deformity : kidney or bladder not palpable. has walters Labs/imaging reviewed. Past medical history, past surgical history, family history, social history, allergy reviewed and noted as below Family hx: hx of ESKD in son. Rest non-contributory Objective - Vital Signs/Intake and Output Vital Signs (last 24 hours): Temp Pulse Resp BP Pulse Ox 97.8 F 108 H 20 113/58 L 100 01/14/19 09:38 01/15/19 13:02 01/15/19 09:25 01/15/19 13:02 01/15/19 13:02 Intake and Output: 01/15/19 01/15/19 06:59 18:59 Intake Total 1300 152 Output Total 100 0 Balance 1200 152 - Medications Medications: Current Medications Benzocaine/Menthol (Cepacol Sore Throat) 1 alyssa MT Q2H PRN PRN Reason: Sore Throat Carvedilol (Coreg) 12.5 mg PO BID [facility] Last Admin: 01/15/19 11:31 Dose: Not Given Famotidine (Pepcid) 20 mg IVP DAILY [facility] Last Admin: 01/15/19 11:50 Dose: 20 mg Heparin Sodium (Porcine) (Heparin) 5,000 units SC Q8 [facility]; Protocol Last Admin: 01/15/19 05:09 Dose: 5,000 units Home Med (Home Med) 1 unit PO DAILY [facility] Last Admin: 01/15/19 11:33 Dose: Not Given Hydromorphone HCl (Dilaudid) 0.5 mg IVP Q3H PRN PRN Reason: Pain, moderate (4-7) Last Admin: 01/15/19 05:26 Dose: 0.5 mg Hydromorphone HCl (Dilaudid) 1 mg IVP Q3H PRN PRN Reason: Pain, severe (8-10) Last Admin: 01/14/19 05:34 Dose: 1 mg NOREPINEPHRINE BIT/0.9 % NACL (Levophed 4 Mg/ 250 Ml Ns Premixed) 4 mg in 250 mls @ 15 mls/hr IV .[id number] PRN; Protocol PRN Reason: TITRATE PER MD ORDER Last Titration: 01/15/19 09:40 Dose: 0 mcg/min, 0 mls/hr Metronidazole (Flagyl) 500 mg in 100 mls @ 100 mls/hr IVPB Q8 [facility]; Protocol Last Admin: 01/15/19 09:46 Dose: 100 mls/hr Sodium Bicarbonate 75 meq/ (Sodium Chloride) 1,075 mls @ 100 mls/hr IV .[id number] [facility] Aztreonam (Azactam 1 Gm) 100 mls @ 100 mls/hr IVPB Q8 [facility]; Protocol Stop: 01/15/19 22:59 Insulin Detemir (Levemir) 15 unit SC Q12 [facility] Last Admin: 01/14/19 22:40 Dose: Not Given Insulin Human Regular (Humulin R Low) 0 units SC ACHS [facility]; Protocol Last Admin: 01/15/19 11:34 Dose: Not Given Ondansetron HCl (Zofran Inj) 4 mg IVP Q4H PRN PRN Reason: Nausea/Vomiting Last Admin: 01/14/19 05:36 Dose: 4 mg - Labs Labs: 01/15/19 12:40 01/15/19 12:40 PT 14.6 SECONDS (9.4-12.5) H 01/14/19 15:11 INR 1.32 01/14/19 15:11 APTT 29.4 Seconds (26.9-38.3) 01/14/19 15:11
--- NOTE | 2019-01-15 15:50 | CARD ---
APPROVED REPORT Date of service: 01/14/2019 EKG Measurement Heart [id number] <Conclusion> Normal sinus rhythm Left bundle branch block Abnormal ECG
--- NOTE | 2019-01-15 15:57 | PN ---
DATE: 01/15/2019 Lizabeth Guido is a 73-year-old woman who has uterine cancer being recently treated with radiation treatment. CAT scan was done three days ago showing partial small-bowel obstruction. Repeat CAT scan last night showed it was most consistent with small bowel obstruction, now with ascites and most probably shows infarction of small intestine. The plan was to operate on her 7 o'clock this morning. The blood pressure in the ICU was 70, 80, 90, not on pressors. In the operating room, the blood pressure without anesthesia went down to 30 and 40. Anesthesia deemed this to be non-survivable with laparotomy. With the blood pressures that low, now on pressors, intubated, I agreed to try resuscitation in the ICU, re-evaluated in about 4 hours. Discussed at great length with family and they understand the gravity of the situation. I believe without an operation, she is going to . However, with an operation in this condition, I do not think she would survive. Kayode Mukherjee MD
[2019-01-15] MEDS: Insulin Detemir 100 units/ml Vial (Levemir) SC SCH (15:58)
[2019-01-15] MEDS: Fentanyl 1000mcg/100ml NS 1,000 MCG/100 ML BAG IV PRN (16:10)
[2019-01-15 16:22] LABS: HEMOGLOBIN 10.5 g/dL (12.0-16.0); LYMPH # 0.3 (1.2-3.4); LYMPH % 4.9 % (22.0-35.0); MEAN CELL VOLUME 79.3 fl (80.0-105.0); MEAN CORPUSCULAR HEMOGLOBIN 25.2 pg (25.0-35.0); MEAN CORPUSCULAR HGB CONC 31.8 g/dl (31.0-37.0); MONO # 0.3 (0.1-0.6); MONO % 4.8 % (1.0-6.0); PLATELET COUNT 131 10^3/uL (120.0-450.0); RBC 4.16 10^6/uL (3.5-6.1); RED CELL DISTRIBUTION WIDTH 18.6 % (11.5-14.5); WHITE BLOOD COUNT 6.9 10^3/uL (4.5-11.0)
[2019-01-15 16:26] LABS: INR 1.69; PARTIAL THROMBOPLASTIN TIME 29.1 Seconds (26.9-38.3); PROTHROMBIN TIME 18.8 SECONDS (9.4-12.5)
[2019-01-15 16:29] LABS: ALB/GLOB RATIO 0.8 (1.1-1.8); ALBUMIN 2.2 g/dL (3.0-4.8); CALCIUM 7.9 mg/dL (8.4-10.5)
[2019-01-15 17:52] LABS: ARTERIAL BLOOD GAS O2 SAT 98.8 % (95-98); ARTERIAL BLOOD GAS PCO2 39 mm/Hg (35-45); ARTERIAL BLOOD GAS PH 7.22 (7.35-7.45); ARTERIAL BLOOD GAS TCO2 17.2 mmol.L (22-28)
[2019-01-15] MEDS ORDERED: Aztreonam 1 Gm in NS 100mL 100 ML IVPB SCH (18:00)
[2019-01-15] MEDS ORDERED: Sodium Chloride 0.9% 500 ML IV STA ×2 (19:00→23:15)
[2019-01-15 21:34] LABS: ARTERIAL BLOOD GAS HCO3 16.2 mmol/L (21-28); ARTERIAL BLOOD GAS O2 SAT 98.9 % (95-98); ARTERIAL BLOOD GAS PCO2 36 mm/Hg (35-45); ARTERIAL BLOOD GAS PH 7.26 (7.35-7.45); ARTERIAL BLOOD GAS TCO2 17.3 mmol.L (22-28)
[2019-01-16] MEDS: HYDROmorphone 0.5 mg/0.5 ml ISec IVP PRN ×4 (01:00→22:30)
[2019-01-16 05:27] LABS: BASO # 0.01 K/mm3 (0.0-2.0); BASO % 0.1 % (0.0-3.0); EOS % 0.3 % (1.5-5.0); HEMOGLOBIN 9.3 g/dL (12.0-16.0); LYMPH # 0.3 (1.2-3.4); MEAN CELL VOLUME 76.5 fl (80.0-105.0); MEAN CORPUSCULAR HEMOGLOBIN 25.1 pg (25.0-35.0); MEAN CORPUSCULAR HGB CONC 32.7 g/dl (31.0-37.0); MONO # 0.3 (0.1-0.6); PLATELET COUNT 119 10^3/uL (120.0-450.0); RBC 3.71 10^6/uL (3.5-6.1); RED CELL DISTRIBUTION WIDTH 17.9 % (11.5-14.5); WHITE BLOOD COUNT 7.5 10^3/uL (4.5-11.0)
[2019-01-16 05:35] LABS: ARTERIAL BLOOD GAS HCO3 18.7 mmol/L (21-28); ARTERIAL BLOOD GAS O2 SAT 99.2 % (95-98); ARTERIAL BLOOD GAS PCO2 38 mm/Hg (35-45); ARTERIAL BLOOD GAS TCO2 19.9 mmol.L (22-28)
[2019-01-16 05:44] LABS: ALB/GLOB RATIO 0.8 (1.1-1.8); ALBUMIN 2.1 g/dL (3.0-4.8); CALCIUM 7.2 mg/dL (8.4-10.5)
--- NOTE | 2019-01-16 07:23 | CP.PCM.PN ---
Subjective - Date & Time of Evaluation Date of Evaluation: 01/16/19 Time of Evaluation: 07:19 - Subjective Subjective: General Surgery: Dr Mukherjee Pt S&E in ICU. POD#1 s/p ex-lap with small bowel resection for ischemic bowel. Pt remains intubated, but awake and alert. BP has stabilized with MAPS 65-70, no pressor support required. Her urine output has picked up, 300 over past 12 hours, but still sub-optimal. Remains on PRVC 70/5/20/400. THAI drain with 100 serosanguinous, no evidence of bleeding. Labs show no leukocytosis, drop in HgB likely due to resuscitation. Shock liver improving, kidney fx unchanged, trops remain elevated but expected in setting of shock liver and demand ischemia. ABGs show improvement in acidosis. Objective - Vital Signs/Intake and Output Vital Signs (last 24 hours): Temp Pulse Resp BP Pulse Ox 98.8 F 103 H 21 80/44 L 98 01/15/19 22:00 01/15/19 22:00 01/15/19 16:25 01/15/19 17:30 01/15/19 17:29 Intake and Output: 01/16/19 01/16/19 06:59 18:59 Intake Total 50 Balance 50 - Medications Medications: Current Medications Benzocaine/Menthol (Cepacol Sore Throat) 1 alyssa MT Q2H PRN PRN Reason: Sore Throat Carvedilol (Coreg) 12.5 mg PO BID [facility] Last Admin: 01/15/19 11:31 Dose: Not Given Famotidine (Pepcid) 20 mg IVP DAILY [facility] Last Admin: 01/15/19 11:50 Dose: 20 mg Heparin Sodium (Porcine) (Heparin) 5,000 units SC Q8 [facility]; Protocol Last Admin: 01/15/19 21:13 Dose: 5,000 units Home Med (Home Med) 1 unit PO DAILY [facility] Last Admin: 01/15/19 11:33 Dose: Not Given Hydromorphone HCl (Dilaudid) 0.5 mg IVP Q3H PRN PRN Reason: Pain, moderate (4-7) Last Admin: 01/16/19 03:55 Dose: 0.5 mg NOREPINEPHRINE BIT/0.9 % NACL (Levophed 4 Mg/ 250 Ml Ns Premixed) 4 mg in 250 mls @ 15 mls/hr IV .[id number] PRN; Protocol PRN Reason: TITRATE PER MD ORDER Last Titration: 01/15/19 09:40 Dose: 0 mcg/min, 0 mls/hr Metronidazole (Flagyl) 500 mg in 100 mls @ 100 mls/hr IVPB Q8 [facility]; Protocol Last Admin: 01/15/19 21:13 Dose: 100 mls/hr Sodium Bicarbonate 75 meq/ (Sodium Chloride) 1,075 mls @ 100 mls/hr IV .[id number] [facility] Last Admin: 01/16/19 03:47 Dose: 100 mls/hr Fentanyl Citrate (Fentanyl Citrate/Sodium Chloride 1 Mg/100 Ml) 1,000 mcg in 100 mls @ 2 mls/hr IV .Q24H PRN; Protocol PRN Reason: TITRATE PER MD ORDER Last Titration: 01/15/19 23:16 Dose: 50 mcg/hr, 5 mls/hr Meropenem 250 mg/ Sodium (Chloride) 100 mls @ 100 mls/hr IVPB Q12H [facility]; Protocol Stop: 01/20/19 21:31 Last Admin: 01/15/19 22:05 Dose: 100 mls/hr Insulin Detemir (Levemir) 15 unit SC Q12 [facility] Last Admin: 01/15/19 15:58 Dose: Not Given Insulin Human Regular (Humulin R Low) 0 units SC ACHS [facility]; Protocol Last Admin: 01/15/19 22:04 Dose: Not Given Ondansetron HCl (Zofran Inj) 4 mg IVP Q4H PRN PRN Reason: Nausea/Vomiting Last Admin: 01/14/19 05:36 Dose: 4 mg - Labs Labs: 01/16/19 05:15 01/16/19 05:15 PT 18.8 SECONDS (9.4-12.5) H 01/15/19 16:09 INR 1.69 01/15/19 16:09 APTT 29.1 Seconds (26.9-38.3) 01/15/19 16:09 - Constitutional Appears: Non-toxic, No Acute Distress - Eye Exam Eye Exam: Normal appearance - ENT Exam ENT Exam: Mucous Membranes Dry - Respiratory Exam Respiratory Exam: absent: Accessory Muscle Use, Respiratory Distress - Cardiovascular Exam Cardiovascular Exam: Tachycardia (100-110), REGULAR RHYTHM - GI/Abdominal Exam GI & Abdominal Exam: Soft. absent: Distended Additional comments: midline dressing c/d/i THAI 100 cc serosanguinous - Extremities Exam Extremities Exam: absent: Pedal Edema - Neurological Exam Neurological Exam: Alert, Awake Assessment and Plan - Assessment and Plan (Free Text) Assessment: 73F POD#1 s/p exlap with SBR for ischemic bowel secondary to adhesions Plan: strict I/O wean to extubate trend LFTs, kidney fx, trops Ok to start enteral feeding monitor urine output - consider dose of Albumin Fluids being managed by nephrology ABx d/c as per skip protocol cont DVT prophylaxis PT/OT will d/w Dr Lonny Tlabot, PGY4
[2019-01-16] MEDS: metroNIDAZOLE IV 500 mg/100 ml 500 MG/100 ML BAG IVPB SCH (08:07)
[2019-01-16] MEDS: Fentanyl 1000mcg/100ml NS 1,000 MCG/100 ML BAG IV PRN (08:08)
--- NOTE | 2019-01-16 08:47 | OP ---
PROCEDURE DATE: 01/15/2019 SURGICAL INDICATIONS: Acute abdomen. SURGERY: An exploratory laparotomy, small bowel resection with primary anastomosis. ESTIMATED BLOOD LOSS: 25 mL. SURGEON: Kayode Mukherjee MD PROCED TECH: Caden Talbot DO, PGY-4, Magdi Pappas DO, PGY-3 ANESTHESIOLOGIST: Ian Encarnacion MD URINE OUTPUT: Approximately 100 mL. BLOOD PRODUCTS GIVEN: The patient did receive 1 unit of PRBC intraoperatively. DRAINS: A 19-Persian Otis drain. INDICATION: This is a 73-year-old female who presented with small bowel obstructive type symptoms, abdominal pain accompanied by nausea and vomiting. The patient stated the pain had been going on and off for approximately three months. She was originally treated conservatively with NG tube decompression, with transient improvement, however, on Sunday01/14/2019 the patient became hypotensive, was transferred to the ICU, found to have a rising lactic acidosis. At this time, it was presumptive that the patient was most likely suffering from bowel ischemia, however, given her hypotension as well as her medical and cardiac history, the decision was made to appropriately resuscitate the patient and delay the operation until the following day when the patient had been given enough fluid and would likely have a better outcome. On the day of 01/15/2019, the patient was taken to the operating room at 8 o'clock in the morning. After intubation and induction of general anesthesia, the patient's blood pressure dropped to approximately 40/20. At this point, it was determined that should the abdomen be opened and the developed ascites released that the intraabdominal pressure would be reduced, and patient's preload would significantly drop and the patient would likely code. Conversation was had with the family regarding the degree of aggression that they would prefer, and after discussion with the family, the primary surgeon and anesthesia, the decision was made to abort the case and take the patient back to the ICU for further resuscitation. The patient was taken back to the ICU, intubated on three pressors, and after 3 liters of lactated ringers over the next subsequent hour and half, the patient was weaned off of all pressors and her blood pressure was approximately was 130/50 with MAP 70 and only minor tachycardia in the low 100s. At this point, it was determined that this was presumably the most optimized window that we would have in order to aid this patient and deal with her current surgical pathology, so after a second conversation with the family, we proceeded to take the patient to the operating room. There was a preoperative surgical safety checklist which everyone was in agreement. The patient did receive preoperative antibiotics as well aztreonam and Flagyl. The patient was already intubated, moved over to the operating table, prepped and draped in the usual sterile fashion. At this point, the anesthesia proceeded with the paralytic, with only a minor drop in her systolics down to the 80s requiring low-dose Levophed. After the go ahead from anesthesia, a midline incision was made in the abdomen, dissection was carried down with electrocautery down to the level of the anterior fascia. Fascia was then elevated using Santa clamps and incised using Metzenbaum scissors exposing the peritoneum. The same procedure with Santa clamps and Metzenbaum scissors was then used to open the peritoneum. There was immediate gush of hemorrhagic ascites. Using fingers to protect the underlying bowel, the remaining incision was continued from the subxiphoid just to the suprapubic region with electrocautery. We continued to evacuate the hemorrhagic ascites. It was clearly evident at this point that we are dealing with ischemic bowel as a black and purple necrotic bowel immediately exposed itself. After complete evaluation of the abdomen, attention was turned toward the bowel to see the degree of ischemia. The small bowel was completely eviscerated and it was noted that there was a single band adhesion causing essentially an internal hernia that was causing prolonged obstruction which then subsequently led to ischemia. It was very clear, after the single band was lysed using Metzenbaum scissors, that the ischemic bowel was too far gone, although there was a very little reperfusion noted. There was a clear demarcation both proximally and distally between the necrotic bowel and healthy viable tissue at the site of the single-band. Decision was made to proceed with a small bowel resection. Our margins were approximately 2 cm distally and proximally. The mesentery was opened with electrocautery followed by Santa clamp and then the small bowel was resected using the FRANCISCO 75 blue load both proximally and distally. The mesentery of the ischemic bowel was then taken using the LigaSure as proximal to bowel as viably possible. After the specimens had been resected and delivered from the field and sent off to the pathology, we turned our attention towards to examining the rest of the abdomen. Proximal small bowel was run to the ligament of Treitz and distal small bowel was run down to the cecum with no further evidence of small bowel ischemia. The entire colon was assessed from the cecum to the transverse colon down to descending colon, no evidence of ischemia. The rest of the abdomen was assessed as well. The uterus was noted to be enlarged, though there was no obvious palpable mass. Ovaries, fimbriae, fallopian tubes, everything was intact. No abnormality. The liver was palpated for any lesions in which a small cyst was noted in the right lobe of the liver. However, no metastasis. There were no signs of any peritoneal or omental implants either. After we concluded the inspection of the abdomen, we turned our attention towards our anastomosis. The two ends of the small bowel were approximated and held in place with a 3-0 silk stay suture. The mesenteric defect was then closed prior to doing our anastomosis; this was done using 2-0 Vicryl to ensure that we did not catch the arterial supply to our anastomosis. After the complete closure of the mesenteric defect in a continuous fashion, it was noted that there was still good blood supply to the anastomosis, so then this was carried out using the 75 blue FRANCISCO followed by the blue TA 50 load stapler. The lumen of the anastomosis was noted to be patent. There was no bleeding from the staple line, everything was intact. The bowel was then returned to the abdomen and the omentum was laid on top of it. At this point, we were to prepare to close the abdomen but given the high amount of hemorrhagic ascites, we decided to place a 19-Persian Otis drain which was placed in the left lower quadrant as lateral as possible to avoid inferior epigastric artery. We then closed the abdomen using looped 0 PDS in a running fashion, two strands; one from the inferior and one from the superior using malleable to protect the underlying bowel. The entire abdomen was closed under visualization. The abdominal defect was palpated prior to tying the knot to ensure that there was tight closure with no underlying bowel within the suture. After the closure of the fascia, the wound was irrigated with saline and then the skin was closed with skin staplers. Aquacel dressing was applied. Given the severity of the case as well as the patient's metabolic acidosis, the decision was made to keep her intubated and transport her back straight to ICU bypassing the PACU. The patient was delivered to the ICU and at this point was noted to be hemodynamically stable, weaned off pressors and was subsequently undergoing weaning of the FiO2. The patient was transported to ICU with MARIA A Marmolejo tube, intubated. Post-operative count was correct. Caden Talbot DO Kayode Mukherjee MD [facility]
[2019-01-16] MEDS: Insulin Reg-LOW-Coverage SC SCH ×4 (09:53→22:00)
[2019-01-16] MEDS: CALCIFEDIOL 30 MCG PO SCH (10:11)
[2019-01-16] MEDS ORDERED: Lactated Ringer's 1,000 ML IV SCH (11:00)
--- NOTE | 2019-01-16 11:21 | CP.PCM.CON ---
<Roger Marie - Last Filed: 01/16/19 12:54> History of Present Illness - History of Present Illness History of Present Illness: Infectious disease consult note: 73-year-old female with past medical history of uterine cancer status post radiation therapy, coronary artery disease with stent placement, diabetes, CKD, peripheral vascular disease, hypertension, anemia, left-sided carotid stenosis S/P endarterectomy, obesity, resents with partial small bowel obstruction. Patient's obstruction became progressively worse and patient developed ischemic bowel now S/P resection. Patient is currently complaining of some pain and attributes it to the surgery. No other complaints. Infectious disease was consulted for ischemic bowel and antibiotic coverage. 12 point ROS performed and negative other than stated above PMH: DM, PVD, GERD, Uterine ca, Anemic, CKD PSH: Left hallux amp, Left LE bypass, Breast cyst excision Allergies: Penicillins Medications: Refer to MAR Social: Denies tobacco, alcohol, or illicit drug use Review of Systems - Review of Systems All systems: reviewed and no additional remarkable complaints except Past Patient History - Tetanus Immunizations Tetanus Immunization: Unknown - Past Social History Smoking Status: Never Smoked - CARDIAC Hx Cardiac Disorders: Yes Hx Heart Attack: Yes Hx Hypercholesterolemia: Yes Hx Hypertension: Yes - PULMONARY Hx Respiratory Disorders: No - NEUROLOGICAL Hx Neurological Disorder: Yes HX Cerebrovascular Accident: Yes - HEENT Hx HEENT Problems: No - RENAL Hx Chronic Kidney Disease: Yes Hx Renal Failure: Yes (stage 4 renal failure, denies having dialysis tx) - ENDOCRINE/METABOLIC Hx Endocrine Disorders: Yes Hx Diabetes Mellitus Type 2: Yes - HEMATOLOGICAL/ONCOLOGICAL Hx Blood Disorders: Yes Hx Anemia: Yes - INTEGUMENTARY Hx Dermatological Problems: No - MUSCULOSKELETAL/RHEUMATOLOGICAL Hx Musculoskeletal Disorders: No - GASTROINTESTINAL Hx Gastrointestinal Disorders: No - GENITOURINARY/GYNECOLOGICAL Hx Genitourinary Disorders: Yes Hx Uterine Cancer: Yes - PSYCHIATRIC Hx Psychophysiologic Disorder: No Hx Substance Use: No - SURGICAL HISTORY Hx Surgeries: Yes Hx Amputation: Yes (L great toe) Hx Cardiac Catheterization: Yes Hx Coronary Stent: Yes Hx Vascular Surgery: Yes (2 stents placed in legs bilaterally d/t PVD) - ANESTHESIA Hx Anesthesia: Yes Hx Anesthesia Reactions: No Hx Malignant Hyperthermia: No Meds Allergies/Adverse Reactions: Allergies Allergy/AdvReac Type Severity Reaction Status Date / Time Penicillins Allergy ANGIOEDEMA Verified 01/13/19 05:05 strawberry Allergy ANGIOEDEMA Verified 01/13/19 05:05 - Medications Medications: Current Medications Benzocaine/Menthol (Cepacol Sore Throat) 1 aylssa MT Q2H PRN PRN Reason: Sore Throat Carvedilol (Coreg) 12.5 mg PO BID [facility] Last Admin: 01/16/19 10:11 Dose: Not Given Famotidine (Pepcid) 20 mg IVP DAILY [facility] Last Admin: 01/16/19 10:10 Dose: 20 mg Heparin Sodium (Porcine) (Heparin) 5,000 units SC Q8 [facility]; Protocol Last Admin: 01/16/19 08:07 Dose: 5,000 units Home Med (Home Med) 1 unit PO DAILY [facility] Last Admin: 01/16/19 10:11 Dose: Not Given Hydromorphone HCl (Dilaudid) 0.5 mg IVP Q3H PRN PRN Reason: Pain, moderate (4-7) Last Admin: 01/16/19 03:55 Dose: 0.5 mg NOREPINEPHRINE BIT/0.9 % NACL (Levophed 4 Mg/ 250 Ml Ns Premixed) 4 mg in 250 mls @ 15 mls/hr IV .[id number] PRN; Protocol PRN Reason: TITRATE PER MD ORDER Last Titration: 01/15/19 09:40 Dose: 0 mcg/min, 0 mls/hr Sodium Bicarbonate 75 meq/ (Sodium Chloride) 1,075 mls @ 100 mls/hr IV .[id number] [facility] Last Admin: 01/16/19 03:47 Dose: 100 mls/hr Meropenem 250 mg/ Sodium (Chloride) 100 mls @ 100 mls/hr IVPB Q12H [facility]; Protocol Stop: 01/20/19 21:31 Last Admin: 01/16/19 10:10 Dose: 100 mls/hr Lactated Ringer's (Lactated Ringer's) 1,000 mls @ 85 mls/hr IV .[id number] [facility] Insulin Detemir (Levemir) 15 unit SC Q12 [facility] Last Admin: 01/15/19 15:58 Dose: Not Given Insulin Human Regular (Humulin R Low) 0 units SC ACHS [facility]; Protocol Last Admin: 01/16/19 09:53 Dose: Not Given Ondansetron HCl (Zofran Inj) 4 mg IVP Q4H PRN PRN Reason: Nausea/Vomiting Last Admin: 01/14/19 05:36 Dose: 4 mg Physical Exam - Constitutional Appears: No Acute Distress - Head Exam Head Exam: ATRAUMATIC, NORMOCEPHALIC - Eye Exam Eye Exam: EOMI, PERRL - Respiratory Exam Respiratory Exam: Clear to Auscultation Bilateral. absent: Wheezes - Cardiovascular Exam Cardiovascular Exam: REGULAR RHYTHM, +S1, +S2 - GI/Abdominal Exam GI & Abdominal Exam: Normal Bowel Sounds, Soft, Tenderness Additional comments: Some tenderness near the sites of the surgical scar Dressing clean dry and intact - Extremities Exam Extremities exam: Negative for: calf tenderness, pedal edema - Neurological Exam Neurological exam: Alert, CN II-XII Intact - Psychiatric Exam Psychiatric exam: Normal Mood - Skin Skin Exam: Dry, Warm Results - Vital Signs Recent Vital Signs: Last Vital Signs Temp 98.8 F 01/15/19 22:00 Pulse 107 H 01/16/19 08:39 Resp 26 H 01/16/19 07:30 BP 80/44 L 01/15/19 17:30 Pulse Ox 99 01/16/19 07:30 - Labs Result Diagrams: 01/16/19 05:15 01/16/19 05:15 Labs: Laboratory Results - last 24 hr 01/14/19 01/15/19 01/15/19 15:43 11:06 12:40 WBC 10.2 D RBC 3.31 L Hgb 8.0 L Hct 26.0 L MCV 78.5 L MCH 24.2 L MCHC 30.8 L RDW 19.1 H Plt Count 158 MPV 10.6 Neut % (Auto) 88.5 H Lymph % (Auto) 4.7 L Terrell % (Auto) 6.7 H Eos % (Auto) 0.0 L Baso % (Auto) 0.1 Lymph # (Auto) 0.5 L Terrell # (Auto) 0.7 H Eos # (Auto) 0.0 Baso # (Auto) 0.01 Absolute Neuts (auto) 9.02 H PT INR APTT pCO2 pO2 HCO3 ABG pH ABG Total CO2 ABG O2 Saturation ABG Base Excess ABG Potassium Glucose Lactate FiO2 Crit Value Called To Crit Value Called By Blood Gas Notified Time Sodium Potassium Chloride Carbon Dioxide Anion Gap BUN Creatinine Est GFR ( Amer) Est GFR (Non-Af Amer) POC Glucose (mg/dL) 133 H Random Glucose Calcium Phosphorus Magnesium Total Bilirubin AST ALT Alkaline Phosphatase Troponin I Total Protein Albumin Globulin Albumin/Globulin Ratio Arterial Blood Potassium Blood Type O POSITIVE Antibody Screen Negative Crossmatch See Detail BBK History Checked No verified bt 01/15/19 01/15/19 01/15/19 12:40 13:00 16:09 WBC 6.9 D RBC 4.16 Hgb 10.5 L D Hct 33.0 L MCV 79.3 L MCH 25.2 MCHC 31.8 RDW 18.6 H Plt Count 131 MPV Neut % (Auto) 90.3 H Lymph % (Auto) 4.9 L Terrell % (Auto) 4.8 Eos % (Auto) 0.0 L Baso % (Auto) 0.0 Lymph # (Auto) 0.3 L Terrell # (Auto) 0.3 Eos # (Auto) 0.0 Baso # (Auto) 0.00 Absolute Neuts (auto) 6.26 PT INR APTT pCO2 34 L pO2 180.0 H HCO3 12.7 L ABG pH 7.18 L* ABG Total CO2 13.7 L ABG O2 Saturation 99.5 H ABG Base Excess -14.6 L ABG Potassium 4.7 Glucose 118 H Lactate 5.8 H* FiO2 100.0 Crit Value Called To maryellen Cardenas Crit Value Called By Xena Blood Gas Notified Time 1310 Sodium 140 139.0 Potassium 5.1 H Chloride 111 H 115.0 H Carbon Dioxide 16 L Anion Gap 17 BUN 51 H Creatinine 4.5 H Est GFR ( Amer) 12 Est GFR (Non-Af Amer) 10 POC Glucose (mg/dL) Random Glucose 117 H Calcium 7.3 L Phosphorus 7.1 H Magnesium 1.9 Total Bilirubin 0.3 AST 961 H ALT 857 H Alkaline Phosphatase 50 Troponin I Total Protein 4.7 L Albumin 2.1 L Globulin 2.6 Albumin/Globulin Ratio 0.8 L Arterial Blood Potassium 4.7 Blood Type Antibody Screen Crossmatch BBK History Checked 01/15/19 01/15/19 01/15/19 16:09 16:09 16:09 WBC RBC Hgb Hct MCV MCH MCHC RDW Plt Count MPV Neut % (Auto) Lymph % (Auto) Terrell % (Auto) Eos % (Auto) Baso % (Auto) Lymph # (Auto) Terrell # (Auto) Eos # (Auto) Baso # (Auto) Absolute Neuts (auto) PT 18.8 H INR 1.69 APTT 29.1 pCO2 pO2 HCO3 ABG pH ABG Total CO2 ABG O2 Saturation ABG Base Excess ABG Potassium Glucose Lactate FiO2 Crit Value Called To Crit Value Called By Blood Gas Notified Time Sodium 140 Potassium 4.9 Chloride 113 H Carbon Dioxide 18 L Anion Gap 13 BUN 52 H Creatinine 4.6 H Est GFR ( Amer) 11 Est GFR (Non-Af Amer) 9 POC Glucose (mg/dL) Random Glucose 125 H Calcium 7.9 L Phosphorus 6.7 H Magnesium 1.9 Total Bilirubin 0.5 AST 1285 H ALT 1163 H Alkaline Phosphatase 52 Troponin I 0.23 H* Total Protein 5.0 L Albumin 2.2 L Globulin 2.8 Albumin/Globulin Ratio 0.8 L Arterial Blood Potassium Blood Type Antibody Screen Crossmatch BBK History Checked 01/15/19 01/15/19 01/15/19 16:13 17:46 21:20 WBC RBC Hgb Hct MCV MCH MCHC RDW Plt Count MPV Neut % (Auto) Lymph % (Auto) Terrell % (Auto) Eos % (Auto) Baso % (Auto) Lymph # (Auto) Terrell # (Auto) Eos # (Auto) Baso # (Auto) Absolute Neuts (auto) PT INR APTT pCO2 39 36 pO2 103.0 H 112.0 H HCO3 16.0 L 16.2 L ABG pH 7.22 L 7.26 L ABG Total CO2 17.2 L 17.3 L ABG O2 Saturation 98.8 H 98.9 H ABG Base Excess -11.1 L -10.0 L ABG Potassium 4.4 4.0 Glucose 130 H 114 H Lactate 3.2 H 2.3 H FiO2 70.0 70.0 Crit Value Called To cristy Smith Crit Value Called By Xena pino Blood Gas Notified Time 1750 2132 Sodium 140.0 140.0 Potassium Chloride 115.0 H 117.0 H Carbon Dioxide Anion Gap BUN Creatinine Est GFR ( Amer) Est GFR (Non-Af Amer) POC Glucose (mg/dL) 135 H Random Glucose Calcium Phosphorus Magnesium Total Bilirubin AST ALT Alkaline Phosphatase Troponin I Total Protein Albumin Globulin Albumin/Globulin Ratio Arterial Blood Potassium 4.4 4.0 Blood Type Antibody Screen Crossmatch BBK History Checked 01/15/19 01/15/19 01/16/19 21:31 21:50 05:00 WBC RBC Hgb Hct MCV MCH MCHC RDW Plt Count MPV Neut % (Auto) Lymph % (Auto) Terrell % (Auto) Eos % (Auto) Baso % (Auto) Lymph # (Auto) Terrell # (Auto) Eos # (Auto) Baso # (Auto) Absolute Neuts (auto) PT INR APTT pCO2 38 pO2 131.0 H HCO3 18.7 L ABG pH 7.30 L ABG Total CO2 19.9 L ABG O2 Saturation 99.2 H ABG Base Excess -7.1 L ABG Potassium 4.2 Glucose 83 Lactate 1.5 FiO2 70.0 Crit Value Called To Crit Value Called By Blood Gas Notified Time Sodium 141.0 Potassium Chloride 116.0 H Carbon Dioxide Anion Gap BUN Creatinine Est GFR ( Amer) Est GFR (Non-Af Amer) POC Glucose (mg/dL) 126 H Random Glucose Calcium Phosphorus Magnesium Total Bilirubin AST ALT Alkaline Phosphatase Troponin I 0.78 H* D Total Protein Albumin Globulin Albumin/Globulin Ratio Arterial Blood Potassium 4.2 Blood Type Antibody Screen Crossmatch BBK History Checked 01/16/19 01/16/19 05:15 05:15 WBC 7.5 RBC 3.71 Hgb 9.3 L Hct 28.4 L MCV 76.5 L MCH 25.1 MCHC 32.7 RDW 17.9 H Plt Count 119 L MPV Neut % (Auto) 91.6 H Lymph % (Auto) 4.0 L Terrell % (Auto) 4.0 Eos % (Auto) 0.3 L Baso % (Auto) 0.1 Lymph # (Auto) 0.3 L Terrell # (Auto) 0.3 Eos # (Auto) 0.0 Baso # (Auto) 0.01 Absolute Neuts (auto) 6.83 H PT INR APTT pCO2 pO2 HCO3 ABG pH ABG Total CO2 ABG O2 Saturation ABG Base Excess ABG Potassium Glucose Lactate FiO2 Crit Value Called To Crit Value Called By Blood Gas Notified Time Sodium 140 Potassium 4.6 Chloride 112 H Carbon Dioxide 21 Anion Gap 11 BUN 58 H Creatinine 4.8 H Est GFR ( Amer) 11 Est GFR (Non-Af Amer) 9 POC Glucose (mg/dL) Random Glucose 91 Calcium 7.2 L Phosphorus 5.5 H Magnesium 1.8 Total Bilirubin 0.6 AST 704 H D ALT 889 H Alkaline Phosphatase 52 Troponin I Total Protein 4.8 L Albumin 2.1 L Globulin 2.7 Albumin/Globulin Ratio 0.8 L Arterial Blood Potassium Blood Type Antibody Screen Crossmatch BBK History Checked Assessment & Plan - Assessment and Plan (Free Text) Assessment: Septic shock secondary to bowel obstruction with ischemic bowel S/P resection POD 1, Off of pressors Uterine cancer status post radiation Elevated troponins Acute on chronic kidney disease Coronary artery disease Diabetes Referral vascular disease Hypertension History of carotid stenosis S/P endarterectomy Aztreonam and Flagyl have been discontinued, meropenem has been started Follow-up septic work-up Follow-up further surgical recommendations Follow-up cardiology recommendations for elevated troponins Follow-up nephrology, and palliative care consultations Continue to monitor for any changes Case and plan to be reviewed and discussed with Dr. Fraga. <Esteban Fraga - Last Filed: 01/16/19 16:14> Meds - Medications Medications: Current Medications Benzocaine/Menthol (Cepacol Sore Throat) 1 alyssa MT Q2H PRN PRN Reason: Sore Throat Carvedilol (Coreg) 12.5 mg PO BID [facility] Last Admin: 01/16/19 10:11 Dose: Not Given Famotidine (Pepcid) 20 mg IVP DAILY [facility] Last Admin: 01/16/19 10:10 Dose: 20 mg Heparin Sodium (Porcine) (Heparin) 5,000 units SC Q8 [facility]; Protocol Last Admin: 01/16/19 15:55 Dose: Not Given Home Med (Home Med) 1 unit PO DAILY [facility] Last Admin: 01/16/19 10:11 Dose: Not Given Hydromorphone HCl (Dilaudid) 0.5 mg IVP Q3H PRN PRN Reason: Pain, moderate (4-7) Last Admin: 01/16/19 15:59 Dose: 0.5 mg NOREPINEPHRINE BIT/0.9 % NACL (Levophed 4 Mg/ 250 Ml Ns Premixed) 4 mg in 250 mls @ 15 mls/hr IV .[id number] PRN; Protocol PRN Reason: TITRATE PER MD ORDER Last Titration: 01/15/19 09:40 Dose: 0 mcg/min, 0 mls/hr Meropenem 250 mg/ Sodium (Chloride) 100 mls @ 100 mls/hr IVPB Q12H [facility]; Protocol Stop: 01/20/19 21:31 Last Admin: 01/16/19 10:10 Dose: 100 mls/hr Dextrose/Lactated Ringer's (Dextrose 5%/Lactated Ringer's) 1,000 mls @ 100 mls/hr IV .Q10H [facility] Last Admin: 01/16/19 13:00 Dose: 100 mls/hr Insulin Detemir (Levemir) 15 unit SC Q12 [facility] Last Admin: 01/15/19 15:58 Dose: Not Given Insulin Human Regular (Humulin R Low) 0 units SC ACHS [facility]; Protocol Last Admin: 01/16/19 16:12 Dose: Not Given Ondansetron HCl (Zofran Inj) 4 mg IVP Q4H PRN PRN Reason: Nausea/Vomiting Last Admin: 01/14/19 05:36 Dose: 4 mg Results - Vital Signs Recent Vital Signs: Last Vital Signs Temp 98.8 F 01/15/19 22:00 Pulse 108 H 01/16/19 14:00 Resp 26 H 01/16/19 07:30 BP 80/44 L 01/15/19 17:30 Pulse Ox 99 01/16/19 07:30 - Labs Result Diagrams: 01/16/19 05:15 01/16/19 05:15 Labs: Laboratory Results - last 24 hr 01/14/19 01/15/19 01/15/19 15:43 16:09 16:09 WBC 6.9 D RBC 4.16 Hgb 10.5 L D Hct 33.0 L MCV 79.3 L MCH 25.2 MCHC 31.8 RDW 18.6 H Plt Count 131 Neut % (Auto) 90.3 H Lymph % (Auto) 4.9 L Terrell % (Auto) 4.8 Eos % (Auto) 0.0 L Baso % (Auto) 0.0 Lymph # (Auto) 0.3 L Terrell # (Auto) 0.3 Eos # (Auto) 0.0 Baso # (Auto) 0.00 Absolute Neuts (auto) 6.26 PT INR APTT pCO2 pO2 HCO3 ABG pH ABG Total CO2 ABG O2 Saturation ABG Base Excess ABG Potassium Glucose Lactate FiO2 Crit Value Called To Crit Value Called By Blood Gas Notified Time Sodium 140 Potassium 4.9 Chloride 113 H Carbon Dioxide 18 L Anion Gap 13 BUN 52 H Creatinine 4.6 H Est GFR ( Amer) 11 Est GFR (Non-Af Amer) 9 POC Glucose (mg/dL) Random Glucose 125 H Calcium 7.9 L Phosphorus 6.7 H Magnesium 1.9 Total Bilirubin 0.5 AST 1285 H ALT 1163 H Alkaline Phosphatase 52 Troponin I Total Protein 5.0 L Albumin 2.2 L Globulin 2.8 Albumin/Globulin Ratio 0.8 L Arterial Blood Potassium Blood Type O POSITIVE Antibody Screen Negative Crossmatch See Detail BBK History Checked No verified bt 01/15/19 01/15/19 01/15/19 16:09 16:09 16:13 WBC RBC Hgb Hct MCV MCH MCHC RDW Plt Count Neut % (Auto) Lymph % (Auto) Terrell % (Auto) Eos % (Auto) Baso % (Auto) Lymph # (Auto) Terrell # (Auto) Eos # (Auto) Baso # (Auto) Absolute Neuts (auto) PT 18.8 H INR 1.69 APTT 29.1 pCO2 pO2 HCO3 ABG pH ABG Total CO2 ABG O2 Saturation ABG Base Excess ABG Potassium Glucose Lactate FiO2 Crit Value Called To Crit Value Called By Blood Gas Notified Time Sodium Potassium Chloride Carbon Dioxide Anion Gap BUN Creatinine Est GFR ( Amer) Est GFR (Non-Af Amer) POC Glucose (mg/dL) 135 H Random Glucose Calcium Phosphorus Magnesium Total Bilirubin AST ALT Alkaline Phosphatase Troponin I 0.23 H* Total Protein Albumin Globulin Albumin/Globulin Ratio Arterial Blood Potassium Blood Type Antibody Screen Crossmatch BBK History Checked 01/15/19 01/15/19 01/15/19 17:46 21:20 21:31 WBC RBC Hgb Hct MCV MCH MCHC RDW Plt Count Neut % (Auto) Lymph % (Auto) Terrell % (Auto) Eos % (Auto) Baso % (Auto) Lymph # (Auto) Terrell # (Auto) Eos # (Auto) Baso # (Auto) Absolute Neuts (auto) PT INR APTT pCO2 39 36 pO2 103.0 H 112.0 H HCO3 16.0 L 16.2 L ABG pH 7.22 L 7.26 L ABG Total CO2 17.2 L 17.3 L ABG O2 Saturation 98.8 H 98.9 H ABG Base Excess -11.1 L -10.0 L ABG Potassium 4.4 4.0 Glucose 130 H 114 H Lactate 3.2 H 2.3 H FiO2 70.0 70.0 Crit Value Called To cristy Smith Crit Value Called By Xena pino Blood Gas Notified Time [id number] Sodium 140.0 140.0 Potassium Chloride 115.0 H 117.0 H Carbon Dioxide Anion Gap BUN Creatinine Est GFR ( Amer) Est GFR (Non-Af Amer) POC Glucose (mg/dL) Random Glucose Calcium Phosphorus Magnesium Total Bilirubin AST ALT Alkaline Phosphatase Troponin I 0.78 H* D Total Protein Albumin Globulin Albumin/Globulin Ratio Arterial Blood Potassium 4.4 4.0 Blood Type Antibody Screen Crossmatch BBK History Checked 01/15/19 01/16/19 01/16/19 21:50 05:00 05:15 WBC 7.5 RBC 3.71 Hgb 9.3 L Hct 28.4 L MCV 76.5 L MCH 25.1 MCHC 32.7 RDW 17.9 H Plt Count 119 L Neut % (Auto) 91.6 H Lymph % (Auto) 4.0 L Terrell % (Auto) 4.0 Eos % (Auto) 0.3 L Baso % (Auto) 0.1 Lymph # (Auto) 0.3 L Terrell # (Auto) 0.3 Eos # (Auto) 0.0 Baso # (Auto) 0.01 Absolute Neuts (auto) 6.83 H PT INR APTT pCO2 38 pO2 131.0 H HCO3 18.7 L ABG pH 7.30 L ABG Total CO2 19.9 L ABG O2 Saturation 99.2 H ABG Base Excess -7.1 L ABG Potassium 4.2 Glucose 83 Lactate 1.5 FiO2 70.0 Crit Value Called To Crit Value Called By Blood Gas Notified Time Sodium 141.0 Potassium Chloride 116.0 H Carbon Dioxide Anion Gap BUN Creatinine Est GFR ( Amer) Est GFR (Non-Af Amer) POC Glucose (mg/dL) 126 H Random Glucose Calcium Phosphorus Magnesium Total Bilirubin AST ALT Alkaline Phosphatase Troponin I Total Protein Albumin Globulin Albumin/Globulin Ratio Arterial Blood Potassium 4.2 Blood Type Antibody Screen Crossmatch BBK History Checked 01/16/19 01/16/19 01/16/19 05:15 12:12 15:56 WBC RBC Hgb Hct MCV MCH MCHC RDW Plt Count Neut % (Auto) Lymph % (Auto) Terrell % (Auto) Eos % (Auto) Baso % (Auto) Lymph # (Auto) Terrell # (Auto) Eos # (Auto) Baso # (Auto) Absolute Neuts (auto) PT INR APTT pCO2 pO2 HCO3 ABG pH ABG Total CO2 ABG O2 Saturation ABG Base Excess ABG Potassium Glucose Lactate FiO2 Crit Value Called To Crit Value Called By Blood Gas Notified Time Sodium 140 Potassium 4.6 Chloride 112 H Carbon Dioxide 21 Anion Gap 11 BUN 58 H Creatinine 4.8 H Est GFR ( Amer) 11 Est GFR (Non-Af Amer) 9 POC Glucose (mg/dL) 69 105 Random Glucose 91 Calcium 7.2 L Phosphorus 5.5 H Magnesium 1.8 Total Bilirubin 0.6 AST 704 H D ALT 889 H Alkaline Phosphatase 52 Troponin I Total Protein 4.8 L Albumin 2.1 L Globulin 2.7 Albumin/Globulin Ratio 0.8 L Arterial Blood Potassium Blood Type Antibody Screen Crossmatch BBK History Checked Attending/Attestation - Attestation I have personally seen and examined this patient.: Yes I have fully participated in the care of the patient.: Yes I have reviewed all pertinent clinical information: Yes
[2019-01-16] MEDS ORDERED: Albumin Human 25% (12.5 gm/50 ml) IV ONE (11:40)
--- NOTE | 2019-01-16 11:59 | CP.PCM.PN ---
Subjective - Date & Time of Evaluation Date of Evaluation: 01/16/19 Time of Evaluation: 08:00 - Subjective Subjective: Pt seen and examined on rounds, reports mild abd pain, extubated, doing well overall Objective - Vital Signs/Intake and Output Vital Signs (last 24 hours): Temp Pulse Resp BP Pulse Ox 98.8 F 107 H 26 H 80/44 L 99 01/15/19 22:00 01/16/19 08:39 01/16/19 07:30 01/15/19 17:30 01/16/19 07:30 Intake and Output: 01/16/19 01/16/19 06:59 18:59 Intake Total 50 60 Balance 50 60 - Medications Medications: Current Medications Benzocaine/Menthol (Cepacol Sore Throat) 1 alyssa MT Q2H PRN PRN Reason: Sore Throat Carvedilol (Coreg) 12.5 mg PO BID [facility] Last Admin: 01/16/19 10:11 Dose: Not Given Famotidine (Pepcid) 20 mg IVP DAILY [facility] Last Admin: 01/16/19 10:10 Dose: 20 mg Heparin Sodium (Porcine) (Heparin) 5,000 units SC Q8 [facility]; Protocol Last Admin: 01/16/19 08:07 Dose: 5,000 units Home Med (Home Med) 1 unit PO DAILY [facility] Last Admin: 01/16/19 10:11 Dose: Not Given Hydromorphone HCl (Dilaudid) 0.5 mg IVP Q3H PRN PRN Reason: Pain, moderate (4-7) Last Admin: 01/16/19 03:55 Dose: 0.5 mg NOREPINEPHRINE BIT/0.9 % NACL (Levophed 4 Mg/ 250 Ml Ns Premixed) 4 mg in 250 mls @ 15 mls/hr IV .[id number] PRN; Protocol PRN Reason: TITRATE PER MD ORDER Last Titration: 01/15/19 09:40 Dose: 0 mcg/min, 0 mls/hr Sodium Bicarbonate 75 meq/ (Sodium Chloride) 1,075 mls @ 100 mls/hr IV .[id number] [facility] Last Admin: 01/16/19 03:47 Dose: 100 mls/hr Meropenem 250 mg/ Sodium (Chloride) 100 mls @ 100 mls/hr IVPB Q12H [facility]; Protocol Stop: 01/20/19 21:31 Last Admin: 01/16/19 10:10 Dose: 100 mls/hr Lactated Ringer's (Lactated Ringer's) 1,000 mls @ 85 mls/hr IV .[id number] [facility] Insulin Detemir (Levemir) 15 unit SC Q12 [facility] Last Admin: 01/15/19 15:58 Dose: Not Given Insulin Human Regular (Humulin R Low) 0 units SC ACHS [facility]; Protocol Last Admin: 01/16/19 09:53 Dose: Not Given Ondansetron HCl (Zofran Inj) 4 mg IVP Q4H PRN PRN Reason: Nausea/Vomiting Last Admin: 01/14/19 05:36 Dose: 4 mg - Labs Labs: 01/16/19 05:15 01/16/19 05:15 PT 18.8 SECONDS (9.4-12.5) H 01/15/19 16:09 INR 1.69 01/15/19 16:09 APTT 29.1 Seconds (26.9-38.3) 01/15/19 16:09 - Constitutional Appears: No Acute Distress, Older Than Stated Age, Chronically Ill - Head Exam Head Exam: NORMAL INSPECTION - Eye Exam Eye Exam: Normal appearance - ENT Exam ENT Exam: Mucous Membranes Dry - Neck Exam Neck Exam: Full ROM - Respiratory Exam Respiratory Exam: Decreased Breath Sounds, NORMAL BREATHING PATTERN - Cardiovascular Exam Cardiovascular Exam: REGULAR RHYTHM, +S1, +S2 - GI/Abdominal Exam GI & Abdominal Exam: Soft, Normal Bowel Sounds - Extremities Exam Extremities Exam: Normal Inspection - Neurological Exam Neurological Exam: Alert, Awake - Psychiatric Exam Psychiatric exam: Normal Affect - Skin Skin Exam: Normal Color, Warm Assessment and Plan - Assessment and Plan (Free Text) Assessment: Patient is 73yo female with PMHx of uterine ca s/p radiation therapy, CAD s/p 6 stents, IDDM2, CKD, PVD, HTN, PVD, L-sided carotid stenosis s/p endarterectomy, obesity, LBBB a/w partial small bowel obstruction which worsened to high grade obstruction, ischemic bowel s/p OR resection, POD #1 Labs, imaging, chart reviewed Suspect multi organ failure, 2/2 intrabdominal sepsis, in setting of likely third spacing This morning placved on CPAP trial, for 1 hour, awake, alert, RSBI 30-40, tolerated well, subsequently extubated to BIPAP, tolerated well Currently afebrile HD stable, comfortable in NAD, OFF Vasopressor support SBO Ischemic Bowel s/p resection Septic Shock, resolved CAD HTN Multi-organ failure renal failure Recommend: - cont with supp O2, duonebs PRN, goal sat 90% - broad spectrum abx, Merrem, Vanco - IVF LR 150cc/hr - speech swallow eval - DC NGT as per surgery - surgical follow up - hold all BP meds - renal follow up - FS control - GI ppx - DVT ppx - Monitor in MICU High risk for morbidity and mortality FULL CODE Critical care time 35 minute
--- NOTE | 2019-01-16 12:29 | CP.PCM.PN ---
Subjective - Date & Time of Evaluation Date of Evaluation: 01/16/19 Time of Evaluation: 12:27 - Subjective Subjective: Nephrology Consultation Note: Assessment: critical SBO with ischemic bowel and lactic acidosis s/p ex lap and small bowel resection 01/15/19 oligoanuric GUIDO due to ATN with hyperkalemia shock liver Diabetic chronic Kidney Disease (E11.22) Hypertensive Chronic Kidney Disease (I12.9) with HTN urgency Chronic Kidney Disease (N18.4) Stage Anemia (D64.9), Hyperphosphatemia (E83.39), Secondary Hyperparathyroidism (E21.1), HTN (I12.9) obesity uterine ca s/p radiation therapy CAD s/p stents, PVD, L-sided carotid stenosis s/p endarterectomy Plan No acute need for renal replacement therapy at this time but may need soon and will need close follow up. pt is hemodynamically stable now s/p ex lap and anticipate spontaneous renal recovery over next few days Maintain hemodynamics stable. Avoid hypotension. Patient not on ACEI/ARB due to GUIDO and hyperkalemia. Hold bp meds Monitor Input/Output, daily weights and renal function with basic metabolic panel PRBC as needed surgery following continue IVF as D5-LR @ 100 ml/hr and d/c bicarb drip as acidosis better No kayexylate in view of GI surgery Dose meds/antibiotics for reduced GFR. Avoid fleets enema/magnesium based laxatives. Avoid nephrotoxins/NSAIDs/ iodinated contrast (unless needed emergently) Glycemic control Further work up/management as per primary team Thanks for allowing me to participate in care of your patient. Will follow patient with you. Please call if any Qs. had d/w team Dr Ant Burrell Office: [phone] Chief Complaint; pain abdomen Reason for consult: CKD management HPI: Pt is a 73 y/o F with PMHx of uterine ca s/p radiation therapy which she completed in december 2018, CAD s/p stents, DM, CKD 4 with baseline cr 2.4, PVD, HTN, L-sided carotid stenosis s/p endarterectomy, obesity presented with complaints of pain abdomen and found to have partial SBO. renal consult for CKD management. she feels better at present. pain abdomen is better. denies CP/SOB Denies OTC/herbal meds or NSAIDs ROS: noted ovenight events. pt extubated but unable to provide ros s/p ex lap 01/15/19 as she had ischemic bowel. Physical Examination: General Appearance: comfortable, in no acute respiratory distress, obese Vitals reviewed and noted as below Head; Atraumatic, normocephalic ENT: extubated. oral mucosa dry EYES: Pupils are equal, round and reactive to light accommodation. Eye muscles and extraocular movement intact. Sclera is anicteric. Neck; supple no lymphadenopathy, no thyromegaly or bruit Lungs: Incr respiratory rate/effort. Breath sounds bilateral equal and clear anteriorly Heart: Incr rate. s1s2 normal. No rub or gallop. Extremities: no edema. No varicose veins Neurological: Patient is awake alert follow commands but not fully oriented. Skin: Warm and dry. Normal turgor. No rash. Palpitation: Normal elasticity for age Abdomen: There is no abdominal tenderness no organomegaly. s/p ex lap. soft now Psych: deferred MSK: no joint tenderness or swelling. Digits and nails normal, no deformity : kidney or bladder not palpable. has walters Labs/imaging reviewed. Past medical history, past surgical history, family history, social history, allergy reviewed and noted as below Family hx: hx of ESKD in son. Rest non-contributory Objective - Vital Signs/Intake and Output Vital Signs (last 24 hours): Temp Pulse Resp BP Pulse Ox 98.8 F 107 H 26 H 80/44 L 99 01/15/19 22:00 01/16/19 08:39 01/16/19 07:30 01/15/19 17:30 01/16/19 07:30 Intake and Output: 01/16/19 01/16/19 06:59 18:59 Intake Total 50 60 Balance 50 60 - Medications Medications: Current Medications Benzocaine/Menthol (Cepacol Sore Throat) 1 alyssa MT Q2H PRN PRN Reason: Sore Throat Carvedilol (Coreg) 12.5 mg PO BID [facility] Last Admin: 01/16/19 10:11 Dose: Not Given Famotidine (Pepcid) 20 mg IVP DAILY [facility] Last Admin: 01/16/19 10:10 Dose: 20 mg Heparin Sodium (Porcine) (Heparin) 5,000 units SC Q8 [facility]; Protocol Last Admin: 01/16/19 08:07 Dose: 5,000 units Home Med (Home Med) 1 unit PO DAILY [facility] Last Admin: 01/16/19 10:11 Dose: Not Given Hydromorphone HCl (Dilaudid) 0.5 mg IVP Q3H PRN PRN Reason: Pain, moderate (4-7) Last Admin: 01/16/19 03:55 Dose: 0.5 mg NOREPINEPHRINE BIT/0.9 % NACL (Levophed 4 Mg/ 250 Ml Ns Premixed) 4 mg in 250 mls @ 15 mls/hr IV .[id number] PRN; Protocol PRN Reason: TITRATE PER MD ORDER Last Titration: 01/15/19 09:40 Dose: 0 mcg/min, 0 mls/hr Meropenem 250 mg/ Sodium (Chloride) 100 mls @ 100 mls/hr IVPB Q12H [facility]; Pro tocol Stop: 01/20/19 21:31 Last Admin: 01/16/19 10:10 Dose: 100 mls/hr Dextrose/Lactated Ringer's (Dextrose 5%/Lactated Ringer's) 1,000 mls @ 85 mls/hr IV .[id number] [facility] Insulin Detemir (Levemir) 15 unit SC Q12 [facility] Last Admin: 01/15/19 15:58 Dose: Not Given Insulin Human Regular (Humulin R Low) 0 units SC ACHS [facility]; Protocol Last Admin: 01/16/19 09:53 Dose: Not Given Ondansetron HCl (Zofran Inj) 4 mg IVP Q4H PRN PRN Reason: Nausea/Vomiting Last Admin: 01/14/19 05:36 Dose: 4 mg - Labs Labs: 01/16/19 05:15 01/16/19 05:15 PT 18.8 SECONDS (9.4-12.5) H 01/15/19 16:09 INR 1.69 01/15/19 16:09 APTT 29.1 Seconds (26.9-38.3) 01/15/19 16:09
[2019-01-16] MEDS ORDERED: Dextrose 5%/Lactated Ringer's 1,000 ML IV SCH (12:30)
[2019-01-16] MEDS: Dextrose 5%/Lactated Ringer's 1,000 ML IV SCH ×2 (13:00→23:10)
--- NOTE | 2019-01-16 14:55 | CP.PCM.PN ---
<Paddy Moreno - Last Filed: 01/16/19 14:48> Subjective - Date & Time of Evaluation Date of Evaluation: 01/16/19 Time of Evaluation: 09:10 - Subjective Subjective: Paddy Moreno DO PGY1 Hospitalist Progress Note for Dr Donovan Patient seen and examined at bedside in ICU. She is awake, alert, just extubated, off pressor support and fentanyl, breathing on her own, follow commands but non verbal yet. She was afebrile last night, BP controlled with MAP>70, U/O 300 cc. She denies chest pain, SOB, abdominal pain, headache, dizziness Objective - Vital Signs/Intake and Output Vital Signs (last 24 hours): Temp Pulse Resp BP Pulse Ox 98.8 F 107 H 26 H 80/44 L 99 01/15/19 22:00 01/16/19 08:39 01/16/19 07:30 01/15/19 17:30 01/16/19 07:30 Intake and Output: 01/16/19 01/16/19 06:59 18:59 Intake Total 50 60 Balance 50 60 - Medications Medications: Current Medications Benzocaine/Menthol (Cepacol Sore Throat) 1 alyssa MT Q2H PRN PRN Reason: Sore Throat Carvedilol (Coreg) 12.5 mg PO BID [facility] Last Admin: 01/16/19 10:11 Dose: Not Given Famotidine (Pepcid) 20 mg IVP DAILY [facility] Last Admin: 01/16/19 10:10 Dose: 20 mg Heparin Sodium (Porcine) (Heparin) 5,000 units SC Q8 [facility]; Protocol Last Admin: 01/16/19 08:07 Dose: 5,000 units Home Med (Home Med) 1 unit PO DAILY [facility] Last Admin: 01/16/19 10:11 Dose: Not Given Hydromorphone HCl (Dilaudid) 0.5 mg IVP Q3H PRN PRN Reason: Pain, moderate (4-7) Last Admin: 01/16/19 03:55 Dose: 0.5 mg NOREPINEPHRINE BIT/0.9 % NACL (Levophed 4 Mg/ 250 Ml Ns Premixed) 4 mg in 250 mls @ 15 mls/hr IV .[id number] PRN; Protocol PRN Reason: TITRATE PER MD ORDER Last Titration: 01/15/19 09:40 Dose: 0 mcg/min, 0 mls/hr Meropenem 250 mg/ Sodium (Chloride) 100 mls @ 100 mls/hr IVPB Q12H [facility]; Protocol Stop: 01/20/19 21:31 Last Admin: 01/16/19 10:10 Dose: 100 mls/hr Dextrose/Lactated Ringer's (Dextrose 5%/Lactated Ringer's) 1,000 mls @ 100 mls/hr IV .Q10H [facility] Insulin Detemir (Levemir) 15 unit SC Q12 [facility] Last Admin: 01/15/19 15:58 Dose: Not Given Insulin Human Regular (Humulin R Low) 0 units SC ACHS [facility]; Protocol Last Admin: 01/16/19 12:27 Dose: Not Given Ondansetron HCl (Zofran Inj) 4 mg IVP Q4H PRN PRN Reason: Nausea/Vomiting Last Admin: 01/14/19 05:36 Dose: 4 mg - Labs Labs: 01/16/19 05:15 01/16/19 05:15 PT 18.8 SECONDS (9.4-12.5) H 01/15/19 16:09 INR 1.69 01/15/19 16:09 APTT 29.1 Seconds (26.9-38.3) 01/15/19 16:09 - Constitutional Appears: Well, Non-toxic - Head Exam Head Exam: ATRAUMATIC, NORMAL INSPECTION, NORMOCEPHALIC - Eye Exam Eye Exam: Normal appearance, PERRL - ENT Exam ENT Exam: Mucous Membranes Moist, Normal Exam - Neck Exam Neck Exam: Normal Inspection - Respiratory Exam Respiratory Exam: Clear to Ausculation Bilateral, NORMAL BREATHING PATTERN. absent: Rales, Rhonchi, Wheezes - Cardiovascular Exam Cardiovascular Exam: REGULAR RHYTHM, +S1, +S2. absent: JVD, RRR, Rubs - GI/Abdominal Exam GI & Abdominal Exam: Soft, Normal Bowel Sounds. absent: Rigid, Tenderness, Mass, Organomegaly, Rebound Additional comments: midabdominal incision dressing applied, no blood, discharge seen. THAI drain on LLQ with about 70 cc of serosanguinous fluid. - Extremities Exam Extremities Exam: Full ROM, Normal Capillary Refill, Pedal Edema (mild. b/l) - Neurological Exam Neurological Exam: Alert, Awake, CN II-XII Intact, Reflexes Normal - Psychiatric Exam Psychiatric exam: Normal Affect - Skin Skin Exam: Dry, Intact, Normal Color, Warm Assessment and Plan - Assessment and Plan (Free Text) Assessment: 73 year old female with a PMHx of uterine ca s/p radiation therapy, CAD s/p 6 stents, IDDM2, CKD, PVD, HTN, chronic iron-deficiency anemia, PVD, L-sided carotid stenosis s/p endarterectomy, obesity, LBBB who was found to have partial SBO complicated by septic shock due to ischemic bowel. Patient is s/p ex-lap with small bowel resection/anastimosis Plan: SBO complicated by septic shock s/p ex-lap with bowel resection and anastomosis: -Patient currently awake, alert, extubated, off pressors, off sedation, BP stable with MAP of 90 -shock liver improving s/p ex-lap -continue aztreonam/flagyl 500 mg Q8H as per ID -afebrile, no leukocytosis -AB.3/38/131 metabolic acidosis improving, lactate trending down 3.2 to 1.5 -continue bicarb drip then switch to NS later today -continue prtonix, zofran -I/O 5202/210 in the last 24 hr -blood/urine cx negative to date -f/u pathology/cultures of abdominal fluid -consider enteral feeding as per surgery -dietitian referral -surgery following, Dr Lonny ROLAND s/p PCI: -EKG reveals NSR, LBBB. -trops nagative initially. increased likely due to hypoperfusion/hypotension -hold anti-HTN meds for hypotension -hold anticoagulant DM2: -accucheck -ISS-low -HgA1c 6.8 PPX: DVT: SCD GI:protonix Dispo: continue ICU management Case reviewed and plan discussed with attending Dr Zion Moreno, DO <Carmel Donovan - Last Filed: 01/17/19 13:42> Objective - Vital Signs/Intake and Output Vital Signs (last 24 hours): Temp Pulse Resp BP Pulse Ox 99.9 F H 112 H 26 H 154/102 H 98 01/17/19 00:10 01/17/19 13:07 01/17/19 00:10 01/17/19 13:07 01/17/19 00:10 Intake and Output: 05/17/19 05/17/19 06:59 18:59 Intake Total 1200 Output Total 840 Balance 360 - Medications Medications: Current Medications Benzocaine/Menthol (Cepacol Sore Throat) 1 alyssa MT Q2H PRN PRN Reason: Sore Throat Carvedilol (Coreg) 12.5 mg PO BID [facility] Last Admin: 01/17/19 10:10 Dose: Not Given Famotidine (Pepcid) 20 mg IVP DAILY [facility] Last Admin: 01/17/19 10:09 Dose: 20 mg Heparin Sodium (Porcine) (Heparin) 5,000 units SC Q8 [facility]; Protocol Last Admin: 01/17/19 05:38 Dose: 5,000 units Home Med (Home Med) 1 unit PO DAILY [facility] Last Admin: 01/17/19 10:12 Dose: Not Given NOREPINEPHRINE BIT/0.9 % NACL (Levophed 4 Mg/ 250 Ml Ns Premixed) 4 mg in 250 mls @ 15 mls/hr IV .[id number] PRN; Protocol PRN Reason: TITRATE PER MD ORDER Last Titration: 01/15/19 09:40 Dose: 0 mcg/min, 0 mls/hr Meropenem 250 mg/ Sodium (Chloride) 100 mls @ 100 mls/hr IVPB Q12H [facility]; Protocol Stop: 01/20/19 21:31 Last Admin: 01/17/19 10:09 Dose: 100 mls/hr Dextrose/Lactated Ringer's (Dextrose 5%/Lactated Ringer's) 1,000 mls @ 100 mls/hr IV .Q10H [facility] Last Admin: 01/17/19 10:11 Dose: 100 mls/hr Insulin Detemir (Levemir) 15 unit SC Q12 [facility] Last Admin: 01/15/19 15:58 Dose: Not Given Insulin Human Regular (Humulin R Low) 0 units SC ACHS [facility]; Protocol Last Admin: 01/17/19 13:11 Dose: Not Given Metoprolol Tartrate (Lopressor) 5 mg IVP Q6H [facility] Last Admin: 01/17/19 13:07 Dose: 5 mg Ondansetron HCl (Zofran Inj) 4 mg IVP Q4H PRN PRN Reason: Nausea/Vomiting Last Admin: 05/14/19 05:36 Dose: 4 mg - Labs Labs: 01/17/19 06:00 01/17/19 06:00 PT 18.8 SECONDS (9.4-12.5) H 01/15/19 16:09 INR 1.69 01/15/19 16:09 APTT 29.1 Seconds (26.9-38.3) 01/15/19 16:09 Attending/Attestation - Attestation I have personally seen and examined this patient.: Yes I have fully participated in the care of the patient.: Yes I have reviewed all pertinent clinical information, including history, physical exam and plan: Yes Notes (Text): 01/17/19 13:32 Attending note; Patient seen and examined with resident in ICU. Patient son by the bedside. Status post ex lap and bowel resection yesterday. Patient is currently extubated. Lethargic now. Not in any acute distress. Vital stable. Patient is a 73-year-old female with PMH uterine cancer s/p radiation therapy, CAD s/p 6 stents, IDDM2, CKD, PVD, HTN, chronic iron-deficiency anemia (previously had aranesp infusions), PVD, L-sided carotid stenosis s/p endarterectomy, obesity presents to ED with complaints of severe, 10/10, diffuse, crampy abdominal pain with associated nausea & non-bloody non-bilious vomiting. 1. Bowel obstruction; status post ex-laparotomy and bowel resection for ischemic bowel. Shock resolved. Currently off pressors. On IV fluids. Laparotomy site in dressing. No bleeding noted . Patient has THAI drain with serosanguineous discharge. 2. Acute on chronic renal insufficiency; due to episodes of hypotension. Creatinine increased . Monitor urine output closely. Discussed with spd tech in detail. 3. Hypotension; resolving with IVF. 4. Elevated liver enzymes; secondary to hypotension and ischemic liver. Trending down slowly. Monitor closely. 5. Diabetes; continue insulin sliding scale. monitor closely. 6. Anemia; trending down. Monitor closely and transfuse as needed. 7. Elevated troponin; secondary to episodes of hypotension. Case discussed [facility] dyer operator in detail. EKG shows no acute ST elevation. on coreg. 8. Uterine cancer; status post radiation therapy. 9. History of coronary stent; cardiology evaluation appreciated. on coreg. mo nitor closely. 10. carotid endarterectomy peripheral vascular stent; currently aspirin and Plavix on hold. 11. Pain management with Dilaudid as needed; patient is very sensitive to pain medications. Gets confused easily. Patient's family is aware of this situation. monitor the patient closely in ICU. Case discussed with patient's family in detail. Patient's son and by the bedside.
--- NOTE | 2019-01-16 16:53 | PN ---
DATE: 01/16/2019 REASON FOR CONSULTATION AND FOLLOWUP: Cardiac evaluation, admitted with small bowel obstruction, history of coronary artery disease, peripheral arterial disease, history of carotid artery stenting, status post rapid response, status post exploratory laparotomy, ischemic bowel and six feet of jejunum resection done. SUBJECTIVE: The patient is awake and alert, being intubated. PHYSICAL EXAMINATION: VITAL SIGNS: Temperature afebrile, heart rate 107, blood pressure 100/70. HEENT: PERRLA. Extraocular muscles intact. NECK: Supple. No carotid bruits. No thyromegaly. CHEST: Clear to auscultation. ABDOMEN: Status post surgery. EXTREMITIES: Clubbing, cyanosis negative. LABORATORY DATA: Blood workup. WBC 7.5, hemoglobin 9.7, hematocrit 28.4, platelet count 119. Chemistries show sodium 140, potassium 4.6, chloride 112, carbon dioxide 21, anion gap of 11, BUN 15 and creatinine 4.8. Troponin 0.78. 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 EKG this morning shows normal sinus, intraventricular block of LBB, T-wave abnormality, no new change, left bundle branch block. Yesterday, the patient underwent exploratory laparotomy and also appears to be septic because of the bowel ischemia and went into multiorgan dysfunction including acute kidney injury, creatinine went up to 4.6, acute liver injury, shock liver' borderline troponin positive, mostly likely the positive troponin is secondary to hemodynamic instability as well as acute kidney injury. I doubt it is a primary cardiac event. RECOMMENDATIONS: Continue broad spectrum antibiotics. Continue vasopressors as needed. Continue vent management. Overall the patient's clinical prognosis is guarded. Most likely, the patient will recover after the surgical exploration. The patient had an echocardiography done the day before yesterday that revealed an ejection fraction of 50-55%, trace aortic regurgitation, trivial MR, mild tricuspid regurgitation, RV systolic pressure of 33 mmHg. Trace pericardial effusion. CVS status is relatively stable, but because of the multiorgan dysfunction, sepsis, and septic shock, overall the patient's condition is critical. Will follow with you. Paula Coronel MD
[2019-01-17] MEDS: HYDROmorphone 0.5 mg/0.5 ml ISec IVP PRN ×2 (01:46→07:38)
[2019-01-17 06:24] LABS: BASO # 0.01 K/mm3 (0.0-2.0); BASO % 0.1 % (0.0-3.0); EOS # 0.1 (0.0-0.7); EOS % 0.5 % (1.5-5.0); HEMOGLOBIN 7.9 g/dL (12.0-16.0); LYMPH # 0.4 (1.2-3.4); LYMPH % 3.1 % (22.0-35.0); MEAN CELL VOLUME 76.4 fl (80.0-105.0); MEAN CORPUSCULAR HEMOGLOBIN 25.2 pg (25.0-35.0); MEAN CORPUSCULAR HGB CONC 33.1 g/dl (31.0-37.0); MEAN PLATELET VOLUME 10.3 fl (7.0-11.0); MONO # 0.4 (0.1-0.6); MONO % 3.6 % (1.0-6.0); RBC 3.13 10^6/uL (3.5-6.1); RED CELL DISTRIBUTION WIDTH 18.8 % (11.5-14.5); WHITE BLOOD COUNT 11.6 10^3/uL (4.5-11.0)
[2019-01-17 06:55] LABS: ALB/GLOB RATIO 0.9 (1.1-1.8); ALBUMIN 2.4 g/dL (3.0-4.8); CALCIUM 7.6 mg/dL (8.4-10.5)
[2019-01-17 07:44] LABS: ARTERIAL BLOOD GAS HCO3 20.7 mmol/L (21-28); ARTERIAL BLOOD GAS HEMOGLOBIN 7.9 g/dL (11.7-17.4); ARTERIAL BLOOD GAS O2 CONTENT 10.6 ML/dl (15-23); ARTERIAL BLOOD GAS O2 SAT 96.5 % (95-98); ARTERIAL BLOOD GAS PCO2 42 mm/Hg (35-45)
[2019-01-17] MEDS: Insulin Reg-LOW-Coverage SC SCH ×4 (08:13→23:07)
[2019-01-17] MEDS: Metoprolol 1 mg/ml Inj IVP SCH ×3 (08:15→20:43)
[2019-01-17] MEDS: Dextrose 5%/Lactated Ringer's 1,000 ML IV SCH (10:11)
[2019-01-17] MEDS: CALCIFEDIOL 30 MCG PO SCH (10:12)
[2019-01-17] MEDS ORDERED: Sodium Chloride 0.9% 1,000 ML IV STA (10:15)
[2019-01-17] MEDS ORDERED: HYDROmorphone 0.5 mg/0.5 ml ISec IVP PRN (10:55)
--- NOTE | 2019-01-17 11:00 | CP.PCM.PN ---
Subjective - Date & Time of Evaluation Date of Evaluation: 01/17/19 Time of Evaluation: 10:56 - Subjective Subjective: General Surgery: Dr Mukherjee Pt S&E in ICU. NAEO. HR down to 90s, BP stable w/ MAPs > 65. Pt is more awake and alert today. Oriented only to self, but more verbally communicative. Tolerated NGT removal without nausea or emesis. THAI with minimal serosanguinous drainage URine output ~70cc/hr for past 12 hours. Objective - Vital Signs/Intake and Output Vital Signs (last 24 hours): Temp Pulse Resp BP Pulse Ox 99.9 F H 111 H 26 H 114/51 L 98 01/17/19 00:10 01/17/19 08:15 01/17/19 00:10 01/17/19 08:15 01/17/19 00:10 Intake and Output: 01/17/19 01/17/19 06:59 18:59 Intake Total 1200 Output Total 840 Balance 360 - Medications Medications: Current Medications Benzocaine/Menthol (Cepacol Sore Throat) 1 alyssa MT Q2H PRN PRN Reason: Sore Throat Carvedilol (Coreg) 12.5 mg PO BID [facility] Last Admin: 01/17/19 10:10 Dose: Not Given Famotidine (Pepcid) 20 mg IVP DAILY [facility] Last Admin: 01/17/19 10:09 Dose: 20 mg Heparin Sodium (Porcine) (Heparin) 5,000 units SC Q8 [facility]; Protocol Last Admin: 01/17/19 05:38 Dose: 5,000 units Home Med (Home Med) 1 unit PO DAILY [facility] Last Admin: 01/17/19 10:12 Dose: Not Given Hydromorphone HCl (Dilaudid) 0.5 mg IVP Q4H PRN PRN Reason: Pain, moderate (4-7) NOREPINEPHRINE BIT/0.9 % NACL (Levophed 4 Mg/ 250 Ml Ns Premixed) 4 mg in 250 mls @ 15 mls/hr IV .[id number] PRN; Protocol PRN Reason: TITRATE PER MD ORDER Last Titration: 01/15/19 09:40 Dose: 0 mcg/min, 0 mls/hr Meropenem 250 mg/ Sodium (Chloride) 100 mls @ 100 mls/hr IVPB Q12H [facility]; Protocol Stop: 01/20/19 21:31 Last Admin: 01/17/19 10:09 Dose: 100 mls/hr Dextrose/Lactated Ringer's (Dextrose 5%/Lactated Ringer's) 1,000 mls @ 100 mls/hr IV .Q10H [facility] Last Admin: 01/17/19 10:11 Dose: 100 mls/hr Sodium Chloride (Sodium Chloride 0.9%) 1,000 mls @ 999 mls/hr IV .Q1H1M [facility] Stop: 01/17/19 11:15 Insulin Detemir (Levemir) 15 unit SC Q12 [facility] Last Admin: 01/15/19 15:58 Dose: Not Given Insulin Human Regular (Humulin R Low) 0 units SC ACHS [facility]; Protocol Last Admin: 01/17/19 08:13 Dose: Not Given Metoprolol Tartrate (Lopressor) 5 mg IVP Q6H [facility] Last Admin: 01/17/19 08:15 Dose: 5 mg Ondansetron HCl (Zofran Inj) 4 mg IVP Q4H PRN PRN Reason: Nausea/Vomiting Last Admin: 01/14/19 05:36 Dose: 4 mg - Labs Labs: 01/17/19 06:00 01/17/19 06:00 PT 18.8 SECONDS (9.4-12.5) H 01/15/19 16:09 INR 1.69 01/15/19 16:09 APTT 29.1 Seconds (26.9-38.3) 01/15/19 16:09 - Constitutional Appears: No Acute Distress, Confused - Head Exam Head Exam: NORMOCEPHALIC - ENT Exam ENT Exam: Mucous Membranes Dry - Respiratory Exam Respiratory Exam: absent: Accessory Muscle Use, Respiratory Distress - Cardiovascular Exam Cardiovascular Exam: REGULAR RHYTHM. absent: Tachycardia - GI/Abdominal Exam GI & Abdominal Exam: Soft, Tenderness (post-operative). absent: Distended - Neurological Exam Neurological Exam: Alert, Awake. absent: Oriented x3 - Psychiatric Exam Psychiatric exam: Normal Affect - Skin Skin Exam: Normal Color Assessment and Plan - Assessment and Plan (Free Text) Assessment: 73F POD#2 s/p ex-lap with SBR for ischemic bowel Plan: cont close monitoring of I/O and urine output tachycardia resolving and urine output increasing, however slight bump in Cr tod ay - mgmt per renal drop in pt HgB - likely dilutional - pt getting more fluids folllowed by repeat labs - may require pRBC to keep HgB >8.0 - plan d/w ICU team will adv to [facility]D - please monitor tolerance closely plan to remove TLC once peripheral access obtained will d/w Dr Lonny Talbot, PGY4
--- NOTE | 2019-01-17 11:54 | PN ---
DATE: 01/17/2019 REASON FOR CONSULTATION AND FOLLOWUP: Cardiac evaluation, admitted with small bowel obstruction, history of coronary artery disease, peripheral arterial disease, status post exploration and 6 feet of jejunum resection done. SUBJECTIVE: The patient is still off and on confused, status post extubated . PHYSICAL EXAMINATION: VITAL SIGNS: Temperature 100, heart rate 115, blood pressure 144/65. HEENT: PERRLA intact. NECK: Supple. No carotid bruits or thyromegaly. CHEST: Clear to auscultation. HEART: S1 and S2 regular. ABDOMEN: Status post surgery. EXTREMITIES: Clubbing, cyanosis negative. LABORATORY DATA: Blood workup; WBC 11.6, hemoglobin 7.9, hematocrit 23.9, platelet count 100. Sodium 146, potassium 4.5, chloride 113, carbon dioxide 24, anion gap of 14, BUN 16 and creatinine 5.9. IMPRESSION: A 73-year-old female with past medical history significant for coronary artery disease, status post two stents in the coronaries in 2008 and then probably 2015 at [facility], history of severe peripheral arterial disease status post three stents in the left lower extremity and status post amputation of the toe, history of uterine cancer, status post radiation and patent with acute small bowel obstruction, ischemic bowel, status post exploration 6 feet of jejunum resected, to acute kidney failure, multiorgan dysfunction, intubated now the patient successfully extubated. The patient is at baseline. EKG, left bundle-branch block to sepsis and septic shock. RECOMMENDATION: The patient is n.p.o. We will start IV Lopressor every 6 hours, till the patient remains n.p.o. Once the patient start we will resume back Coreg, continue IV and monitor closely. Little I doubted that the patient had CO, a little troponin secondary to acute kidney injury. Overall the patient's critical long-term prognosis is guarded. Thank you Dr. Donovan providing us the opportunity in taking care of the patient, Lizabeth Guido. Paula Coronel MD
--- NOTE | 2019-01-17 13:55 | CP.PCM.PN ---
<Roger Marie - Last Filed: 01/17/19 13:52> Subjective - Date & Time of Evaluation Date of Evaluation: 01/17/19 Time of Evaluation: 07:50 - Subjective Subjective: Infectious disease progress note: Patient seen and examined at bedside. No acute events overnight. She c/o of abd pain 2/2 surgery. Fever of 100.4F. No other complaints. 12 point ROS performed and negative unless stated above. Objective - Vital Signs/Intake and Output Vital Signs (last 24 hours): Temp Pulse Resp BP Pulse Ox 99.9 F H 112 H 26 H 154/102 H 98 01/17/19 00:10 01/17/19 13:07 01/17/19 00:10 01/17/19 13:07 01/17/19 00:10 Intake and Output: 01/17/19 01/17/19 06:59 18:59 Intake Total 1200 Output Total 840 Balance 360 - Medications Medications: Current Medications Benzocaine/Menthol (Cepacol Sore Throat) 1 alyssa MT Q2H PRN PRN Reason: Sore Throat Carvedilol (Coreg) 12.5 mg PO BID [facility] Last Admin: 01/17/19 10:10 Dose: Not Given Famotidine (Pepcid) 20 mg IVP DAILY [facility] Last Admin: 01/17/19 10:09 Dose: 20 mg Heparin Sodium (Porcine) (Heparin) 5,000 units SC Q8 [facility]; Protocol Last Admin: 01/17/19 05:38 Dose: 5,000 units Home Med (Home Med) 1 unit PO DAILY [facility] Last Admin: 01/17/19 10:12 Dose: Not Given Meropenem 250 mg/ Sodium (Chloride) 100 mls @ 100 mls/hr IVPB Q12H [facility]; Protocol Stop: 01/20/19 21:31 Last Admin: 01/17/19 10:09 Dose: 100 mls/hr Dextrose/Lactated Ringer's (Dextrose 5%/Lactated Ringer's) 1,000 mls @ 100 mls/hr IV .Q10H [facility] Last Admin: 01/17/19 10:11 Dose: 100 mls/hr Insulin Detemir (Levemir) 15 unit SC Q12 [facility] Last Admin: 01/15/19 15:58 Dose: Not Given Insulin Human Regular (Humulin R Low) 0 units SC ACHS [facility]; Protocol Last Admin: 01/17/19 13:11 Dose: Not Given Metoprolol Tartrate (Lopressor) 5 mg IVP Q6H [facility] Last Admin: 01/17/19 13:07 Dose: 5 mg Ondansetron HCl (Zofran Inj) 4 mg IVP Q4H PRN PRN Reason: Nausea/Vomiting Last Admin: 01/14/19 05:36 Dose: 4 mg - Labs Labs: 01/17/19 06:00 01/17/19 06:00 PT 18.8 SECONDS (9.4-12.5) H 01/15/19 16:09 INR 1.69 01/15/19 16:09 APTT 29.1 Seconds (26.9-38.3) 01/15/19 16:09 - Constitutional Appears: No Acute Distress - Head Exam Head Exam: ATRAUMATIC, NORMOCEPHALIC - Eye Exam Eye Exam: EOMI - ENT Exam ENT Exam: Mucous Membranes Moist - Respiratory Exam Respiratory Exam: Clear to Ausculation Bilateral. absent: Wheezes - GI/Abdominal Exam GI & Abdominal Exam: Soft, Tenderness (dressing is CDI) - Extremities Exam Extremities Exam: absent: Calf Tenderness, Pedal Edema - Neurological Exam Neurological Exam: Alert, Awake, Oriented x3 - Psychiatric Exam Psychiatric exam: Normal Mood - Skin Skin Exam: Dry, Warm Assessment and Plan - Assessment and Plan (Free Text) Assessment: Septic shock secondary to bowel obstruction with ischemic bowel S/P resection POD 1, Off of pressors Uterine cancer status post radiation Elevated troponins Acute on chronic kidney disease Coronary artery disease Diabetes Referral vascular disease Hypertension History of carotid stenosis S/P endarterectomy Cont with meropenem has been started Follow-up septic work-up, peritoneal fluid neg Follow-up further surgical recommendations Follow-up cardiology recommendations for elevated troponins Follow-up nephrology, and palliative care consultations Continue to monitor for any changes Case and plan to be reviewed and discussed with Dr. Fraga. <Esteban Fraga - Last Filed: 01/17/19 16:11> Objective - Vital Signs/Intake and Output Vital Signs (last 24 hours): Temp Pulse Resp BP Pulse Ox 99.9 F H 109 H 26 H 154/102 H 98 01/17/19 00:10 01/17/19 14:00 01/17/19 00:10 01/17/19 13:07 01/17/19 00:10 Intake and Output: 01/17/19 01/17/19 06:59 18:59 Intake Total 1200 Output Total 840 Balance 360 - Medications Medications: Current Medications Benzocaine/Menthol (Cepacol Sore Throat) 1 alyssa MT Q2H PRN PRN Reason: Sore Throat Carvedilol (Coreg) 12.5 mg PO BID [facility] Last Admin: 01/17/19 10:10 Dose: Not Given Famotidine (Pepcid) 20 mg IVP DAILY [facility] Last Admin: 01/17/19 10:09 Dose: 20 mg Heparin Sodium (Porcine) (Heparin) 5,000 units SC Q8 [facility]; Protocol Last Admin: 01/17/19 14:18 Dose: 5,000 units Home Med (Home Med) 1 unit PO DAILY [facility] Last Admin: 01/17/19 10:12 Dose: Not Given Meropenem 250 mg/ Sodium (Chloride) 100 mls @ 100 mls/hr IVPB Q12H [facility]; Protocol Stop: 01/20/19 21:31 Last Admin: 01/17/19 10:09 Dose: 100 mls/hr Dextrose/Lactated Ringer's (Dextrose 5%/Lactated Ringer's) 1,000 mls @ 100 mls/hr IV .Q10H [facility] Last Admin: 01/17/19 10:11 Dose: 100 mls/hr Insulin Detemir (Levemir) 15 unit SC Q12 [facility] Last Admin: 01/15/19 15:58 Dose: Not Given Insulin Human Regular (Humulin R Low) 0 units SC ACHS [facility]; Protocol Last Admin: 01/17/19 13:11 Dose: Not Given Metoprolol Tartrate (Lopressor) 5 mg IVP Q6H [facility] Last Admin: 01/17/19 13:07 Dose: 5 mg Ondansetron HCl (Zofran Inj) 4 mg IVP Q4H PRN PRN Reason: Nausea/Vomiting Last Admin: 01/14/19 05:36 Dose: 4 mg - Labs Labs: 01/17/19 14:08 01/17/19 13:50 PT 18.8 SECONDS (9.4-12.5) H 01/15/19 16:09 INR 1.69 01/15/19 16:09 APTT 29.1 Seconds (26.9-38.3) 01/15/19 16:09 Attending/Attestation - Attestation I have personally seen and examined this patient.: Yes I have fully participated in the care of the patient.: Yes I have reviewed all pertinent clinical information, including history, physical exam and plan: Yes
[2019-01-17 14:12] LABS: ALB/GLOB RATIO 0.8 (1.1-1.8); ALBUMIN 2.3 g/dL (3.0-4.8); CALCIUM 7.4 mg/dL (8.4-10.5)
[2019-01-17 14:13] LABS: BASO # 0.01 K/mm3 (0.0-2.0); BASO % 0.1 % (0.0-3.0); EOS # 0.1 (0.0-0.7); EOS % 0.4 % (1.5-5.0); HEMOGLOBIN 7.2 g/dL (12.0-16.0); LYMPH # 0.3 (1.2-3.4); LYMPH % 2.8 % (22.0-35.0); MEAN CELL VOLUME 76.7 fl (80.0-105.0); MEAN CORPUSCULAR HGB CONC 32.6 g/dl (31.0-37.0); MEAN PLATELET VOLUME 9.4 fl (7.0-11.0); MONO # 0.4 (0.1-0.6); MONO % 3.3 % (1.0-6.0); RBC 2.88 10^6/uL (3.5-6.1); RED CELL DISTRIBUTION WIDTH 18.8 % (11.5-14.5); WHITE BLOOD COUNT 12.2 10^3/uL (4.5-11.0)
--- NOTE | 2019-01-17 15:15 | CP.PCM.PN ---
Subjective - Date & Time of Evaluation Date of Evaluation: 01/17/19 Time of Evaluation: 15:13 - Subjective Subjective: Nephrology Consultation Note: Assessment: critical SBO with ischemic bowel and lactic acidosis s/p ex lap and small bowel resection 01/15/19 oligoanuric GUIDO due to ATN with hyperkalemia: NOW not oliguric shock liver Diabetic chronic Kidney Disease (E11.22) Hypertensive Chronic Kidney Disease (I12.9) with HTN urgency Chronic Kidney Disease (N18.4) Stage Anemia (D64.9), Hyperphosphatemia (E83.39), Secondary Hyperparathyroidism (E21 .1), HTN (I12.9) obesity uterine ca s/p radiation therapy CAD s/p stents, PVD, L-sided carotid stenosis s/p endarterectomy Plan No acute need for renal replacement therapy at this time but may need soon and will need close follow up. urine output improved. stable lytes pt is hemodynamically stable now s/p ex lap and anticipate spontaneous renal recovery over next few days Maintain hemodynamics stable. Avoid hypotension. Patient not on ACEI/ARB due to GUIDO and hyperkalemia. Hold bp meds Monitor Input/Output, daily weights and renal function with basic metabolic panel PRBC as needed. defer use of TRANG to hem/onc in view of her uterine malignancy surgery following continue IVF as D5-LR @ 100 ml/hr No kayexylate in view of GI surgery Dose meds/antibiotics for reduced GFR. Avoid fleets enema/magnesium based laxatives. Avoid nephrotoxins/NSAIDs/ iodinated contrast (unless needed emergently) Glycemic control Further work up/management as per primary team Thanks for allowing me to participate in care of your patient. Will follow patient with you. Please call if any Qs. had d/w team and family bedside Dr Ant Burrell Office: [phone] Chief Complaint; pain abdomen Reason for consult: CKD management HPI: Pt is a 73 y/o F with PMHx of uterine ca s/p radiation therapy which she completed in december 2018, CAD s/p stents, DM, CKD 4 with baseline cr 2.4, PVD, HTN, L-sided carotid stenosis s/p endarterectomy, obesity presented with complaints of pain abdomen and found to have partial SBO. renal consult for CKD management. she feels better at present. pain abdomen is better. denies CP/SOB Denies OTC/herbal meds or NSAIDs ROS: noted ovenight events. pt extubated but unable to provide ros s/p ex lap 01/15/19 as she had ischemic bowel. Physical Examination: General Appearance: comfortable, in no acute respiratory distress, obese Vitals reviewed and noted as below Head; Atraumatic, normocephalic ENT: extubated. oral mucosa dry EYES: Pupils are equal, round and reactive to light accommodation. Eye muscles and extraocular movement intact. Sclera is anicteric. Neck; supple no lymphadenopathy, no thyromegaly or bruit Lungs: Incr respiratory rate/effort. Breath sounds bilateral equal and clear anteriorly Heart: Incr rate. s1s2 normal. No rub or gallop. Extremities: no edema. No varicose veins Neurological: Patient is awake alert follow commands but not fully oriented. confused Skin: Warm and dry. Normal turgor. No rash. Palpitation: Normal elasticity for age Abdomen: There is mild abdominal tenderness no organomegaly. s/p ex lap. soft now Psych: deferred MSK: no joint tenderness or swelling. Digits and nails normal, no deformity : kidney or bladder not palpable. has walters Labs/imaging reviewed. Past medical history, past surgical history, family history, social history, allergy reviewed and noted as below Family hx: hx of ESKD in son. Rest non-contributory Objective - Vital Signs/Intake and Output Vital Signs (last 24 hours): Temp Pulse Resp BP Pulse Ox 99.9 F H 112 H 26 H 154/102 H 98 01/17/19 00:10 01/17/19 13:07 01/17/19 00:10 01/17/19 13:07 01/17/19 00:10 Intake and Output: 01/17/19 01/17/19 06:59 18:59 Intake Total 1200 Output Total 840 Balance 360 - Medications Medications: Current Medications Benzocaine/Menthol (Cepacol Sore Throat) 1 alyssa MT Q2H PRN PRN Reason: Sore Throat Carvedilol (Coreg) 12.5 mg PO BID [facility] Last Admin: 01/17/19 10:10 Dose: Not Given Famotidine (Pepcid) 20 mg IVP DAILY [facility] Last Admin: 01/17/19 10:09 Dose: 20 mg Heparin Sodium (Porcine) (Heparin) 5,000 units SC Q8 [facility]; Protocol Last Admin: 01/17/19 14:18 Dose: 5,000 units Home Med (Home Med) 1 unit PO DAILY [facility] Last Admin: 01/17/19 10:12 Dose: Not Given Meropenem 250 mg/ Sodium (Chloride) 100 mls @ 100 mls/hr IVPB Q12H [facility]; Protocol Stop: 01/20/19 21:31 Last Admin: 01/17/19 10:09 Dose: 100 mls/hr Dextrose/Lactated Ringer's (Dextrose 5%/Lactated Ringer's) 1,000 mls @ 100 mls/hr IV .Q10H [facility] Last Admin: 01/17/19 10:11 Dose: 100 mls/hr Insulin Detemir (Levemir) 15 unit SC Q12 [facility] Last Admin: 01/15/19 15:58 Dose: Not Given Insulin Human Regular (Humulin R Low) 0 units SC ACHS [facility]; Protocol Last Admin: 01/17/19 13:11 Dose: Not Given Metoprolol Tartrate (Lopressor) 5 mg IVP Q6H [facility] Last Admin: 01/17/19 13:07 Dose: 5 mg Ondansetron HCl (Zofran Inj) 4 mg IVP Q4H PRN PRN Reason: Nausea/Vomiting Last Admin: 01/14/19 05:36 Dose: 4 mg - Labs Labs: 01/17/19 14:08 01/17/19 13:50 PT 18.8 SECONDS (9.4-12.5) H 01/15/19 16:09 INR 1.69 01/15/19 16:09 APTT 29.1 Seconds (26.9-38.3) 01/15/19 16:09
--- NOTE | 2019-01-17 15:40 | CP.CCUPN ---
<Delfin Hylton R - Last Filed: 01/17/19 15:50> CCU Subjective - Physician Review Subjective (Free Text): PGY-2 ICU progress note for Cevallos Patient this morning was aware to self and situation but not surroundings. After receiving dilaudid she appeared more drowsy. More urine output today. Could not tolerate her liquid diet. Still with abd pain but improved from before. 01/17/19 15:41 Critical Care Time Spent (in minutes): 35 CCU Objective - Vital Signs / Intake & Output Vital Signs (Last 4 hours): Vital Signs Pulse BP 01/17/19 13:07 112 H 154/102 H Intake and Output (Last 8hrs): Intake & Output 01/17/19 01/17/19 01/17/19 06:59 14:59 22:59 Intake Total 1200 Output Total 840 Balance 360 Weight 240 lb Intake: IV 1200 Right Internal Jugular 1200 Oral 0 Output: Drainage 140 Left Abdomen 140 Urine 700 Urethral (Marmolejo) 700 Other: # Bowel Movements 0 - Physical Exam Head: Positive for: Atraumatic, Normocephalic Pupils: Positive for: PERRL Extroacular Muscles: Positive for: EOMI Conjunctiva: Positive for: Normal Mouth: Positive for: Dry Respiratory/Chest: Positive for: Clear to Auscultation, Good Air Exchange Cardiovascular: Positive for: Regular Rate and Rhythm, Normal S1, S2 Abdomen: Positive for: Tenderness, Distention. Negative for: Normal Bowel Sounds (hypoactive bowel sounds), Peritoneal Signs Back: Positive for: Normal Inspection, Paraspinal Tenderness Upper Extremity: Positive for: Edema, Capillary Refill < 2s Lower Extremity: Positive for: Edema, Swelling, Capillary Refill < 2 s Skin: Positive for: Warm, Dry, Normal Color Psychiatric: Positive for: Alert, Normal Insight. Negative for: Oriented x 3, Normal Concentration - Medications Active Medications: Active Medications Generic Name Dose Route Start Last Admin Trade Name Freq PRN Reason Stop Dose Admin Benzocaine/Menthol 1 alyssa 01/13/19 18:53 Cepacol Sore Throat MT Q2H PRN Sore Throat Carvedilol 12.5 mg 01/14/19 10:30 01/17/19 10:10 Coreg PO Not Given BID [facility] Famotidine 20 mg 01/13/19 10:00 01/17/19 10:09 Pepcid IVP 20 mg DAILY [facility] Administration Heparin Sodium (Porcine) 5,000 units 01/13/19 14:00 01/17/19 14:18 Heparin SC 5,000 units Q8 [facility] Administration Protocol Home Med 1 unit 01/13/19 10:00 01/17/19 10:12 Home Med PO Not Given DAILY [facility] Meropenem 250 mg/ Sodium 100 mls @ 100 mls/hr 01/15/19 21:30 01/17/19 10:09 Chloride IVPB 01/20/19 21:31 100 mls/hr Q12H [facility] Administration Protocol Dextrose/Lactated Ringer's 1,000 mls @ 100 mls/hr 01/16/19 12:30 01/17/19 10:11 Dextrose 5%/Lactated Ringer's IV 100 mls/hr .Q10H [facility] Administration Insulin Detemir 15 unit 01/13/19 10:00 01/15/19 15:58 Levemir SC Not Given Q12 [facility] Insulin Human Regular 0 units 01/13/19 07:30 01/17/19 13:11 Humulin R Low SC Not Given ACHS [facility] Protocol Metoprolol Tartrate 5 mg 01/17/19 08:00 01/17/19 13:07 Lopressor IVP 5 mg Q6H [facility] Administration Ondansetron HCl 4 mg 01/13/19 18:21 01/14/19 05:36 Zofran Inj IVP 4 mg Q4H PRN Administration Nausea/Vomiting - Patient Studies Lab Studies: Microbiology Studies 01/15/19 15:28 Gram Stain - Final Peritoneal Fluid Body Fluid Culture - Preliminary NO GROWTH AFTER 24 HOURS 01/14/19 17:47 Blood Culture - Preliminary Blood-Thru Central Line NO GROWTH AFTER 48 HOURS 01/14/19 17:25 Blood Culture - Preliminary Blood-Venous NO GROWTH AFTER 48 HOURS Lab Studies 01/17/19 01/17/19 01/17/19 Range/Units 14:08 13:50 12:30 WBC 12.2 H (4.5-11.0) 10^3/uL RBC 2.88 L (3.5-6.1) 10^6/uL Hgb 7.2 L (12.0-16.0) g/dL Hct 22.1 L (36.0-48.0) % MCV 76.7 L (80.0-105.0) fl MCH 25.0 (25.0-35.0) pg MCHC 32.6 (31.0-37.0) g/dl RDW 18.8 H (11.5-14.5) % Plt Count 84 L (120.0-450.0) 10^3/uL MPV 9.4 (7.0-11.0) fl Neut % (Auto) 93.4 H (50.0-68.0) % Lymph % (Auto) 2.8 L (22.0-35.0) % [place] % (Auto) 3.3 (1.0-6.0) % Eos % (Auto) 0.4 L (1.5-5.0) % Baso % (Auto) 0.1 (0.0-3.0) % Lymph # (Auto) 0.3 L (1.2-3.4) [place] # (Auto) 0.4 (0.1-0.6) Eos # (Auto) 0.1 (0.0-0.7) Baso # (Auto) 0.01 (0.0-2.0) K/mm3 Absolute Neuts (auto) 11.44 H (1.4-6.5) pCO2 (35-45) mm/Hg pO2 (80-100) mm/Hg HCO3 (21-28) mmol/L ABG pH (7.35-7.45) ABG Total CO2 (22-28) mmol.L ABG O2 Saturation (95-98) % ABG O2 Content (15-23) ML/dl ABG Base Excess (-2.0-3.0) mmol/L ABG Hemoglobin (11.7-17.4) g/dL ABG Carboxyhemoglobin (0.5-1.5) % POC ABG HHb (Measured) (0-5) % ABG Methemoglobin (0.0-3.0) % ABG O2 Capacity (16-24) mL/dl Hgb O2 Saturation (95.0-98.0) % FiO2 % Sodium 145 (132-148) mmol/L Potassium 4.2 (3.6-5.0) mmol/L Chloride 116 H (98-107) mmol/L Carbon Dioxide 23 (21-33) mmol/L Anion Gap 11 (10-20) BUN 62 H (7-21) mg/dL Creatinine 6.0 H (0.7-1.2) mg/dl Est GFR ( Amer) 8 Est GFR (Non-Af Amer) 7 POC Glucose (mg/dL) 148 H (65-110) mg/dL Random Glucose 140 H (70-110) mg/dL Calcium 7.4 L (8.4-10.5) mg/dL Phosphorus (2.5-4.5) mg/dL Magnesium (1.7-2.2) mg/dL Total Bilirubin 0.4 (0.2-1.3) mg/dL AST 259 H D (14-36) U/L ALT 480 H (7-56) U/L Alkaline Phosphatase 74 (38-126) U/L Total Protein 4.9 L (5.8-8.3) g/dL Albumin 2.3 L (3.0-4.8) g/dL Globulin 2.7 gm/dL Albumin/Globulin Ratio 0.8 L (1.1-1.8) 01/17/19 01/17/19 01/17/19 Range/Units 07:35 07:30 06:00 WBC 11.6 H D (4.5-11.0) 10^3/uL RBC 3.13 L (3.5-6.1) 10^6/uL Hgb 7.9 L (12.0-16.0) g/dL Hct 23.9 L (36.0-48.0) % MCV 76.4 L (80.0-105.0) fl MCH 25.2 (25.0-35.0) pg MCHC 33.1 (31.0-37.0) g/dl RDW 18.8 H (11.5-14.5) % Plt Count 100 L (120.0-450.0) 10^3/uL MPV 10.3 (7.0-11.0) fl Neut % (Auto) 92.7 H (50.0-68.0) % Lymph % (Auto) 3.1 L (22.0-35.0) % [place] % (Auto) 3.6 (1.0-6.0) % Eos % (Auto) 0.5 L (1.5-5.0) % Baso % (Auto) 0.1 (0.0-3.0) % Lymph # (Auto) 0.4 L (1.2-3.4) [place] # (Auto) 0.4 (0.1-0.6) Eos # (Auto) 0.1 (0.0-0.7) Baso # (Auto) 0.01 (0.0-2.0) K/mm3 Absolute Neuts (auto) 10.75 H (1.4-6.5) pCO2 42 (35-45) mm/Hg pO2 74.0 L (80-100) mm/Hg HCO3 20.7 L (21-28) mmol/L ABG pH 7.30 L (7.35-7.45) ABG Total CO2 22.0 (22-28) mmol.L ABG O2 Saturation 96.5 (95-98) % ABG O2 Content 10.6 L (15-23) ML/dl ABG Base Excess -5.3 L (-2.0-3.0) mmol/L ABG Hemoglobin 7.9 L (11.7-17.4) g/dL ABG Carboxyhemoglobin 1.5 (0.5-1.5) % POC ABG HHb (Measured) 3.4 (0-5) % ABG Methemoglobin 1.1 (0.0-3.0) % ABG O2 Capacity 11.0 L (16-24) mL/dl Hgb O2 Saturation 94.0 L (95.0-98.0) % FiO2 32.0 % Sodium (132-148) mmol/L Potassium (3.6-5.0) mmol/L Chloride (98-107) mmol/L Carbon Dioxide (21-33) mmol/L Anion Gap (10-20) BUN (7-21) mg/dL Creatinine (0.7-1.2) mg/dl Est GFR ( Amer) Est GFR (Non-Af Amer) POC Glucose (mg/dL) 145 H (65-110) mg/dL Random Glucose (70-110) mg/dL Calcium (8.4-10.5) mg/dL Phosphorus (2.5-4.5) mg/dL Magnesium (1.7-2.2) mg/dL Total Bilirubin (0.2-1.3) mg/dL AST (14-36) U/L ALT (7-56) U/L Alkaline Phosphatase (38-126) U/L Total Protein (5.8-8.3) g/dL Albumin (3.0-4.8) g/dL Globulin gm/dL Albumin/Globulin Ratio (1.1-1.8) 01/17/19 01/16/19 01/16/19 Range/Units 06:00 21:19 15:56 WBC (4.5-11.0) 10^3/uL RBC (3.5-6.1) 10^6/uL Hgb (12.0-16.0) g/dL Hct (36.0-48.0) % MCV (80.0-105.0) fl MCH (25.0-35.0) pg MCHC (31.0-37.0) g/dl RDW (11.5-14.5) % Plt Count (120.0-450.0) 10^3/uL MPV (7.0-11.0) fl Neut % (Auto) (50.0-68.0) % Lymph % (Auto) (22.0-35.0) % [place] % (Auto) (1.0-6.0) % Eos % (Auto) (1.5-5.0) % Baso % (Auto) (0.0-3.0) % Lymph # (Auto) (1.2-3.4) [place] # (Auto) (0.1-0.6) Eos # (Auto) (0.0-0.7) Baso # (Auto) (0.0-2.0) K/mm3 Absolute Neuts (auto) (1.4-6.5) pCO2 (35-45) mm/Hg pO2 (80-100) mm/Hg HCO3 (21-28) mmol/L ABG pH (7.35-7.45) ABG Total CO2 (22-28) mmol.L ABG O2 Saturation (95-98) % ABG O2 Content (15-23) ML/dl ABG Base Excess (-2.0-3.0) mmol/L ABG Hemoglobin (11.7-17.4) g/dL ABG Carboxyhemoglobin (0.5-1.5) % POC ABG HHb (Measured) (0-5) % ABG Methemoglobin (0.0-3.0) % ABG O2 Capacity (16-24) mL/dl Hgb O2 Saturation (95.0-98.0) % FiO2 % Sodium 146 (132-148) mmol/L Potassium 4.5 (3.6-5.0) mmol/L Chloride 113 H (98-107) mmol/L Carbon Dioxide 24 (21-33) mmol/L Anion Gap 14 (10-20) BUN 62 H (7-21) mg/dL Creatinine 5.9 H (0.7-1.2) mg/dl Est GFR ( Amer) 8 Est GFR (Non-Af Amer) 7 POC Glucose (mg/dL) 116 H 105 (65-110) mg/dL Random Glucose 128 H (70-110) mg/dL Calcium 7.6 L (8.4-10.5) mg/dL Phosphorus 5.2 H (2.5-4.5) mg/dL Magnesium 2.0 (1.7-2.2) mg/dL Total Bilirubin 0.4 (0.2-1.3) mg/dL AST 332 H D (14-36) U/L ALT 571 H (7-56) U/L Alkaline Phosphatase 71 (38-126) U/L Total Protein 5.0 L (5.8-8.3) g/dL Albumin 2.4 L (3.0-4.8) g/dL Globulin 2.7 gm/dL Albumin/Globulin Ratio 0.9 L (1.1-1.8) Laboratory Results - last 24 hr 01/16/19 01/16/19 01/17/19 15:56 21:19 06:00 WBC RBC Hgb Hct MCV MCH MCHC RDW Plt Count MPV Neut % (Auto) Lymph % (Auto) [place] % (Auto) Eos % (Auto) Baso % (Auto) Lymph # (Auto) [place] # (Auto) Eos # (Auto) Baso # (Auto) Absolute Neuts (auto) pCO2 pO2 HCO3 ABG pH ABG Total CO2 ABG O2 Saturation ABG O2 Content ABG Base Excess ABG Hemoglobin ABG Carboxyhemoglobin POC ABG HHb (Measured) ABG Methemoglobin ABG O2 Capacity Hgb O2 Saturation FiO2 Sodium 146 Potassium 4.5 Chloride 113 H Carbon Dioxide 24 Anion Gap 14 BUN 62 H Creatinine 5.9 H Est GFR ( Amer) 8 Est GFR (Non-Af Amer) 7 POC Glucose (mg/dL) 105 116 H Random Glucose 128 H Calcium 7.6 L Phosphorus 5.2 H Magnesium 2.0 Total Bilirubin 0.4 AST 332 H D ALT 571 H Alkaline Phosphatase 71 Total Protein 5.0 L Albumin 2.4 L Globulin 2.7 Albumin/Globulin Ratio 0.9 L 01/17/19 01/17/19 01/17/19 06:00 07:30 07:35 WBC 11.6 H D RBC 3.13 L Hgb 7.9 L Hct 23.9 L MCV 76.4 L MCH 25.2 MCHC 33.1 RDW 18.8 H Plt Count 100 L MPV 10.3 Neut % (Auto) 92.7 H Lymph % (Auto) 3.1 L [place] % (Auto) 3.6 Eos % (Auto) 0.5 L Baso % (Auto) 0.1 Lymph # (Auto) 0.4 L [place] # (Auto) 0.4 Eos # (Auto) 0.1 Baso # (Auto) 0.01 Absolute Neuts (auto) 10.75 H pCO2 42 pO2 74.0 L HCO3 20.7 L ABG pH 7.30 L ABG Total CO2 22.0 ABG O2 Saturation 96.5 ABG O2 Content 10.6 L ABG Base Excess -5.3 L ABG Hemoglobin 7.9 L ABG Carboxyhemoglobin 1.5 POC ABG HHb (Measured) 3.4 ABG Methemoglobin 1.1 ABG O2 Capacity 11.0 L Hgb O2 Saturation 94.0 L FiO2 32.0 Sodium Potassium Chloride Carbon Dioxide Anion Gap BUN Creatinine Est GFR ( Amer) Est GFR (Non-Af Amer) POC Glucose (mg/dL) 145 H Random Glucose Calcium Phosphorus Magnesium Total Bilirubin AST ALT Alkaline Phosphatase Total Protein Albumin Globulin Albumin/Globulin Ratio 01/17/19 01/17/19 01/17/19 12:30 13:50 14:08 WBC 12.2 H RBC 2.88 L Hgb 7.2 L Hct 22.1 L MCV 76.7 L MCH 25.0 MCHC 32.6 RDW 18.8 H Plt Count 84 L MPV 9.4 Neut % (Auto) 93.4 H Lymph % (Auto) 2.8 L [place] % (Auto) 3.3 Eos % (Auto) 0.4 L Baso % (Auto) 0.1 Lymph # (Auto) 0.3 L [place] # (Auto) 0.4 Eos # (Auto) 0.1 Baso # (Auto) 0.01 Absolute Neuts (auto) 11.44 H pCO2 pO2 HCO3 ABG pH ABG Total CO2 ABG O2 Saturation ABG O2 Content ABG Base Excess ABG Hemoglobin ABG Carboxyhemoglobin POC ABG HHb (Measured) ABG Methemoglobin ABG O2 Capacity Hgb O2 Saturation FiO2 Sodium 145 Potassium 4.2 Chloride 116 H Carbon Dioxide 23 Anion Gap 11 BUN 62 H Creatinine 6.0 H Est GFR ( Amer) 8 Est GFR (Non-Af Amer) 7 POC Glucose (mg/dL) 148 H Random Glucose 140 H Calcium 7.4 L Phosphorus Magnesium Total Bilirubin 0.4 AST 259 H D ALT 480 H Alkaline Phosphatase 74 Total Protein 4.9 L Albumin 2.3 L Globulin 2.7 Albumin/Globulin Ratio 0.8 L Fingerstick Blood Sugar Results: 116 Review of Systems - Review of Systems Systems not reviewed;Unavailable: Altered Mental Status Critical Care Progress Note - Nutrition Nutrition: Nutrition Category Date Time Status Liquid Diet [DIET] Diets 01/17/19 Breakfast Ordered Assessment/Plan - Assessment and Plan (Free Text) Plan: Mrs Guido is a 73 year old female with a PMHx of uterine ca s/p radiation therapy, CAD s/p 6 stents, IDDM2, CKD, PVD, HTN, chronic iron-deficiency anemia (previously had aranesp infusions), PVD, L-sided carotid stenosis s/p endarterectomy, obesity, LBBB who was found to have partial small bowel obstruction which worsened to high grade obstruction and now likely ichemic bowel: Cardiovascular #shock 2/2 ischemic bowel, improved -POD #2 exploratory laparotomy, lysis of adhesions, small bowel resection with anastomosis -gave 1L NS bolus today, not requiring pressors at the moment, pressures being monitored via arterial-line -hold all BP meds #CAD s/p 6 stents #PVD #L-sided carotid stenosis s/p endarterectomy #LBBB #HTN #NSTEMI -hold aspirin, hydralazine, imdur, norvasc, clonidine -Trop: 0.02 -> 0.11 -> 0.15 -> 0.21, likely 2/2 to demand ischemia -echo 01/14/19: Echo: EF 50%, mod concentric LVH, mild tricuspid regurgitation, rsvp 33 -lopressor 5mg ivp q6h -cardiology consulted, Dr Coronel Gastrointestinal #High Grade Bowel Obstruction #Ischemic Bowel #Diffuse Abdominal and Pelvic Ascites 2/2 3rd Spacing -CT abd/pelvis 01/13: There is partial small bowel obstruction with multiple fluid-filled loops of bowel in the mid and upper abdomen. There is a transition point in the right lower quadrant -repeat CT abd/pelvis w/ contrast 01/14: * Multiple dilated small bowel loops which appears thick walled; appearance consistent with obstruction. Mesenteric edema. Abdominal pelvic ascites. Marmolejo catheter within the urinary bladder which contains air, presumably due to recent instrumentation. Cholelithiasis. Fibroid uterus. Small bilateral pleural effusions and bibasilar consolidations. Hiatal hernia and gastroesophageal reflux. Nasogastric tube. Partially imaged cardiomegaly and trace pericardial effusion. -elevated LFTs 2/2 to shock liver now improving -start patient on liquid diet 01/17 Neuro #AMS -extubated 01/16/19 -currently saturating well on 2L NS -AAOx2, possibly 2/2 to dilaudid, will d/c dilaudid and attempt pain control with oxy Renal #GUIDO on CKD -set up worker Dr Burrell following -making urine, no longer oliguric -anticipate improvement in Cr in next few days per set up worker, if not improvement patient might need dialysis #Hyperkalemia, Improved -improved after administration of insulin 10u and amp of dextrose 50% Infectious Disease #Leukocytosis -empiric tx with merrem 250mg ivp q12h -urine cx negative -blood cx negative -peritoneal fluid cx negative Endocrine #IDDM2 -hold home levemir as patient is npo -finger checks q6h -hgba1c 6.8 Hematology #Anemia -received 1u pRBC during OR -will receive 1u pRBC today 01/17 PPX #pepcid 20mg ivp qd, heparin 5000u sc q8 Seen and discussed with Dr Cevallos <Marybel Cevallos - Last Filed: 05/18/19 14:54> CCU Objective - Vital Signs / Intake & Output Vital Signs (Last 4 hours): Vital Signs Temp Pulse Resp BP Pulse Ox 01/18/19 14:00 92 H 01/18/19 12:50 99.3 F 92 H 38 H 98 01/18/19 12:46 99.3 F 91 H 28 H 152/70 H 98 01/18/19 12:40 99.3 F 93 H 46 H 98 01/18/19 12:30 99.5 F 93 H 51 H 168/74 H 98 01/18/19 12:25 99.5 F 94 H 43 H 166/74 H 99 01/18/19 12:20 99.5 F 92 H 48 H 100 01/18/19 12:16 99.5 F 94 H 51 H 172/72 H 100 01/18/19 12:10 99.7 F H 93 H 48 H 100 01/18/19 12:05 99.7 F H 91 H 51 H 170/80 H 100 01/18/19 12:01 99.7 F H 94 H 51 H 174/82 H 100 01/18/19 12:00 99.7 F H 95 H 39 H 100 01/18/19 11:55 99.7 F H 95 H 100 01/18/19 11:50 99.7 F H 94 H 54 H 100 01/18/19 11:44 99.7 F H 93 H 54 H 166/71 H 98 01/18/19 11:40 99.7 F H 94 H 47 H 100 01/18/19 11:30 99.7 F H 96 H 49 H 171/81 H 98 01/18/19 11:28 99.7 F H 94 H 57 H 170/81 H 100 01/18/19 11:20 99.7 F H 95 H 53 H 98 01/18/19 11:12 164/81 H 01/18/19 11:10 99.7 F H 96 H 54 H 99 01/18/19 11:00 99.7 F H 95 H 52 H 164/81 H 99 Intake and Output (Last 8hrs): Intake & Output 01/17/19 01/18/19 01/18/19 22:59 06:59 14:59 Intake Total 0 328 9.2 Output Total 960 Balance 0 -632 9.2 Intake: IV 9.2 Oral 50 Blood Product 0 278 Apheresis Rbc Cp2d As3 Lr 0 278 2nd Unit [id number] Output: Drainage 160 Left Abdomen 160 Urine 800 Urethral (Marmolejo) 800 Other: # Bowel Movements 0 - Medications Active Medications: Active Medications Generic Name Dose Route Start Last Admin Trade Name Freq PRN Reason Stop Dose Admin Amlodipine Besylate 5 mg 01/18/19 10:00 01/18/19 10:14 Norvasc PO Not Given DAILY [facility] Benzocaine/Menthol 1 alyssa 01/13/19 18:53 Cepacol Sore Throat MT Q2H PRN Sore Throat Carvedilol 12.5 mg 01/14/19 10:30 01/18/19 10:17 Coreg PO Not Given BID [facility] Famotidine 20 mg 01/13/19 10:00 01/18/19 10:14 Pepcid IVP 20 mg DAILY [facility] Administration Heparin Sodium (Porcine) 5,000 units 01/13/19 14:00 01/18/19 06:04 Heparin SC 5,000 units Q8 [facility] Administration Protocol Home Med 1 unit 01/13/19 10:00 01/18/19 11:00 Home Med PO Not Given DAILY [facility] Hydralazine HCl 5 mg 01/18/19 01:47 01/18/19 03:37 Apresoline IVP 5 mg ONCE PRN Administration Systolic Blood Pressure Hydralazine HCl 25 mg 01/18/19 10:00 01/18/19 10:13 Apresoline PO Not Given QID [facility] Hydralazine HCl 5 mg 01/18/19 10:57 Apresoline IVP Q6 PRN Systolic Blood Pressure Meropenem 250 mg/ Sodium 100 mls @ 100 mls/hr 01/15/19 21:30 01/18/19 10:19 Chloride IVPB 01/20/19 21:31 100 mls/hr Q12H [facility] Administration Protocol Dextrose/Lactated Ringer's 1,000 mls @ 50 mls/hr 01/18/19 10:25 01/18/19 10:30 Dextrose 5%/Lactated Ringer's IV 50 mls/hr .Q20H [facility] Administration Nitroglycerin/Dextrose 50 mg in 250 mls @ 1.5 mls/hr 01/18/19 10:56 01/18/19 13:36 Nitroglycerin 50 Mg/250 Ml D5w IV 25 mcg/min .Q24H PRN 7.5 mls/hr Systolic Blood Pressure Titration Protocol 5 MCG/MIN Insulin Detemir 15 unit 01/13/19 10:00 01/15/19 15:58 Levemir SC Not Given Q12 [facility] Insulin Human Regular 0 units 01/13/19 07:30 01/18/19 12:01 Humulin R Low SC Not Given ACHS [facility] Protocol Metoprolol Tartrate 5 mg 01/17/19 08:00 01/18/19 07:04 Lopressor IVP 5 mg Q6H [facility] Administration Morphine Sulfate 2 mg 01/18/19 07:43 01/18/19 10:16 Morphine IVP 2 mg Q2H PRN Administration abdominal pain Ondansetron HCl 4 mg 01/13/19 18:21 01/14/19 05:36 Zofran Inj IVP 4 mg Q4H PRN Administration Nausea/Vomiting - Patient Studies Lab Studies: Microbiology Studies 01/15/19 15:28 Gram Stain - Final Peritoneal Fluid Body Fluid Culture - Preliminary NO GROWTH AFTER 2 DAYS 01/14/19 17:47 Blood Culture - Preliminary Blood-Thru Central Line NO GROWTH AFTER 3 DAYS 01/14/19 17:25 Blood Culture - Preliminary Blood-Venous NO GROWTH AFTER 3 DAYS Lab Studies 01/18/19 01/18/19 01/18/19 Range/Units 11:34 06:00 06:00 WBC 13.5 H (4.5-11.0) 10^3/uL RBC 3.51 (3.5-6.1) 10^6/uL Hgb 8.9 L (12.0-16.0) g/dL Hct 27.3 L (36.0-48.0) % MCV 77.8 L (80.0-105.0) fl MCH 25.4 (25.0-35.0) pg MCHC 32.6 (31.0-37.0) g/dl RDW 19.1 H (11.5-14.5) % Plt Count 100 L (120.0-450.0) 10^3/uL MPV 10.1 (7.0-11.0) fl Neut % (Auto) 92.0 H (50.0-68.0) % Lymph % (Auto) 3.1 L (22.0-35.0) % [place] % (Auto) 4.3 (1.0-6.0) % Eos % (Auto) 0.5 L (1.5-5.0) % Baso % (Auto) 0.1 (0.0-3.0) % Lymph # (Auto) 0.4 L (1.2-3.4) [place] # (Auto) 0.6 (0.1-0.6) Eos # (Auto) 0.1 (0.0-0.7) Baso # (Auto) 0.01 (0.0-2.0) K/mm3 Absolute Neuts (auto) 12.45 H (1.4-6.5) pCO2 37 (35-45) mm/Hg pO2 80.0 (80-100) mm/Hg HCO3 20.4 L (21-28) mmol/L ABG pH 7.35 (7.35-7.45) ABG Total CO2 21.5 L (22-28) mmol.L ABG O2 Saturation 97.4 (95-98) % ABG O2 Content 12.7 L (15-23) ML/dl ABG Base Excess -4.7 L (-2.0-3.0) mmol/L ABG Hemoglobin 9.4 L (11.7-17.4) g/dL ABG Carboxyhemoglobin 1.8 H (0.5-1.5) % POC ABG HHb (Measured) 2.5 (0-5) % ABG Methemoglobin 0.7 (0.0-3.0) % ABG O2 Capacity 13.0 L (16-24) mL/dl Hgb O2 Saturation 95.1 (95.0-98.0) % FiO2 32.0 % Sodium (132-148) mmol/L Potassium (3.6-5.0) mmol/L Chloride (98-107) mmol/L Carbon Dioxide (21-33) mmol/L Anion Gap (10-20) BUN (7-21) mg/dL Creatinine (0.7-1.2) mg/dl Est GFR ( Amer) Est GFR (Non-Af Amer) POC Glucose (mg/dL) 165 H (65-110) mg/dL Random Glucose (70-110) mg/dL Calcium (8.4-10.5) mg/dL Magnesium (1.7-2.2) mg/dL Total Bilirubin (0.2-1.3) mg/dL AST (14-36) U/L ALT (7-56) U/L Alkaline Phosphatase (38-126) U/L Total Protein (5.8-8.3) g/dL Albumin (3.0-4.8) g/dL Globulin gm/dL Albumin/Globulin Ratio (1.1-1.8) Blood Type Antibody Screen Crossmatch BBK History Checked 01/18/19 01/17/19 01/17/19 Range/Units 06:00 22:23 17:30 WBC (4.5-11.0) 10^3/uL RBC (3.5-6.1) 10^6/uL Hgb (12.0-16.0) g/dL Hct (36.0-48.0) % MCV (80.0-105.0) fl MCH (25.0-35.0) pg MCHC (31.0-37.0) g/dl RDW (11.5-14.5) % Plt Count (120.0-450.0) 10^3/uL MPV (7.0-11.0) fl Neut % (Auto) (50.0-68.0) % Lymph % (Auto) (22.0-35.0) % [place] % (Auto) (1.0-6.0) % Eos % (Auto) (1.5-5.0) % Baso % (Auto) (0.0-3.0) % Lymph # (Auto) (1.2-3.4) [place] # (Auto) (0.1-0.6) Eos # (Auto) (0.0-0.7) Baso # (Auto) (0.0-2.0) K/mm3 Absolute Neuts (auto) (1.4-6.5) pCO2 (35-45) mm/Hg pO2 (80-100) mm/Hg HCO3 (21-28) mmol/L ABG pH (7.35-7.45) ABG Total CO2 (22-28) mmol.L ABG O2 Saturation (95-98) % ABG O2 Content (15-23) ML/dl ABG Base Excess (-2.0-3.0) mmol/L ABG Hemoglobin (11.7-17.4) g/dL ABG Carboxyhemoglobin (0.5-1.5) % POC ABG HHb (Measured) (0-5) % ABG Methemoglobin (0.0-3.0) % ABG O2 Capacity (16-24) mL/dl Hgb O2 Saturation (95.0-98.0) % FiO2 % Sodium 147 (132-148) mmol/L Potassium 4.2 (3.6-5.0) mmol/L Chloride 115 H (98-107) mmol/L Carbon Dioxide 23 (21-33) mmol/L Anion Gap 13 (10-20) BUN 66 H (7-21) mg/dL Creatinine 6.5 H (0.7-1.2) mg/dl Est GFR ( Amer) 8 Est GFR (Non-Af Amer) 6 POC Glucose (mg/dL) 151 H (65-110) mg/dL Random Glucose 148 H (70-110) mg/dL Calcium 8.1 L (8.4-10.5) mg/dL Magnesium 2.0 (1.7-2.2) mg/dL Total Bilirubin 0.5 (0.2-1.3) mg/dL AST 176 H D (14-36) U/L ALT 418 H (7-56) U/L Alkaline Phosphatase 107 (38-126) U/L Total Protein 5.7 L (5.8-8.3) g/dL Albumin 2.6 L (3.0-4.8) g/dL Globulin 3.1 gm/dL Albumin/Globulin Ratio 0.8 L (1.1-1.8) Blood Type O POSITIVE Antibody Screen Negative Crossmatch See Detail BBK History Checked Patient has bt 01/17/19 01/17/19 01/17/19 Range/Units 16:00 12:30 06:00 WBC (4.5-11.0) 10^3/uL RBC (3.5-6.1) 10^6/uL Hgb 9.1 L (12.0-16.0) g/dL Hct 27.8 L (36.0-48.0) % MCV (80.0-105.0) fl MCH (25.0-35.0) pg MCHC (31.0-37.0) g/dl RDW (11.5-14.5) % Plt Count (120.0-450.0) 10^3/uL MPV (7.0-11.0) fl Neut % (Auto) (50.0-68.0) % Lymph % (Auto) (22.0-35.0) % [place] % (Auto) (1.0-6.0) % Eos % (Auto) (1.5-5.0) % Baso % (Auto) (0.0-3.0) % Lymph # (Auto) (1.2-3.4) [place] # (Auto) (0.1-0.6) Eos # (Auto) (0.0-0.7) Baso # (Auto) (0.0-2.0) K/mm3 Absolute Neuts (auto) (1.4-6.5) pCO2 (35-45) mm/Hg pO2 (80-100) mm/Hg HCO3 (21-28) mmol/L ABG pH (7.35-7.45) ABG Total CO2 (22-28) mmol.L ABG O2 Saturation (95-98) % ABG O2 Content (15-23) ML/dl ABG Base Excess (-2.0-3.0) mmol/L ABG Hemoglobin (11.7-17.4) g/dL ABG Carboxyhemoglobin (0.5-1.5) % POC ABG HHb (Measured) (0-5) % ABG Methemoglobin (0.0-3.0) % ABG O2 Capacity (16-24) mL/dl Hgb O2 Saturation (95.0-98.0) % FiO2 % Sodium (132-148) mmol/L Potassium (3.6-5.0) mmol/L Chloride (98-107) mmol/L Carbon Dioxide (21-33) mmol/L Anion Gap (10-20) BUN (7-21) mg/dL Creatinine (0.7-1.2) mg/dl Est GFR ( Amer) Est GFR (Non-Af Amer) POC Glucose (mg/dL) 151 H 148 H (65-110) mg/dL Random Glucose (70-110) mg/dL Calcium (8.4-10.5) mg/dL Magnesium (1.7-2.2) mg/dL Total Bilirubin (0.2-1.3) mg/dL AST (14-36) U/L ALT (7-56) U/L Alkaline Phosphatase (38-126) U/L Total Protein (5.8-8.3) g/dL Albumin (3.0-4.8) g/dL Globulin gm/dL Albumin/Globulin Ratio (1.1-1.8) Blood Type Antibody Screen Crossmatch BBK History Checked 01/14/19 Range/Units 15:43 WBC (4.5-11.0) 10^3/uL RBC (3.5-6.1) 10^6/uL Hgb (12.0-16.0) g/dL Hct (36.0-48.0) % MCV (80.0-105.0) fl MCH (25.0-35.0) pg MCHC (31.0-37.0) g/dl RDW (11.5-14.5) % Plt Count (120.0-450.0) 10^3/uL MPV (7.0-11.0) fl Neut % (Auto) (50.0-68.0) % Lymph % (Auto) (22.0-35.0) % [place] % (Auto) (1.0-6.0) % Eos % (Auto) (1.5-5.0) % Baso % (Auto) (0.0-3.0) % Lymph # (Auto) (1.2-3.4) [place] # (Auto) (0.1-0.6) Eos # (Auto) (0.0-0.7) Baso # (Auto) (0.0-2.0) K/mm3 Absolute Neuts (auto) (1.4-6.5) pCO2 (35-45) mm/Hg pO2 (80-100) mm/Hg HCO3 (21-28) mmol/L ABG pH (7.35-7.45) ABG Total CO2 (22-28) mmol.L ABG O2 Saturation (95-98) % ABG O2 Content (15-23) ML/dl ABG Base Excess (-2.0-3.0) mmol/L ABG Hemoglobin (11.7-17.4) g/dL ABG Carboxyhemoglobin (0.5-1.5) % POC ABG HHb (Measured) (0-5) % ABG Methemoglobin (0.0-3.0) % ABG O2 Capacity (16-24) mL/dl Hgb O2 Saturation (95.0-98.0) % FiO2 % Sodium (132-148) mmol/L Potassium (3.6-5.0) mmol/L Chloride (98-107) mmol/L Carbon Dioxide (21-33) mmol/L Anion Gap (10-20) BUN (7-21) mg/dL Creatinine (0.7-1.2) mg/dl Est GFR ( Amer) Est GFR (Non-Af Amer) POC Glucose (mg/dL) (65-110) mg/dL Random Glucose (70-110) mg/dL Calcium (8.4-10.5) mg/dL Magnesium (1.7-2.2) mg/dL Total Bilirubin (0.2-1.3) mg/dL AST (14-36) U/L ALT (7-56) U/L Alkaline Phosphatase (38-126) U/L Total Protein (5.8-8.3) g/dL Albumin (3.0-4.8) g/dL Globulin gm/dL Albumin/Globulin Ratio (1.1-1.8) Blood Type Antibody Screen Crossmatch See Detail BBK History Checked Laboratory Results - last 24 hr 01/14/19 01/17/19 01/17/19 15:43 06:00 12:30 WBC RBC Hgb 9.1 L Hct 27.8 L MCV MCH MCHC RDW Plt Count MPV Neut % (Auto) Lymph % (Auto) [place] % (Auto) Eos % (Auto) Baso % (Auto) Lymph # (Auto) [place] # (Auto) Eos # (Auto) Baso # (Auto) Absolute Neuts (auto) pCO2 pO2 HCO3 ABG pH ABG Total CO2 ABG O2 Saturation ABG O2 Content ABG Base Excess ABG Hemoglobin ABG Carboxyhemoglobin POC ABG HHb (Measured) ABG Methemoglobin ABG O2 Capacity Hgb O2 Saturation FiO2 Sodium Potassium Chloride Carbon Dioxide Anion Gap BUN Creatinine Est GFR ( Amer) Est GFR (Non-Af Amer) POC Glucose (mg/dL) 148 H Random Glucose Calcium Magnesium Total Bilirubin AST ALT Alkaline Phosphatase Total Protein Albumin Globulin Albumin/Globulin Ratio Blood Type Antibody Screen Crossmatch See Detail BBK History Checked 01/17/19 01/17/19 01/17/19 16:00 17:30 22:23 WBC RBC Hgb Hct MCV MCH MCHC RDW Plt Count MPV Neut % (Auto) Lymph % (Auto) [place] % (Auto) Eos % (Auto) Baso % (Auto) Lymph # (Auto) [place] # (Auto) Eos # (Auto) Baso # (Auto) Absolute Neuts (auto) pCO2 pO2 HCO3 ABG pH ABG Total CO2 ABG O2 Saturation ABG O2 Content ABG Base Excess ABG Hemoglobin ABG Carboxyhemoglobin POC ABG HHb (Measured) ABG Methemoglobin ABG O2 Capacity Hgb O2 Saturation FiO2 Sodium Potassium Chloride Carbon Dioxide Anion Gap BUN Creatinine Est GFR ( Amer) Est GFR (Non-Af Amer) POC Glucose (mg/dL) 151 H 151 H Random Glucose Calcium Magnesium Total Bilirubin AST ALT Alkaline Phosphatase Total Protein Albumin Globulin Albumin/Globulin Ratio Blood Type O POSITIVE Antibody Screen Negative Crossmatch See Detail BBK History Checked Patient has bt 01/18/19 01/18/19 01/18/19 06:00 06:00 06:00 WBC 13.5 H RBC 3.51 Hgb 8.9 L Hct 27.3 L MCV 77.8 L MCH 25.4 MCHC 32.6 RDW 19.1 H Plt Count 100 L MPV 10.1 Neut % (Auto) 92.0 H Lymph % (Auto) 3.1 L [place] % (Auto) 4.3 Eos % (Auto) 0.5 L Baso % (Auto) 0.1 Lymph # (Auto) 0.4 L [place] # (Auto) 0.6 Eos # (Auto) 0.1 Baso # (Auto) 0.01 Absolute Neuts (auto) 12.45 H pCO2 37 pO2 80.0 HCO3 20.4 L ABG pH 7.35 ABG Total CO2 21.5 L ABG O2 Saturation 97.4 ABG O2 Content 12.7 L ABG Base Excess -4.7 L ABG Hemoglobin 9.4 L ABG Carboxyhemoglobin 1.8 H POC ABG HHb (Measured) 2.5 ABG Methemoglobin 0.7 ABG O2 Capacity 13.0 L Hgb O2 Saturation 95.1 FiO2 32.0 Sodium 147 Potassium 4.2 Chloride 115 H Carbon Dioxide 23 Anion Gap 13 BUN 66 H Creatinine 6.5 H Est GFR ( Amer) 8 Est GFR (Non-Af Amer) 6 POC Glucose (mg/dL) Random Glucose 148 H Calcium 8.1 L Magnesium 2.0 Total Bilirubin 0.5 AST 176 H D ALT 418 H Alkaline Phosphatase 107 Total Protein 5.7 L Albumin 2.6 L Globulin 3.1 Albumin/Globulin Ratio 0.8 L Blood Type Antibody Screen Crossmatch BBK History Checked 01/18/19 11:34 WBC RBC Hgb Hct MCV MCH MCHC RDW Plt Count MPV Neut % (Auto) Lymph % (Auto) [place] % (Auto) Eos % (Auto) Baso % (Auto) Lymph # (Auto) [place] # (Auto) Eos # (Auto) Baso # (Auto) Absolute Neuts (auto) pCO2 pO2 HCO3 ABG pH ABG Total CO2 ABG O2 Saturation ABG O2 Content ABG Base Excess ABG Hemoglobin ABG Carboxyhemoglobin POC ABG HHb (Measured) ABG Methemoglobin ABG O2 Capacity Hgb O2 Saturation FiO2 Sodium Potassium Chloride Carbon Dioxide Anion Gap BUN Creatinine Est GFR ( Amer) Est GFR (Non-Af Amer) POC Glucose (mg/dL) 165 H Random Glucose Calcium Magnesium Total Bilirubin AST ALT Alkaline Phosphatase Total Protein Albumin Globulin Albumin/Globulin Ratio Blood Type Antibody Screen Crossmatch BBK History Checked Radiology Impressions: Radiology Impressions Chest X-Ray 01/17/19 16:09 IMPRESSION: Moderate to severe vascular congestion Critical Care Progress Note - Nutrition Nutrition: Nutrition Category Date Time Status Liquid Diet [DIET] Diets 01/17/19 Breakfast Ordered Addendum Addendum: 01/18/19 14:54 MICU Attending addendum Patient seen and examined with housestaff on 01/17 Agree with resident note above with the follow add/exceptions 73F uterine ca s/p radiation therapy, CAD s/p 6 stents, IDDM2, CKD, PVD, HTN, PVD, L-sided carotid stenosis s/p endarterectomy, obesity, LBBB a/w partial small bowel obstruction which worsened to high grade obstruction, ischemic bowel s/p OR resection Clinically improving, hemodycamically stable, OFF Vasopressor support cont with supp O2, duonebs PRN, goal sat 90% broad spectrum abx, Merrem, Vanco speech swallow eval surgical follow up FULL CODE Rest of care as per above resident note Marybel Cevallos MD MICU Attending 01/18/19 14:54
--- NOTE | 2019-01-17 18:20 | CP.PCM.PN ---
<Paddy Moreno - Last Filed: 01/17/19 18:13> Subjective - Date & Time of Evaluation Date of Evaluation: 01/17/19 Time of Evaluation: 07:30 - Subjective Subjective: Paddy Moreno DO PGY1 Hospitalist Progress Note for Dr Donovan Patient seen and examined at bedside in ICU. She is awake, alert, breathing on her own, follow commands . She was afebrile last night, BP controlled with. She denies chest pain, SOB, abdominal pain, headache, dizziness Objective - Vital Signs/Intake and Output Vital Signs (last 24 hours): Temp Pulse Resp BP Pulse Ox 99.9 F H 101 H 26 H 154/102 H 98 01/17/19 00:10 01/17/19 18:00 01/17/19 00:10 01/17/19 13:07 01/17/19 00:10 Intake and Output: 01/17/19 01/17/19 06:59 18:59 Intake Total 1200 Output Total 840 Balance 360 - Medications Medications: Current Medications Benzocaine/Menthol (Cepacol Sore Throat) 1 alyssa MT Q2H PRN PRN Reason: Sore Throat Carvedilol (Coreg) 12.5 mg PO BID [facility] Last Admin: 01/17/19 10:10 Dose: Not Given Famotidine (Pepcid) 20 mg IVP DAILY [facility] Last Admin: 01/17/19 10:09 Dose: 20 mg Heparin Sodium (Porcine) (Heparin) 5,000 units SC Q8 [facility]; Protocol Last Admin: 01/17/19 14:18 Dose: 5,000 units Home Med (Home Med) 1 unit PO DAILY [facility] Last Admin: 01/17/19 10:12 Dose: Not Given Meropenem 250 mg/ Sodium (Chloride) 100 mls @ 100 mls/hr IVPB Q12H [facility]; Protocol Stop: 01/20/19 21:31 Last Admin: 01/17/19 10:09 Dose: 100 mls/hr Dextrose/Lactated Ringer's (Dextrose 5%/Lactated Ringer's) 1,000 mls @ 100 mls/hr IV .Q10H [facility] Last Admin: 01/17/19 10:11 Dose: 100 mls/hr Insulin Detemir (Levemir) 15 unit SC Q12 [facility] Last Admin: 01/15/19 15:58 Dose: Not Given Insulin Human Regular (Humulin R Low) 0 units SC ACHS [facility]; Protocol Last Admin: 01/17/19 17:25 Dose: Not Given Metoprolol Tartrate (Lopressor) 5 mg IVP Q6H [facility] Last Admin: 01/17/19 13:07 Dose: 5 mg Ondansetron HCl (Zofran Inj) 4 mg IVP Q4H PRN PRN Reason: Nausea/Vomiting Last Admin: 01/14/19 05:36 Dose: 4 mg - Labs Labs: 01/17/19 14:08 01/17/19 13:50 PT 18.8 SECONDS (9.4-12.5) H 01/15/19 16:09 INR 1.69 01/15/19 16:09 APTT 29.1 Seconds (26.9-38.3) 01/15/19 16:09 - Additional Findings Additional findings: Constitutional Appears: Well, Non-toxic, drowsy - Head Exam Head Exam: ATRAUMATIC, NORMAL INSPECTION, NORMOCEPHALIC - Eye Exam Eye Exam: Normal appearance, PERRL - ENT Exam ENT Exam: Mucous Membranes Moist, Normal Exam - Neck Exam Neck Exam: Normal Inspection - Respiratory Exam Respiratory Exam: Clear to Ausculation Bilateral, NORMAL BREATHING PATTERN. absent: Rales, Rhonchi, Wheezes - Cardiovascular Exam Cardiovascular Exam: REGULAR RHYTHM, +S1, +S2. absent: JVD, RRR, Rubs - GI/Abdominal Exam GI & Abdominal Exam: Soft, Normal Bowel Sounds. absent: Rigid, Tenderness, Mass, Organomegaly, Rebound Additional comments: midabdominal incision dressing applied, no blood, discharge seen. THAI drain on LLQ with about 50 cc of serosanguinous fluid. - Extremities Exam Extremities Exam: Full ROM, Normal Capillary Refill, Pedal Edema (mild. b/l) - Neurological Exam Neurological Exam: Awake, drowsy, CN II-XII Intact, Reflexes Normal - Psychiatric Exam Psychiatric exam: Normal Affect - Skin Skin Exam: Dry, Intact, Normal Color, Warm Assessment and Plan - Assessment and Plan (Free Text) Assessment: 73 year old female with a PMHx of uterine ca s/p radiation therapy, CAD s/p 6 stents, IDDM2, CKD, PVD, HTN, chronic iron-deficiency anemia, PVD, L-sided carotid stenosis s/p endarterectomy, obesity, LBBB who was found to have partial SBO complicated by septic shock due to ischemic bowel. Patient is s/p ex-lap with small bowel resection/anastimosis Plan: SBO complicated by septic shock s/p ex-lap with bowel resection and anastomosis: -Patient currently awake, drowsy, off pressors, off sedation, BP stable with MAP of 90 -shock liver improving s/p ex-lap -continue meropenem -afebrile, no leukocytosis -metabolic acidosis improving, lactate trending down -continue prtonix, zofran -I/O 1200/840 in the last 24 hr -blood/urine cx negative to date -f/u pathology/cultures of abdominal fluid -consider enteral feeding as per surgery -dietitian referral -encourage OOB -surgery following, Dr Mukherjee CAD s/p PCI: -EKG reveals NSR, LBBB. -trops nagative initially. increased likely due to hypoperfusion/hypotension -hold anti-HTN meds for hypotension -hold anticoagulant DM2: -accucheck -ISS-low -HgA1c 6.8 PPX: DVT: SCD GI:protonix Dispo: continue ICU management Case reviewed and plan discussed with attending Dr Zion Moreno, <Carmel Donovan - Last Filed: 01/18/19 12:19> Objective - Vital Signs/Intake and Output Vital Signs (last 24 hours): Temp Pulse Resp BP Pulse Ox 99.9 F H 99 H 59 H 164/81 H 96 01/18/19 07:51 01/18/19 10:00 01/18/19 07:51 01/18/19 11:12 01/18/19 07:51 Intake and Output: 01/18/19 01/18/19 06:59 18:59 Intake Total 328 0.8 Output Total 960 Balance -632 0.8 - Medications Medications: Current Medications Amlodipine Besylate (Norvasc) 5 mg PO DAILY [facility] Last Admin: 01/18/19 10:14 Dose: Not Given Benzocaine/Menthol (Cepacol Sore Throat) 1 alyssa MT Q2H PRN PRN Reason: Sore Throat Carvedilol (Coreg) 12.5 mg PO BID [facility] Last Admin: 01/18/19 10:17 Dose: Not Given Famotidine (Pepcid) 20 mg IVP DAILY [facility] Last Admin: 01/18/19 10:14 Dose: 20 mg Heparin Sodium (Porcine) (Heparin) 5,000 units SC Q8 [facility]; Protocol Last Admin: 01/18/19 06:04 Dose: 5,000 units Home Med (Home Med) 1 unit PO DAILY [facility] Last Admin: 01/18/19 11:00 Dose: Not Given Hydralazine HCl (Apresoline) 5 mg IVP ONCE PRN PRN Reason: Systolic Blood Pressure Last Admin: 01/18/19 03:37 Dose: 5 mg Hydralazine HCl (Apresoline) 25 mg PO QID [facility] Last Admin: 01/18/19 10:13 Dose: Not Given Hydralazine HCl (Apresoline) 5 mg IVP Q6 PRN PRN Reason: Systolic Blood Pressure Meropenem 250 mg/ Sodium (Chloride) 100 mls @ 100 mls/hr IVPB Q12H [facility]; Protocol Stop: 01/20/19 21:31 Last Admin: 01/18/19 10:19 Dose: 100 mls/hr Dextrose/Lactated Ringer's (Dextrose 5%/Lactated Ringer's) 1,000 mls @ 50 mls/hr IV .Q20H [facility] Nitroglycerin/Dextrose (Nitroglycerin 50 Mg/250 Ml D5w) 50 mg in 250 mls @ 1.5 mls/hr IV .Q24H [facility]; Protocol PRN Reason: Systolic Blood Pressure Last Titration: 01/18/19 11:59 Dose: 10 mcg/min, 3 mls/hr Insulin Detemir (Levemir) 15 unit SC Q12 [facility] Last Admin: 01/15/19 15:58 Dose: Not Given Insulin Human Regular (Humulin R Low) 0 units SC ACHS [facility]; Protocol Last Admin: 01/18/19 12:01 Dose: Not Given Metoprolol Tartrate (Lopressor) 5 mg IVP Q6H [facility] Last Admin: 01/18/19 07:04 Dose: 5 mg Morphine Sulfate (Morphine) 2 mg IVP Q2H PRN PRN Reason: abdominal pain Last Admin: 01/18/19 10:16 Dose: 2 mg Ondansetron HCl (Zofran Inj) 4 mg IVP Q4H PRN PRN Reason: Nausea/Vomiting Last Admin: 01/14/19 05:36 Dose: 4 mg - Labs Labs: 01/18/19 06:00 01/18/19 06:00 PT 18.8 SECONDS (9.4-12.5) H 01/15/19 16:09 INR 1.69 01/15/19 16:09 APTT 29.1 Seconds (26.9-38.3) 01/15/19 16:09 Attending/Attestation - Attestation I have personally seen and examined this patient.: Yes I have fully participated in the care of the patient.: Yes I have reviewed all pertinent clinical information, including history, physical exam and plan: Yes Notes (Text): 01/18/19 12:16 Attending note; Patient seen and examined with resident in ICU. Patient was more alert and awake earlier this morning. Got a dose of IV Dilaudid. Currently able to answer questions. wrist Restraints present. Status post ex lap and bowel resection. Patient is a 73-year-old female with PMH uterine cancer s/p radiation therapy, CAD s/p 6 stents, IDDM2, CKD, PVD, HTN, chronic iron-deficiency anemia (previously had aranesp infusions), PVD, L-sided carotid stenosis s/p endarterectomy, obesity presents to ED with complaints of severe, 10/10, diffuse, crampy abdominal pain with associated nausea & non-bloody non-bilious vomiting. 1. Septic Shock /bowel obstruction; status post ex-laparotomy and bowel resecti on for ischemic bowel. Post op day #2. Shock resolved. Currently off pressors. On IV fluids. Laparotomy site in dressing. No bleeding noted . Patient has THAI drain with serosanguineous discharge. 2. Acute on chronic renal insufficiency; due to episodes of hypotension. Creatinine increased . Monitor urine output closely. Discussed with plant custodian in detail. 3. Hypotension; resolving with IVF. 4. Elevated liver enzymes; secondary to hypotension and ischemic liver. Trending down slowly. Monitor closely. 5. Diabetes; continue insulin sliding scale. monitor closely. 6. Anemia; trending down. 1 unit of blood transfusion ordered. 7. Elevated troponin; secondary to episodes of hypotension. Case discussed with making machine catcher in detail. EKG shows no acute ST elevation. on coreg. 8. Uterine cancer; status post radiation therapy. 9. History of coronary stent; cardiology evaluation appreciated. on coreg. monitor closely. 10. carotid endarterectomy peripheral vascular stent; currently aspirin and Plavix on hold. 11. Pain management with Dilaudid as needed; patient is very sensitive to pain medications. Gets confused easily. Patient's family is aware of this situation. monitor the patient closely in ICU. Case discussed with patient's family in detail.
[2019-01-17] MEDS ORDERED: DiphenhydrAMINE 50 mg/ml Inj IVP STA (23:08)
[2019-01-18] MEDS: Metoprolol 1 mg/ml Inj IVP SCH ×4 (01:57→21:08)
[2019-01-18] MEDS: Dextrose 5%/Lactated Ringer's 1,000 ML IV SCH ×2 (03:50→10:30)
[2019-01-18 06:23] LABS: ARTERIAL BLOOD GAS HCO3 20.4 mmol/L (21-28); ARTERIAL BLOOD GAS HEMOGLOBIN 9.4 g/dL (11.7-17.4); ARTERIAL BLOOD GAS O2 CONTENT 12.7 ML/dl (15-23); ARTERIAL BLOOD GAS O2 SAT 97.4 % (95-98); ARTERIAL BLOOD GAS PCO2 37 mm/Hg (35-45); ARTERIAL BLOOD GAS PH 7.35 (7.35-7.45); ARTERIAL BLOOD GAS TCO2 21.5 mmol.L (22-28)
[2019-01-18 07:01] LABS: HEMOGLOBIN 9.1 g/dL (12.0-16.0)
[2019-01-18 07:06] LABS: BASO # 0.01 K/mm3 (0.0-2.0); BASO % 0.1 % (0.0-3.0); EOS # 0.1 (0.0-0.7); EOS % 0.5 % (1.5-5.0); HEMOGLOBIN 8.9 g/dL (12.0-16.0); LYMPH # 0.4 (1.2-3.4); LYMPH % 3.1 % (22.0-35.0); MEAN CELL VOLUME 77.8 fl (80.0-105.0); MEAN CORPUSCULAR HEMOGLOBIN 25.4 pg (25.0-35.0); MEAN CORPUSCULAR HGB CONC 32.6 g/dl (31.0-37.0); MEAN PLATELET VOLUME 10.1 fl (7.0-11.0); MONO # 0.6 (0.1-0.6); MONO % 4.3 % (1.0-6.0); RBC 3.51 10^6/uL (3.5-6.1); RED CELL DISTRIBUTION WIDTH 19.1 % (11.5-14.5); WHITE BLOOD COUNT 13.5 10^3/uL (4.5-11.0)
--- NOTE | 2019-01-18 07:25 | CP.PCM.PN ---
Subjective - Date & Time of Evaluation Date of Evaluation: 01/18/19 Time of Evaluation: 07:22 - Subjective Subjective: Gen Surg: Dr Mukherjee Pt S&E in ICU. Overnight had hypertension BP 180s systolic. Medical team was called and resumed pts home meds, with minimal improvement of BP after 1 dose of hydralazine. Pt reports she is having some abdominal pain, but her pain medicine was discontinued. Otherwise no complaints. Has been tolerating ice ch ips but has not tried CLD yet. She is much more oriented and alert today, AAO x 2. Objective - Vital Signs/Intake and Output Vital Signs (last 24 hours): Temp Pulse Resp BP Pulse Ox 98.6 F 91 H 25 H 187/81 H 99 01/18/19 02:06 01/18/19 03:37 01/18/19 02:06 01/18/19 07:04 01/18/19 00:10 Intake and Output: 01/18/19 01/18/19 06:59 18:59 Intake Total 278 Balance 278 - Medications Medications: Current Medications Amlodipine Besylate (Norvasc) 5 mg PO DAILY [facility] Benzocaine/Menthol (Cepacol Sore Throat) 1 alyssa MT Q2H PRN PRN Reason: Sore Throat Carvedilol (Coreg) 12.5 mg PO BID [facility] Last Admin: 01/17/19 10:10 Dose: Not Given Famotidine (Pepcid) 20 mg IVP DAILY [facility] Last Admin: 01/17/19 10:09 Dose: 20 mg Heparin Sodium (Porcine) (Heparin) 5,000 units SC Q8 [facility]; Protocol Last Admin: 01/18/19 06:04 Dose: 5,000 units Home Med (Home Med) 1 unit PO DAILY [facility] Last Admin: 01/17/19 10:12 Dose: Not Given Hydralazine HCl (Apresoline) 5 mg IVP ONCE PRN PRN Reason: Systolic Blood Pressure Last Admin: 01/18/19 03:37 Dose: 5 mg Hydralazine HCl (Apresoline) 25 mg PO QID [facility] Meropenem 250 mg/ Sodium (Chloride) 100 mls @ 100 mls/hr IVPB Q12H [facility]; Protocol Stop: 01/20/19 21:31 Last Admin: 01/17/19 21:08 Dose: 100 mls/hr Dextrose/Lactated Ringer's (Dextrose 5%/Lactated Ringer's) 1,000 mls @ 100 mls/hr IV .Q10H [facility] Last Admin: 01/18/19 03:50 Dose: 100 mls/hr Insulin Detemir (Levemir) 15 unit SC Q12 [facility] Last Admin: 01/15/19 15:58 Dose: Not Given Insulin Human Regular (Humulin R Low) 0 units SC ACHS [facility]; Protocol Last Admin: 01/17/19 23:07 Dose: Not Given Metoprolol Tartrate (Lopressor) 5 mg IVP Q6H [facility] Last Admin: 01/18/19 07:04 Dose: 5 mg Ondansetron HCl (Zofran Inj) 4 mg IVP Q4H PRN PRN Reason: Nausea/Vomiting Last Admin: 01/14/19 05:36 Dose: 4 mg - Labs Labs: 01/17/19 14:08 01/17/19 13:50 PT 18.8 SECONDS (9.4-12.5) H 01/15/19 16:09 INR 1.69 01/15/19 16:09 APTT 29.1 Seconds (26.9-38.3) 01/15/19 16:09 - Constitutional Appears: Non-toxic - Respiratory Exam Respiratory Exam: absent: Respiratory Distress - Cardiovascular Exam Cardiovascular Exam: Tachycardia, REGULAR RHYTHM - GI/Abdominal Exam GI & Abdominal Exam: Soft, Tenderness (post-op and appropriate). absent: Distended Additional comments: THAI with 140cc serosanguinous output - Neurological Exam Neurological Exam: Alert, Awake - Psychiatric Exam Psychiatric exam: Normal Affect, Normal Mood Assessment and Plan - Assessment and Plan (Free Text) Assessment: 73F s/p exlap w/ SBR Plan: cont CLD until pt tolerates resume home BP meds will add low dose narcotic for pain control (no toradol given kidney fx, no tylenol given LFTs) Would d/c selena as soon as Nephrology team approves - can try PureWick if we have in hospital and strict I/O still required recommend PICC line so TLC can be discontinued physical therapy incentive spirometer today's labs still pending will d/w Dr Lonny Talbot, PGY4
[2019-01-18 07:30] LABS: ALB/GLOB RATIO 0.8 (1.1-1.8); ALBUMIN 2.6 g/dL (3.0-4.8); CALCIUM 8.1 mg/dL (8.4-10.5)
[2019-01-18] MEDS ORDERED: Morphine 2 mg/ml ISec IVP PRN (07:43)
[2019-01-18] MEDS: Insulin Reg-LOW-Coverage SC SCH ×3 (08:00→18:45)
--- NOTE | 2019-01-18 08:30 | PN ---
DATE: 01/18/2019 SUBJECTIVE: The patient is seen earlier this morning in 128, bed 6. No fevers. She is comfortable. No chills. PHYSICAL EXAMINATION: VITAL SIGNS: Temperature is 98, blood pressure is 170/60, respiratory rate of 18. HEENT: Unremarkable. NECK: Supple. LUNGS: Have decreased breath sounds. HEART: Normal S1, S2. ABDOMEN: Soft. LABORATORY DATA: White count of 12,200, hemoglobin of 7, platelets of 84, BUN of 66, creatinine of 6.5. Urinalysis is noted. Microbiology reveals the patient's blood cultures are negative. Nares are not detected. Peritoneal fluid cultures are no growth. ASSESSMENT AND PLAN: This is 73-year-old female, status post exploratory laparoscopy with small bowel resection, who was admitted with septic shock secondary to bowel obstruction, ischemic bowel, history of uterine cancer with radiation, non-ST elevation myocardial infarction, acute kidney injury on chronic kidney injury with diabetes and peripheral vascular disease and hypertension, appears to be improving. We will continue the meropenem, check on a white count. We will also check on the chest x-ray results. The patient is on meropenem. We will follow with you. Esteban Fraga MD
--- NOTE | 2019-01-18 08:44 | RAD ---
Date of service: 01/17/2019 HISTORY: r/o pneumonia COMPARISON: 01/14/2019 TECHNIQUE: 1 view obtained. FINDINGS: LUNGS: No active pulmonary disease. PLEURA: No significant pleural effusion identified, no pneumothorax apparent. CARDIOVASCULAR: No aortic atherosclerotic calcification present. Normal cardiac size. Moderate to severe vascular congestion OSSEOUS STRUCTURES: No significant abnormalities. VISUALIZED UPPER ABDOMEN: Normal. OTHER FINDINGS: None. IMPRESSION: Moderate to severe vascular congestion
--- NOTE | 2019-01-18 09:25 | CP.CCUPN ---
<Abiodun Whitfield - Last Filed: 01/18/19 09:21> CCU Subjective - Physician Review Subjective (Free Text): Abiodun Whitfield PGY-1 Critical Care Progress Note Patient seen and evaluated at bedside this AM. Patient with improved alertness. Patient reports sustained abdominal pain. Currently solely on ice chips. CCU Objective - Vital Signs / Intake & Output Vital Signs (Last 4 hours): Vital Signs Temp Pulse Resp BP Pulse Ox 01/18/19 08:38 182/87 H 01/18/19 08:37 182/87 H 01/18/19 07:51 99.9 F H 97 H 59 H 170/67 H 96 01/18/19 07:50 99.9 F H 97 H 61 H 98 01/18/19 07:49 99.9 F H 98 01/18/19 07:47 100.0 F H 32 H 98 01/18/19 07:46 100.0 F H 29 H 98 01/18/19 07:45 172/74 H 01/18/19 07:44 99.9 F H 97 H 32 H 98 01/18/19 07:42 98 H 30 H 174/36 H 96 01/18/19 07:40 31 H 98 01/18/19 07:30 95 H 34 H 98 01/18/19 07:20 93 H 31 H 98 01/18/19 07:10 92 H 32 H 155/72 H 97 01/18/19 07:04 187/81 H 01/18/19 07:00 106 H 32 H 98 01/18/19 06:50 107 H 38 H 98 01/18/19 06:40 107 H 37 H 97 01/18/19 06:35 109 H 27 H 187/81 H 98 01/18/19 06:30 111 H 34 H 96 01/18/19 06:26 120 H 28 H 01/18/19 06:25 115 H 60 H 01/18/19 06:24 119 H 01/18/19 06:20 107 H 35 H 97 01/18/19 06:10 108 H 38 H 96 01/18/19 06:01 105 H 34 H 182/80 H 97 01/18/19 06:00 99 F 104 H 41 H 96 01/18/19 05:50 108 H 25 H 95 01/18/19 05:40 106 H 44 H 96 01/18/19 05:30 107 H 41 H 95 Intake and Output (Last 8hrs): Intake & Output 01/17/19 01/18/19 01/18/19 22:59 06:59 14:59 Intake Total 0 328 Output Total 960 Balance 0 -632 Intake: Oral 50 Blood Product 0 278 Apheresis Rbc Cp2d As3 Lr 0 278 2nd Unit [id number] Output: Drainage 160 Left Abdomen 160 Urine 800 Urethral (Marmolejo) 800 Other: # Bowel Movements 0 - Physical Exam Head: Positive for: Atraumatic, Normocephalic Pupils: Positive for: PERRL Extroacular Muscles: Positive for: EOMI Conjunctiva: Positive for: Normal Mouth: Positive for: Dry Respiratory/Chest: Positive for: Clear to Auscultation, Good Air Exchange Cardiovascular: Positive for: Regular Rate and Rhythm, Normal S1, S2 Abdomen: Positive for: Tenderness, Other (L- sided THAI drain with serosanguinous fluid. Midline incision with dressing c/d/i). Negative for: Normal Bowel Sounds (hypoactive bowel sounds), Peritoneal Signs Back: Positive for: Normal Inspection, Paraspinal Tenderness Upper Extremity: Positive for: Edema, Capillary Refill < 2s Lower Extremity: Positive for: Edema, Swelling, Capillary Refill < 2 s Neurological: Positive for: GCS=15, CN II-XII Intact, Speech Normal Skin: Positive for: Warm, Dry, Normal Color Psychiatric: Positive for: Alert, Normal Insight. Negative for: Oriented x 3, Normal Concentration - Medications Active Medications: Active Medications Generic Name Dose Route Start Last Admin Trade Name Tateq PRN Reason Stop Dose Admin Amlodipine Besylate 5 mg 01/18/19 10:00 01/18/19 08:38 Norvasc PO 5 mg DAILY SANAM Administration Benzocaine/Menthol 1 alyssa 01/13/19 18:53 Cepacol Sore Throat MT Q2H PRN Sore Throat Carvedilol 12.5 mg 01/14/19 10:30 01/18/19 08:38 Coreg PO 12.5 mg BID SANAM Administration Famotidine 20 mg 01/13/19 10:00 01/17/19 10:09 Pepcid IVP 20 mg DAILY SANAM Administration Heparin Sodium (Porcine) 5,000 units 01/13/19 14:00 01/18/19 06:04 Heparin SC 5,000 units Q8 [facility] Administration Protocol Home Med 1 unit 01/13/19 10:00 01/17/19 10:12 Home Med PO Not Given DAILY [facility] Hydralazine HCl 5 mg 01/18/19 01:47 01/18/19 03:37 Apresoline IVP 5 mg ONCE PRN Administration Systolic Blood Pressure Hydralazine HCl 25 mg 01/18/19 10:00 01/18/19 08:37 Apresoline PO 25 mg QID [facility] Administration Meropenem 250 mg/ Sodium 100 mls @ 100 mls/hr 01/15/19 21:30 01/17/19 21:08 Chloride IVPB 01/20/19 21:31 100 mls/hr Q12H [facility] Administration Protocol Dextrose/Lactated Ringer's 1,000 mls @ 100 mls/hr 01/16/19 12:30 01/18/19 03:50 Dextrose 5%/Lactated Ringer's IV 100 mls/hr .Q10H [facility] Administration Insulin Detemir 15 unit 01/13/19 10:00 01/15/19 15:58 Levemir SC Not Given Q12 [facility] Insulin Human Regular 0 units 01/13/19 07:30 01/17/19 23:07 Humulin R Low SC Not Given ACHS [facility] Protocol Metoprolol Tartrate 5 mg 01/17/19 08:00 01/18/19 07:04 Lopressor IVP 5 mg Q6H [facility] Administration Morphine Sulfate 2 mg 01/18/19 07:43 Morphine IVP Q2H PRN abdominal pain Ondansetron HCl 4 mg 01/13/19 18:21 01/14/19 05:36 Zofran Inj IVP 4 mg Q4H PRN Administration Nausea/Vomiting - Patient Studies Lab Studies: Microbiology Studies 01/14/19 17:47 Blood Culture - Preliminary Blood-Thru Central Line NO GROWTH AFTER 3 DAYS 01/14/19 17:25 Blood Culture - Preliminary Blood-Venous NO GROWTH AFTER 3 DAYS 01/15/19 15:28 Gram Stain - Final Peritoneal Fluid Body Fluid Culture - Preliminary NO GROWTH AFTER 24 HOURS Lab Studies 01/18/19 01/18/19 01/18/19 Range/Units 06:00 06:00 06:00 WBC 13.5 H (4.5-11.0) 10^3/uL RBC 3.51 (3.5-6.1) 10^6/uL Hgb 8.9 L (12.0-16.0) g/dL Hct 27.3 L (36.0-48.0) % MCV 77.8 L (80.0-105.0) fl MCH 25.4 (25.0-35.0) pg MCHC 32.6 (31.0-37.0) g/dl RDW 19.1 H (11.5-14.5) % Plt Count 100 L (120.0-450.0) 10^3/uL MPV 10.1 (7.0-11.0) fl Neut % (Auto) 92.0 H (50.0-68.0) % Lymph % (Auto) 3.1 L (22.0-35.0) % [place] % (Auto) 4.3 (1.0-6.0) % Eos % (Auto) 0.5 L (1.5-5.0) % Baso % (Auto) 0.1 (0.0-3.0) % Lymph # (Auto) 0.4 L (1.2-3.4) [place] # (Auto) 0.6 (0.1-0.6) Eos # (Auto) 0.1 (0.0-0.7) Baso # (Auto) 0.01 (0.0-2.0) K/mm3 Absolute Neuts (auto) 12.45 H (1.4-6.5) pCO2 37 (35-45) mm/Hg pO2 80.0 (80-100) mm/Hg HCO3 20.4 L (21-28) mmol/L ABG pH 7.35 (7.35-7.45) ABG Total CO2 21.5 L (22-28) mmol.L ABG O2 Saturation 97.4 (95-98) % ABG O2 Content 12.7 L (15-23) ML/dl ABG Base Excess -4.7 L (-2.0-3.0) mmol/L ABG Hemoglobin 9.4 L (11.7-17.4) g/dL ABG Carboxyhemoglobin 1.8 H (0.5-1.5) % POC ABG HHb (Measured) 2.5 (0-5) % ABG Methemoglobin 0.7 (0.0-3.0) % ABG O2 Capacity 13.0 L (16-24) mL/dl Hgb O2 Saturation 95.1 (95.0-98.0) % FiO2 32.0 % Sodium 147 (132-148) mmol/L Potassium 4.2 (3.6-5.0) mmol/L Chloride 115 H (98-107) mmol/L Carbon Dioxide 23 (21-33) mmol/L Anion Gap 13 (10-20) BUN 66 H (7-21) mg/dL Creatinine 6.5 H (0.7-1.2) mg/dl Est GFR ( Amer) 8 Est GFR (Non-Af Amer) 6 POC Glucose (mg/dL) (65-110) mg/dL Random Glucose 148 H (70-110) mg/dL Calcium 8.1 L (8.4-10.5) mg/dL Magnesium 2.0 (1.7-2.2) mg/dL Total Bilirubin 0.5 (0.2-1.3) mg/dL AST 176 H D (14-36) U/L ALT 418 H (7-56) U/L Alkaline Phosphatase 107 (38-126) U/L Total Protein 5.7 L (5.8-8.3) g/dL Albumin 2.6 L (3.0-4.8) g/dL Globulin 3.1 gm/dL Albumin/Globulin Ratio 0.8 L (1.1-1.8) Blood Type Antibody Screen Crossmatch BBK History Checked 01/17/19 01/17/19 01/17/19 Range/Units 22:23 17:30 16:00 WBC (4.5-11.0) 10^3/uL RBC (3.5-6.1) 10^6/uL Hgb (12.0-16.0) g/dL Hct (36.0-48.0) % MCV (80.0-105.0) fl MCH (25.0-35.0) pg MCHC (31.0-37.0) g/dl RDW (11.5-14.5) % Plt Count (120.0-450.0) 10^3/uL MPV (7.0-11.0) fl Neut % (Auto) (50.0-68.0) % Lymph % (Auto) (22.0-35.0) % [place] % (Auto) (1.0-6.0) % Eos % (Auto) (1.5-5.0) % Baso % (Auto) (0.0-3.0) % Lymph # (Auto) (1.2-3.4) [place] # (Auto) (0.1-0.6) Eos # (Auto) (0.0-0.7) Baso # (Auto) (0.0-2.0) K/mm3 Absolute Neuts (auto) (1.4-6.5) pCO2 (35-45) mm/Hg pO2 (80-100) mm/Hg HCO3 (21-28) mmol/L ABG pH (7.35-7.45) ABG Total CO2 (22-28) mmol.L ABG O2 Saturation (95-98) % ABG O2 Content (15-23) ML/dl ABG Base Excess (-2.0-3.0) mmol/L ABG Hemoglobin (11.7-17.4) g/dL ABG Carboxyhemoglobin (0.5-1.5) % POC ABG HHb (Measured) (0-5) % ABG Methemoglobin (0.0-3.0) % ABG O2 Capacity (16-24) mL/dl Hgb O2 Saturation (95.0-98.0) % FiO2 % Sodium (132-148) mmol/L Potassium (3.6-5.0) mmol/L Chloride (98-107) mmol/L Carbon Dioxide (21-33) mmol/L Anion Gap (10-20) BUN (7-21) mg/dL Creatinine (0.7-1.2) mg/dl Est GFR ( Amer) Est GFR (Non-Af Amer) POC Glucose (mg/dL) 151 H 151 H (65-110) mg/dL Random Glucose (70-110) mg/dL Calcium (8.4-10.5) mg/dL Magnesium (1.7-2.2) mg/dL Total Bilirubin (0.2-1.3) mg/dL AST (14-36) U/L ALT (7-56) U/L Alkaline Phosphatase (38-126) U/L Total Protein (5.8-8.3) g/dL Albumin (3.0-4.8) g/dL Globulin gm/dL Albumin/Globulin Ratio (1.1-1.8) Blood Type O POSITIVE Antibody Screen Negative Crossmatch See Detail BBK History Checked Patient has bt 01/17/19 01/17/19 01/17/19 Range/Units 14:08 13:50 12:30 WBC 12.2 H (4.5-11.0) 10^3/uL RBC 2.88 L (3.5-6.1) 10^6/uL Hgb 7.2 L (12.0-16.0) g/dL Hct 22.1 L (36.0-48.0) % MCV 76.7 L (80.0-105.0) fl MCH 25.0 (25.0-35.0) pg MCHC 32.6 (31.0-37.0) g/dl RDW 18.8 H (11.5-14.5) % Plt Count 84 L (120.0-450.0) 10^3/uL MPV 9.4 (7.0-11.0) fl Neut % (Auto) 93.4 H (50.0-68.0) % Lymph % (Auto) 2.8 L (22.0-35.0) % [place] % (Auto) 3.3 (1.0-6.0) % Eos % (Auto) 0.4 L (1.5-5.0) % Baso % (Auto) 0.1 (0.0-3.0) % Lymph # (Auto) 0.3 L (1.2-3.4) [place] # (Auto) 0.4 (0.1-0.6) Eos # (Auto) 0.1 (0.0-0.7) Baso # (Auto) 0.01 (0.0-2.0) K/mm3 Absolute Neuts (auto) 11.44 H (1.4-6.5) pCO2 (35-45) mm/Hg pO2 (80-100) mm/Hg HCO3 (21-28) mmol/L ABG pH (7.35-7.45) ABG Total CO2 (22-28) mmol.L ABG O2 Saturation (95-98) % ABG O2 Content (15-23) ML/dl ABG Base Excess (-2.0-3.0) mmol/L ABG Hemoglobin (11.7-17.4) g/dL ABG Carboxyhemoglobin (0.5-1.5) % POC ABG HHb (Measured) (0-5) % ABG Methemoglobin (0.0-3.0) % ABG O2 Capacity (16-24) mL/dl Hgb O2 Saturation (95.0-98.0) % FiO2 % Sodium 145 (132-148) mmol/L Potassium 4.2 (3.6-5.0) mmol/L Chloride 116 H (98-107) mmol/L Carbon Dioxide 23 (21-33) mmol/L Anion Gap 11 (10-20) BUN 62 H (7-21) mg/dL Creatinine 6.0 H (0.7-1.2) mg/dl Est GFR ( Amer) 8 Est GFR (Non-Af Amer) 7 POC Glucose (mg/dL) 148 H (65-110) mg/dL Random Glucose 140 H (70-110) mg/dL Calcium 7.4 L (8.4-10.5) mg/dL Magnesium (1.7-2.2) mg/dL Total Bilirubin 0.4 (0.2-1.3) mg/dL AST 259 H D (14-36) U/L ALT 480 H (7-56) U/L Alkaline Phosphatase 74 (38-126) U/L Total Protein 4.9 L (5.8-8.3) g/dL Albumin 2.3 L (3.0-4.8) g/dL Globulin 2.7 gm/dL Albumin/Globulin Ratio 0.8 L (1.1-1.8) Blood Type Antibody Screen Crossmatch BBK History Checked 01/17/19 01/17/19 01/14/19 Range/Units 07:35 06:00 15:43 WBC (4.5-11.0) 10^3/uL RBC (3.5-6.1) 10^6/uL Hgb 9.1 L (12.0-16.0) g/dL Hct 27.8 L (36.0-48.0) % MCV (80.0-105.0) fl MCH (25.0-35.0) pg MCHC (31.0-37.0) g/dl RDW (11.5-14.5) % Plt Count (120.0-450.0) 10^3/uL MPV (7.0-11.0) fl Neut % (Auto) (50.0-68.0) % Lymph % (Auto) (22.0-35.0) % [place] % (Auto) (1.0-6.0) % Eos % (Auto) (1.5-5.0) % Baso % (Auto) (0.0-3.0) % Lymph # (Auto) (1.2-3.4) [place] # (Auto) (0.1-0.6) Eos # (Auto) (0.0-0.7) Baso # (Auto) (0.0-2.0) K/mm3 Absolute Neuts (auto) (1.4-6.5) pCO2 (35-45) mm/Hg pO2 (80-100) mm/Hg HCO3 (21-28) mmol/L ABG pH (7.35-7.45) ABG Total CO2 (22-28) mmol.L ABG O2 Saturation (95-98) % ABG O2 Content (15-23) ML/dl ABG Base Excess (-2.0-3.0) mmol/L ABG Hemoglobin (11.7-17.4) g/dL ABG Carboxyhemoglobin (0.5-1.5) % POC ABG HHb (Measured) (0-5) % ABG Methemoglobin (0.0-3.0) % ABG O2 Capacity (16-24) mL/dl Hgb O2 Saturation (95.0-98.0) % FiO2 % Sodium (132-148) mmol/L Potassium (3.6-5.0) mmol/L Chloride (98-107) mmol/L Carbon Dioxide (21-33) mmol/L Anion Gap (10-20) BUN (7-21) mg/dL Creatinine (0.7-1.2) mg/dl Est GFR ( Amer) Est GFR (Non-Af Amer) POC Glucose (mg/dL) 145 H (65-110) mg/dL Random Glucose (70-110) mg/dL Calcium (8.4-10.5) mg/dL Magnesium (1.7-2.2) mg/dL Total Bilirubin (0.2-1.3) mg/dL AST (14-36) U/L ALT (7-56) U/L Alkaline Phosphatase (38-126) U/L Total Protein (5.8-8.3) g/dL Albumin (3.0-4.8) g/dL Globulin gm/dL Albumin/Globulin Ratio (1.1-1.8) Blood Type Antibody Screen Crossmatch See Detail BBK History Checked Laboratory Results - last 24 hr 01/14/19 01/17/19 01/17/19 15:43 06:00 07:35 WBC RBC Hgb 9.1 L Hct 27.8 L MCV MCH MCHC RDW Plt Count MPV Neut % (Auto) Lymph % (Auto) [place] % (Auto) Eos % (Auto) Baso % (Auto) Lymph # (Auto) [place] # (Auto) Eos # (Auto) Baso # (Auto) Absolute Neuts (auto) pCO2 pO2 HCO3 ABG pH ABG Total CO2 ABG O2 Saturation ABG O2 Content ABG Base Excess ABG Hemoglobin ABG Carboxyhemoglobin POC ABG HHb (Measured) ABG Methemoglobin ABG O2 Capacity Hgb O2 Saturation FiO2 Sodium Potassium Chloride Carbon Dioxide Anion Gap BUN Creatinine Est GFR ( Amer) Est GFR (Non-Af Amer) POC Glucose (mg/dL) 145 H Random Glucose Calcium Magnesium Total Bilirubin AST ALT Alkaline Phosphatase Total Protein Albumin Globulin Albumin/Globulin Ratio Blood Type Antibody Screen Crossmatch See Detail BBK History Checked 01/17/19 01/17/19 01/17/19 12:30 13:50 14:08 WBC 12.2 H RBC 2.88 L Hgb 7.2 L Hct 22.1 L MCV 76.7 L MCH 25.0 MCHC 32.6 RDW 18.8 H Plt Count 84 L MPV 9.4 Neut % (Auto) 93.4 H Lymph % (Auto) 2.8 L [place] % (Auto) 3.3 Eos % (Auto) 0.4 L Baso % (Auto) 0.1 Lymph # (Auto) 0.3 L [place] # (Auto) 0.4 Eos # (Auto) 0.1 Baso # (Auto) 0.01 Absolute Neuts (auto) 11.44 H pCO2 pO2 HCO3 ABG pH ABG Total CO2 ABG O2 Saturation ABG O2 Content ABG Base Excess ABG Hemoglobin ABG Carboxyhemoglobin POC ABG HHb (Measured) ABG Methemoglobin ABG O2 Capacity Hgb O2 Saturation FiO2 Sodium 145 Potassium 4.2 Chloride 116 H Carbon Dioxide 23 Anion Gap 11 BUN 62 H Creatinine 6.0 H Est GFR ( Amer) 8 Est GFR (Non-Af Amer) 7 POC Glucose (mg/dL) 148 H Random Glucose 140 H Calcium 7.4 L Magnesium Total Bilirubin 0.4 AST 259 H D ALT 480 H Alkaline Phosphatase 74 Total Protein 4.9 L Albumin 2.3 L Globulin 2.7 Albumin/Globulin Ratio 0.8 L Blood Type Antibody Screen Crossmatch BBK History Checked 01/17/19 01/17/19 01/17/19 16:00 17:30 22:23 WBC RBC Hgb Hct MCV MCH MCHC RDW Plt Count MPV Neut % (Auto) Lymph % (Auto) [place] % (Auto) Eos % (Auto) Baso % (Auto) Lymph # (Auto) [place] # (Auto) Eos # (Auto) Baso # (Auto) Absolute Neuts (auto) pCO2 pO2 HCO3 ABG pH ABG Total CO2 ABG O2 Saturation ABG O2 Content ABG Base Excess ABG Hemoglobin ABG Carboxyhemoglobin POC ABG HHb (Measured) ABG Methemoglobin ABG O2 Capacity Hgb O2 Saturation FiO2 Sodium Potassium Chloride Carbon Dioxide Anion Gap BUN Creatinine Est GFR ( Amer) Est GFR (Non-Af Amer) POC Glucose (mg/dL) 151 H 151 H Random Glucose Calcium Magnesium Total Bilirubin AST ALT Alkaline Phosphatase Total Protein Albumin Globulin Albumin/Globulin Ratio Blood Type O POSITIVE Antibody Screen Negative Crossmatch See Detail BBK History Checked Patient has bt 01/18/19 01/18/19 01/18/19 06:00 06:00 06:00 WBC 13.5 H RBC 3.51 Hgb 8.9 L Hct 27.3 L MCV 77.8 L MCH 25.4 MCHC 32.6 RDW 19.1 H Plt Count 100 L MPV 10.1 Neut % (Auto) 92.0 H Lymph % (Auto) 3.1 L [place] % (Auto) 4.3 Eos % (Auto) 0.5 L Baso % (Auto) 0.1 Lymph # (Auto) 0.4 L [place] # (Auto) 0.6 Eos # (Auto) 0.1 Baso # (Auto) 0.01 Absolute Neuts (auto) 12.45 H pCO2 37 pO2 80.0 HCO3 20.4 L ABG pH 7.35 ABG Total CO2 21.5 L ABG O2 Saturation 97.4 ABG O2 Content 12.7 L ABG Base Excess -4.7 L ABG Hemoglobin 9.4 L ABG Carboxyhemoglobin 1.8 H POC ABG HHb (Measured) 2.5 ABG Methemoglobin 0.7 ABG O2 Capacity 13.0 L Hgb O2 Saturation 95.1 FiO2 32.0 Sodium 147 Potassium 4.2 Chloride 115 H Carbon Dioxide 23 Anion Gap 13 BUN 66 H Creatinine 6.5 H Est GFR ( Amer) 8 Est GFR (Non-Af Amer) 6 POC Glucose (mg/dL) Random Glucose 148 H Calcium 8.1 L Magnesium 2.0 Total Bilirubin 0.5 AST 176 H D ALT 418 H Alkaline Phosphatase 107 Total Protein 5.7 L Albumin 2.6 L Globulin 3.1 Albumin/Globulin Ratio 0.8 L Blood Type Antibody Screen Crossmatch BBK History Checked Radiology Impressions: Radiology Impressions Chest X-Ray 01/17/19 16:09 IMPRESSION: Moderate to severe vascular congestion Fingerstick Blood Sugar Results: 151 Critical Care Progress Note - Nutrition Nutrition: Nutrition Category Date Time Status Liquid Diet [DIET] Diets 01/17/19 Breakfast Ordered Assessment/Plan - Assessment and Plan (Free Text) Assessment: Mrs Guido is a 73 year old female with a PMHx of uterine ca s/p radiation therapy, CAD s/p 6 stents, IDDM2, CKD, PVD, HTN, chronic iron-deficiency anemia (previously had aranesp infusions), PVD, L-sided carotid stenosis s/p endarterectomy, obesity, LBBB who was found to have partial small bowel obstruction which worsened to high grade obstruction. Currently in ICU for monitoring. Cardiovascular -shock 2/2 ischemic bowel, improved -POD #3 exploratory laparotomy, lysis of adhesions, small bowel resection with anastomosis -Amlodipine and Hydralazine resumed for hypertension -Pain control with Morphine 2q2 per surgery -CAD s/p 6 stents, PVD, L-sided carotid stenosis s/p endarterectomy, LBBB, HTN, NSTEMI -continue to hold aspirin, imdur, clonidine -Trop: 0.02 -> 0.11 -> 0.15 -> 0.21, likely 2/2 to demand ischemia -echo 01/14/19: Echo: EF 50%, mod concentric LVH, mild tricuspid regurgitation, rsvp 33 -lopressor 5mg ivp q6h -cardiology consulted, Dr Coronel- further recs appreciated Gastrointestinal -High Grade Bowel Obstruction -Ischemic Bowel -Diffuse Abdominal and Pelvic Ascites 2/2 3rd Spacing -CT abd/pelvis 01/13: There is partial small bowel obstruction with multiple fluid-filled loops of bowel in the mid and upper abdomen. There is a transition point in the right lower quadrant -repeat CT abd/pelvis w/ contrast 01/14: * Multiple dilated small bowel loops which appears thick walled; appearance consistent with obstruction. Mesenteric edema. Abdominal pelvic ascites. Marm[place]jo catheter within the urinary bladder which contains air, presumably due to recent instrumentation. Cholelithiasis. Fibroid uterus. Small bilateral pleural effusions and bibasilar consolidations. Hiatal hernia and jim roesophageal reflux. Nasogastric tube. Partially imaged cardiomegaly and trace pericardial effusion. -elevated LFTs 2/2 to shock liver continue to improve -monitor on liquid diet as tolerated Neuro -AMS -extubated 01/16/19 -01/18/19 ABG shows improved acidosis -currently saturating well on 2L NS -Improved neuro status, monitor on Morphine Renal -GUIDO on CKD -booking police officer Dr Burrell following- further recs appreciated -making urine, 1500 cc out last night -anticipate improvement in Cr in next few days per booking police officer, if not improvement patient might need dialysis -Hyperkalemia, Resolved Infectious Disease -Leukocytosis -Continue empiric tx with merrem 250mg ivp q12h -urine cx negative -blood cx negative after 3 days -peritoneal fluid cx negative Endocrine -IDDM2 -hold home levemir until patient can tolerate diet -finger checks q6h, currently controlled -hgba1c 6.8 Hematology -Anemia -Hgb responded appropriately s/p 1u pRBC 01/17 -Continue to monitor PPX -pepcid 20mg ivp qd, heparin 5000u sc q8 Patient seen, case reviewed and plan approved by Dr. Hiwot Cevallos. Abiodun Iveysalomón, PGY-1 <Marybel Cevallos - Last Filed: 01/18/19 15:04> CCU Objective - Vital Signs / Intake & Output Vital Signs (Last 4 hours): Vital Signs Temp Pulse Resp BP Pulse Ox 01/18/19 14:00 92 H 01/18/19 12:50 99.3 F 92 H 38 H 98 01/18/19 12:46 99.3 F 91 H 28 H 152/70 H 98 01/18/19 12:40 99.3 F 93 H 46 H 98 01/18/19 12:30 99.5 F 93 H 51 H 168/74 H 98 01/18/19 12:25 99.5 F 94 H 43 H 166/74 H 99 01/18/19 12:20 99.5 F 92 H 48 H 100 01/18/19 12:16 99.5 F 94 H 51 H 172/72 H 100 01/18/19 12:10 99.7 F H 93 H 48 H 100 01/18/19 12:05 99.7 F H 91 H 51 H 170/80 H 100 01/18/19 12:01 99.7 F H 94 H 51 H 174/82 H 100 01/18/19 12:00 99.7 F H 95 H 39 H 100 01/18/19 11:55 99.7 F H 95 H 100 01/18/19 11:50 99.7 F H 94 H 54 H 100 01/18/19 11:44 99.7 F H 93 H 54 H 166/71 H 98 01/18/19 11:40 99.7 F H 94 H 47 H 100 01/18/19 11:30 99.7 F H 96 H 49 H 171/81 H 98 01/18/19 11:28 99.7 F H 94 H 57 H 170/81 H 100 01/18/19 11:20 99.7 F H 95 H 53 H 98 01/18/19 11:12 164/81 H 01/18/19 11:10 99.7 F H 96 H 54 H 99 Intake and Output (Last 8hrs): Intake & Output 01/18/19 01/18/19 01/18/19 06:59 14:59 22:59 Intake Total 328 9.2 Output Total 960 Balance -632 9.2 Intake: IV 9.2 Oral 50 Blood Product 278 Apheresis Rbc Cp2d As3 Lr 278 2nd Unit [id number] Output: Drainage 160 Left Abdomen 160 Urine 800 Urethral ([place]) 800 Other: # Bowel Movements 0 - Medications Active Medications: Active Medications Generic Name Dose Route Start Last Admin Trade Name Freq PRN Reason Stop Dose Admin Amlodipine Besylate 5 mg 01/18/19 10:00 01/18/19 10:14 Norvasc PO Not Given DAILY [facility] Benzocaine/Menthol 1 alyssa 01/13/19 18:53 Cepacol Sore Throat MT Q2H PRN Sore Throat Carvedilol 12.5 mg 01/14/19 10:30 01/18/19 10:17 Coreg PO Not Given BID SANAM Famotidine 20 mg 01/13/19 10:00 01/18/19 10:14 Pepcid IVP 20 mg DAILY SANAM Administration Heparin Sodium (Porcine) 5,000 units 01/13/19 14:00 01/18/19 06:04 Heparin SC 5,000 units Q8 SANAM Administration Protocol Home Med 1 unit 01/13/19 10:00 01/18/19 11:00 Home Med PO Not Given DAILY [facility] Hydralazine HCl 5 mg 01/18/19 01:47 01/18/19 03:37 Apresoline IVP 5 mg ONCE PRN Administration Systolic Blood Pressure Hydralazine HCl 25 mg 01/18/19 10:00 01/18/19 10:13 Apresoline PO Not Given QID SANAM Hydralazine HCl 5 mg 01/18/19 10:57 Apresoline IVP Q6 PRN Systolic Blood Pressure Meropenem 250 mg/ Sodium 100 mls @ 100 mls/hr 01/15/19 21:30 01/18/19 10:19 Chloride IVPB 01/20/19 21:31 100 mls/hr Q12H [facility] Administration Protocol Dextrose/Lactated Ringer's 1,000 mls @ 50 mls/hr 01/18/19 10:25 01/18/19 10:30 Dextrose 5%/Lactated Ringer's IV 50 mls/hr .Q20H [facility] Administration Nitroglycerin/Dextrose 50 mg in 250 mls @ 1.5 mls/hr 01/18/19 10:56 01/18/19 13:36 Nitroglycerin 50 Mg/250 Ml D5w IV 25 mcg/min .Q24H PRN 7.5 mls/hr Systolic Blood Pressure Titration Protocol 5 MCG/MIN Insulin Detemir 15 unit 01/13/19 10:00 01/15/19 15:58 Levemir SC Not Given Q12 [facility] Insulin Human Regular 0 units 01/13/19 07:30 01/18/19 12:01 Humulin R Low SC Not Given ACHS [facility] Protocol Metoprolol Tartrate 5 mg 01/17/19 08:00 01/18/19 07:04 Lopressor IVP 5 mg Q6H [facility] Administration Morphine Sulfate 2 mg 01/18/19 07:43 01/18/19 10:16 Morphine IVP 2 mg Q2H PRN Administration abdominal pain Ondansetron HCl 4 mg 01/13/19 18:21 01/14/19 05:36 Zofran Inj IVP 4 mg Q4H PRN Administration Nausea/Vomiting - Patient Studies Lab Studies: Microbiology Studies 01/15/19 15:28 Gram Stain - Final Peritoneal Fluid Body Fluid Culture - Preliminary NO GROWTH AFTER 2 DAYS 01/14/19 17:47 Blood Culture - Preliminary Blood-Thru Central Line NO GROWTH AFTER 3 DAYS 01/14/19 17:25 Blood Culture - Preliminary Blood-Venous NO GROWTH AFTER 3 DAYS Lab Studies 01/18/19 01/18/19 01/18/19 Range/Units 11:34 06:00 06:00 WBC 13.5 H (4.5-11.0) 10^3/uL RBC 3.51 (3.5-6.1) 10^6/uL Hgb 8.9 L (12.0-16.0) g/dL Hct 27.3 L (36.0-48.0) % MCV 77.8 L (80.0-105.0) fl MCH 25.4 (25.0-35.0) pg MCHC 32.6 (31.0-37.0) g/dl RDW 19.1 H (11.5-14.5) % Plt Count 100 L (120.0-450.0) 10^3/uL MPV 10.1 (7.0-11.0) fl Neut % (Auto) 92.0 H (50.0-68.0) % Lymph % (Auto) 3.1 L (22.0-35.0) % [place] % (Auto) 4.3 (1.0-6.0) % Eos % (Auto) 0.5 L (1.5-5.0) % Baso % (Auto) 0.1 (0.0-3.0) % Lymph # (Auto) 0.4 L (1.2-3.4) [place] # (Auto) 0.6 (0.1-0.6) Eos # (Auto) 0.1 (0.0-0.7) Baso # (Auto) 0.01 (0.0-2.0) K/mm3 Absolute Neuts (auto) 12.45 H (1.4-6.5) pCO2 37 (35-45) mm/Hg pO2 80.0 (80-100) mm/Hg HCO3 20.4 L (21-28) mmol/L ABG pH 7.35 (7.35-7.45) ABG Total CO2 21.5 L (22-28) mmol.L ABG O2 Saturation 97.4 (95-98) % ABG O2 Content 12.7 L (15-23) ML/dl ABG Base Excess -4.7 L (-2.0-3.0) mmol/L ABG Hemoglobin 9.4 L (11.7-17.4) g/dL ABG Carboxyhemoglobin 1.8 H (0.5-1.5) % POC ABG HHb (Measured) 2.5 (0-5) % ABG Methemoglobin 0.7 (0.0-3.0) % ABG O2 Capacity 13.0 L (16-24) mL/dl Hgb O2 Saturation 95.1 (95.0-98.0) % FiO2 32.0 % Sodium (132-148) mmol/L Potassium (3.6-5.0) mmol/L Chloride (98-107) mmol/L Carbon Dioxide (21-33) mmol/L Anion Gap (10-20) BUN (7-21) mg/dL Creatinine (0.7-1.2) mg/dl Est GFR ( Amer) Est GFR (Non-Af Amer) POC Glucose (mg/dL) 165 H (65-110) mg/dL Random Glucose (70-110) mg/dL Calcium (8.4-10.5) mg/dL Magnesium (1.7-2.2) mg/dL Total Bilirubin (0.2-1.3) mg/dL AST (14-36) U/L ALT (7-56) U/L Alkaline Phosphatase (38-126) U/L Total Protein (5.8-8.3) g/dL Albumin (3.0-4.8) g/dL Globulin gm/dL Albumin/Globulin Ratio (1.1-1.8) Blood Type Antibody Screen Crossmatch BBK History Checked 01/18/19 01/17/19 01/17/19 Range/Units 06:00 22:23 17:30 WBC (4.5-11.0) 10^3/uL RBC (3.5-6.1) 10^6/uL Hgb (12.0-16.0) g/dL Hct (36.0-48.0) % MCV (80.0-105.0) fl MCH (25.0-35.0) pg MCHC (31.0-37.0) g/dl RDW (11.5-14.5) % Plt Count (120.0-450.0) 10^3/uL MPV (7.0-11.0) fl Neut % (Auto) (50.0-68.0) % Lymph % (Auto) (22.0-35.0) % [place] % (Auto) (1.0-6.0) % Eos % (Auto) (1.5-5.0) % Baso % (Auto) (0.0-3.0) % Lymph # (Auto) (1.2-3.4) [place] # (Auto) (0.1-0.6) Eos # (Auto) (0.0-0.7) Baso # (Auto) (0.0-2.0) K/mm3 Absolute Neuts (auto) (1.4-6.5) pCO2 (35-45) mm/Hg pO2 (80-100) mm/Hg HCO3 (21-28) mmol/L ABG pH (7.35-7.45) ABG Total CO2 (22-28) mmol.L ABG O2 Saturation (95-98) % ABG O2 Content (15-23) ML/dl ABG Base Excess (-2.0-3.0) mmol/L ABG Hemoglobin (11.7-17.4) g/dL ABG Carboxyhemoglobin (0.5-1.5) % POC ABG HHb (Measured) (0-5) % ABG Methemoglobin (0.0-3.0) % ABG O2 Capacity (16-24) mL/dl Hgb O2 Saturation (95.0-98.0) % FiO2 % Sodium 147 (132-148) mmol/L Potassium 4.2 (3.6-5.0) mmol/L Chloride 115 H (98-107) mmol/L Carbon Dioxide 23 (21-33) mmol/L Anion Gap 13 (10-20) BUN 66 H (7-21) mg/dL Creatinine 6.5 H (0.7-1.2) mg/dl Est GFR ( Amer) 8 Est GFR (Non-Af Amer) 6 POC Glucose (mg/dL) 151 H (65-110) mg/dL Random Glucose 148 H (70-110) mg/dL Calcium 8.1 L (8.4-10.5) mg/dL Magnesium 2.0 (1.7-2.2) mg/dL Total Bilirubin 0.5 (0.2-1.3) mg/dL AST 176 H D (14-36) U/L ALT 418 H (7-56) U/L Alkaline Phosphatase 107 (38-126) U/L Total Protein 5.7 L (5.8-8.3) g/dL Albumin 2.6 L (3.0-4.8) g/dL Globulin 3.1 gm/dL Albumin/Globulin Ratio 0.8 L (1.1-1.8) Blood Type O POSITIVE Antibody Screen Negative Crossmatch See Detail BBK History Checked Patient has bt 01/17/19 01/17/19 01/17/19 Range/Units 16:00 12:30 06:00 WBC (4.5-11.0) 10^3/uL RBC (3.5-6.1) 10^6/uL Hgb 9.1 L (12.0-16.0) g/dL Hct 27.8 L (36.0-48.0) % MCV (80.0-105.0) fl MCH (25.0-35.0) pg MCHC (31.0-37.0) g/dl RDW (11.5-14.5) % Plt Count (120.0-450.0) 10^3/uL MPV (7.0-11.0) fl Neut % (Auto) (50.0-68.0) % Lymph % (Auto) (22.0-35.0) % [place] % (Auto) (1.0-6.0) % Eos % (Auto) (1.5-5.0) % Baso % (Auto) (0.0-3.0) % Lymph # (Auto) (1.2-3.4) [place] # (Auto) (0.1-0.6) Eos # (Auto) (0.0-0.7) Baso # (Auto) (0.0-2.0) K/mm3 Absolute Neuts (auto) (1.4-6.5) pCO2 (35-45) mm/Hg pO2 (80-100) mm/Hg HCO3 (21-28) mmol/L ABG pH (7.35-7.45) ABG Total CO2 (22-28) mmol.L ABG O2 Saturation (95-98) % ABG O2 Content (15-23) ML/dl ABG Base Excess (-2.0-3.0) mmol/L ABG Hemoglobin (11.7-17.4) g/dL ABG Carboxyhemoglobin (0.5-1.5) % POC ABG HHb (Measured) (0-5) % ABG Methemoglobin (0.0-3.0) % ABG O2 Capacity (16-24) mL/dl Hgb O2 Saturation (95.0-98.0) % FiO2 % Sodium (132-148) mmol/L Potassium (3.6-5.0) mmol/L Chloride (98-107) mmol/L Carbon Dioxide (21-33) mmol/L Anion Gap (10-20) BUN (7-21) mg/dL Creatinine (0.7-1.2) mg/dl Est GFR ( Amer) Est GFR (Non-Af Amer) POC Glucose (mg/dL) 151 H 148 H (65-110) mg/dL Random Glucose (70-110) mg/dL Calcium (8.4-10.5) mg/dL Magnesium (1.7-2.2) mg/dL Total Bilirubin (0.2-1.3) mg/dL AST (14-36) U/L ALT (7-56) U/L Alkaline Phosphatase (38-126) U/L Total Protein (5.8-8.3) g/dL Albumin (3.0-4.8) g/dL Globulin gm/dL Albumin/Globulin Ratio (1.1-1.8) Blood Type Antibody Screen Crossmatch BBK History Checked 01/14/19 Range/Units 15:43 WBC (4.5-11.0) 10^3/uL RBC (3.5-6.1) 10^6/uL Hgb (12.0-16.0) g/dL Hct (36.0-48.0) % MCV (80.0-105.0) fl MCH (25.0-35.0) pg MCHC (31.0-37.0) g/dl RDW (11.5-14.5) % Plt Count (120.0-450.0) 10^3/uL MPV (7.0-11.0) fl Neut % (Auto) (50.0-68.0) % Lymph % (Auto) (22.0-35.0) % [place] % (Auto) (1.0-6.0) % Eos % (Auto) (1.5-5.0) % Baso % (Auto) (0.0-3.0) % Lymph # (Auto) (1.2-3.4) [place] # (Auto) (0.1-0.6) Eos # (Auto) (0.0-0.7) Baso # (Auto) (0.0-2.0) K/mm3 Absolute Neuts (auto) (1.4-6.5) pCO2 (35-45) mm/Hg pO2 (80-100) mm/Hg HCO3 (21-28) mmol/L ABG pH (7.35-7.45) ABG Total CO2 (22-28) mmol.L ABG O2 Saturation (95-98) % ABG O2 Content (15-23) ML/dl ABG Base Excess (-2.0-3.0) mmol/L ABG Hemoglobin (11.7-17.4) g/dL ABG Carboxyhemoglobin (0.5-1.5) % POC ABG HHb (Measured) (0-5) % ABG Methemoglobin (0.0-3.0) % ABG O2 Capacity (16-24) mL/dl Hgb O2 Saturation (95.0-98.0) % FiO2 % Sodium (132-148) mmol/L Potassium (3.6-5.0) mmol/L Chloride (98-107) mmol/L Carbon Dioxide (21-33) mmol/L Anion Gap (10-20) BUN (7-21) mg/dL Creatinine (0.7-1.2) mg/dl Est GFR ( Amer) Est GFR (Non-Af Amer) POC Glucose (mg/dL) (65-110) mg/dL Random Glucose (70-110) mg/dL Calcium (8.4-10.5) mg/dL Magnesium (1.7-2.2) mg/dL Total Bilirubin (0.2-1.3) mg/dL AST (14-36) U/L ALT (7-56) U/L Alkaline Phosphatase (38-126) U/L Total Protein (5.8-8.3) g/dL Albumin (3.0-4.8) g/dL Globulin gm/dL Albumin/Globulin Ratio (1.1-1.8) Blood Type Antibody Screen Crossmatch See Detail BBK History Checked Laboratory Results - last 24 hr 01/14/19 01/17/19 01/17/19 15:43 06:00 12:30 WBC RBC Hgb 9.1 L Hct 27.8 L MCV MCH MCHC RDW Plt Count MPV Neut % (Auto) Lymph % (Auto) [place] % (Auto) Eos % (Auto) Baso % (Auto) Lymph # (Auto) [place] # (Auto) Eos # (Auto) Baso # (Auto) Absolute Neuts (auto) pCO2 pO2 HCO3 ABG pH ABG Total CO2 ABG O2 Saturation ABG O2 Content ABG Base Excess ABG Hemoglobin ABG Carboxyhemoglobin POC ABG HHb (Measured) ABG Methemoglobin ABG O2 Capacity Hgb O2 Saturation FiO2 Sodium Potassium Chloride Carbon Dioxide Anion Gap BUN Creatinine Est GFR ( Amer) Est GFR (Non-Af Amer) POC Glucose (mg/dL) 148 H Random Glucose Calcium Magnesium Total Bilirubin AST ALT Alkaline Phosphatase Total Protein Albumin Globulin Albumin/Globulin Ratio Blood Type Antibody Screen Crossmatch See Detail BBK History Checked 01/17/19 01/17/19 01/17/19 16:00 17:30 22:23 WBC RBC Hgb Hct MCV MCH MCHC RDW Plt Count MPV Neut % (Auto) Lymph % (Auto) [place] % (Auto) Eos % (Auto) Baso % (Auto) Lymph # (Auto) [place] # (Auto) Eos # (Auto) Baso # (Auto) Absolute Neuts (auto) pCO2 pO2 HCO3 ABG pH ABG Total CO2 ABG O2 Saturation ABG O2 Content ABG Base Excess ABG Hemoglobin ABG Carboxyhemoglobin POC ABG HHb (Measured) ABG Methemoglobin ABG O2 Capacity Hgb O2 Saturation FiO2 Sodium Potassium Chloride Carbon Dioxide Anion Gap BUN Creatinine Est GFR ( Amer) Est GFR (Non-Af Amer) POC Glucose (mg/dL) 151 H 151 H Random Glucose Calcium Magnesium Total Bilirubin AST ALT Alkaline Phosphatase Total Protein Albumin Globulin Albumin/Globulin Ratio Blood Type O POSITIVE Antibody Screen Negative Crossmatch See Detail BBK History Checked Patient has bt 01/18/19 01/18/19 01/18/19 06:00 06:00 06:00 WBC 13.5 H RBC 3.51 Hgb 8.9 L Hct 27.3 L MCV 77.8 L MCH 25.4 MCHC 32.6 RDW 19.1 H Plt Count 100 L MPV 10.1 Neut % (Auto) 92.0 H Lymph % (Auto) 3.1 L [place] % (Auto) 4.3 Eos % (Auto) 0.5 L Baso % (Auto) 0.1 Lymph # (Auto) 0.4 L [place] # (Auto) 0.6 Eos # (Auto) 0.1 Baso # (Auto) 0.01 Absolute Neuts (auto) 12.45 H pCO2 37 pO2 80.0 HCO3 20.4 L ABG pH 7.35 ABG Total CO2 21.5 L ABG O2 Saturation 97.4 ABG O2 Content 12.7 L ABG Base Excess -4.7 L ABG Hemoglobin 9.4 L ABG Carboxyhemoglobin 1.8 H POC ABG HHb (Measured) 2.5 ABG Methemoglobin 0.7 ABG O2 Capacity 13.0 L Hgb O2 Saturation 95.1 FiO2 32.0 Sodium 147 Potassium 4.2 Chloride 115 H Carbon Dioxide 23 Anion Gap 13 BUN 66 H Creatinine 6.5 H Est GFR ( Amer) 8 Est GFR (Non-Af Amer) 6 POC Glucose (mg/dL) Random Glucose 148 H Calcium 8.1 L Magnesium 2.0 Total Bilirubin 0.5 AST 176 H D ALT 418 H Alkaline Phosphatase 107 Total Protein 5.7 L Albumin 2.6 L Globulin 3.1 Albumin/Globulin Ratio 0.8 L Blood Type Antibody Screen Crossmatch BBK History Checked 01/18/19 11:34 WBC RBC Hgb Hct MCV MCH MCHC RDW Plt Count MPV Neut % (Auto) Lymph % (Auto) [place] % (Auto) Eos % (Auto) Baso % (Auto) Lymph # (Auto) [place] # (Auto) Eos # (Auto) Baso # (Auto) Absolute Neuts (auto) pCO2 pO2 HCO3 ABG pH ABG Total CO2 ABG O2 Saturation ABG O2 Content ABG Base Excess ABG Hemoglobin ABG Carboxyhemoglobin POC ABG HHb (Measured) ABG Methemoglobin ABG O2 Capacity Hgb O2 Saturation FiO2 Sodium Potassium Chloride Carbon Dioxide Anion Gap BUN Creatinine Est GFR ( Amer) Est GFR (Non-Af Amer) POC Glucose (mg/dL) 165 H Random Glucose Calcium Magnesium Total Bilirubin AST ALT Alkaline Phosphatase Total Protein Albumin Globulin Albumin/Globulin Ratio Blood Type Antibody Screen Crossmatch BBK History Checked Radiology Impressions: Radiology Impressions Chest X-Ray 01/17/19 16:09 IMPRESSION: Moderate to severe vascular congestion Critical Care Progress Note - Nutrition Nutrition: Nutrition Category Date Time Status Liquid Diet [DIET] Diets 01/17/19 Breakfast Ordered Addendum Addendum: 01/18/19 15:04 MICU Attending addendum Patient seen and examined with housestaff Agree with resident note above with the follow add/exceptions 73F uterine ca s/p radiation therapy, CAD s/p 6 stents, IDDM2, CKD, PVD, HTN, PVD, L-sided carotid stenosis s/p endarterectomy, obesity, LBBB a/w partial small bowel obstruction which worsened to high grade obstruction, ischemic bowel s/p OR resection Clinically improving, OFF Vasopressor support hypertensive today, started on tridil drip cont with supp O2, duonebs PRN, goal sat 90% caution with narcotics would try 1mg morphne if needed broad spectrum abx, Merrem, Vanco speech swallow eval surgical follow up FULL CODE Rest of care as per above resident note Marybel Cevallos MD MICU Attending
[2019-01-18] MEDS: CALCIFEDIOL 30 MCG PO SCH (11:00)
[2019-01-18] MEDS: Nitroglycerin 50mg in D5W 50 MG/250 ML BOTTLE IV PRN (11:22)
--- NOTE | 2019-01-18 12:07 | CP.PCM.PN ---
<Paddy Moreno - Last Filed: 01/18/19 12:47> Subjective - Date & Time of Evaluation Date of Evaluation: 01/18/19 Time of Evaluation: 10:10 - Subjective Subjective: Paddy Moreno DO PGY1 Hospitalist Progress Note for Dr Donovan Patient seen and examined at bedside in ICU. She is awake but drowsy, moves extremites, not fully responding to verbal stimuli, responds to painful stimuli. As per nursing staff, patient washypertensive overnight and given hydralazine prn. One dose morphine 2mg given earlier today for abdominal pain. Hypertensive, U/O 960 cc, off sedative, dilaudid d/c. Objective - Vital Signs/Intake and Output Vital Signs (last 24 hours): Temp Pulse Resp BP Pulse Ox 99.9 F H 97 H 59 H 164/81 H 96 01/18/19 07:51 01/18/19 07:51 01/18/19 07:51 01/18/19 11:12 01/18/19 07:51 Intake and Output: 01/18/19 01/18/19 06:59 18:59 Intake Total 328 Output Total 960 Balance -632 - Medications Medications: Current Medications Amlodipine Besylate (Norvasc) 5 mg PO DAILY [facility] Last Admin: 01/18/19 10:14 Dose: Not Given Benzocaine/Menthol (Cepacol Sore Throat) 1 alyssa MT Q2H PRN PRN Reason: Sore Throat Carvedilol (Coreg) 12.5 mg PO BID [facility] Last Admin: 01/18/19 10:17 Dose: Not Given Famotidine (Pepcid) 20 mg IVP DAILY [facility] Last Admin: 01/18/19 10:14 Dose: 20 mg Heparin Sodium (Porcine) (Heparin) 5,000 units SC Q8 [facility]; Protocol Last Admin: 01/18/19 06:04 Dose: 5,000 units Home Med (Home Med) 1 unit PO DAILY [facility] Last Admin: 01/17/19 10:12 Dose: Not Given Hydralazine HCl (Apresoline) 5 mg IVP ONCE PRN PRN Reason: Systolic Blood Pressure Last Admin: 01/18/19 03:37 Dose: 5 mg Hydralazine HCl (Apresoline) 25 mg PO QID [facility] Last Admin: 01/18/19 10:13 Dose: Not Given Hydralazine HCl (Apresoline) 5 mg IVP Q6 PRN PRN Reason: Systolic Blood Pressure Meropenem 250 mg/ Sodium (Chloride) 100 mls @ 100 mls/hr IVPB Q12H [facility]; Protocol Stop: 01/20/19 21:31 Last Admin: 01/18/19 10:19 Dose: 100 mls/hr Dextrose/Lactated Ringer's (Dextrose 5%/Lactated Ringer's) 1,000 mls @ 50 mls/hr IV .Q20H [facility] Nitroglycerin/Dextrose (Nitroglycerin 50 Mg/250 Ml D5w) 50 mg in 250 mls @ 1.5 mls/hr IV .Q24H PRN; Protocol PRN Reason: Systolic Blood Pressure Last Admin: 01/18/19 11:22 Dose: 5 mcg/min, 1.5 mls/hr Insulin Detemir (Levemir) 15 unit SC Q12 [facility] Last Admin: 01/15/19 15:58 Dose: Not Given Insulin Human Regular (Humulin R Low) 0 units SC ACHS [facility]; Protocol Last Admin: 01/18/19 08:00 Dose: Not Given Metoprolol Tartrate (Lopressor) 5 mg IVP Q6H [facility] Last Admin: 01/18/19 07:04 Dose: 5 mg Morphine Sulfate (Morphine) 2 mg IVP Q2H PRN PRN Reason: abdominal pain Last Admin: 01/18/19 10:16 Dose: 2 mg Ondansetron HCl (Zofran Inj) 4 mg IVP Q4H PRN PRN Reason: Nausea/Vomiting Last Admin: 01/14/19 05:36 Dose: 4 mg - Labs Labs: 01/18/19 06:00 01/18/19 06:00 PT 18.8 SECONDS (9.4-12.5) H 01/15/19 16:09 INR 1.69 01/15/19 16:09 APTT 29.1 Seconds (26.9-38.3) 01/15/19 16:09 - Constitutional Appears: Confused - Head Exam Head Exam: ATRAUMATIC, NORMAL INSPECTION, NORMOCEPHALIC - Eye Exam Eye Exam: EOMI, Normal appearance - ENT Exam ENT Exam: Mucous Membranes Moist - Neck Exam Neck Exam: Full ROM, Normal Inspection - Respiratory Exam Respiratory Exam: Clear to Ausculation Bilateral - Cardiovascular Exam Cardiovascular Exam: +S1, +S2 - GI/Abdominal Exam Additional comments: midabdominal incision dressing applied, no blood, discharge seen. THAI drain on LLQ with serosanguinous fluid. - Extremities Exam Additional comments: b/l UL edema to the elbow level - Neurological Exam Neurological Exam: Altered - Psychiatric Exam Psychiatric exam: Depressed - Skin Skin Exam: Dry, Intact, Normal Color Assessment and Plan - Assessment and Plan (Free Text) Assessment: 73 year old female with s/p ex-lap (POD 3) with small bowel rese ction/anastimosis in the setting of partial SBO complicated by septic shock due to ischemic bowel Plan: s/p ex-lap with bowel resection and anastomosis due to SBO complicated by septic shock -patient is sensitive to opiates, gets confused-avoid opiates -Patient currently awake, drowsy, off pressors/sedation, hypertensive -shock liver slowly improving s/p ex-lap -continue meropenem -afebrile, no leukocytosis -continue prtonix, zofran -I/O 1528/1800 in the last 24 hr -blood/urine cx negative to date -f/u pathology/cultures of abdominal fluid -clear liquid diet -dietitian referral -encourage OOB -surgery following, Dr Mukherjee Transaminitis: -due to shock liver/hypoperfusion -slowly improving GUIDO on CKD: -due to ATN in the setting of shock -BUN/Cr 66/6.5 (Cr baseline 2.4) -improved U/O -improved hyperkalemia -nephrology following Dr Burrell Pleural effusion: -CXR in am shows pleural effusion and pulm congestion -decreased IVF D5/LR rate to 50 cc/hr -IV lasix 40 mg one dose given HTN, CAD s/p PCI: -hypertensive urgency -resume home meds norvasc 5 qd, coreg 12.5 bid, hydralazine 25 qid -hydralazine 5mg q6 prn -nitoglycerine drip 5 mcg/min -Cardiology following Dr Chung DM2: -accucheck -ISS-low -HgA1c 6.8 PPX: DVT: SCD, heparin sq GI:pepcid PT CLD Dispo: continue ICU management Case reviewed and plan discussed with attending Dr Zion Taborid, DO <Carmel Donovan - Last Filed: 01/18/19 15:01> Objective - Vital Signs/Intake and Output Vital Signs (last 24 hours): Temp Pulse Resp BP Pulse Ox 99.3 F 92 H 38 H 152/70 H 98 01/18/19 12:50 01/18/19 14:00 01/18/19 12:50 01/18/19 12:46 01/18/19 12:50 Intake and Output: 01/18/19 01/18/19 06:59 18:59 Intake Total 328 9.2 Output Total 960 Balance -632 9.2 - Medications Medications: Current Medications Amlodipine Besylate (Norvasc) 5 mg PO DAILY [facility] Last Admin: 01/18/19 10:14 Dose: Not Given Benzocaine/Menthol (Cepacol Sore Throat) 1 alyssa MT Q2H PRN PRN Reason: Sore Throat Carvedilol (Coreg) 12.5 mg PO BID [facility] Last Admin: 01/18/19 10:17 Dose: Not Given Famotidine (Pepcid) 20 mg IVP DAILY [facility] Last Admin: 01/18/19 10:14 Dose: 20 mg Heparin Sodium (Porcine) (Heparin) 5,000 units SC Q8 [facility]; Protocol Last Admin: 01/18/19 06:04 Dose: 5,000 units Home Med (Home Med) 1 unit PO DAILY [facility] Last Admin: 01/18/19 11:00 Dose: Not Given Hydralazine HCl (Apresoline) 5 mg IVP ONCE PRN PRN Reason: Systolic Blood Pressure Last Admin: 01/18/19 03:37 Dose: 5 mg Hydralazine HCl (Apresoline) 25 mg PO QID [facility] Last Admin: 01/18/19 10:13 Dose: Not Given Hydralazine HCl (Apresoline) 5 mg IVP Q6 PRN PRN Reason: Systolic Blood Pressure Meropenem 250 mg/ Sodium (Chloride) 100 mls @ 100 mls/hr IVPB Q12H [facility]; Protocol Stop: 01/20/19 21:31 Last Admin: 01/18/19 10:19 Dose: 100 mls/hr Dextrose/Lactated Ringer's (Dextrose 5%/Lactated Ringer's) 1,000 mls @ 50 mls/hr IV .Q20H [facility] Last Admin: 01/18/19 10:30 Dose: 50 mls/hr Nitroglycerin/Dextrose (Nitroglycerin 50 Mg/250 Ml D5w) 50 mg in 250 mls @ 1.5 mls/hr IV .Q24H PRN; Protocol PRN Reason: Systolic Blood Pressure Last Titration: 01/18/19 13:36 Dose: 25 mcg/min, 7.5 mls/hr Insulin Detemir (Levemir) 15 unit SC Q12 [facility] Last Admin: 01/15/19 15:58 Dose: Not Given Insulin Human Regular (Humulin R Low) 0 units SC ACHS [facility]; Protocol Last Admin: 01/18/19 12:01 Dose: Not Given Metoprolol Tartrate (Lopressor) 5 mg IVP Q6H [facility] Last Admin: 01/18/19 07:04 Dose: 5 mg Morphine Sulfate (Morphine) 2 mg IVP Q2H PRN PRN Reason: abdominal pain Last Admin: 01/18/19 10:16 Dose: 2 mg Ondansetron HCl (Zofran Inj) 4 mg IVP Q4H PRN PRN Reason: Nausea/Vomiting Last Admin: 01/14/19 05:36 Dose: 4 mg - Labs Labs: 01/18/19 06:00 01/18/19 06:00 PT 18.8 SECONDS (9.4-12.5) H 01/15/19 16:09 INR 1.69 01/15/19 16:09 APTT 29.1 Seconds (26.9-38.3) 01/15/19 16:09 Attending/Attestation - Attestation I have personally seen and examined this patient.: Yes I have fully participated in the care of the patient.: Yes I have reviewed all pertinent clinical information, including history, physical exam and plan: Yes Notes (Text): 01/18/19 14:21 Attending note; Patient seen and examined with resident in ICU. Patient is awake. able to answer few questions. moving all extremities. Got a dose of IV morphine. Status post ex lap and bowel resection. Patient is a 73-year-old female with PMH uterine cancer s/p radiation therapy, CAD s/p 6 stents, IDDM2, CKD, PVD, HTN, chronic iron-deficiency anemia (previously had aranesp infusions), PVD, L-sided carotid stenosis s/p endarterectomy, obesity presents to ED with complaints of severe, 10/10, diffuse, crampy abdominal pain with associated nausea & non-bloody non-bilious vomiting. 1. Septic Shock /bowel obstruction; status post ex-laparotomy and bowel resection for ischemic bowel. Post op day #3. Shock resolved. Currently off pressors. On IV fluids. Laparotomy site in dressing. No bleeding noted . Patient has THAI drain with serosanguineous discharge. 2. Acute on chronic renal insufficiency; worsening renal function. But urine out is adequate. due to episodes of hypotension. Discussed with rehabilitation program coordinator in detail. 3. Hypertension; case discussed with cardiology in detail. started on IV trid il. and IV hydralazine. continue coreg. 4. Elevated liver enzymes; secondary to episode of hypotension and ischemic liver. Trending down slowly. Monitor closely. 5. Diabetes; continue insulin sliding scale. monitor closely. 6. Anemia; trending down. 2 unit of blood transfusion given so far. Hb is 8.9 today. 7. Elevated troponin; secondary to episodes of hypotension. Case discussed with color straining bag washer in detail. EKG shows no acute ST elevation. on coreg. 8. Uterine cancer; status post radiation therapy. 9. History of coronary stent; cardiology evaluation appreciated. on coreg. monitor closely. 10. carotid endarterectomy peripheral vascular stent; currently aspirin and Plavix on hold. 11. Pain management with morphine as needed; patient is very sensitive to pain medications. Gets confused easily. Patient's family is aware of this situation. start diet per surgery. monitor the patient closely in ICU.
--- NOTE | 2019-01-18 12:14 | PN ---
DATE: 01/18/2019 Cardiology followup (Dr. Coronel). SUBJECTIVE: The patient is in bed, nodding to verbal stimuli but no distress, other than mild dyspnea when she tries to talk. PHYSICAL EXAMINATION: VITAL SIGNS: Blood pressure varies from 170 to 182. Heart rate is in the 90s. NECK: Negative JVD. LUNGS: Decreased breath sounds bilaterally. HEART: S1, S2. EXTREMITIES: Without edema. LABORATORY DATA: BUN and creatinine 66 and 6.5, hemoglobin is 8.9. IMPRESSION: 1. Status post abdominal surgery for small bowel obstruction. 2. History of percutaneous transluminal coronary angioplasty recently. 3. Hypotension, now followed by accelerated hypertension. 4. Anemia. 5. Hypercholesterolemia. 6. Diabetes mellitus. PLAN: Given these findings, we will start the patient on IV Tridil as well as intermittent IV boluses of hydralazine for better blood pressure control. Yan Chung MD
--- NOTE | 2019-01-18 12:32 | CP.PCM.PN ---
Subjective - Date & Time of Evaluation Date of Evaluation: 01/18/19 Time of Evaluation: 12:30 - Subjective Subjective: Nephrology Consultation Note: Assessment: [place] SBO with ischemic bowel and lactic acidosis s/p ex lap and small bowel resection 01/15/19 oligoanuric GUIDO due to ATN with hyperkalemia: NOW not oliguric shock liver Diabetic chronic Kidney Disease (E11.22) Hypertensive Chronic Kidney Disease (I12.9) with HTN urgency Chronic Kidney Disease (N18.4) Stage Anemia (D64.9), Hyperphosphatemia (E83.39), Secondary Hyperparathyroidism (E21.1 ), HTN (I12.9) obesity uterine ca s/p radiation therapy CAD s/p stents, PVD, L-sided carotid stenosis s/p endarterectomy Plan No acute need for renal replacement therapy at this time but may need soon and will need close follow up. urine output had improved. stable lytes pt is hemodynamically stable now s/p ex lap and anticipated spontaneous renal recovery over next few days. serum Cr rising for now. Maintain hemodynamics stable. Avoid hypotension. Patient not on ACEI/ARB due to GUIDO and hyperkalemia. gradually resume bp meds Monitor Input/Output, daily weights and renal function with basic metabolic panel PRBC as needed. defer use of TRANG to hem/onc in view of her uterine malignancy surgery following lowered IVF as D5-LR @ 50 ml/hr. dose of IV lasix 40 mg today as CXR with pleural effusion and pulm congestion No kayexylate in view of GI surgery Dose meds/antibiotics for reduced GFR. Avoid fleets enema/magnesium based laxatives. Avoid nephrotoxins/NSAIDs/ iodinated contrast (unless needed emergently) Glycemic control Further work up/management as per primary team Thanks for allowing me to participate in care of your patient. Will follow patient with you. Please call if any Qs. had d/w team and family bedside Dr Ant Burrell Office: [phone] Chief Complaint; pain abdomen Reason for consult: CKD management HPI: Pt is a 73 y/o F with PMHx of uterine ca s/p radiation therapy which she completed in december 2018, CAD s/p stents, DM, CKD 4 with baseline cr 2.4, PVD, HTN, L-sided carotid stenosis s/p endarterectomy, obesity presented with c omplaints of pain abdomen and found to have partial SBO. renal consult for CKD management. she feels better at present. pain abdomen is better. denies CP/SOB Denies OTC/herbal meds or NSAIDs ROS: noted ovenight events. pt extubated. confusiob better but still unable to provide much ros s/p ex lap 01/15/19 as she had ischemic bowel. Physical Examination: General Appearance: comfortable, in no acute respiratory distress, obese. better appearing Vitals reviewed and noted as below Head; Atraumatic, normocephalic ENT: extubated. oral mucosa dry EYES: Pupils are equal, round and reactive to light accommodation. Eye muscles and extraocular movement intact. Sclera is anicteric. Neck; supple no lymphadenopathy, no thyromegaly or bruit Lungs: Incr respiratory rate/effort. Breath sounds bilateral equal and clear anteriorly. reduced at bases Heart: normal rate. s1s2 normal. No rub or gallop. Extremities: no edema. No varicose veins Neurological: Patient is awake alert follow commands but not fully oriented. confused Skin: Warm and dry. Normal turgor. No rash. Palpitation: Normal elasticity for age Abdomen: There is mild abdominal tenderness no organomegaly. s/p ex lap. soft now Psych: deferred MSK: no joint tenderness or swelling. Digits and nails normal, no deformity : kidney or bladder not palpable. has walters Labs/imaging reviewed. Past medical history, past surgical history, family history, social history, allergy reviewed and noted as below Family hx: hx of ESKD in son. Rest non-contributory Objective - Vital Signs/Intake and Output Vital Signs (last 24 hours): Temp Pulse Resp BP Pulse Ox 99.9 F H 99 H 59 H 164/81 H 96 01/18/19 07:51 01/18/19 10:00 01/18/19 07:51 01/18/19 11:12 01/18/19 07:51 Intake and Output: 01/18/19 01/18/19 06:59 18:59 Intake Total 328 1.6 Output Total 960 Balance -632 1.6 - Medications Medications: Current Medications Amlodipine Besylate (Norvasc) 5 mg PO DAILY [facility] Last Admin: 01/18/19 10:14 Dose: Not Given Benzocaine/Menthol (Cepacol Sore Throat) 1 alyssa MT Q2H PRN PRN Reason: Sore Throat Carvedilol (Coreg) 12.5 mg PO BID [facility] Last Admin: 01/18/19 10:17 Dose: Not Given Famotidine (Pepcid) 20 mg IVP DAILY [facility] Last Admin: 01/18/19 10:14 Dose: 20 mg Heparin Sodium (Porcine) (Heparin) 5,000 units SC Q8 [facility]; Protocol Last Admin: 01/18/19 06:04 Dose: 5,000 units Home Med (Home Med) 1 unit PO DAILY [facility] Last Admin: 01/18/19 11:00 Dose: Not Given Hydralazine HCl (Apresoline) 5 mg IVP ONCE PRN PRN Reason: Systolic Blood Pressure Last Admin: 01/18/19 03:37 Dose: 5 mg Hydralazine HCl (Apresoline) 25 mg PO QID [facility] Last Admin: 01/18/19 10:13 Dose: Not Given Hydralazine HCl (Apresoline) 5 mg IVP Q6 PRN PRN Reason: Systolic Blood Pressure Meropenem 250 mg/ Sodium (Chloride) 100 mls @ 100 mls/hr IVPB Q12H [facility]; Protocol Stop: 01/20/19 21:31 Last Admin: 01/18/19 10:19 Dose: 100 mls/hr Dextrose/Lactated Ringer's (Dextrose 5%/Lactated Ringer's) 1,000 mls @ 50 mls/hr IV .Q20H [facility] Nitroglycerin/Dextrose (Nitroglycerin 50 Mg/250 Ml D5w) 50 mg in 250 mls @ 1.5 mls/hr IV .Q24H [facility]; Protocol PRN Reason: Systolic Blood Pressure Last Titration: 01/18/19 12:16 Dose: 15 mcg/min, 4.5 mls/hr Insulin Detemir (Levemir) 15 unit SC Q12 [facility] Last Admin: 01/15/19 15:58 Dose: Not Given Insulin Human Regular (Humulin R Low) 0 units SC ACHS [facility]; Protocol Last Admin: 01/18/19 12:01 Dose: Not Given Metoprolol Tartrate (Lopressor) 5 mg IVP Q6H [facility] Last Admin: 01/18/19 07:04 Dose: 5 mg Morphine Sulfate (Morphine) 2 mg IVP Q2H PRN PRN Reason: abdominal pain Last Admin: 01/18/19 10:16 Dose: 2 mg Ondansetron HCl (Zofran Inj) 4 mg IVP Q4H PRN PRN Reason: Nausea/Vomiting Last Admin: 01/14/19 05:36 Dose: 4 mg - Labs Labs: 01/18/19 06:00 01/18/19 06:00 PT 18.8 SECONDS (9.4-12.5) H 01/15/19 16:09 INR 1.69 01/15/19 16:09 APTT 29.1 Seconds (26.9-38.3) 01/15/19 16:09
[2019-01-18] MEDS: oxyCODONE 5 mg Immediate Release Tab PO PRN (17:04)
[2019-01-19] MEDS: oxyCODONE 5 mg Immediate Release Tab PO PRN ×3 (00:15→15:06)
[2019-01-19] MEDS: Metoprolol 1 mg/ml Inj IVP SCH ×3 (01:10→14:40)
[2019-01-19] MEDS: Insulin Reg-LOW-Coverage SC SCH ×5 (03:24→21:00)
[2019-01-19 05:10] LABS: ARTERIAL BLOOD GAS HCO3 21.6 mmol/L (21-28); ARTERIAL BLOOD GAS HEMOGLOBIN 11.1 g/dL (11.7-17.4); ARTERIAL BLOOD GAS O2 CAPACITY 15.3 mL/dl (16-24); ARTERIAL BLOOD GAS O2 CONTENT 15.2 ML/dl (15-23); ARTERIAL BLOOD GAS O2 SAT 99.2 % (95-98); ARTERIAL BLOOD GAS PCO2 41 mm/Hg (35-45); ARTERIAL BLOOD GAS PH 7.33 (7.35-7.45); ARTERIAL BLOOD GAS TCO2 22.9 mmol.L (22-28)
[2019-01-19 06:34] LABS: BASO # 0.01 K/mm3 (0.0-2.0); BASO % 0.1 % (0.0-3.0); EOS # 0.2 (0.0-0.7); HEMOGLOBIN 7.9 g/dL (12.0-16.0); LYMPH # 0.6 (1.2-3.4); LYMPH % 7.2 % (22.0-35.0); MEAN CELL VOLUME 77.6 fl (80.0-105.0); MEAN CORPUSCULAR HEMOGLOBIN 25.3 pg (25.0-35.0); MEAN CORPUSCULAR HGB CONC 32.6 g/dl (31.0-37.0); MONO # 0.5 (0.1-0.6); MONO % 5.7 % (1.0-6.0); PLATELET COUNT 84 10^3/uL (120.0-450.0); RBC 3.12 10^6/uL (3.5-6.1); RED CELL DISTRIBUTION WIDTH 19.2 % (11.5-14.5)
[2019-01-19 06:47] LABS: ALB/GLOB RATIO 0.8 (1.1-1.8); ALBUMIN 2.4 g/dL (3.0-4.8); CALCIUM 8.1 mg/dL (8.4-10.5)
--- NOTE | 2019-01-19 08:15 | CP.PCM.PN ---
Subjective - Date & Time of Evaluation Date of Evaluation: 01/19/19 Time of Evaluation: 07:45 - Subjective Subjective: General Surgery Dr. Mukherjee Pt seen and examined @bedside. Pt started on Nitro gtt yesterday for hypertension, otherwise no acute events overnight. afebrile. pt c/o TLC, wants line removed. explained importance of leaving line in place until other access can be obtained. Otherwise pt has no complaints. pain well controlled. poor PO intake though tolerating w/o difficulty. (-)BM (+)Flatus Walters 1250mL x24hrs Otis 120mL x24hrs, serosanguinous Objective - Vital Signs/Intake and Output Vital Signs (last 24 hours): Temp Pulse Resp BP Pulse Ox 98.6 F 87 38 H 168/71 H 98 01/19/19 06:00 01/19/19 06:00 01/18/19 12:50 01/18/19 21:12 01/18/19 12:50 Intake and Output: 01/19/19 01/19/19 06:59 18:59 Intake Total 1300 Output Total 2250 Balance -950 - Medications Medications: Current Medications Amlodipine Besylate (Norvasc) 5 mg PO DAILY [facility] Last Admin: 01/18/19 10:14 Dose: Not Given Benzocaine/Menthol (Cepacol Sore Throat) 1 alyssa MT Q2H PRN PRN Reason: Sore Throat Carvedilol (Coreg) 12.5 mg PO BID [facility] Last Admin: 01/18/19 18:11 Dose: 12.5 mg Famotidine (Pepcid) 20 mg IVP DAILY [facility] Last Admin: 01/18/19 10:14 Dose: 20 mg Heparin Sodium (Porcine) (Heparin) 5,000 units SC Q8 [facility]; Protocol Last Admin: 01/19/19 06:10 Dose: 5,000 units Home Med (Home Med) 1 unit PO DAILY [facility] Last Admin: 01/18/19 11:00 Dose: Not Given Hydralazine HCl (Apresoline) 5 mg IVP ONCE PRN PRN Reason: Systolic Blood Pressure Last Admin: 01/18/19 03:37 Dose: 5 mg Hydralazine HCl (Apresoline) 25 mg PO QID [facility] Last Admin: 01/18/19 21:12 Dose: 25 mg Hydralazine HCl (Apresoline) 5 mg IVP Q6 PRN PRN Reason: Systolic Blood Pressure Dextrose/Lactated Ringer's (Dextrose 5%/Lactated Ringer's) 1,000 mls @ 50 mls/hr IV .Q20H [facility] Last Admin: 01/18/19 10:30 Dose: 50 mls/hr Nitroglycerin/Dextrose (Nitroglycerin 50 Mg/250 Ml D5w) 50 mg in 250 mls @ 1.5 mls/hr IV .Q24H [facility]; Protocol PRN Reason: Systolic Blood Pressure Last Titration: 01/18/19 18:59 Dose: 45 mcg/min, 13.5 mls/hr Insulin Detemir (Levemir) 15 unit SC Q12 [facility] Last Admin: 01/15/19 15:58 Dose: Not Given Insulin Human Regular (Humulin R Low) 0 units SC ACHS [facility]; Protocol Last Admin: 01/19/19 03:24 Dose: Not Given Metoprolol Tartrate (Lopressor) 5 mg IVP Q6H [facility] Last Admin: 01/19/19 01:10 Dose: 5 mg Ondansetron HCl (Zofran Inj) 4 mg IVP Q4H PRN PRN Reason: Nausea/Vomiting Last Admin: 01/14/19 05:36 Dose: 4 mg Oxycodone HCl (Oxycodone Immediate Release Tab) 5 mg PO Q6H PRN PRN Reason: Pain, severe (8-10) Last Admin: 01/19/19 06:08 Dose: 5 mg - Labs Labs: 01/19/19 06:25 01/19/19 06:25 PT 18.8 SECONDS (9.4-12.5) H 01/15/19 16:09 INR 1.69 01/15/19 16:09 APTT 29.1 Seconds (26.9-38.3) 01/15/19 16:09 - Constitutional Appears: Non-toxic, No Acute Distress - Head Exam Head Exam: NORMAL INSPECTION - Eye Exam Eye Exam: Normal appearance - ENT Exam ENT Exam: Mucous Membranes Moist - Neck Exam Additional comments: RIJ TLC in place - Respiratory Exam Respiratory Exam: NORMAL BREATHING PATTERN. absent: Accessory Muscle Use, Respiratory Distress - Cardiovascular Exam Cardiovascular Exam: REGULAR RHYTHM. absent: Bradycardia, Tachycardia - GI/Abdominal Exam GI & Abdominal Exam: Distended (mild, obese), Guarding (voluntary), Soft, Tenderness (appropriate TTP). absent: Firm, Rigid, Rebound Additional comments: midline dressing c/d/i drain dressing c/d/i - Exam Additional comments: walters in place; clear, yellow urine - Extremities Exam Extremities Exam: Normal Inspection - Neurological Exam Neurological Exam: Alert, Awake - Psychiatric Exam Psychiatric exam: Normal Affect, Normal Mood - Skin Skin Exam: Dry, Intact, Normal Color, Warm Assessment and Plan - Assessment and Plan (Free Text) Assessment: 73 y/o F POD# 4 s/p exlap w/ SBR 2/2 SBO Plan: - cont CLD until more tolerant - resume home BP meds - wean Nitro gtt per ICU - cont percocet vs Tramadol PRN pain - No toradol/tylenol 2/2 elevated creatinine & LFTs - d/c walters once approved by Nephro - PICC line tomorrow - PT/OT - encourage OOB to chair/Amb/IS use - GI/DVT PPx Pt discussed w/ Dr Lonny Boothe PGY3
[2019-01-19] MEDS: CALCIFEDIOL 30 MCG PO SCH (09:13)
[2019-01-19] MEDS: Nitroglycerin 50mg in D5W 50 MG/250 ML BOTTLE IV PRN (09:13)
[2019-01-19] MEDS: Dextrose 5%/Lactated Ringer's 1,000 ML IV SCH (09:15)
[2019-01-19] MEDS ORDERED: Levalbuterol 0.63 MG/3 ML Inhal Soln UD IH PRN (09:36)
--- NOTE | 2019-01-19 10:53 | CP.CCUPN ---
<Abiodun Whitfield - Last Filed: 01/19/19 10:54> CCU Subjective - Physician Review Subjective (Free Text): Abiodun Whitfield PGY-1 Critical Care Progress Note Patient seen and evaluated at bedside this AM. No acute events reported overnight. Patient alert but disoriented. Unable to obtain further ROS due to clinical condition. CCU Objective - Vital Signs / Intake & Output Vital Signs (Last 4 hours): Vital Signs Pulse BP 01/19/19 08:30 80 140/63 Intake and Output (Last 8hrs): Intake & Output 01/18/19 01/19/19 01/19/19 22:59 06:59 14:59 Intake Total 700.8 650 190 Output Total 1370 880 Balance -669.2 -230 190 Intake: IV 700.8 600 190 Right Internal Jugular 650 600 Oral 50 Output: Drainage 120 80 Left Abdomen 120 80 Urine 1250 800 Urethral ([place]) 1250 800 Other: # Bowel Movements 0 - Physical Exam Head: Positive for: Atraumatic, Normocephalic Pupils: Positive for: PERRL Extroacular Muscles: Positive for: EOMI Conjunctiva: Positive for: Normal Mouth: Positive for: Dry Respiratory/Chest: Positive for: Clear to Auscultation, Good Air Exchange Cardiovascular: Positive for: Regular Rate and Rhythm, Normal S1, S2 Abdomen: Positive for: Tenderness, Other (L- sided THAI drain with serosanguinous fluid. Midline incision with dressing c/d/i). Negative for: Normal Bowel Sounds (hypoactive bowel sounds), Peritoneal Signs Genitourinary/Pelvic Exam: Positive for: Other (Marm[place]jo in place) Back: Positive for: Normal Inspection, Paraspinal Tenderness Upper Extremity: Positive for: Edema, Capillary Refill < 2s Lower Extremity: Positive for: Edema, Swelling, Capillary Refill < 2 s Neurological: Positive for: CN II-XII Intact. Negative for: GCS=15, Speech Normal (slowed) Skin: Positive for: Warm, Dry, Normal Color Psychiatric: Positive for: Alert. Negative for: Oriented x 3, Normal Insight, Normal Concentration - Medications Active Medications: Active Medications Generic Name Dose Route Start Last Admin Trade Name Freq PRN Reason Stop Dose Admin Amlodipine Besylate 5 mg 01/18/19 10:00 01/18/19 10:14 Norvasc PO Not Given DAILY SANAM Benzocaine/Menthol 1 alyssa 01/13/19 18:53 Cepacol Sore Throat MT Q2H PRN Sore Throat Carvedilol 12.5 mg 01/14/19 10:30 01/18/19 18:11 Coreg PO 12.5 mg BID SANAM Administration Famotidine 20 mg 01/13/19 10:00 01/19/19 09:13 Pepcid IVP 20 mg DAILY SANAM Administration Heparin Sodium (Porcine) 5,000 units 01/13/19 14:00 01/19/19 06:10 Heparin SC 5,000 units Q8 SANAM Administration Protocol Home Med 1 unit 01/13/19 10:00 01/19/19 09:13 Home Med PO 1 unit DAILY SANAM Administration Hydralazine HCl 5 mg 01/18/19 01:47 01/18/19 03:37 Apresoline IVP 5 mg ONCE PRN Administration Systolic Blood Pressure Hydralazine HCl 25 mg 01/18/19 10:00 01/18/19 21:12 Apresoline PO 25 mg QID SANAM Administration Hydralazine HCl 5 mg 01/18/19 10:57 Apresoline IVP Q6 PRN Systolic Blood Pressure Dextrose/Lactated Ringer's 1,000 mls @ 50 mls/hr 01/18/19 10:25 01/19/19 09:15 Dextrose 5%/Lactated Ringer's IV 50 mls/hr .Q20H SANAM Administration Nitroglycerin/Dextrose 50 mg in 250 mls @ 1.5 mls/hr 01/18/19 10:56 01/19/19 09:13 Nitroglycerin 50 Mg/250 Ml D5w IV 45 mcg/min .Q24H PRN 13.5 mls/hr Systolic Blood Pressure Administration Protocol 5 MCG/MIN Insulin Detemir 15 unit 01/13/19 10:00 01/15/19 15:58 Levemir SC Not Given Q12 [facility] Insulin Human Regular 0 units 01/13/19 07:30 01/19/19 08:36 Humulin R Low SC 1 unit ACHS SANAM Administration Protocol Levalbuterol HCl 0.63 mg 01/19/19 09:36 01/19/19 10:07 Xopenex IH 0.63 mg [id number] PRN Administration Shortness of Breath Metoprolol Tartrate 5 mg 01/17/19 08:00 01/19/19 08:30 Lopressor IVP 5 mg Q6H SANAM Administration Ondansetron HCl 4 mg 01/13/19 18:21 01/14/19 05:36 Zofran Inj IVP 4 mg Q4H PRN Administration Nausea/Vomiting Oxycodone HCl 5 mg 01/18/19 16:42 01/19/19 06:08 Oxycodone Immediate Release Tab PO 5 mg Q6H PRN Administration Pain, severe (8-10) - Patient Studies Lab Studies: Microbiology Studies 01/15/19 15:28 Gram Stain - Final Peritoneal Fluid Body Fluid Culture - Preliminary NO GROWTH AFTER 3 DAYS 01/14/19 17:47 Blood Culture - Preliminary Blood-Thru Central Line NO GROWTH AFTER 4 DAYS 01/14/19 17:25 Blood Culture - Preliminary Blood-Venous NO GROWTH AFTER 4 DAYS Lab Studies 01/19/19 01/19/19 01/19/19 Range/Units 08:17 06:25 06:25 WBC 8.0 D (4.5-11.0) 10^3/uL RBC 3.12 L (3.5-6.1) 10^6/uL Hgb 7.9 L (12.0-16.0) g/dL Hct 24.2 L (36.0-48.0) % MCV 77.6 L (80.0-105.0) fl MCH 25.3 (25.0-35.0) pg MCHC 32.6 (31.0-37.0) g/dl RDW 19.2 H (11.5-14.5) % Plt Count 84 L (120.0-450.0) 10^3/uL Neut % (Auto) 85.0 H (50.0-68.0) % Lymph % (Auto) 7.2 L (22.0-35.0) % [place] % (Auto) 5.7 (1.0-6.0) % Eos % (Auto) 2.0 (1.5-5.0) % Baso % (Auto) 0.1 (0.0-3.0) % Lymph # (Auto) 0.6 L (1.2-3.4) [place] # (Auto) 0.5 (0.1-0.6) Eos # (Auto) 0.2 (0.0-0.7) Baso # (Auto) 0.01 (0.0-2.0) K/mm3 Absolute Neuts (auto) 6.82 H (1.4-6.5) pCO2 (35-45) mm/Hg pO2 (80-100) mm/Hg HCO3 (21-28) mmol/L ABG pH (7.35-7.45) ABG Total CO2 (22-28) mmol.L ABG O2 Saturation (95-98) % ABG O2 Content (15-23) ML/dl ABG Base Excess (-2.0-3.0) mmol/L ABG Hemoglobin (11.7-17.4) g/dL ABG Carboxyhemoglobin (0.5-1.5) % POC ABG HHb (Measured) (0-5) % ABG Methemoglobin (0.0-3.0) % ABG O2 Capacity (16-24) mL/dl Hgb O2 Saturation (95.0-98.0) % FiO2 % Sodium 148 (132-148) mmol/L Potassium 4.3 (3.6-5.0) mmol/L Chloride 115 H (98-107) mmol/L Carbon Dioxide 24 (21-33) mmol/L Anion Gap 13 (10-20) BUN 70 H (7-21) mg/dL Creatinine 7.1 H (0.7-1.2) mg/dl Est GFR ( Amer) 7 Est GFR (Non-Af Amer) 6 POC Glucose (mg/dL) 195 H (65-110) mg/dL Random Glucose 175 H (70-110) mg/dL Calcium 8.1 L (8.4-10.5) mg/dL Total Bilirubin 0.4 (0.2-1.3) mg/dL AST 79 H D (14-36) U/L ALT 267 H (7-56) U/L Alkaline Phosphatase 89 (38-126) U/L Total Protein 5.3 L (5.8-8.3) g/dL Albumin 2.4 L (3.0-4.8) g/dL Globulin 3.0 gm/dL Albumin/Globulin Ratio 0.8 L (1.1-1.8) 01/19/19 01/18/19 01/18/19 Range/Units 05:00 22:49 18:42 WBC (4.5-11.0) 10^3/uL RBC (3.5-6.1) 10^6/uL Hgb (12.0-16.0) g/dL Hct (36.0-48.0) % MCV (80.0-105.0) fl MCH (25.0-35.0) pg MCHC (31.0-37.0) g/dl RDW (11.5-14.5) % Plt Count (120.0-450.0) 10^3/uL Neut % (Auto) (50.0-68.0) % Lymph % (Auto) (22.0-35.0) % [place] % (Auto) (1.0-6.0) % Eos % (Auto) (1.5-5.0) % Baso % (Auto) (0.0-3.0) % Lymph # (Auto) (1.2-3.4) [place] # (Auto) (0.1-0.6) Eos # (Auto) (0.0-0.7) Baso # (Auto) (0.0-2.0) K/mm3 Absolute Neuts (auto) (1.4-6.5) pCO2 41 (35-45) mm/Hg pO2 114.0 H (80-100) mm/Hg HCO3 21.6 (21-28) mmol/L ABG pH 7.33 L (7.35-7.45) ABG Total CO2 22.9 (22-28) mmol.L ABG O2 Saturation 99.2 H (95-98) % ABG O2 Content 15.2 (15-23) ML/dl ABG Base Excess -4.1 L (-2.0-3.0) mmol/L ABG Hemoglobin 11.1 L (11.7-17.4) g/dL ABG Carboxyhemoglobin 1.7 H (0.5-1.5) % POC ABG HHb (Measured) 0.8 (0-5) % ABG Methemoglobin 1.1 (0.0-3.0) % ABG O2 Capacity 15.3 L (16-24) mL/dl Hgb O2 Saturation 96.4 (95.0-98.0) % FiO2 32.0 % Sodium (132-148) mmol/L Potassium (3.6-5.0) mmol/L Chloride (98-107) mmol/L Carbon Dioxide (21-33) mmol/L Anion Gap (10-20) BUN (7-21) mg/dL Creatinine (0.7-1.2) mg/dl Est GFR ( Amer) Est GFR (Non-Af Amer) POC Glucose (mg/dL) 168 H 165 H (65-110) mg/dL Random Glucose (70-110) mg/dL Calcium (8.4-10.5) mg/dL Total Bilirubin (0.2-1.3) mg/dL AST (14-36) U/L ALT (7-56) U/L Alkaline Phosphatase (38-126) U/L Total Protein (5.8-8.3) g/dL Albumin (3.0-4.8) g/dL Globulin gm/dL Albumin/Globulin Ratio (1.1-1.8) //19 Range/Units 11:34 WBC (4.5-11.0) 10^3/uL RBC (3.5-6.1) 10^6/uL Hgb (12.0-16.0) g/dL Hct (36.0-48.0) % MCV (80.0-105.0) fl MCH (25.0-35.0) pg MCHC (31.0-37.0) g/dl RDW (11.5-14.5) % Plt Count (120.0-450.0) 10^3/uL Neut % (Auto) (50.0-68.0) % Lymph % (Auto) (22.0-35.0) % [place] % (Auto) (1.0-6.0) % Eos % (Auto) (1.5-5.0) % Baso % (Auto) (0.0-3.0) % Lymph # (Auto) (1.2-3.4) [place] # (Auto) (0.1-0.6) Eos # (Auto) (0.0-0.7) Baso # (Auto) (0.0-2.0) K/mm3 Absolute Neuts (auto) (1.4-6.5) pCO2 (35-45) mm/Hg pO2 (80-100) mm/Hg HCO3 (21-28) mmol/L ABG pH (7.35-7.45) ABG Total CO2 (22-28) mmol.L ABG O2 Saturation (95-98) % ABG O2 Content (15-23) ML/dl ABG Base Excess (-2.0-3.0) mmol/L ABG Hemoglobin (11.7-17.4) g/dL ABG Carboxyhemoglobin (0.5-1.5) % POC ABG HHb (Measured) (0-5) % ABG Methemoglobin (0.0-3.0) % ABG O2 Capacity (16-24) mL/dl Hgb O2 Saturation (95.0-98.0) % FiO2 % Sodium (132-148) mmol/L Potassium (3.6-5.0) mmol/L Chloride (98-107) mmol/L Carbon Dioxide (21-33) mmol/L Anion Gap (10-20) BUN (7-21) mg/dL Creatinine (0.7-1.2) mg/dl Est GFR ( Amer) Est GFR (Non-Af Amer) POC Glucose (mg/dL) 165 H (65-110) mg/dL Random Glucose (70-110) mg/dL Calcium (8.4-10.5) mg/dL Total Bilirubin (0.2-1.3) mg/dL AST (14-36) U/L ALT (7-56) U/L Alkaline Phosphatase (38-126) U/L Total Protein (5.8-8.3) g/dL Albumin (3.0-4.8) g/dL Globulin gm/dL Albumin/Globulin Ratio (1.1-1.8) Laboratory Results - last 24 hr 01/18/19 01/18/19 01/18/19 11:34 18:42 22:49 WBC RBC Hgb Hct MCV MCH MCHC RDW Plt Count Neut % (Auto) Lymph % (Auto) [place] % (Auto) Eos % (Auto) Baso % (Auto) Lymph # (Auto) [place] # (Auto) Eos # (Auto) Baso # (Auto) Absolute Neuts (auto) pCO2 pO2 HCO3 ABG pH ABG Total CO2 ABG O2 Saturation ABG O2 Content ABG Base Excess ABG Hemoglobin ABG Carboxyhemoglobin POC ABG HHb (Measured) ABG Methemoglobin ABG O2 Capacity Hgb O2 Saturation FiO2 Sodium Potassium Chloride Carbon Dioxide Anion Gap BUN Creatinine Est GFR ( Amer) Est GFR (Non-Af Amer) POC Glucose (mg/dL) 165 H 165 H 168 H Random Glucose Calcium Total Bilirubin AST ALT Alkaline Phosphatase Total Protein Albumin Globulin Albumin/Globulin Ratio 01/19/19 01/19/19 01/19/19 05:00 06:25 06:25 WBC 8.0 D RBC 3.12 L Hgb 7.9 L Hct 24.2 L MCV 77.6 L MCH 25.3 MCHC 32.6 RDW 19.2 H Plt Count 84 L Neut % (Auto) 85.0 H Lymph % (Auto) 7.2 L [place] % (Auto) 5.7 Eos % (Auto) 2.0 Baso % (Auto) 0.1 Lymph # (Auto) 0.6 L [place] # (Auto) 0.5 Eos # (Auto) 0.2 Baso # (Auto) 0.01 Absolute Neuts (auto) 6.82 H pCO2 41 pO2 114.0 H HCO3 21.6 ABG pH 7.33 L ABG Total CO2 22.9 ABG O2 Saturation 99.2 H ABG O2 Content 15.2 ABG Base Excess -4.1 L ABG Hemoglobin 11.1 L ABG Carboxyhemoglobin 1.7 H POC ABG HHb (Measured) 0.8 ABG Methemoglobin 1.1 ABG O2 Capacity 15.3 L Hgb O2 Saturation 96.4 FiO2 32.0 Sodium 148 Potassium 4.3 Chloride 115 H Carbon Dioxide 24 Anion Gap 13 BUN 70 H Creatinine 7.1 H Est GFR ( Amer) 7 Est GFR (Non-Af Amer) 6 POC Glucose (mg/dL) Random Glucose 175 H Calcium 8.1 L Total Bilirubin 0.4 AST 79 H D ALT 267 H Alkaline Phosphatase 89 Total Protein 5.3 L Albumin 2.4 L Globulin 3.0 Albumin/Globulin Ratio 0.8 L 01/19/19 08:17 WBC RBC Hgb Hct MCV MCH MCHC RDW Plt Count Neut % (Auto) Lymph % (Auto) [place] % (Auto) Eos % (Auto) Baso % (Auto) Lymph # (Auto) [place] # (Auto) Eos # (Auto) Baso # (Auto) Absolute Neuts (auto) pCO2 pO2 HCO3 ABG pH ABG Total CO2 ABG O2 Saturation ABG O2 Content ABG Base Excess ABG Hemoglobin ABG Carboxyhemoglobin POC ABG HHb (Measured) ABG Methemoglobin ABG O2 Capacity Hgb O2 Saturation FiO2 Sodium Potassium Chloride Carbon Dioxide Anion Gap BUN Creatinine Est GFR ( Amer) Est GFR (Non-Af Amer) POC Glucose (mg/dL) 195 H Random Glucose Calcium Total Bilirubin AST ALT Alkaline Phosphatase Total Protein Albumin Globulin Albumin/Globulin Ratio Fingerstick Blood Sugar Results: 151 Review of Systems - Review of Systems Systems not reviewed;Unavailable: Other (Disoriented) Critical Care Progress Note - Nutrition Nutrition: Nutrition Category Date Time Status Liquid Diet [DIET] Diets 01/17/19 Breakfast Ordered Assessment/Plan - Assessment and Plan (Free Text) Assessment: Mrs Guido is a 73 year old female with a PMHx of uterine ca s/p radiation therapy, CAD s/p 6 stents, IDDM2, CKD, PVD, HTN, chronic iron-deficiency anemia (previously had aranesp infusions), PVD, L-sided carotid stenosis s/p endarterectomy, obesity, LBBB who was found to have partial small bowel obstruction which worsened to high grade obstruction. Currently in ICU on Nitro drip. Cardiovascular -shock 2/2 ischemic bowel, improved -POD #4 exploratory laparotomy, lysis of adhesions, small bowel resection with anastomosis -Amlodipine and Hydralazine resumed for hypertension -Consider transitioning Nitro drip to IVP, cardio recs appreciated -Pain control with Oxy per primary team -CAD s/p 6 stents, PVD, L-sided carotid stenosis s/p endarterectomy, LBBB, HTN, NSTEMI -continue to hold aspirin, imdur, clonidine -Trop: 0.02 -> 0.11 -> 0.15 -> 0.21, likely 2/2 to demand ischemia -echo 01/14/19: Echo: EF 50%, mod concentric LVH, mild tricuspid regurgitation, rsvp 33 -lopressor 5mg ivp q6h -cardiology consulted, Dr Coronel- further recs appreciated Gastrointestinal -High Grade Bowel Obstruction -Ischemic Bowel -Diffuse Abdominal and Pelvic Ascites 2/2 3rd Spacing -CT abd/pelvis 01/13: There is partial small bowel obstruction with multiple fluid-filled loops of bowel in the mid and upper abdomen. There is a transition point in the right lower quadrant -repeat CT abd/pelvis w/ contrast 01/14: * Multiple dilated small bowel loops which appears thick walled; appearance consistent with obstruction. Mesenteric edema. Abdominal pelvic ascites. [place]arm[place]jo catheter within the urinary bladder which contains air, presumably due to recent instrumentation. Cholelithiasis. Fibroid uterus. Small bilateral pleural effusions and bibasilar consolidations. Hiatal hernia and gastroesophageal reflux. Nasogastric tube. Partially imaged cardiomegaly and trace pericardial effusion. -elevated LFTs 2/2 to shock liver continue to improve -monitor on liquid diet as tolerated Pulm -AMS, disorientation -extubated 01/16/19 -currently saturating well on 2L NS, Xopenex PRN in light of hx of tachycardia -Improved neuro status, monitor on Oxy 5 q 6 Renal -GUIDO on CKD -supervisor clam bed Dr Burrell following- decreased IVF D5-LR @ 50 ml/hr. Dose of IV lasix 40 mg given yesterday as CXR with pulm congestion -making urine, 2.2 L out yesterday -anticipate improvement in Cr in next few days per supervisor clam bed, if not improvement patient might need HD -Hyperkalemia, Resolved Infectious Disease -No Leukocytosis -merrem discontinued per ID -urine cx negative -blood cx negative after 4 days -peritoneal fluid cx negative Endocrine -IDDM2 -hold home levemir until patient can tolerate diet -finger checks q6h, currently controlled -hgba1c 6.8 Hematology -Anemia -Hgb responded appropriately s/p 1u pRBC 01/17 -Continue to monitor PPX -pepcid 20mg ivp qd, heparin 5000u sc q8 Patient seen, case reviewed and plan approved by Dr. Hiwot Cevallos. Abiodun Whitfield, PGY-1 <Marybel Cevallos - Last Filed: 01/19/19 16:38> CCU Objective - Vital Signs / Intake & Output Vital Signs (Last 4 hours): Vital Signs Pulse BP 01/19/19 16:00 80 01/19/19 14:40 180/76 H 01/19/19 13:22 83 182/70 H Intake and Output (Last 8hrs): Intake & Output 0501/19/19 01/19/19 06:59 14:59 22:59 Intake Total 650 190 Output Total 880 Balance -230 190 Intake: IV 600 190 Right Internal Jugular 600 Oral 50 Output: Drainage 80 Left Abdomen 80 Urine 800 Urethral ([place]) 800 Other: # Bowel Movements 0 - Medications Active Medications: Active Medications Generic Name Dose Route Start Last Admin Trade Name Freq PRN Reason Stop Dose Admin Benzocaine/Menthol 1 alyssa 01/13/19 18:53 Cepacol Sore Throat MT Q2H PRN Sore Throat Carvedilol 12.5 mg 01/14/19 10:30 01/19/19 11:00 Coreg PO Not Given BID SANAM Famotidine 20 mg 01/13/19 10:00 01/19/19 09:13 Pepcid IVP 20 mg DAILY SANAM Administration Heparin Sodium (Porcine) 5,000 units 01/13/19 14:00 01/19/19 14:39 Heparin SC 5,000 units Q8 SANAM Administration Protocol Home Med 1 unit 01/13/19 10:00 01/19/19 09:13 Home Med PO 1 unit DAILY SANAM Administration Hydralazine HCl 25 mg 01/18/19 10:00 01/19/19 13:22 Apresoline PO 25 mg QID SANAM Administration Hydralazine HCl 5 mg 01/18/19 10:57 01/19/19 14:41 Apresoline IVP 5 mg Q6 PRN Administration Systolic Blood Pressure Insulin Detemir 15 unit 01/13/19 10:00 01/15/19 15:58 Levemir SC Not Given Q12 [facility] Insulin Human Regular 0 units 01/13/19 07:30 01/19/19 08:36 Humulin R Low SC 1 unit ACHS SANAM Administration Protocol Levalbuterol HCl 0.63 mg 01/19/19 09:36 01/19/19 10:07 Xopenex IH 0.63 mg [id number] PRN Administration Shortness of Breath Ondansetron HCl 4 mg 01/13/19 18:21 01/14/19 05:36 Zofran Inj IVP 4 mg Q4H PRN Administration Nausea/Vomiting Oxycodone HCl 5 mg 01/18/19 16:42 01/19/19 15:06 Oxycodone Immediate Release Tab PO 5 mg Q6H PRN Administration Pain, severe (8-10) - Patient Studies Lab Studies: Microbiology Studies 01/15/19 15:28 Gram Stain - Final Peritoneal Fluid Body Fluid Culture - Preliminary NO GROWTH AFTER 3 DAYS 01/14/19 17:47 Blood Culture - Preliminary Blood-Thru Central Line NO GROWTH AFTER 4 DAYS 01/14/19 17:25 Blood Culture - Preliminary Blood-Venous NO GROWTH AFTER 4 DAYS Lab Studies 01/19/19 01/19/19 01/19/19 Range/Units 11:18 08:17 06:25 WBC (4.5-11.0) 10^3/uL RBC (3.5-6.1) 10^6/uL Hgb (12.0-16.0) g/dL Hct (36.0-48.0) % MCV (80.0-105.0) fl MCH (25.0-35.0) pg MCHC (31.0-37.0) g/dl RDW (11.5-14.5) % Plt Count (120.0-450.0) 10^3/uL Neut % (Auto) (50.0-68.0) % Lymph % (Auto) (22.0-35.0) % [place] % (Auto) (1.0-6.0) % Eos % (Auto) (1.5-5.0) % Baso % (Auto) (0.0-3.0) % Lymph # (Auto) (1.2-3.4) [place] # (Auto) (0.1-0.6) Eos # (Auto) (0.0-0.7) Baso # (Auto) (0.0-2.0) K/mm3 Absolute Neuts (auto) (1.4-6.5) pCO2 (35-45) mm/Hg pO2 (80-100) mm/Hg HCO3 (21-28) mmol/L ABG pH (7.35-7.45) ABG Total CO2 (22-28) mmol.L ABG O2 Saturation (95-98) % ABG O2 Content (15-23) ML/dl ABG Base Excess (-2.0-3.0) mmol/L ABG Hemoglobin (11.7-17.4) g/dL ABG Carboxyhemoglobin (0.5-1.5) % POC ABG HHb (Measured) (0-5) % ABG Methemoglobin (0.0-3.0) % ABG O2 Capacity (16-24) mL/dl Hgb O2 Saturation (95.0-98.0) % FiO2 % Sodium 148 (132-148) mmol/L Potassium 4.3 (3.6-5.0) mmol/L Chloride 115 H (98-107) mmol/L Carbon Dioxide 24 (21-33) mmol/L Anion Gap 13 (10-20) BUN 70 H (7-21) mg/dL Creatinine 7.1 H (0.7-1.2) mg/dl Est GFR ( Amer) 7 Est GFR (Non-Af Amer) 6 POC Glucose (mg/dL) 212 H 195 H (65-110) mg/dL Random Glucose 175 H (70-110) mg/dL Calcium 8.1 L (8.4-10.5) mg/dL Total Bilirubin 0.4 (0.2-1.3) mg/dL AST 79 H D (14-36) U/L ALT 267 H (7-56) U/L Alkaline Phosphatase 89 (38-126) U/L Total Protein 5.3 L (5.8-8.3) g/dL Albumin 2.4 L (3.0-4.8) g/dL Globulin 3.0 gm/dL Albumin/Globulin Ratio 0.8 L (1.1-1.8) 01/19/19 01/19/19 01/18/19 Range/Units 06:25 05:00 22:49 WBC 8.0 D (4.5-11.0) 10^3/uL RBC 3.12 L (3.5-6.1) 10^6/uL Hgb 7.9 L (12.0-16.0) g/dL Hct 24.2 L (36.0-48.0) % MCV 77.6 L (80.0-105.0) fl MCH 25.3 (25.0-35.0) pg MCHC 32.6 (31.0-37.0) g/dl RDW 19.2 H (11.5-14.5) % Plt Count 84 L (120.0-450.0) 10^3/uL Neut % (Auto) 85.0 H (50.0-68.0) % Lymph % (Auto) 7.2 L (22.0-35.0) % [place] % (Auto) 5.7 (1.0-6.0) % Eos % (Auto) 2.0 (1.5-5.0) % Baso % (Auto) 0.1 (0.0-3.0) % Lymph # (Auto) 0.6 L (1.2-3.4) [place] # (Auto) 0.5 (0.1-0.6) Eos # (Auto) 0.2 (0.0-0.7) Baso # (Auto) 0.01 (0.0-2.0) K/mm3 Absolute Neuts (auto) 6.82 H (1.4-6.5) pCO2 41 (35-45) mm/Hg pO2 114.0 H (80-100) mm/Hg HCO3 21.6 (21-28) mmol/L ABG pH 7.33 L (7.35-7.45) ABG Total CO2 22.9 (22-28) mmol.L ABG O2 Saturation 99.2 H (95-98) % ABG O2 Content 15.2 (15-23) ML/dl ABG Base Excess -4.1 L (-2.0-3.0) mmol/L ABG Hemoglobin 11.1 L (11.7-17.4) g/dL ABG Carboxyhemoglobin 1.7 H (0.5-1.5) % POC ABG HHb (Measured) 0.8 (0-5) % ABG Methemoglobin 1.1 (0.0-3.0) % ABG O2 Capacity 15.3 L (16-24) mL/dl Hgb O2 Saturation 96.4 (95.0-98.0) % FiO2 32.0 % Sodium (132-148) mmol/L Potassium (3.6-5.0) mmol/L Chloride (98-107) mmol/L Carbon Dioxide (21-33) mmol/L Anion Gap (10-20) BUN (7-21) mg/dL Creatinine (0.7-1.2) mg/dl Est GFR ( Amer) Est GFR (Non-Af Amer) POC Glucose (mg/dL) 168 H (65-110) mg/dL Random Glucose (70-110) mg/dL Calcium (8.4-10.5) mg/dL Total Bilirubin (0.2-1.3) mg/dL AST (14-36) U/L ALT (7-56) U/L Alkaline Phosphatase (38-126) U/L Total Protein (5.8-8.3) g/dL Albumin (3.0-4.8) g/dL Globulin gm/dL Albumin/Globulin Ratio (1.1-1.8) / Range/Units 18:42 WBC (4.5-11.0) 10^3/uL RBC (3.5-6.1) 10^6/uL Hgb (12.0-16.0) g/dL Hct (36.0-48.0) % MCV (80.0-105.0) fl MCH (25.0-35.0) pg MCHC (31.0-37.0) g/dl RDW (11.5-14.5) % Plt Count (120.0-450.0) 10^3/uL Neut % (Auto) (50.0-68.0) % Lymph % (Auto) (22.0-35.0) % [place] % (Auto) (1.0-6.0) % Eos % (Auto) (1.5-5.0) % Baso % (Auto) (0.0-3.0) % Lymph # (Auto) (1.2-3.4) [place] # (Auto) (0.1-0.6) Eos # (Auto) (0.0-0.7) Baso # (Auto) (0.0-2.0) K/mm3 Absolute Neuts (auto) (1.4-6.5) pCO2 (35-45) mm/Hg pO2 (80-100) mm/Hg HCO3 (21-28) mmol/L ABG pH (7.35-7.45) ABG Total CO2 (22-28) mmol.L ABG O2 Saturation (95-98) % ABG O2 Content (15-23) ML/dl ABG Base Excess (-2.0-3.0) mmol/L ABG Hemoglobin (11.7-17.4) g/dL ABG Carboxyhemoglobin (0.5-1.5) % POC ABG HHb (Measured) (0-5) % ABG Methemoglobin (0.0-3.0) % ABG O2 Capacity (16-24) mL/dl Hgb O2 Saturation (95.0-98.0) % FiO2 % Sodium (132-148) mmol/L Potassium (3.6-5.0) mmol/L Chloride (98-107) mmol/L Carbon Dioxide (21-33) mmol/L Anion Gap (10-20) BUN (7-21) mg/dL Creatinine (0.7-1.2) mg/dl Est GFR ( Amer) Est GFR (Non-Af Amer) POC Glucose (mg/dL) 165 H (65-110) mg/dL Random Glucose (70-110) mg/dL Calcium (8.4-10.5) mg/dL Total Bilirubin (0.2-1.3) mg/dL AST (14-36) U/L ALT (7-56) U/L Alkaline Phosphatase (38-126) U/L Total Protein (5.8-8.3) g/dL Albumin (3.0-4.8) g/dL Globulin gm/dL Albumin/Globulin Ratio (1.1-1.8) Laboratory Results - last 24 hr 01/18/19 01/18/19 01/19/19 18:42 22:49 05:00 WBC RBC Hgb Hct MCV MCH MCHC RDW Plt Count Neut % (Auto) Lymph % (Auto) [place] % (Auto) Eos % (Auto) Baso % (Auto) Lymph # (Auto) [place] # (Auto) Eos # (Auto) Baso # (Auto) Absolute Neuts (auto) pCO2 41 pO2 114.0 H HCO3 21.6 ABG pH 7.33 L ABG Total CO2 22.9 ABG O2 Saturation 99.2 H ABG O2 Content 15.2 ABG Base Excess -4.1 L ABG Hemoglobin 11.1 L ABG Carboxyhemoglobin 1.7 H POC ABG HHb (Measured) 0.8 ABG Methemoglobin 1.1 ABG O2 Capacity 15.3 L Hgb O2 Saturation 96.4 FiO2 32.0 Sodium Potassium Chloride Carbon Dioxide Anion Gap BUN Creatinine Est GFR ( Amer) Est GFR (Non-Af Amer) POC Glucose (mg/dL) 165 H 168 H Random Glucose Calcium Total Bilirubin AST ALT Alkaline Phosphatase Total Protein Albumin Globulin Albumin/Globulin Ratio 01/19/19 01/19/19 01/19/19 06:25 06:25 08:17 WBC 8.0 D RBC 3.12 L Hgb 7.9 L Hct 24.2 L MCV 77.6 L MCH 25.3 MCHC 32.6 RDW 19.2 H Plt Count 84 L Neut % (Auto) 85.0 H Lymph % (Auto) 7.2 L [place] % (Auto) 5.7 Eos % (Auto) 2.0 Baso % (Auto) 0.1 Lymph # (Auto) 0.6 L [place] # (Auto) 0.5 Eos # (Auto) 0.2 Baso # (Auto) 0.01 Absolute Neuts (auto) 6.82 H pCO2 pO2 HCO3 ABG pH ABG Total CO2 ABG O2 Saturation ABG O2 Content ABG Base Excess ABG Hemoglobin ABG Carboxyhemoglobin POC ABG HHb (Measured) ABG Methemoglobin ABG O2 Capacity Hgb O2 Saturation FiO2 Sodium 148 Potassium 4.3 Chloride 115 H Carbon Dioxide 24 Anion Gap 13 BUN 70 H Creatinine 7.1 H Est GFR ( Amer) 7 Est GFR (Non-Af Amer) 6 POC Glucose (mg/dL) 195 H Random Glucose 175 H Calcium 8.1 L Total Bilirubin 0.4 AST 79 H D ALT 267 H Alkaline Phosphatase 89 Total Protein 5.3 L Albumin 2.4 L Globulin 3.0 Albumin/Globulin Ratio 0.8 L 01/19/19 11:18 WBC RBC Hgb Hct MCV MCH MCHC RDW Plt Count Neut % (Auto) Lymph % (Auto) [place] % (Auto) Eos % (Auto) Baso % (Auto) Lymph # (Auto) [place] # (Auto) Eos # (Auto) Baso # (Auto) Absolute Neuts (auto) pCO2 pO2 HCO3 ABG pH ABG Total CO2 ABG O2 Saturation ABG O2 Content ABG Base Excess ABG Hemoglobin ABG Carboxyhemoglobin POC ABG HHb (Measured) ABG Methemoglobin ABG O2 Capacity Hgb O2 Saturation FiO2 Sodium Potassium Chloride Carbon Dioxide Anion Gap BUN Creatinine Est GFR ( Amer) Est GFR (Non-Af Amer) POC Glucose (mg/dL) 212 H Random Glucose Calcium Total Bilirubin AST ALT Alkaline Phosphatase Total Protein Albumin Globulin Albumin/Globulin Ratio Critical Care Progress Note - Nutrition Nutrition: Nutrition Category Date Time Status Liquid Diet [DIET] Diets 01/17/19 Breakfast Ordered Addendum Addendum: 01/19/19 16:36 MICU Attending addendum Patient seen and examined with housestaff Agree with resident note above with the follow add/exceptions 73F uterine ca s/p radiation therapy, CAD s/p 6 stents, IDDM2, CKD, PVD, HTN, PVD, L-sided carotid stenosis s/p endarterectomy, obesity, LBBB a/w partial small bowel obstruction which worsened to high grade obstruction, ischemic bowel s/p OR resection Clinically improving, OFF Vasopressor support hypertensive off tridil this am BP still in te 180's systolic. This can be managed out of the ICU however I will give her an addition dose of norvasc 5mg now and increase tomorrows dose from 5mg to 10mg PO Daily cont hydral PRN f/u cardio rec cont with supp O2, duonebs PRN, goal sat 90% caution with narcotics would try 1mg morphne if needed broad spectrum abx, Merrem, Vanco despite ATN and increasing CR, still making urine f/u nepro rec speech swallow eval surgical follow up FULL CODE Rest of care as per above resident note Marybel Cevallos MD MICU Attending
--- NOTE | 2019-01-19 10:59 | CP.PCM.PN ---
<Paddy Moreno - Last Filed: 01/19/19 11:30> Subjective - Date & Time of Evaluation Date of Evaluation: 01/19/19 Time of Evaluation: 08:10 - Subjective Subjective: Paddy Moreno DO PGY1 Hospitalist Progress Note for Dr Hernandez Patient seen and examined at bedside in ICU. She is awake but confused, answers questions, moves extremities. U/O improved, on nitro drip, on CLD. Abdominal pain getting better. No acute events overnight Objective - Vital Signs/Intake and Output Vital Signs (last 24 hours): Temp Pulse Resp BP Pulse Ox 98.6 F 80 38 H 140/63 98 01/19/19 06:00 01/19/19 08:30 01/18/19 12:50 01/19/19 08:30 01/18/19 12:50 Intake and Output: 01/19/19 01/19/19 06:59 18:59 Intake Total 1300 190 Output Total 2250 Balance -950 190 - Medications Medications: Current Medications Amlodipine Besylate (Norvasc) 5 mg PO DAILY [facility] Last Admin: 01/18/19 10:14 Dose: Not Given Benzocaine/Menthol (Cepacol Sore Throat) 1 alyssa MT Q2H PRN PRN Reason: Sore Throat Carvedilol (Coreg) 12.5 mg PO BID [facility] Last Admin: 01/18/19 18:11 Dose: 12.5 mg Famotidine (Pepcid) 20 mg IVP DAILY [facility] Last Admin: 01/19/19 09:13 Dose: 20 mg Heparin Sodium (Porcine) (Heparin) 5,000 units SC Q8 [facility]; Protocol Last Admin: 01/19/19 06:10 Dose: 5,000 units Home Med (Home Med) 1 unit PO DAILY [facility] Last Admin: 01/19/19 09:13 Dose: 1 unit Hydralazine HCl (Apresoline) 5 mg IVP ONCE PRN PRN Reason: Systolic Blood Pressure Last Admin: 01/18/19 03:37 Dose: 5 mg Hydralazine HCl (Apresoline) 25 mg PO QID [facility] Last Admin: 01/18/19 21:12 Dose: 25 mg Hydralazine HCl (Apresoline) 5 mg IVP Q6 PRN PRN Reason: Systolic Blood Pressure Dextrose/Lactated Ringer's (Dextrose 5%/Lactated Ringer's) 1,000 mls @ 50 mls/hr IV .Q20H [facility] Last Admin: 01/19/19 09:15 Dose: 50 mls/hr Nitroglycerin/Dextrose (Nitroglycerin 50 Mg/250 Ml D5w) 50 mg in 250 mls @ 1.5 mls/hr IV .Q24H PRN; Protocol PRN Reason: Systolic Blood Pressure Last Admin: 01/19/19 09:13 Dose: 45 mcg/min, 13.5 mls/hr Insulin Detemir (Levemir) 15 unit SC Q12 [facility] Last Admin: 01/15/19 15:58 Dose: Not Given Insulin Human Regular (Humulin R Low) 0 units SC ACHS [facility]; Protocol Last Admin: 01/19/19 08:36 Dose: 1 unit Levalbuterol HCl (Xopenex) 0.63 mg IH [id number] PRN PRN Reason: Shortness of Breath Last Admin: 01/19/19 10:07 Dose: 0.63 mg Metoprolol Tartrate (Lopressor) 5 mg IVP Q6H [facility] Last Admin: 01/19/19 08:30 Dose: 5 mg Ondansetron HCl (Zofran Inj) 4 mg IVP Q4H PRN PRN Reason: Nausea/Vomiting Last Admin: 01/14/19 05:36 Dose: 4 mg Oxycodone HCl (Oxycodone Immediate Release Tab) 5 mg PO Q6H PRN PRN Reason: Pain, severe (8-10) Last Admin: 01/19/19 06:08 Dose: 5 mg - Labs Labs: 01/19/19 06:25 01/19/19 06:25 PT 18.8 SECONDS (9.4-12.5) H 01/15/19 16:09 INR 1.69 01/15/19 16:09 APTT 29.1 Seconds (26.9-38.3) 01/15/19 16:09 - Additional Findings Additional findings: - Constitutional Appears: awake in NAD - Head Exam Head Exam: ATRAUMATIC, NORMAL INSPECTION, NORMOCEPHALIC - Eye Exam Eye Exam: EOMI, Normal appearance - ENT Exam ENT Exam: Mucous Membranes Moist - Neck Exam Neck Exam: Full ROM, Normal Inspection - Respiratory Exam Respiratory Exam: Clear to Ausculation Bilateral - Cardiovascular Exam Cardiovascular Exam: +S1, +S2 - GI/Abdominal Exam Additional comments: midabdominal incision dressing applied, no blood, discharge seen. THAI drain on LLQ with serosanguinous fluid. - Extremities Exam Additional comments: b/l UL edema to the elbow level - Neurological Exam Neurological Exam: awake, moves extremities, reflexes normal - Psychiatric Exam Psychiatric exam: Depressed - Skin Skin Exam: Dry, Intact, Normal Color Assessment and Plan - Assessment and Plan (Free Text) Assessment: 73 year old female with s/p ex-lap (POD 4) with small bowel resection/anastomosis in the setting of partial SBO complicated by septic shock due to ischemic bowel Plan: s/p ex-lap with bowel resection and anastomosis due to SBO complicated by septic shock -POD 4, patient awake, confused at times, pain controlled with meds -shock liver slowly improving s/p ex-lap -continue meropenem -afebrile, no leukocytosis -continue prtonix, zofran -I/O 1360/2250 in the last 24 hr -blood/urine/abdominal fluid cx negative to date -f/u pathology -clear liquid diet -dietitian referral -encourage OOB -surgery following, Dr Mukherjee Transaminitis: -due to shock liver/hypoperfusion -slowly improving GUIDO on CKD: -due to ATN in the setting of shock -BUN/Cr 70/7.1 (Cr baseline 2.4) patient received one dose of lasix yesterday -improved U/O -improved hyperkalemia -nephrology following Dr Burrell Pleural effusion: -CXR in am shows pleural effusion and pulmonary congestion -continue IVF D5/LR rate to 50 cc/hr -IV lasix 40 mg one dose given HTN, CAD s/p PCI: -normotensive today -resume home meds norvasc 5 qd, coreg 12.5 bid, hydralazine 25 qid -hydralazine 5mg q6 prn -nitoglycerine drip 5 mcg/min- consider weaning off -Cardiology following Dr Chung DM2: -accucheck -ISS-low -HgA1c 6.8 PPX: DVT: SCD, heparin sq GI:pepcid PT CLD Dispo: continue ICU management Case reviewed and plan discussed with attending Dr David Moreno, DO <Nanci Hernandez R - Last Filed: 01/19/19 15:34> Objective - Vital Signs/Intake and Output Vital Signs (last 24 hours): Temp Pulse Resp BP Pulse Ox 98.6 F 83 38 H 180/76 H 98 01/19/19 06:00 01/19/19 13:22 01/18/19 12:50 01/19/19 14:40 01/18/19 12:50 Intake and Output: 01/19/19 01/19/19 06:59 18:59 Intake Total 1300 190 Output Total 2250 Balance -950 190 - Medications Medications: Current Medications Amlodipine Besylate (Norvasc) 5 mg PO DAILY [facility] Last Admin: 01/19/19 13:22 Dose: 5 mg Benzocaine/Menthol (Cepacol Sore Throat) 1 alyssa MT Q2H PRN PRN Reason: Sore Throat Carvedilol (Coreg) 12.5 mg PO BID [facility] Last Admin: 01/19/19 11:00 Dose: Not Given Famotidine (Pepcid) 20 mg IVP DAILY [facility] Last Admin: 01/19/19 09:13 Dose: 20 mg Heparin Sodium (Porcine) (Heparin) 5,000 units SC Q8 [facility]; Protocol Last Admin: 01/19/19 14:39 Dose: 5,000 units Home Med (Home Med) 1 unit PO DAILY [facility] Last Admin: 01/19/19 09:13 Dose: 1 unit Hydralazine HCl (Apresoline) 25 mg PO QID [facility] Last Admin: 01/19/19 13:22 Dose: 25 mg Hydralazine HCl (Apresoline) 5 mg IVP Q6 PRN PRN Reason: Systolic Blood Pressure Last Admin: 01/19/19 14:41 Dose: 5 mg Insulin Detemir (Levemir) 15 unit SC Q12 [facility] Last Admin: 01/15/19 15:58 Dose: Not Given Insulin Human Regular (Humulin R Low) 0 units SC ACHS [facility]; Protocol Last Admin: 01/19/19 08:36 Dose: 1 unit Levalbuterol HCl (Xopenex) 0.63 mg IH [id number] PRN PRN Reason: Shortness of Breath Last Admin: 01/19/19 10:07 Dose: 0.63 mg Ondansetron HCl (Zofran Inj) 4 mg IVP Q4H PRN PRN Reason: Nausea/Vomiting Last Admin: 01/14/19 05:36 Dose: 4 mg Oxycodone HCl (Oxycodone Immediate Release Tab) 5 mg PO Q6H PRN PRN Reason: Pain, severe (8-10) Last Admin: 01/19/19 15:06 Dose: 5 mg - Labs Labs: 01/19/19 06:25 01/19/19 06:25 PT 18.8 SECONDS (9.4-12.5) H 01/15/19 16:09 INR 1.69 01/15/19 16:09 APTT 29.1 Seconds (26.9-38.3) 01/15/19 16:09 Attending/Attestation - Attestation I have personally seen and examined this patient.: Yes I have fully participated in the care of the patient.: Yes I have reviewed all pertinent clinical information, including history, physical exam and plan: Yes Notes (Text): Patient seen and examined by me with resident at approximately 8:20AM on 01/19/19. Case including HPI, physical exam, and assessment and plan discussed with resident. Agree with above with following additions/corrections. Patient is a 73 year old female with past medical history significant for uterine cancer s/p radiation therapy, CAD s/p stent placement, DM2, CKD, PVD, hypertension, chronic anemia, left sided carotid stenosis s/p endarterectomy, and obesity that presented to the emergency room for abdominal pain with nausea and vomiting. Patient with some confusion this morning. Patient states she is having abdominal pain. She states it is worse with coughing. Patient states she does not feel hungry and does not want to eat. Patient denies any chest pain or shortness of breath. No headaches or dizziness. No nausea or vomiting. No fevers or chills. Patient had little stool per patient' nurse. Physical exam: General: Awake and alert lying in bed in no acute distress HEENT: Normocephalic, atraumatic. Extraocular muscles intact. Pupils equal and reactive, no scleral icterus. Oropharynx is pink. Neck is supple. Cardiovascular: Normal rhythm. Normal S1 and S2. No murmurs, rubs, or gallops appreciated Pulmonary: Normal respiratory effort. Decreased breath sounds. No rhonchi, rales, or wheezing appreciated. Auscultated anteriorly. Gastrointestinal: Soft, nondistended. Positive generalized tenderness. Positive bowel sounds all 4 quadrants. No guarding. Obese abdomen. Dressings clean, dry, and intact. Drain left abdomen with serosanguinous output. Musculoskeletal: Moves all extremities. No calf tenderness. Positive lower extremity edema appreciated. Central nervous system: Awake and alert. Following commands. Dermatologic: Skin warm and dry. Assessment and plan: Patient is a 73 year old female with past medical history significant for uterine cancer s/p radiation therapy, CAD s/p stent placement, DM2, CKD, PVD, hypertension, chronic anemia, left sided carotid stenosis s/p endarterectomy, and obesity that presented to the emergency room for abdominal pain with nausea and vomiting. 1. Small bowel obstruction with ischemic bowel and lactic acidosis. s/p septic shock. S/P ex-lap with small bowel resection and primary anastomosis 01/15/19. Blood cultures with no growth. Peritoneal fluid cultures with no growth. ID recommendations appreciated. S/P antibiotics. No leukocytosis. Patient afebrile. Surgical team recommendations appreciated. Continue to monitor drain output. CT abd/pelvis 01/14/19 per radiologist showed multiple dilated small bowel loops which appear thick walled, appearance consistent with obstruction; mesenteric edema; abdominal pelvic ascites; cholelithiasis; small bilateral pleural effusions and bibasilar consolidations; hiatal hernia and GERD; partially imaged cardiomegaly and trace pericardial effusion. 2. Transaminitis. Likely secondary to shock liver. Improving. Continue to monitor trend. 3. GUIDO on CKD. Uptrending creatinine. Continue to monitor ins and outs. Good urine output. Nephrology recommendations appreciated. 4. Vascular congestion. Patient received lasix. Will repeat chest xray in AM. 2d echo per business administration teacher showed left ventricle is normal size, moderated concentric left ventricular hypertrophy, left ventricular function is normal, EF 50-55%, trace aortic regurgitation, trivial mitral regurgitation, mild tricuspid regurgitation, IVC is normal in size and collapses, trace pericardial effusion. 5. Hypertension. Hypertensive urgency. S/P nitro drip. Continue Norvasc, Coreg, Hydralazine 6. CAD. Elevated troponins likely secondary to GUIDO per cardiology. Cardiology recommendations appreciated. 2D echo as above. Continue Coreg. 7. DM2. Continue insulin sliding scale. Continue levemir. Continue to monitor accuchecks. 8. Anemia. S/P 2 units PRBCS. H&H downtrended. Continue to monitor. Transfuse as needed. 9. GI/DVT prophylaxis. Pepcid/heparin 10. Patient is a full code.
--- NOTE | 2019-01-19 11:36 | CP.PCM.PN ---
Subjective - Date & Time of Evaluation Date of Evaluation: 01/19/19 Time of Evaluation: 11:35 - Subjective Subjective: Nephrology Consultation Note: Assessment: stbale SBO with ischemic bowel and lactic acidosis s/p ex lap and small bowel resection 01/15/19 oligoanuric GUIDO due to ATN with hyperkalemia: NOW not oliguric shock liver Diabetic chronic Kidney Disease (E11.22) Hypertensive Chronic Kidney Disease (I12.9) with HTN urgency Chronic Kidney Disease (N18.4) Stage Anemia (D64.9), Hyperphosphatemia (E83.39), Secondary Hyperparathyroidism (E21.1 ), HTN (I12.9) obesity uterine ca s/p radiation therapy CAD s/p stents, PVD, L-sided carotid stenosis s/p endarterectomy Plan No acute need for renal replacement therapy at this time but likely will need soon and will need close follow up. urine output good. stable lytes pt is hemodynamically stable now s/p ex lap and anticipated spontaneous renal recovery over next few days. serum Cr rising for now. Maintain hemodynamics stable. Avoid hypotension. Patient not on ACEI/ARB due to GUIDO and hyperkalemia. gradually resume bp meds Monitor Input/Output, daily weights and renal function with basic metabolic panel PRBC as needed. defer use of TRANG to hem/onc in view of her uterine malignancy surgery following d/c IVF. can give lasix prn No kayexylate in view of GI surgery Dose meds/antibiotics for reduced GFR. Avoid fleets enema/magnesium based laxatives. Avoid nephrotoxins/NSAIDs/ iodinated contrast (unless needed emergently) Glycemic control Further work up/management as per primary team Thanks for allowing me to participate in care of your patient. Will follow patient with you. Please call if any Qs. had d/w team and family bedside Dr Ant Burrell Office: [phone] Chief Complaint; pain abdomen Reason for consult: CKD management HPI: Pt is a 73 y/o F with PMHx of uterine ca s/p radiation therapy which she completed in december 2018, CAD s/p stents, DM, CKD 4 with baseline cr 2.4, PVD, HTN, L-sided carotid stenosis s/p endarterectomy, obesity presented with complaints of pain abdomen and found to have partial SBO. renal consult for CKD management. she feels better at present. pain abdomen is better. denies CP/SOB Denies OTC/herbal meds or NSAIDs ROS: noted ovenight events. pt extubated. confusion better but still unable to provide much ros s/p ex lap 01/15/19 as she had ischemic bowel. Physical Examination: General Appearance: comfortable, in no acute respiratory distress, obese. better appearing Vitals reviewed and noted as below Head; Atraumatic, normocephalic ENT: extubated. oral mucosa dry EYES: Pupils are equal, round and reactive to light accommodation. Eye muscles and extraocular movement intact. Sclera is anicteric. Neck; supple no lymphadenopathy, no thyromegaly or bruit Lungs: improved respiratory rate/effort. Breath sounds bilateral equal and clear anteriorly. reduced at bases Heart: normal rate. s1s2 normal. No rub or gallop. Extremities: 1+ edema. No varicose veins Neurological: Patient is awake alert follow commands but not fully oriented. confused Skin: Warm and dry. Normal turgor. No rash. Palpitation: Normal elasticity for age Abdomen: There is mild abdominal tenderness no organomegaly. s/p ex lap. soft now Psych: deferred MSK: no joint tenderness or swelling. Digits and nails normal, no deformity : kidney or bladder not palpable. has walters Labs/imaging reviewed. Past medical history, past surgical history, family history, social history, allergy reviewed and noted as below Family hx: hx of ESKD in son. Rest non-contributory Objective - Vital Signs/Intake and Output Vital Signs (last 24 hours): Temp Pulse Resp BP Pulse Ox 98.6 F 81 38 H 140/63 98 01/19/19 06:00 01/19/19 11:30 01/18/19 12:50 01/19/19 08:30 01/18/19 12:50 Intake and Output: 01/19/19 01/19/19 06:59 18:59 Intake Total 1300 190 Output Total 2250 Balance -950 190 - Medications Medications: Current Medications Amlodipine Besylate (Norvasc) 5 mg PO DAILY [facility] Last Admin: 01/18/19 10:14 Dose: Not Given Benzocaine/Menthol (Cepacol Sore Throat) 1 alyssa MT Q2H PRN PRN Reason: Sore Throat Carvedilol (Coreg) 12.5 mg PO BID [facility] Last Admin: 01/18/19 18:11 Dose: 12.5 mg Famotidine (Pepcid) 20 mg IVP DAILY [facility] Last Admin: 01/19/19 09:13 Dose: 20 mg Heparin Sodium (Porcine) (Heparin) 5,000 units SC Q8 [facility]; Protocol Last Admin: 01/19/19 06:10 Dose: 5,000 units Home Med (Home Med) 1 unit PO DAILY [facility] Last Admin: 01/19/19 09:13 Dose: 1 unit Hydralazine HCl (Apresoline) 5 mg IVP ONCE PRN PRN Reason: Systolic Blood Pressure Last Admin: 01/18/19 03:37 Dose: 5 mg Hydralazine HCl (Apresoline) 25 mg PO QID [facility] Last Admin: 01/18/19 21:12 Dose: 25 mg Hydralazine HCl (Apresoline) 5 mg IVP Q6 PRN PRN Reason: Systolic Blood Pressure Dextrose/Lactated Ringer's (Dextrose 5%/Lactated Ringer's) 1,000 mls @ 50 mls/hr IV .Q20H [facility] Last Admin: 01/19/19 09:15 Dose: 50 mls/hr Nitroglycerin/Dextrose (Nitroglycerin 50 Mg/250 Ml D5w) 50 mg in 250 mls @ 1.5 mls/hr IV .Q24H [facility]; Protocol PRN Reason: Systolic Blood Pressure Last Admin: 01/19/19 09:13 Dose: 45 mcg/min, 13.5 mls/hr Insulin Detemir (Levemir) 15 unit SC Q12 [facility] Last Admin: 01/15/19 15:58 Dose: Not Given Insulin Human Regular (Humulin R Low) 0 units SC ACHS [facility]; Protocol Last Admin: 01/19/19 08:36 Dose: 1 unit Levalbuterol HCl (Xopenex) 0.63 mg IH [id number] PRN PRN Reason: Shortness of Breath Last Admin: 01/19/19 10:07 Dose: 0.63 mg Metoprolol Tartrate (Lopressor) 5 mg IVP Q6H [facility] Last Admin: 01/19/19 08:30 Dose: 5 mg Ondansetron HCl (Zofran Inj) 4 mg IVP Q4H PRN PRN Reason: Nausea/Vomiting Last Admin: 01/14/19 05:36 Dose: 4 mg Oxycodone HCl (Oxycodone Immediate Release Tab) 5 mg PO Q6H PRN PRN Reason: Pain, severe (8-10) Last Admin: 01/19/19 06:08 Dose: 5 mg - Labs Labs: 01/19/19 06:25 01/19/19 06:25 PT 18.8 SECONDS (9.4-12.5) H 01/15/19 16:09 INR 1.69 01/15/19 16:09 APTT 29.1 Seconds (26.9-38.3) 01/15/19 16:09
--- NOTE | 2019-01-19 12:00 | PN ---
DATE: 01/19/2019 SUBJECTIVE: The patient is in bed. No acute distress, nontoxic. OBJECTIVE: VITAL SIGNS: Temperature is 98, blood pressure is 168/70, respiratory rate of 22. HEENT: Unremarkable. NECK: Supple. LUNGS: Have decreased breath sounds. HEART: Normal S1, S2. ABDOMEN: Soft, nontender. LABORATORY EXAMINATION: Reveals a white count of 8000, hemoglobin of 7.9, platelets of 84. Chemistries reveals a BUN of 70, creatinine of 7.1. LFTs are improving. Urinalysis is noted, and microbiology reveals the peritoneal fluid cultures negative. Nasal MRSA is negative. Blood cultures are negative. Dr. Burrell's progress note is reviewed. Dr. Donovan's progress note from yesterday is reviewed. Dr. Yan Chung's note is reviewed. ASSESSMENT AND PLAN: This is a 73-year-old female, status post exploratory laparoscopy who was admitted with septic shock secondary to small bowel obstruction, ischemic bowel, was taken to the OR, status post exploratory laparoscopy, small bowel resection in a patient with history of uterine cancer with radiation. The patient also with a non-ST elevation myocardial infarction, acute kidney injury on top of chronic kidney injury, diabetes, and peripheral vascular disease, hypertension appears to be improving. The patient is comfortable at this time. White count is normal, and she is afebrile. The patient had surgery on the . Today is postop day #4. We will discontinue the meropenem. No further antibiotics at this point. The patient is at risk for developing nosocomial infections. Esteban Fraga MD
--- NOTE | 2019-01-19 18:32 | PN ---
DATE: 01/19/2019 CARDIOLOGY FOLLOWUP For Homer. SUBJECTIVE: The patient's blood pressure is currently 161/73, on IV Tridil. After her surgery, if the patient is able to take p.o., she should be converted back to her oral antihypertensive medications and tapered off the Tridil. Yan Chung MD
[2019-01-20 07:05] LABS: BASO # 0.01 K/mm3 (0.0-2.0); BASO % 0.2 % (0.0-3.0); EOS # 0.2 (0.0-0.7); HEMOGLOBIN 8.1 g/dL (12.0-16.0); LYMPH # 0.3 (1.2-3.4); LYMPH % 5.2 % (22.0-35.0); MEAN CORPUSCULAR HEMOGLOBIN 25.2 pg (25.0-35.0); MEAN CORPUSCULAR HGB CONC 32.3 g/dl (31.0-37.0); MONO # 0.6 (0.1-0.6); MONO % 10.9 % (1.0-6.0); PLATELET COUNT 88 10^3/uL (120.0-450.0); RBC 3.22 10^6/uL (3.5-6.1); RED CELL DISTRIBUTION WIDTH 19.4 % (11.5-14.5); WHITE BLOOD COUNT 5.4 10^3/uL (4.5-11.0)
[2019-01-20 07:21] LABS: ALB/GLOB RATIO 0.8 (1.1-1.8); ALBUMIN 2.3 g/dL (3.0-4.8)
--- NOTE | 2019-01-20 07:33 | CP.PCM.PN ---
Subjective - Date & Time of Evaluation Date of Evaluation: 01/20/19 Time of Evaluation: 07:47 - Subjective Subjective: General Surgery Note for Dr. Mukherjee Patient seen and examined at bedside. POD #5 s/p ex-lap with small bowel resection for ischemic bowel. Patient on telemetry and had walters removed the day before. She is AAOx2 and had no acute complaints overnight. Afebrile. Patient is tolerating liquids, and is upgraded to a full diet. She complains of abdominal pain and pain at TLC site. Otis shows 115mL. Walters 1300mL. Denies BM, N/V, F/C. ++ flatus. Having a lot of anxiety Objective - Vital Signs/Intake and Output Vital Signs (last 24 hours): Temp Pulse Resp BP Pulse Ox 98 F 75 19 146/76 98 01/20/19 00:00 01/20/19 05:34 01/20/19 00:00 01/20/19 00:00 01/20/19 00:00 Intake and Output: 01/20/19 01/20/19 06:59 18:59 Intake Total 240 Output Total 400 Balance -160 - Medications Medications: Current Medications Amlodipine Besylate (Norvasc) 10 mg PO DAILY [facility] Benzocaine/Menthol (Cepacol Sore Throat) 1 alyssa MT Q2H PRN PRN Reason: Sore Throat Carvedilol (Coreg) 12.5 mg PO BID [facility] Last Admin: 01/19/19 18:02 Dose: 12.5 mg Famotidine (Pepcid) 20 mg IVP DAILY [facility] Last Admin: 01/19/19 09:13 Dose: 20 mg Heparin Sodium (Porcine) (Heparin) 5,000 units SC Q8 [facility]; Protocol Last Admin: 01/20/19 05:50 Dose: 5,000 units Home Med (Home Med) 1 unit PO DAILY [facility] Last Admin: 01/19/19 09:13 Dose: 1 unit Hydralazine HCl (Apresoline) 25 mg PO QID [facility] Last Admin: 01/19/19 22:40 Dose: 25 mg Hydralazine HCl (Apresoline) 5 mg IVP Q6 PRN PRN Reason: Systolic Blood Pressure Last Admin: 01/19/19 14:41 Dose: 5 mg Insulin Detemir (Levemir) 15 unit SC Q12 [facility] Last Admin: 01/15/19 15:58 Dose: Not Given Insulin Human Regular (Humulin R Low) 0 units SC ACHS [facility]; Protocol Last Admin: 01/19/19 21:00 Dose: Not Given Levalbuterol HCl (Xopenex) 0.63 mg IH [id number] PRN PRN Reason: Shortness of Breath Last Admin: 01/19/19 10:07 Dose: 0.63 mg Ondansetron HCl (Zofran Inj) 4 mg IVP Q4H PRN PRN Reason: Nausea/Vomiting Last Admin: 01/14/19 05:36 Dose: 4 mg Oxycodone HCl (Oxycodone Immediate Release Tab) 5 mg PO Q6H PRN PRN Reason: Pain, severe (8-10) Last Admin: 01/19/19 15:06 Dose: 5 mg - Labs Labs: 01/20/19 06:30 01/20/19 06:30 PT 18.8 SECONDS (9.4-12.5) H 01/15/19 16:09 INR 1.69 01/15/19 16:09 APTT 29.1 Seconds (26.9-38.3) 01/15/19 16:09 - Constitutional Appears: Non-toxic, No Acute Distress - ENT Exam ENT Exam: Mucous Membranes Dry - Respiratory Exam Respiratory Exam: absent: Accessory Muscle Use, Respiratory Distress - Cardiovascular Exam Cardiovascular Exam: REGULAR RHYTHM - GI/Abdominal Exam GI & Abdominal Exam: Soft, Tenderness (post-op but appropriate). absent: Distended, Guarding Additional comments: dressing c/d/i - Extremities Exam Extremities Exam: absent: Pedal Edema - Neurological Exam Neurological Exam: Alert, Awake - Psychiatric Exam Psychiatric exam: Anxious Assessment and Plan - Assessment and Plan (Free Text) Assessment: 73F POD#5 s/p SBR for ischemic bowel Plan: Adv to regular diet OK to resume anticoagulation PT needs peripheral access so TLC can be removed Aggressive PT d/c planning will d/w Dr Lonny Talbot, PGY4
[2019-01-20] MEDS: Insulin Reg-LOW-Coverage SC SCH ×4 (07:57→22:19)
--- NOTE | 2019-01-20 11:18 | CP.PCM.PN ---
<Roger Marie - Last Filed: 01/20/19 15:14> Subjective - Date & Time of Evaluation Date of Evaluation: 01/20/19 Time of Evaluation: 09:30 - Subjective Subjective: Infectious disease progress note: Patient seen and examined at bedside. No acute events overnight. C/o mild abd pain 2/2 surgery. No fevers. No other complaints. 12 point ROS performed and negative unless stated above. Objective - Vital Signs/Intake and Output Vital Signs (last 24 hours): Temp Pulse Resp BP Pulse Ox 97.6 F 74 19 132/70 100 01/20/19 06:00 01/20/19 09:36 01/20/19 06:00 01/20/19 09:36 01/20/19 06:00 Intake and Output: 01/20/19 01/20/19 06:59 18:59 Intake Total 240 Output Total 400 Balance -160 - Medications Medications: Current Medications Amlodipine Besylate (Norvasc) 10 mg PO DAILY [facility] Last Admin: 01/20/19 09:35 Dose: 10 mg Benzocaine/Menthol (Cepacol Sore Throat) 1 alyssa MT Q2H PRN PRN Reason: Sore Throat Carvedilol (Coreg) 12.5 mg PO BID [facility] Last Admin: 01/20/19 09:36 Dose: 12.5 mg Famotidine (Pepcid) 20 mg IVP DAILY [facility] Last Admin: 01/20/19 09:36 Dose: 20 mg Heparin Sodium (Porcine) (Heparin) 5,000 units SC Q8 [facility]; Protocol Last Admin: 01/20/19 05:50 Dose: 5,000 units Home Med (Home Med) 1 unit PO DAILY [facility] Last Admin: 01/19/19 09:13 Dose: 1 unit Hydralazine HCl (Apresoline) 25 mg PO QID [facility] Last Admin: 01/20/19 09:36 Dose: 25 mg Hydralazine HCl (Apresoline) 5 mg IVP Q6 PRN PRN Reason: Systolic Blood Pressure Last Admin: 01/19/19 14:41 Dose: 5 mg Insulin Detemir (Levemir) 15 unit SC Q12 [facility] Last Admin: 01/15/19 15:58 Dose: Not Given Insulin Human Regular (Humulin R Low) 0 units SC ACHS [facility]; Protocol Last Admin: 01/20/19 07:57 Dose: Not Given Levalbuterol HCl (Xopenex) 0.63 mg IH [id number] PRN PRN Reason: Shortness of Breath Last Admin: 01/19/19 10:07 Dose: 0.63 mg Ondansetron HCl (Zofran Inj) 4 mg IVP Q4H PRN PRN Reason: Nausea/Vomiting Last Admin: 01/14/19 05:36 Dose: 4 mg Oxycodone HCl (Oxycodone Immediate Release Tab) 5 mg PO Q6H PRN PRN Reason: Pain, severe (8-10) Last Admin: 01/19/19 15:06 Dose: 5 mg - Labs Labs: 01/20/19 06:30 01/20/19 06:30 PT 18.8 SECONDS (9.4-12.5) H 01/15/19 16:09 INR 1.69 01/15/19 16:09 APTT 29.1 Seconds (26.9-38.3) 01/15/19 16:09 - Constitutional Appears: No Acute Distress - Head Exam Head Exam: ATRAUMATIC, NORMOCEPHALIC - Eye Exam Eye Exam: EOMI - ENT Exam ENT Exam: Mucous Membranes Moist - Respiratory Exam Respiratory Exam: Clear to Ausculation Bilateral. absent: Wheezes - Cardiovascular Exam Cardiovascular Exam: REGULAR RHYTHM, +S1, +S2 - GI/Abdominal Exam GI & Abdominal Exam: Soft. absent: Distended, Tenderness Additional comments: Dressing CDI - Extremities Exam Extremities Exam: absent: Calf Tenderness, Pedal Edema - Neurological Exam Neurological Exam: Alert, Awake, Oriented x3 - Psychiatric Exam Psychiatric exam: Normal Mood - Skin Skin Exam: Dry, Warm Assessment and Plan - Assessment and Plan (Free Text) Assessment: Septic shock secondary to bowel obstruction with ischemic bowel S/P resection , Off of pressors Uterine cancer status post radiation Elevated troponins Acute on chronic kidney disease Coronary artery disease Diabetes Referral vascular disease Hypertension History of carotid stenosis S/P endarterectomy Completed tyler, cont to monitor off abx, Patient is at risk for nosocomial infection Follow-up septic work-up, peritoneal fluid neg Follow-up further surgical, cardiology, nephrology, and palliative care consultations Continue to monitor for any changes Case and plan to be reviewed and discussed with Dr. Fraga. <Esteban Fraga - Last Filed: 01/20/19 15:15> Objective - Vital Signs/Intake and Output Vital Signs (last 24 hours): Temp Pulse Resp BP Pulse Ox 97.9 F 74 20 140/72 100 01/20/19 12:00 01/20/19 14:44 01/20/19 12:00 01/20/19 14:44 01/20/19 06:00 Intake and Output: 01/20/19 01/20/19 06:59 18:59 Intake Total 240 Output Total 400 Balance -160 - Medications Medications: Current Medications Amlodipine Besylate (Norvasc) 10 mg PO DAILY [facility] Last Admin: 01/20/19 09:35 Dose: 10 mg Benzocaine/Menthol (Cepacol Sore Throat) 1 alyssa MT Q2H PRN PRN Reason: Sore Throat Carvedilol (Coreg) 12.5 mg PO BID [facility] Last Admin: 01/20/19 09:36 Dose: 12.5 mg Famotidine (Pepcid) 20 mg IVP DAILY [facility] Last Admin: 01/20/19 09:36 Dose: 20 mg Heparin Sodium (Porcine) (Heparin) 5,000 units SC Q8 [facility]; Protocol Last Admin: 01/20/19 14:44 Dose: 5,000 units Home Med (Home Med) 1 unit PO DAILY [facility] Last Admin: 01/19/19 09:13 Dose: 1 unit Hydralazine HCl (Apresoline) 25 mg PO QID [facility] Last Admin: 01/20/19 14:44 Dose: 25 mg Hydralazine HCl (Apresoline) 5 mg IVP Q6 PRN PRN Reason: Systolic Blood Pressure Last Admin: 01/19/19 14:41 Dose: 5 mg Insulin Detemir (Levemir) 15 unit SC Q12 [facility] Last Admin: 01/15/19 15:58 Dose: Not Given Insulin Human Regular (Humulin R Low) 0 units SC ACHS [facility]; Protocol Last Admin: 01/20/19 07:57 Dose: Not Given Levalbuterol HCl (Xopenex) 0.63 mg IH [id number] PRN PRN Reason: Shortness of Breath Last Admin: 01/19/19 10:07 Dose: 0.63 mg Ondansetron HCl (Zofran Inj) 4 mg IVP Q4H PRN PRN Reason: Nausea/Vomiting Last Admin: 01/14/19 05:36 Dose: 4 mg Oxycodone HCl (Oxycodone Immediate Release Tab) 5 mg PO Q6H PRN PRN Reason: Pain, severe (8-10) Last Admin: 01/19/19 15:06 Dose: 5 mg - Labs Labs: 01/20/19 06:30 01/20/19 06:30 PT 18.8 SECONDS (9.4-12.5) H 01/15/19 16:09 INR 1.69 01/15/19 16:09 APTT 29.1 Seconds (26.9-38.3) 01/15/19 16:09 Attending/Attestation - Attestation I have personally seen and examined this patient.: Yes I have fully participated in the care of the patient.: Yes I have reviewed all pertinent clinical information, including history, physical exam and plan: Yes
--- NOTE | 2019-01-20 12:59 | RAD ---
Date of service: 01/20/2019 HISTORY: post sbo, follow up COMPARISON: 01/17/2019 TECHNIQUE: 1 view obtained. FINDINGS: LUNGS: Bibasilar infiltrates and moderate vascular congestion PLEURA: No significant pleural effusion identified, no pneumothorax apparent. CARDIOVASCULAR: No aortic atherosclerotic calcification present. Normal cardiac size. No pulmonary vascular congestion. OSSEOUS STRUCTURES: No significant abnormalities. VISUALIZED UPPER ABDOMEN: Normal. OTHER FINDINGS: None. IMPRESSION: Bibasilar infiltrates and moderate vascular congestion
--- NOTE | 2019-01-20 13:03 | CP.PCM.PN ---
<Paddy Moreno - Last Filed: 01/20/19 13:00> Subjective - Date & Time of Evaluation Date of Evaluation: 01/20/19 Time of Evaluation: 06:30 - Subjective Subjective: Paddy Moreno DO PGY1 Hospitalist Progress Note for Dr Hernandez Patient seen and examined at bedside. She is awake but confused, answers questions, moves extremities. U/O improved, on CLD. Denied abdominal pain, N/V/D, BM. No acute events overnight Objective - Vital Signs/Intake and Output Vital Signs (last 24 hours): Temp Pulse Resp BP Pulse Ox 97.9 F 110 H 20 133/71 100 01/20/19 12:00 01/20/19 12:00 01/20/19 12:00 01/20/19 12:00 01/20/19 06:00 Intake and Output: 01/20/19 01/20/19 06:59 18:59 Intake Total 240 Output Total 400 Balance -160 - Medications Medications: Current Medications Amlodipine Besylate (Norvasc) 10 mg PO DAILY [facility] Last Admin: 01/20/19 09:35 Dose: 10 mg Benzocaine/Menthol (Cepacol Sore Throat) 1 alyssa MT Q2H PRN PRN Reason: Sore Throat Carvedilol (Coreg) 12.5 mg PO BID [facility] Last Admin: 01/20/19 09:36 Dose: 12.5 mg Famotidine (Pepcid) 20 mg IVP DAILY [facility] Last Admin: 01/20/19 09:36 Dose: 20 mg Heparin Sodium (Porcine) (Heparin) 5,000 units SC Q8 [facility]; Protocol Last Admin: 01/20/19 05:50 Dose: 5,000 units Home Med (Home Med) 1 unit PO DAILY [facility] Last Admin: 01/19/19 09:13 Dose: 1 unit Hydralazine HCl (Apresoline) 25 mg PO QID [facility] Last Admin: 01/20/19 09:36 Dose: 25 mg Hydralazine HCl (Apresoline) 5 mg IVP Q6 PRN PRN Reason: Systolic Blood Pressure Last Admin: 01/19/19 14:41 Dose: 5 mg Insulin Detemir (Levemir) 15 unit SC Q12 [facility] Last Admin: 01/15/19 15:58 Dose: Not Given Insulin Human Regular (Humulin R Low) 0 units SC ACHS [facility]; Protocol Last Admin: 01/20/19 07:57 Dose: Not Given Levalbuterol HCl (Xopenex) 0.63 mg IH [id number] PRN PRN Reason: Shortness of Breath Last Admin: 01/19/19 10:07 Dose: 0.63 mg Ondansetron HCl (Zofran Inj) 4 mg IVP Q4H PRN PRN Reason: Nausea/Vomiting Last Admin: 01/14/19 05:36 Dose: 4 mg Oxycodone HCl (Oxycodone Immediate Release Tab) 5 mg PO Q6H PRN PRN Reason: Pain, severe (8-10) Last Admin: 01/19/19 15:06 Dose: 5 mg - Labs Labs: 01/20/19 06:30 01/20/19 06:30 PT 18.8 SECONDS (9.4-12.5) H 01/15/19 16:09 INR 1.69 01/15/19 16:09 APTT 29.1 Seconds (26.9-38.3) 01/15/19 16:09 - Additional Findings Additional findings: - Constitutional Appears: awake in NAD - Head Exam Head Exam: ATRAUMATIC, NORMAL INSPECTION, NORMOCEPHALIC - Eye Exam Eye Exam: EOMI, Normal appearance - ENT Exam ENT Exam: Mucous Membranes Moist - Neck Exam Neck Exam: Full ROM, Normal Inspection - Respiratory Exam Respiratory Exam: Clear to Ausculation Bilateral - Cardiovascular Exam Cardiovascular Exam: +S1, +S2 - GI/Abdominal Exam Additional comments: midabdominal incision dressing applied, no blood, discharge seen. THAI drain on LLQ with serosanguinous fluid. - Extremities Exam Additional comments: b/l UL edema to the elbow level - Neurological Exam Neurological Exam: awake, moves extremities, reflexes normal - Psychiatric Exam Psychiatric exam: Depressed - Skin Skin Exam: Dry, Intact, Normal Color Assessment and Plan - Assessment and Plan (Free Text) Assessment: 73 year old female with s/p ex-lap (POD 5) with small bowel resection/anastomosis in the setting of partial SBO complicated by septic shock due to ischemic bowel. Now on med/surg, improving. Plan: s/p ex-lap with bowel resection and anastomosis due to SBO complicated by septic shock -POD 5, patient awake, confused at times, pain controlled with meds -diet advanced to renal diet -remove TLC, get peripheral access -shock liver slowly improving s/p ex-lap -afebrile, no leukocytosis -continue prtonix, zofran -I/O 730/1415 in the last 24 hr -blood/urine/abdominal fluid cx negative to date -f/u pathology -dietitian referral -encourage OOB, continue PT treatment -surgery following, Dr Mukherjee Transaminitis: -trending down -due to shock liver/hypoperfusion GUIDO on CKD: -due to ATN in the setting of shock -BUN/Cr 73/7.7 (Cr baseline 2.4) -as per nephro recs, can initiata HD if Cr still titrating up -improved hyperkalemia -nephrology following Dr Burrell Pleural effusion: -CXR in am shows pleural effusion and pulmonary congestion -d/c IVF HTN, CAD s/p PCI: -resume home meds norvasc 5 qd, coreg 12.5 bid, hydralazine 25 qid -hydralazine 5mg q6 prn -Cardiology following Dr Chung DM2: -accucheck -ISS-low -HgA1c 6.8 PPX: DVT: SCD, heparin sq GI:pepcid PT: recommended acute rehab. continue to treat Renal diet Case reviewed and plan discussed with attending Dr David Moreno, <Nanci Hernandez R - Last Filed: 01/20/19 15:53> Objective - Vital Signs/Intake and Output Vital Signs (last 24 hours): Temp Pulse Resp BP Pulse Ox 97.9 F 74 20 140/72 100 01/20/19 12:00 01/20/19 14:44 01/20/19 12:00 01/20/19 14:44 01/20/19 06:00 Intake and Output: 01/20/19 01/20/19 06:59 18:59 Intake Total 240 Output Total 400 Balance -160 - Medications Medications: Current Medications Amlodipine Besylate (Norvasc) 10 mg PO DAILY [facility] Last Admin: 01/20/19 09:35 Dose: 10 mg Benzocaine/Menthol (Cepacol Sore Throat) 1 alyssa MT Q2H PRN PRN Reason: Sore Throat Carvedilol (Coreg) 12.5 mg PO BID [facility] Last Admin: 01/20/19 09:36 Dose: 12.5 mg Famotidine (Pepcid) 20 mg IVP DAILY [facility] Last Admin: 01/20/19 09:36 Dose: 20 mg Heparin Sodium (Porcine) (Heparin) 5,000 units SC Q8 [facility]; Protocol Last Admin: 01/20/19 14:44 Dose: 5,000 units Home Med (Home Med) 1 unit PO DAILY [facility] Last Admin: 01/20/19 15:16 Dose: Not Given Hydralazine HCl (Apresoline) 25 mg PO QID [facility] Last Admin: 01/20/19 14:44 Dose: 25 mg Hydralazine HCl (Apresoline) 5 mg IVP Q6 PRN PRN Reason: Systolic Blood Pressure Last Admin: 01/19/19 14:41 Dose: 5 mg Insulin Detemir (Levemir) 15 unit SC Q12 [facility] Last Admin: 01/15/19 15:58 Dose: Not Given Insulin Human Regular (Humulin R Low) 0 units SC ACHS [facility]; Protocol Last Admin: 01/20/19 12:15 Dose: 1 unit Levalbuterol HCl (Xopenex) 0.63 mg IH [id number] PRN PRN Reason: Shortness of Breath Last Admin: 01/19/19 10:07 Dose: 0.63 mg Ondansetron HCl (Zofran Inj) 4 mg IVP Q4H PRN PRN Reason: Nausea/Vomiting Last Admin: 01/14/19 05:36 Dose: 4 mg Oxycodone HCl (Oxycodone Immediate Release Tab) 5 mg PO Q6H PRN PRN Reason: Pain, severe (8-10) Last Admin: 01/19/19 15:06 Dose: 5 mg - Labs Labs: 01/20/19 06:30 01/20/19 06:30 PT 18.8 SECONDS (9.4-12.5) H 01/15/19 16:09 INR 1.69 01/15/19 16:09 APTT 29.1 Seconds (26.9-38.3) 01/15/19 16:09 Attending/Attestation - Attestation I have personally seen and examined this patient.: Yes I have fully participated in the care of the patient.: Yes I have reviewed all pertinent clinical information, including history, physical exam and plan: Yes Notes (Text): Patient seen and examined by me with resident at approximately 11:50AM on 01/20/19. Case including HPI, physical exam, and assessment and plan discussed with resident. Agree with above with following additions/corrections. Patient is a 73 year old female with past medical history significant for uterine cancer s/p radiation therapy, CAD s/p stent placement, DM2, CKD, PVD, hypertension, chronic anemia, left sided carotid stenosis s/p endarterectomy, and obesity that presented to the emergency room for abdominal pain with nausea and vomiting. Patient awake and alert. Oriented times 2. Patient knows her name and that she is in a hospital. States abdominal pain has improved. Pain is worse with movement. Patient is eating. States she feels like she has a "dry throat." Patient denies any chest pain or shortness of breath. No headaches or dizziness. No nausea or vomiting. No fevers or chills. Physical exam: General: Awake and alert lying in bed in no acute distress HEENT: Normocephalic, atraumatic. Extraocular muscles intact. Pupils equal and reactive, no scleral icterus. Oropharynx is pink and moist. Neck is supple. Cardiovascular: Normal rhythm. Normal S1 and S2. No murmurs, rubs, or gallops appreciated Pulmonary: Normal respiratory effort. Decreased breath sounds. Scattered crackles. No wheezing appreciated. Gastrointestinal: Soft, nondistended. Positive generalized tenderness. Positive bowel sounds all 4 quadrants. No guarding. Obese abdomen. Dressings clean, dry, and intact. Drain left abdomen with serodsanguinous output. Musculoskeletal: Moves all extremities. No calf tenderness. Positive lower extremity edema appreciated. Central nervous system: Awake and alert. Following commands. Dermatologic: Skin warm and dry. Assessment and plan: Patient is a 73 year old female with past medical history significant for uterine cancer s/p radiation therapy, CAD s/p stent placement, DM2, CKD, PVD, hypertension, chronic anemia, left sided carotid stenosis s/p endarterectomy, and obesity that presented to the emergency room for abdominal pain with nausea and vomiting. 1. Small bowel obstruction with ischemic bowel and lactic acidosis. S/P septic shock. S/P ex-lap with small bowel resection and primary anastomosis 01/15/19. Diet advanced. ID recommendations appreciated. S/P antibiotics. Blood cultures with no growth. Peritoneal fluid cultures with no growth. No leukocytosis. Afebrile. Surgical team recommendations appreciated. CT abd/pelvis 01/14/19 per radiologist showed multiple dilated small bowel loops which appear thick walled, appearance consistent with obstruction; mesenteric edema; abdominal pelvic ascites; cholelithiasis; small bilateral pleural effusions and bibasilar consolidations; hiatal hernia and GERD; partially imaged cardiomegaly and trace pericardial effusion. 2. Transaminitis. Likely secondary to shock liver. Continues to improve. Continue to monitor trend. 3. GUIDO on CKD. Uptrending creatinine. Patient received one dose of Lasix 80mg. May need HD if creatinine continues to uptrend tomorrow. Continue to monitor ins and outs. Nephrology recommendations appreciated. 4. Vascular congestion. Patient received lasix 80mg today. Chest xray today per radiologist showed bibasilar infiltrates and moderate vascular congestion. 2d echo per skiver heel tap showed left ventricle is normal size, moderated concentric left ventricular hypertrophy, left ventricular function is normal, EF 50-55%, trace aortic regurgitation, trivial mitral regurgitation, mild tricuspid regurgitation, IVC is normal in size and collapses, trace pericardial effusion. 5. Hypertension. Hypertensive urgency. Hypertensive urgency resolved. S/P nitro drip. Continue Coreg and Hydralazine. Norvasc dose increased. 6. CAD. Elevated troponins likely secondary to GUIDO per cardiology. Cardiology recommendations appreciated. 2D echo as above. Continue Coreg. Will hold ASA and Plavix for possible perm-a-cath. 7. DM2. Continue insulin sliding scale. Continue levemir. Continue to monitor accuchecks. 8. Anemia. S/P 2 units PRBCS. H&H stable. Continue to monitor. Transfuse as needed. 9. GI/DVT prophylaxis. Pepcid/heparin 10. Patient is a full code.
--- NOTE | 2019-01-20 14:03 | CP.PCM.PN ---
Subjective - Date & Time of Evaluation Date of Evaluation: 01/20/19 Time of Evaluation: 13:58 - Subjective Subjective: Nephrology Consultation Note: Assessment: stable SBO with ischemic bowel and lactic acidosis s/p ex lap and small bowel resection 01/15/19 oligoanuric GUIDO due to ATN with hyperkalemia: NOW not oliguric shock liver Diabetic chronic Kidney Disease (E11.22) Hypertensive Chronic Kidney Disease (I12.9) with HTN urgency Chronic Kidney Disease (N18.4) Stage Anemia (D64.9), Hyperphosphatemia (E83.39), Secondary Hyperparathyroidism (E21.1 ), HTN (I12.9) obesity uterine ca s/p radiation therapy CAD s/p stents, PVD, L-sided carotid stenosis s/p endarterectomy Plan serum cr continue to rise. d/w pt and daughter that if continue to uptrend even tomorrow, will plan to initiate HD. will try to await for another 24 hrs to see if her cr starts trending down. dose of lasix 80 mg IVP today ordered. Maintain hemodynamics stable. Avoid hypotension. Patient not on ACEI/ARB due to GUIDO and hyperkalemia. gradually resume bp meds Monitor Input/Output, daily weights and renal function with basic metabolic panel PRBC as needed. defer use of TRANG to hem/onc in view of her uterine malignancy surgery following No kayexylate in view of GI surgery Dose meds/antibiotics for reduced GFR. Avoid fleets enema/magnesium based laxatives. Avoid nephrotoxins/NSAIDs/ iodinated contrast (unless needed emergently) Glycemic control Further work up/management as per primary team Thanks for allowing me to participate in care of your patient. Will follow p atient with you. Please call if any Qs. had d/w team and family bedside Dr Ant Burrell Office: [phone] Chief Complaint; pain abdomen Reason for consult: CKD management HPI: Pt is a 73 y/o F with PMHx of uterine ca s/p radiation therapy which she completed in december 2018, CAD s/p stents, DM, CKD 4 with baseline cr 2.4, PVD, HTN, L-sided carotid stenosis s/p endarterectomy, obesity presented with complaints of pain abdomen and found to have partial SBO. renal consult for CKD management. she feels better at present. pain abdomen is better. denies CP/SOB Denies OTC/herbal meds or NSAIDs ROS: noted ovenight events. pt extubated. pt feels better now. denies SOB s/p ex lap 01/15/19 as she had ischemic bowel. Physical Examination: General Appearance: comfortable, in no acute respiratory distress, obese. better appearing Vitals reviewed and noted as below Head; Atraumatic, normocephalic ENT: extubated. oral mucosa dry EYES: Pupils are equal, round and reactive to light accommodation. Eye muscles and extraocular movement intact. Sclera is anicteric. Neck; supple no lymphadenopathy, no thyromegaly or bruit Lungs: improved respiratory rate/effort. Breath sounds bilateral reduced at bases with crackles Heart: normal rate. s1s2 normal. No rub or gallop. Extremities: 1+ edema. No varicose veins Neurological: Patient is awake alert follow commands but not fully oriented. confused Skin: Warm and dry. Normal turgor. No rash. Palpitation: Normal elasticity for age Abdomen: There is mild abdominal tenderness no organomegaly. s/p ex lap. soft now Psych: deferred MSK: no joint tenderness or swelling. Digits and nails normal, no deformity : kidney or bladder not palpable. has walters Labs/imaging reviewed. Past medical history, past surgical history, family history, social history, allergy reviewed and noted as below Family hx: hx of ESKD in son. Rest non-contributory Objective - Vital Signs/Intake and Output Vital Signs (last 24 hours): Temp Pulse Resp BP Pulse Ox 97.9 F 110 H 20 133/71 100 01/20/19 12:00 01/20/19 12:00 01/20/19 12:00 01/20/19 12:00 01/20/19 06:00 Intake and Output: 01/20/19 01/20/19 06:59 18:59 Intake Total 240 Output Total 400 Balance -160 - Medications Medications: Current Medications Amlodipine Besylate (Norvasc) 10 mg PO DAILY [facility] Last Admin: 01/20/19 09:35 Dose: 10 mg Benzocaine/Menthol (Cepacol Sore Throat) 1 alyssa MT Q2H PRN PRN Reason: Sore Throat Carvedilol (Coreg) 12.5 mg PO BID [facility] Last Admin: 01/20/19 09:36 Dose: 12.5 mg Famotidine (Pepcid) 20 mg IVP DAILY [facility] Last Admin: 01/20/19 09:36 Dose: 20 mg Furosemide (Lasix) 80 mg IVP ONCE ONE Stop: 01/20/19 13:57 Heparin Sodium (Porcine) (Heparin) 5,000 units SC Q8 [facility]; Protocol Last Admin: 01/20/19 05:50 Dose: 5,000 units Home Med (Home Med) 1 unit PO DAILY [facility] Last Admin: 01/19/19 09:13 Dose: 1 unit Hydralazine HCl (Apresoline) 25 mg PO QID [facility] Last Admin: 01/20/19 09:36 Dose: 25 mg Hydralazine HCl (Apresoline) 5 mg IVP Q6 PRN PRN Reason: Systolic Blood Pressure Last Admin: 01/19/19 14:41 Dose: 5 mg Insulin Detemir (Levemir) 15 unit SC Q12 [facility] Last Admin: 01/15/19 15:58 Dose: Not Given Insulin Human Regular (Humulin R Low) 0 units SC ACHS [facility]; Protocol Last Admin: 01/20/19 07:57 Dose: Not Given Levalbuterol HCl (Xopenex) 0.63 mg IH [id number] PRN PRN Reason: Shortness of Breath Last Admin: 01/19/19 10:07 Dose: 0.63 mg Ondansetron HCl (Zofran Inj) 4 mg IVP Q4H PRN PRN Reason: Nausea/Vomiting Last Admin: 01/14/19 05:36 Dose: 4 mg Oxycodone HCl (Oxycodone Immediate Release Tab) 5 mg PO Q6H PRN PRN Reason: Pain, severe (8-10) Last Admin: 01/19/19 15:06 Dose: 5 mg - Labs Labs: 01/20/19 06:30 01/20/19 06:30 PT 18.8 SECONDS (9.4-12.5) H 01/15/19 16:09 INR 1.69 01/15/19 16:09 APTT 29.1 Seconds (26.9-38.3) 01/15/19 16:09
[2019-01-20] MEDS: CALCIFEDIOL 30 MCG PO SCH (15:16)
--- NOTE | 2019-01-20 19:54 | PN ---
DATE: 01/20/2019 REASON FOR THE CONSULTATION: Cardiac evaluation, admitted with small bowel obstruction, history of coronary artery disease, peripheral artery disease and status post exploration and 6 feet of jejunum resection. SUBJECTIVE: The patient denies any chest pain, shortness of breath, any palpitation, started clear liquid. OBJECTIVE: GENERAL: Not in apparent distress. Feel little better. VITAL SIGNS: As follows, temperature afebrile, heart 52 and blood pressure 140/72. HEENT: PERRLA. Extraocular muscles intact. NECK: Supple. No carotid bruits. No thyromegaly. CHEST: Clear to auscultation. HEART: S1 and S2, regular. ABDOMEN: Soft. EXTREMITIES: Clubbing and cyanosis negative. LABORATORY DATA: Blood workup has WBC , hemoglobin 8.9, hematocrit 25.1 and platelet count 88. Chemistry shows sodium 140, potassium 4.3, chloride 115, carbon dioxide 24, anion gap of 30, BUN 17, creatinine 0.7, was creatinine 7.1, total protein 5.0 and albumin 2.4. IMPRESSION: A 73-year-old female with past medical history significant for coronary artery disease, status post two stents. History of coronary artery stents on 2008 in [place] and 2016 at [facility], history of peripheral arterial disease, status post three stent in the left leg, history of amputation of the toe, history of left carotid artery endarterectomy followed by stent in the carotid artery because it was not successful carotid endarterectomy, admitted with acute abdomen, ischemic bowel, status post resection 6 feet of jejunum. The patient went into multiorgan dysfunction, remained intubated now the successfully extubated, but still remain, acute kidney injury, chronic renal insufficiency, shock liver and acute liver failure. Now, the patient's liver function improving, but kidney function still elevated. BUN and creatinine is elevated. Initially, the patient was very hypertensive, now the patient's blood pressure is very control. RECOMMENDATION: Continue hydralazine. Continue Coreg. Continue amlodipine and p.r.n. hydralazine. Monitor renal function closely. The patient had an echocardiography done on 01/14/2019 that revealed ejection fraction 50% to 55% trivial MR, trace aortic regurgitation, mild tricuspid regurgitation, RV systolic pressure 33, and calculated ejection 55%. So, far no evidence of acute MS. The patient went into a lot of stress and shock liver, but troponin remains 0.15, 0.21 and 0.23, acute kidney injury 4.6 probably significant unknown, maximum troponin the patient made is 0.78 while creatinine was 5.4, creatine clearance 8 mL so probably it is significant unknown. As mentioned, continue Coreg. Continue amlodipine. Continue hydralazine p.r.n. We will follow with you. Thank you Dr. Hernandez for providing us the opportunity in taking care of the patient, Lizabeth Guido. Paula Coronel MD
[2019-01-20] MEDS: oxyCODONE 5 mg Immediate Release Tab PO PRN (20:21)
[2019-01-21] MEDS: Insulin Reg-LOW-Coverage SC SCH ×4 (07:56→21:58)
--- NOTE | 2019-01-21 08:02 | CP.PCM.PN ---
Subjective - Date & Time of Evaluation Date of Evaluation: 01/21/19 Time of Evaluation: 07:59 - Subjective Subjective: General Surgery: Dr Mukherjee Pt S&E on floor. NAEO. Resting comfortably. Pt does report some abdominal pain, worse with movement, but controlled with medication and improving daily. Was not OOB yesterday, reports no one came to assist her. Otherwise tolerating regular diet, having bowel movements. Denies n/v, f/c, sob or chest pain. Objective - Vital Signs/Intake and Output Vital Signs (last 24 hours): Temp Pulse Resp BP Pulse Ox 97.7 F 60 20 120/64 99 01/21/19 06:00 01/21/19 06:00 01/21/19 06:00 01/21/19 06:00 01/21/19 06:00 Intake and Output: 01/21/19 01/21/19 06:59 18:59 Intake Total 420 Output Total 800 Balance -380 - Medications Medications: Current Medications Amlodipine Besylate (Norvasc) 10 mg PO DAILY [facility] Last Admin: 01/20/19 09:35 Dose: 10 mg Benzocaine/Menthol (Cepacol Sore Throat) 1 alyssa MT Q2H PRN PRN Reason: Sore Throat Carvedilol (Coreg) 12.5 mg PO BID [facility] Last Admin: 01/20/19 18:25 Dose: 12.5 mg Famotidine (Pepcid) 20 mg IVP DAILY [facility] Last Admin: 01/20/19 09:36 Dose: 20 mg Heparin Sodium (Porcine) (Heparin) 5,000 units SC Q8 [facility]; Protocol Last Admin: 01/21/19 05:24 Dose: 5,000 units Home Med (Home Med) 1 unit PO DAILY [facility] Last Admin: 01/20/19 15:16 Dose: Not Given Hydralazine HCl (Apresoline) 25 mg PO QID [facility] Last Admin: 01/20/19 22:25 Dose: 25 mg Hydralazine HCl (Apresoline) 5 mg IVP Q6 PRN PRN Reason: Systolic Blood Pressure Last Admin: 01/19/19 14:41 Dose: 5 mg Insulin Detemir (Levemir) 15 unit SC Q12 [facility] Last Admin: 01/15/19 15:58 Dose: Not Given Insulin Human Regular (Humulin R Low) 0 units SC ACHS [facility]; Protocol Last Admin: 01/21/19 07:56 Dose: Not Given Levalbuterol HCl (Xopenex) 0.63 mg IH [id number] PRN PRN Reason: Shortness of Breath Last Admin: 01/19/19 10:07 Dose: 0.63 mg Ondansetron HCl (Zofran Inj) 4 mg IVP Q4H PRN PRN Reason: Nausea/Vomiting Last Admin: 01/14/19 05:36 Dose: 4 mg Oxycodone HCl (Oxycodone Immediate Release Tab) 5 mg PO Q6H PRN PRN Reason: Pain, severe (8-10) Last Admin: 01/20/19 20:21 Dose: 5 mg - Labs Labs: 01/20/19 06:30 01/20/19 06:30 PT 18.8 SECONDS (9.4-12.5) H 01/15/19 16:09 INR 1.69 01/15/19 16:09 APTT 29.1 Seconds (26.9-38.3) 01/15/19 16:09 - Constitutional Appears: Non-toxic, No Acute Distress - ENT Exam ENT Exam: Mucous Membranes Moist - Respiratory Exam Respiratory Exam: absent: Accessory Muscle Use, Respiratory Distress - Cardiovascular Exam Cardiovascular Exam: REGULAR RHYTHM - GI/Abdominal Exam GI & Abdominal Exam: Soft, Tenderness (incisional). absent: Distended, Firm, Guarding, Rigid, Rebound - Neurological Exam Neurological Exam: Alert, Awake, Oriented x3 - Psychiatric Exam Psychiatric exam: Normal Affect, Normal Mood - Skin Skin Exam: Normal Color, Warm Assessment and Plan - Assessment and Plan (Free Text) Assessment: 73F s/p ex-lap w/ SBR for ischemic bowel Plan: pt doing well please resume plavix/pletal/AC as indicated prior to discharge cont regular diet cont aggressive PT/Incentive spirometry pt will likely need rehab placement clear for discharge from surgical standpoint d/w Dr Lonny Talbot, PGY4
[2019-01-21] MEDS: oxyCODONE 5 mg Immediate Release Tab PO PRN (08:04)
[2019-01-21 09:15] LABS: BASO # 0.01 K/mm3 (0.0-2.0); BASO % 0.1 % (0.0-3.0); EOS # 0.2 (0.0-0.7); EOS % 2.6 % (1.5-5.0); HEMOGLOBIN 8.4 g/dL (12.0-16.0); LYMPH # 0.8 (1.2-3.4); LYMPH % 11.2 % (22.0-35.0); MEAN CELL VOLUME 78.2 fl (80.0-105.0); MEAN CORPUSCULAR HEMOGLOBIN 25.8 pg (25.0-35.0); MEAN CORPUSCULAR HGB CONC 32.9 g/dl (31.0-37.0); MONO # 0.3 (0.1-0.6); MONO % 3.7 % (1.0-6.0); PLATELET COUNT 85 10^3/uL (120.0-450.0); RBC 3.26 10^6/uL (3.5-6.1)
[2019-01-21] MEDS: CALCIFEDIOL 30 MCG PO SCH (09:19)
[2019-01-21 09:25] LABS: ALB/GLOB RATIO 0.8 (1.1-1.8); ALBUMIN 2.4 g/dL (3.0-4.8); CALCIUM 7.9 mg/dL (8.4-10.5)
--- NOTE | 2019-01-21 10:26 | CP.PCM.PN ---
<Roger Marie - Last Filed: 01/21/19 12:38> Subjective - Date & Time of Evaluation Date of Evaluation: 01/21/19 Time of Evaluation: 08:30 - Subjective Subjective: Infectious disease progress note: Patient seen and examined at bedside. No acute events overnight. Denies any abd pain, No fevers. No other complaints. 12 point ROS performed and negative unless stated above. Objective - Vital Signs/Intake and Output Vital Signs (last 24 hours): Temp Pulse Resp BP Pulse Ox 97.7 F 61 20 130/64 99 01/21/19 06:00 01/21/19 09:57 01/21/19 06:00 01/21/19 09:57 01/21/19 06:00 Intake and Output: 01/21/19 01/21/19 06:59 18:59 Intake Total 420 Output Total 800 Balance -380 - Medications Medications: Current Medications Amlodipine Besylate (Norvasc) 10 mg PO DAILY [facility] Last Admin: 01/21/19 09:57 Dose: 10 mg Benzocaine/Menthol (Cepacol Sore Throat) 1 alyssa MT Q2H PRN PRN Reason: Sore Throat Carvedilol (Coreg) 12.5 mg PO BID [facility] Last Admin: 01/21/19 09:57 Dose: 12.5 mg Famotidine (Pepcid) 20 mg IVP DAILY [facility] Last Admin: 01/21/19 09:57 Dose: 20 mg Heparin Sodium (Porcine) (Heparin) 5,000 units SC Q8 [facility]; Protocol Last Admin: 01/21/19 05:24 Dose: 5,000 units Home Med (Home Med) 1 unit PO DAILY [facility] Last Admin: 01/21/19 09:19 Dose: Not Given Hydralazine HCl (Apresoline) 5 mg IVP Q6 PRN PRN Reason: Systolic Blood Pressure Last Admin: 01/19/19 14:41 Dose: 5 mg Insulin Detemir (Levemir) 15 unit SC Q12 [facility] Last Admin: 01/15/19 15:58 Dose: Not Given Insulin Human Regular (Humulin R Low) 0 units SC ACHS [facility]; Protocol Last Admin: 01/21/19 07:56 Dose: Not Given Levalbuterol HCl (Xopenex) 0.63 mg IH [id number] PRN PRN Reason: Shortness of Breath Last Admin: 01/19/19 10:07 Dose: 0.63 mg Ondansetron HCl (Zofran Inj) 4 mg IVP Q4H PRN PRN Reason: Nausea/Vomiting Last Admin: 01/14/19 05:36 Dose: 4 mg Oxycodone HCl (Oxycodone Immediate Release Tab) 5 mg PO Q6H PRN PRN Reason: Pain, severe (8-10) Last Admin: 01/21/19 08:04 Dose: 5 mg - Labs Labs: 01/21/19 09:00 01/21/19 09:00 PT 18.8 SECONDS (9.4-12.5) H 01/15/19 16:09 INR 1.69 01/15/19 16:09 APTT 29.1 Seconds (26.9-38.3) 01/15/19 16:09 - Constitutional Appears: No Acute Distress - Eye Exam Eye Exam: EOMI - Respiratory Exam Respiratory Exam: Clear to Ausculation Bilateral. absent: Rales, Rhonchi, W heezes - Cardiovascular Exam Cardiovascular Exam: REGULAR RHYTHM, +S1, +S2 - GI/Abdominal Exam GI & Abdominal Exam: Soft. absent: Tenderness Additional comments: dressing cdi - Neurological Exam Neurological Exam: Alert, Awake Assessment and Plan - Assessment and Plan (Free Text) Assessment: Septic shock secondary to bowel obstruction with ischemic bowel S/P resection , Off of pressors Uterine cancer status post radiation Elevated troponins Acute on chronic kidney disease Coronary artery disease Diabetes Referral vascular disease Hypertension History of carotid stenosis S/P endarterectomy Completed course of meropenem Cont to monitor off abx - patient is at risk for nosocomial infection Follow-up septic work-up Continue to monitor for any changes Case and plan to be reviewed and discussed with Dr. Fraga. <Esteban Fraga - Last Filed: 01/21/19 17:52> Objective - Vital Signs/Intake and Output Vital Signs (last 24 hours): Temp Pulse Resp BP Pulse Ox 97.5 F L 60 18 106/51 L 99 01/21/19 16:55 01/21/19 16:55 01/21/19 16:55 01/21/19 16:55 01/21/19 16:55 Intake and Output: 01/21/19 01/21/19 06:59 18:59 Intake Total 420 Output Total 800 Balance -380 - Medications Medications: Current Medications Amlodipine Besylate (Norvasc) 10 mg PO DAILY [facility] Last Admin: 01/21/19 09:57 Dose: 10 mg Benzocaine/Menthol (Cepacol Sore Throat) 1 alyssa MT Q2H PRN PRN Reason: Sore Throat Carvedilol (Coreg) 12.5 mg PO BID [facility] Last Admin: 01/21/19 17:12 Dose: Not Given Famotidine (Pepcid) 20 mg PO 1000,2200 [facility] Heparin Sodium (Porcine) (Heparin) 5,000 units SC Q8 [facility]; Protocol Last Admin: 01/21/19 13:48 Dose: Not Given Home Med (Home Med) 1 unit PO DAILY [facility] Last Admin: 01/21/19 09:19 Dose: Not Given Hydralazine HCl (Apresoline) 5 mg IVP Q6 PRN PRN Reason: Systolic Blood Pressure Last Admin: 01/19/19 14:41 Dose: 5 mg Insulin Detemir (Levemir) 15 unit SC Q12 [facility] Last Admin: 01/15/19 15:58 Dose: Not Given Insulin Human Regular (Humulin R Low) 0 units SC ACHS [facility]; Protocol Last Admin: 01/21/19 17:11 Dose: Not Given Levalbuterol HCl (Xopenex) 0.63 mg IH [id number] PRN PRN Reason: Shortness of Breath Last Admin: 01/19/19 10:07 Dose: 0.63 mg Ondansetron HCl (Zofran Inj) 4 mg IVP Q4H PRN PRN Reason: Nausea/Vomiting Last Admin: 01/14/19 05:36 Dose: 4 mg Oxycodone HCl (Oxycodone Immediate Release Tab) 5 mg PO Q6H PRN PRN Reason: Pain, severe (8-10) Last Admin: 01/21/19 08:04 Dose: 5 mg Polyethylene Glycol (Miralax) 17 gm PO DAILY [facility] Last Admin: 01/21/19 17:12 Dose: Not Given - Labs Labs: 01/21/19 09:00 01/21/19 09:00 PT 18.8 SECONDS (9.4-12.5) H 01/15/19 16:09 INR 1.69 01/15/19 16:09 APTT 29.1 Seconds (26.9-38.3) 01/15/19 16:09 Attending/Attestation - Attestation I have personally seen and examined this patient.: Yes I have fully participated in the care of the patient.: Yes I have reviewed all pertinent clinical information, including history, physical exam and plan: Yes
--- NOTE | 2019-01-21 11:25 | CP.PCM.PN ---
Subjective - Date & Time of Evaluation Date of Evaluation: 01/21/19 Time of Evaluation: 11:20 - Subjective Subjective: Nephrology Consultation Note: Assessment: stable SBO with ischemic bowel and lactic acidosis s/p ex lap and small bowel resection 01/15/19 oligoanuric GUIDO due to ATN with hyperkalemia: NOW not oliguric shock liver Diabetic chronic Kidney Disease (E11.22) Hypertensive Chronic Kidney Disease (I12.9) with HTN urgency Chronic Kidney Disease (N18.4) Stage 4 Anemia (D64.9), Hyperphosphatemia (E83.39), Secondary Hyperparathyroidism (E21. 1), HTN (I12.9) obesity uterine ca s/p recent radiation therapy CAD s/p stents, PVD, L-sided carotid stenosis s/p endarterectomy thrombocytopenia Plan d/w pt and daughter that serum cr remains high. pt with fluid overload state and urine output 800 mL/24 hrs despite lasix 80 IV. she is 20 lbs over her initial weight. CXR with pulmonary congestion. Dialysis initiation is indicated at present. pros/cons risks discussed. pt consented and agreed for HD. consulted IR for permacath insertion. SW consult for outpt HD placement (informed) Maintain hemodynamics stable. Avoid hypotension. Patient not on ACEI/ARB due to GUIDO and hyperkalemia. d/c hydralazine Monitor Input/Output, daily weights and renal function with basic metabolic panel PRBC as needed. defer use of TRANG to hem/onc in view of her recent uterine malignancy Dose meds/antibiotics for reduced GFR. Avoid fleets enema/magnesium based la xatives. Avoid nephrotoxins/NSAIDs/ iodinated contrast (unless needed emergently) Glycemic control Further work up/management as per primary team Thanks for allowing me to participate in care of your patient. Will follow patient with you. Please call if any Qs. had d/w team and family bedside Dr Ant Burrell Office: [phone] Chief Complaint; pain abdomen Reason for consult: CKD management HPI: Pt is a 73 y/o F with PMHx of uterine ca s/p radiation therapy which she completed in december 2018, CAD s/p stents, DM, CKD 4 with baseline cr 2.4, PVD, HTN, L-sided carotid stenosis s/p endarterectomy, obesity presented with complaints of pain abdomen and found to have partial SBO. renal consult for CKD management. she feels better at present. pain abdomen is better. denies CP/SOB Denies OTC/herbal meds or NSAIDs ROS: noted ovenight events. pt extubated. pt feels better now. says breathing not normal s/p ex lap 01/15/19 as she had ischemic bowel. Physical Examination: General Appearance: comfortable, in no acute respiratory distress, obese. stable appearing Vitals reviewed and noted as below Head; Atraumatic, normocephalic ENT: extubated. oral mucosa dry EYES: Pupils are equal, round and reactive to light accommodation. Eye muscles and extraocular movement intact. Sclera is anicteric. Neck; supple no lymphadenopathy, no thyromegaly or bruit Lungs: improved respiratory rate/effort. Breath sounds bilateral reduced at bases with crackles Heart: normal rate. s1s2 normal. No rub or gallop. Extremities: 2+ edema. No varicose veins Neurological: Patient is awake alert follow commands but not fully oriented. confused Skin: Warm and dry. Normal turgor. No rash. Palpitation: Normal elasticity for age Abdomen: There is mild abdominal tenderness no organomegaly. s/p ex lap. soft now Psych: improved insight and flat affect/mood MSK: no joint tenderness or swelling. Digits and nails normal, no deformity : kidney or bladder not palpable. Labs/imaging reviewed. Past medical history, past surgical history, family history, social history, allergy reviewed and noted as below Family hx: hx of ESKD in son. Rest non-contributory Objective - Vital Signs/Intake and Output Vital Signs (last 24 hours): Temp Pulse Resp BP Pulse Ox 97.7 F 61 20 130/64 99 01/21/19 06:00 01/21/19 09:57 01/21/19 06:00 01/21/19 09:57 01/21/19 06:00 Intake and Output: 01/21/19 01/21/19 06:59 18:59 Intake Total 420 Output Total 800 Balance -380 - Medications Medications: Current Medications Amlodipine Besylate (Norvasc) 10 mg PO DAILY [facility] Last Admin: 01/21/19 09:57 Dose: 10 mg Benzocaine/Menthol (Cepacol Sore Throat) 1 alyssa MT Q2H PRN PRN Reason: Sore Throat Carvedilol (Coreg) 12.5 mg PO BID [facility] Last Admin: 01/21/19 09:57 Dose: 12.5 mg Famotidine (Pepcid) 20 mg IVP DAILY [facility] Last Admin: 01/21/19 09:57 Dose: 20 mg Heparin Sodium (Porcine) (Heparin) 5,000 units SC Q8 [facility]; Protocol Last Admin: 01/21/19 05:24 Dose: 5,000 units Home Med (Home Med) 1 unit PO DAILY [facility] Last Admin: 01/21/19 09:19 Dose: Not Given Hydralazine HCl (Apresoline) 5 mg IVP Q6 PRN PRN Reason: Systolic Blood Pressure Last Admin: 01/19/19 14:41 Dose: 5 mg Insulin Detemir (Levemir) 15 unit SC Q12 [facility] Last Admin: 01/15/19 15:58 Dose: Not Given Insulin Human Regular (Humulin R Low) 0 units SC ACHS [facility]; Protocol Last Admin: 01/21/19 07:56 Dose: Not Given Levalbuterol HCl (Xopenex) 0.63 mg IH [id number] PRN PRN Reason: Shortness of Breath Last Admin: 01/19/19 10:07 Dose: 0.63 mg Ondansetron HCl (Zofran Inj) 4 mg IVP Q4H PRN PRN Reason: Nausea/Vomiting Last Admin: 01/14/19 05:36 Dose: 4 mg Oxycodone HCl (Oxycodone Immediate Release Tab) 5 mg PO Q6H PRN PRN Reason: Pain, severe (8-10) Last Admin: 01/21/19 08:04 Dose: 5 mg - Labs Labs: 01/21/19 09:00 01/21/19 09:00 PT 18.8 SECONDS (9.4-12.5) H 01/15/19 16:09 INR 1.69 01/15/19 16:09 APTT 29.1 Seconds (26.9-38.3) 01/15/19 16:09
--- NOTE | 2019-01-21 13:09 | CP.PCM.PN ---
<Misty Wallace - Last Filed: 01/21/19 16:59> Subjective - Date & Time of Evaluation Date of Evaluation: 01/21/19 Time of Evaluation: 13:09 - Subjective Subjective: Misty Wallace, PGY2, IM Progress Note for Dr Juan Hernandez: Patient seen and examined at bedside. Patient had some abdominal pain overnight, relieved with Oxycodone. No other acute events overnight. Patient tolerating PO diet well, denies BMs. Patient has been passing flatus. Denies nausea, vomiting, fevers, chills, cp, sob, urinary symptoms, leg swelling. Objective - Vital Signs/Intake and Output Vital Signs (last 24 hours): Temp Pulse Resp BP Pulse Ox 97.5 F L 94 H 18 147/70 97 01/21/19 12:00 01/21/19 12:00 01/21/19 12:00 01/21/19 12:00 01/21/19 12:00 Intake and Output: 01/21/19 01/21/19 06:59 18:59 Intake Total 420 Output Total 800 Balance -380 - Medications Medications: Current Medications Amlodipine Besylate (Norvasc) 10 mg PO DAILY [facility] Last Admin: 01/21/19 09:57 Dose: 10 mg Benzocaine/Menthol (Cepacol Sore Throat) 1 alyssa MT Q2H PRN PRN Reason: Sore Throat Carvedilol (Coreg) 12.5 mg PO BID [facility] Last Admin: 01/21/19 09:57 Dose: 12.5 mg Famotidine (Pepcid) 20 mg IVP DAILY [facility] Last Admin: 01/21/19 09:57 Dose: 20 mg Heparin Sodium (Porcine) (Heparin) 5,000 units SC Q8 [facility]; Protocol Last Admin: 01/21/19 05:24 Dose: 5,000 units Home Med (Home Med) 1 unit PO DAILY [facility] Last Admin: 01/21/19 09:19 Dose: Not Given Hydralazine HCl (Apresoline) 5 mg IVP Q6 PRN PRN Reason: Systolic Blood Pressure Last Admin: 01/19/19 14:41 Dose: 5 mg Insulin Detemir (Levemir) 15 unit SC Q12 [facility] Last Admin: 01/15/19 15:58 Dose: Not Given Insulin Human Regular (Humulin R Low) 0 units SC ACHS [facility]; Protocol Last Admin: 01/21/19 07:56 Dose: Not Given Levalbuterol HCl (Xopenex) 0.63 mg IH [id number] PRN PRN Reason: Shortness of Breath Last Admin: 01/19/19 10:07 Dose: 0.63 mg Ondansetron HCl (Zofran Inj) 4 mg IVP Q4H PRN PRN Reason: Nausea/Vomiting Last Admin: 01/14/19 05:36 Dose: 4 mg Oxycodone HCl (Oxycodone Immediate Release Tab) 5 mg PO Q6H PRN PRN Reason: Pain, severe (8-10) Last Admin: 01/21/19 08:04 Dose: 5 mg - Labs Labs: 01/21/19 09:00 01/21/19 09:00 PT 18.8 SECONDS (9.4-12.5) H 01/15/19 16:09 INR 1.69 01/15/19 16:09 APTT 29.1 Seconds (26.9-38.3) 01/15/19 16:09 - Constitutional Appears: Non-toxic, No Acute Distress - Head Exam Head Exam: ATRAUMATIC, NORMOCEPHALIC - Eye Exam Eye Exam: EOMI, PERRL. absent: Conjunctival injection, Nystagmus, Scleral icterus Pupil Exam: NORMAL ACCOMODATION, PERRL. absent: Irregular, Unequal - ENT Exam ENT Exam: Mucous Membranes Moist - Neck Exam Neck Exam: Full ROM - Respiratory Exam Respiratory Exam: Clear to Ausculation Bilateral, NORMAL BREATHING PATTERN. absent: Accessory Muscle Use, Rhonchi, Wheezes - Cardiovascular Exam Cardiovascular Exam: +S1, +S2. absent: Murmur - GI/Abdominal Exam GI & Abdominal Exam: Soft, Normal Bowel Sounds. absent: Distended, Firm, Guarding, Rigid, Tenderness, Mass, Organomegaly, Rebound Additional comments: Dressings clean, dry, in place, no drainage noted. - Extremities Exam Extremities Exam: Normal Inspection. absent: Calf Tenderness, Pedal Edema - Back Exam Back Exam: NORMAL INSPECTION. absent: CVA tenderness (L), CVA tenderness (R) - Neurological Exam Neurological Exam: Alert, Awake Additional comments: follows commands. - Psychiatric Exam Psychiatric exam: Normal Affect - Skin Skin Exam: Dry, Normal Color, Warm Assessment and Plan - Assessment and Plan (Free Text) Assessment: This is a 73 year old female with PMH uterine cancer s/p radiation therapy, CAD x stents, DM, CKD, PVD, chronic anemia, admitted for SBO s/p small bowel resection/anastomosis. Patient's hospital course complicated by hypotension, resulting in GUIDO on CKD, transaminitis. Patient is POD#6, tolerating PO diet well, LFTs gradually improving. Patient's Creatinine remains elevated, will undergo permacath insertion and start hemodialysis as per Nephro: S/o 73 year old female with s/p ex-lap (POD 5) with small bowel resection/anastomosis in the setting of partial SBO complicated by septic shock due to ischemic bowel. Now on med/surg, improving. GUIDO on CKD: - likely ATN - Cr continue to uptrend, 7.8 today. - UO: 800 cc within past 24 hrs after 80 mg IV lasix dose given by nephro - Nephro on board, recommends permacath insertion and starting HD - Dr Jenkins on board. Scheduled for permacath insertion today. will f/u. - Continue to monitor. S/p bowel resection and anastomosis due to SBO, complicated by shock: - Blood and urine cultures negative - s/p Merrem, will monitor off antibiotics as per ID. - Tolerating PO diet well - afebrile, no leukocytosis - Surgery on board. cleared for discharge from their standpoint. - will monitor -POD 5, patient awake, confused at times, pain controlled with meds -diet advanced to renal diet -remove TLC, get peripheral access -shock liver slowly improving s/p ex-lap -afebrile, no leukocytosis -continue prtonix, zofran -I/O 730/1415 in the last 24 hr -blood/urine/abdominal fluid cx negative to date -f/u pathology -dietitian referral Transaminitis 2/2 likely shock liver: - LFTs trending down - monitor HTN, CAD s/p PCI: - continue norvasc 10 q day, coreg 12.5 bid - hydralazine 5mg IV q6 prn - Cardiology on board, appreciate recs. Type 2 DM: - BG 133-194 - HgA1c 6.8 - BG ACHS - ISS-low - monitor PPX: heparin sq, pepcid PT: [facility] Renal diet Dispo: awaiting placement at [facility] with dialysis sessions transportation. Case seen and discussed with Dr Juan Hernandez. <Nanci Hrenandez - Last Filed: 01/21/19 21:24> Objective - Vital Signs/Intake and Output Vital Signs (last 24 hours): Temp Pulse Resp BP Pulse Ox 97.5 F L 56 L 18 106/51 L 99 01/21/19 16:55 01/21/19 18:00 01/21/19 16:55 01/21/19 16:55 01/21/19 16:55 - Medications Medications: Current Medications Amlodipine Besylate (Norvasc) 10 mg PO DAILY [facility] Last Admin: 01/21/19 09:57 Dose: 10 mg Benzocaine/Menthol (Cepacol Sore Throat) 1 alyssa MT Q2H PRN PRN Reason: Sore Throat Carvedilol (Coreg) 12.5 mg PO BID [facility] Last Admin: 01/21/19 17:12 Dose: Not Given Famotidine (Pepcid) 20 mg PO 1000,2200 [facility] Heparin Sodium (Porcine) (Heparin) 5,000 units SC Q8 [facility]; Protocol Last Admin: 01/21/19 13:48 Dose: Not Given Home Med (Home Med) 1 unit PO DAILY [facility] Last Admin: 01/21/19 09:19 Dose: Not Given Hydralazine HCl (Apresoline) 5 mg IVP Q6 PRN PRN Reason: Systolic Blood Pressure Last Admin: 01/19/19 14:41 Dose: 5 mg Insulin Detemir (Levemir) 15 unit SC Q12 [facility] Last Admin: 01/15/19 15:58 Dose: Not Given Insulin Human Regular (Humulin R Low) 0 units SC ACHS [facility]; Protocol Last Admin: 01/21/19 17:11 Dose: Not Given Levalbuterol HCl (Xopenex) 0.63 mg IH [id number] PRN PRN Reason: Shortness of Breath Last Admin: 01/19/19 10:07 Dose: 0.63 mg Ondansetron HCl (Zofran Inj) 4 mg IVP Q4H PRN PRN Reason: Nausea/Vomiting Last Admin: 01/14/19 05:36 Dose: 4 mg Oxycodone HCl (Oxycodone Immediate Release Tab) 5 mg PO Q6H PRN PRN Reason: Pain, severe (8-10) Last Admin: 01/21/19 08:04 Dose: 5 mg Polyethylene Glycol (Miralax) 17 gm PO DAILY [facility] Last Admin: 01/21/19 17:12 Dose: Not Given - Labs Labs: 01/21/19 09:00 01/21/19 09:00 PT 18.8 SECONDS (9.4-12.5) H 01/15/19 16:09 INR 1.69 01/15/19 16:09 APTT 29.1 Seconds (26.9-38.3) 01/15/19 16:09 Attending/Attestation - Attestation I have personally seen and examined this patient.: Yes I have fully participated in the care of the patient.: Yes I have reviewed all pertinent clinical information, including history, physical exam and plan: Yes Notes (Text): Patient seen and examined by me with resident at approximately 10:55AM on 01/21/19. Case including HPI, physical exam, and assessment and plan discussed with resident. Agree with above with following additions/corrections. Patient awake and alert. States she is feeling ok. Patient states that abdominal pain has improved. Patient states the pain is worse with coughing. Also complains of some lower back pain. Patient understands that she needs dialysis. Patient denies chest pain or shortness of breath. No headaches or dizziness. No nausea or vomiting. No fevers or chills.Patient denies bowel movements. Physical exam: General: Awake and alert lying in bed in no acute distress HEENT: Normocephalic, atraumatic. Extraocular muscles intact. Pupils equal and reactive, no scleral icterus. Oropharynx is pink and moist. Neck is supple. Cardiovascular: Normal rhythm. Normal S1 and S2. No murmurs, rubs, or gallops appreciated Pulmonary: Normal respiratory effort. Decreased breath sounds. Scattered crackles. No wheezing appreciated. Gastrointestinal: Soft, nondistended. Positive generalized tenderness. Positive bowel sounds all 4 quadrants. No guarding. Obese abdomen. Dressings clean, dry, and intact. Musculoskeletal: Moves all extremities. No calf tenderness. Positive bilateral lower extremity with mild pitting edema. Central nervous system: Awake and alert. No focal deficits appreciated Dermatologic: Skin warm and dry. Assessment and plan: Patient is a 73 year old female with past medical history significant for uterine cancer s/p radiation therapy, CAD s/p stent placement, DM2, CKD, PVD, hypertension, chronic anemia, left sided carotid stenosis s/p endarterectomy, and obesity that presented to the emergency room for abdominal pain with nausea and vomiting. 1. GUIDO on CKD. Creatinine continues to uptrend. Decreased urine output s/p Lasix yesterday. Discussed with hand touch up painter. Patient for perm-a-cath and dialysis today. Nephrology recommendations appreciated. 2. Small bowel obstruction with ischemic bowel and lactic acidosis. S/P septic shock. S/P ex-lap with small bowel resection and primary anastomosis 01/15/19. Blood cultures with no growth. Peritoneal fluid cultures with no growth. S/P antibiotics. Remains afebrile, no leukocytosis. ID recommendations appreciated. Surgical team recommendations appreciated. 3. Transaminitis. Likely secondary to shock liver. Resolving. Continue to monitor. 4. Vascular congestion. S/P lasix 80mg yesterday. Patient likely to have dialysis today. 2d echo per automatic print developer showed left ventricle is normal size, moderated concentric left ventricular hypertrophy, left ventricular function is normal, EF 50-55%, trace aortic regurgitation, trivial mitral regurgitation, mild tricuspid regurgitation, IVC is normal in size and collapses, trace pericardial effusion. 5. Hypertension. Hypertensive urgency. Hypertensive urgency resolved. S/P nitro drip. Continue Coreg, Hydralazine, and Norvasc 6. CAD. Elevated troponins likely secondary to GUIDO per cardiology. Cardiology recommendations appreciated. 2D echo as above. Continue Coreg. ASA and Plavix for perm-a-cath today. 7. DM2. Continue insulin sliding scale. Continue levemir. Continue to monitor accuchecks. 8. Anemia. S/P 2 units PRBCS. H&H stable. Continue to monitor. Transfuse as needed. 9. GI/DVT prophylaxis. Pepcid/heparin 10. Patient is a full code. Case was discussed in detail with the patient regarding current diagnosis and treatment plan. All questions answered.
[2019-01-21] MEDS ORDERED: Lidocaine PF 2% (5 ml) Inj (For Cardiac Arrhy) ONE ×2 (13:24→15:08)
[2019-01-21] MEDS ORDERED: Vancomycin 500 mg (Oral/Rectal USE) ONE (13:39)
--- NOTE | 2019-01-21 14:45 | PN ---
DATE: 01/21/2019 REASON FOR CONSULTATION AND FOLLOWUP: Cardiac evaluation, admitted with small bowel obstruction, history of coronary artery disease, peripheral artery disease and status post exploration and 6 feet of jejunum resection. Started p.o. diet and medications. SUBJECTIVE: The patient denies any chest pain, shortness of breath, any palpitation. She does not appear to be in any apparent distress. OBJECTIVE: VITAL SIGNS: Temperature afebrile, heart rate 60 and blood pressure 120/64. HEENT: PERRLA. Extraocular muscles intact. NECK: Supple. No carotid bruits. No thyromegaly. CHEST: Clear to auscultation. HEART: S1 and S2, regular. ABDOMEN: Soft. EXTREMITIES: Clubbing and cyanosis negative. LABORATORY DATA: Blood workup; WBC 7, hemoglobin 8.9, hematocrit 25.5 and platelet count 85. Chemistry shows sodium 141, potassium 4.2, chloride 109, carbon dioxide 24, anion gap of 12, BUN 18, creatinine 7.8, total protein 5.6 and albumin 2.4, albumin globulin ratio 0.8. 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 The patient went into acute multiorgan dysfunction, including acute kidney injury, creatinine 7.4. The patient's recent echo done 01/14/2019, that revealed ejection fraction 50-55%, trivial mitral regurgitation, trace aortic regurgitation, mild tricuspid regurgitation, right ventricular systolic pressure 33, and calculated ejection 55%. No evidence of acute myocardial infarction. Though the patient has a borderline troponin of 0.15, 0.21 and 0.23, maximum in the phase of acute kidney injury and stress, most likely secondary to manual supply mismatch and renal insufficiency. No evidence of further episode of chest pain noted. Maximum troponin bump was 0.78 with a creatinine of 5.4, and creatine clearance 8 mL, probably not significant. RECOMMENDATION: Continue Coreg. Continue amlodipine. Continue hydralazine. Avoid nephrotoxic medication. Next colonoscopy as per the the patient is offered a stress test report at 6 weeks, but the patient wanted to do with Dr. Monson, and the patient has an appoint and followup with Dr. Monson, her model and dye person. If it is made that the patient had last stent in 2015 at [place]; however, the patient needs stress test to follow up, the patient agreed and said that she will follow up with her model and dye person. In the interim, continue aggressive medical treatment, avoid nephrotoxic medication. Once the patient is stable, plan to discharge to rehab facility and monitor renal function. Continue DVT prophylaxis. We will follow up with you. Avoid nephrotoxic medications. Monitor renal function closely. Thank you Dr. Hernandez for providing us the opportunity in taking care of the patient, Hay Barone. Paula Coronel MD
[2019-01-21] MEDS ORDERED: Midazolam 2 MG/2 ML VIAL ONE ×2 (15:03→15:27)
[2019-01-21] MEDS ORDERED: HYDROmorphone 0.5 mg/0.5 ml ISec ONE ×3 (16:29→17:00)
[2019-01-21] MEDS ORDERED: HYDROmorphone 0.5 mg/0.5 ml ISec IVP ONE ×3 (16:30→17:00)
[2019-01-21] MEDS ORDERED: HYDROmorphone 0.5 mg/0.5 ml ISec IVP STA ×2 (16:33→16:47)
[2019-01-21] MEDS: POLYETHYLENE GLYCOL 3350 17 GM/Dose PACKET PO SCH (17:12)
--- NOTE | 2019-01-21 18:02 | VASCULAR ---
PROCEDURE: Ultrasound and fluoroscopically placed right upper extremity PICC line. HISTORY: Sepsis. End-stage renal disease. Limited IV access. Needs PICC line. PHYSICIAN(S): Yan Jenkins MD. TECHNIQUE: The relative risks and indications of the procedure were explained to the patient and consent obtained. The patient was placed supine on the arteriogram table and the right arm prepped and draped in the usual sterile fashion. A tourniquet was applied to the right axilla. 1% Xylocaine was used to anesthetize the skin and soft tissues at the puncture site above the elbow. The right brachial vein was punctured under direct ultrasound guidance with a micropuncture set. A 0.018 guidewire was advanced centrally and used to measure the length to the SVC/RA junction. A 5 [place]ian dual lumen PICC line 41 cm long was advanced to the SVC/RA junction. The catheter was flushed and secured. The patient tolerated the procedure well. IMPRESSION: 1. Ultrasound and fluoroscopically placed right upper extremity PICC line. A 5 [place]ian dual lumen PICC line 41 cm long was advanced to the SVC/RA junction.
--- NOTE | 2019-01-21 18:03 | VASCULAR ---
PROCEDURE: Ultrasound and fluoroscopic tunneled right IJ dialysis catheter. CLINICAL HISTORY: ESRD PHYSICIAN(S): Yan Jenkins M.D. TECHNIQUE: The relative risks and indications for the procedure were explained to the patient and informed written consent obtained. The patient was placed supine on the arteriography table and the right neck/chest was prepped and draped in the usual sterile fashion. 1% Xylocaine was used to anesthetize the skin and soft tissues at the puncture site. Conscious sedation and monitoring were provided throughout the procedure by a nurse. Under direct ultrasound guidance, the rightinternal jugular vein was punctured with a micropuncture set. A 0.035 Glidewire was advanced into the IVC. Sequential dilatation was performed with subsequent placement of a 28cm Nextgen catheter with its tip in the right atrium. A retrograde tunnel below the right clavicle was performed. The catheter was trimmed and the hub attached. Both ports aspirate and inject easily. The catheter was secured and a dressing applied. The patient tolerated the procedure well. IMPRESSION: 1. Ultrasound and fluoroscopically placed right IJ tunneled dialysis catheter.
[2019-01-21 21:47] LABS: HEPATITIS B SURFACE AG Negative (NEGATIVE)
[2019-01-21 21:52] LABS: HEPATITIS B CORE AB NEGATIVE (NEGATIVE)
[2019-01-22 06:11] VITALS: O2SAT 96
[2019-01-22 06:20] LABS: BASO # 0.01 K/mm3 (0.0-2.0); BASO % 0.1 % (0.0-3.0); EOS # 0.2 (0.0-0.7); EOS % 2.4 % (1.5-5.0); HEMOGLOBIN 7.7 g/dL (12.0-16.0); LYMPH # 0.9 (1.2-3.4); LYMPH % 12.4 % (22.0-35.0); MEAN CELL VOLUME 77.7 fl (80.0-105.0); MEAN CORPUSCULAR HEMOGLOBIN 25.2 pg (25.0-35.0); MEAN CORPUSCULAR HGB CONC 32.5 g/dl (31.0-37.0); MONO # 0.4 (0.1-0.6); MONO % 5.6 % (1.0-6.0); PLATELET COUNT 82 10^3/uL (120.0-450.0); RBC 3.05 10^6/uL (3.5-6.1); RED CELL DISTRIBUTION WIDTH 18.9 % (11.5-14.5); WHITE BLOOD COUNT 7.4 10^3/uL (4.5-11.0)
[2019-01-22 06:52] LABS: ALB/GLOB RATIO 0.8 (1.1-1.8); ALBUMIN 2.4 g/dL (3.0-4.8); CALCIUM 7.4 mg/dL (8.4-10.5)
[2019-01-22] MEDS: Insulin Reg-LOW-Coverage SC SCH ×3 (08:26→18:09)
[2019-01-22] MEDS ORDERED: Darbepoetin Alfa 100 mcg/ml Inj IVP ONE (08:54)
--- NOTE | 2019-01-22 10:35 | CP.PCM.PN ---
Subjective - Date & Time of Evaluation Date of Evaluation: 01/22/19 Time of Evaluation: 09:35 - Subjective Subjective: General Surgery Dr. Mukherjee Pt seen and examined @bedside. Pt had RIJ TLC removed yesterday. RUE PICC was placed. Pt also had Permacath placed by IR. Pt tolerated well. No acute events overnight. Pt has no complaints this AM. pain well controlled. denies F/C, N/V. tolerating diet. (-)BM (+)Flatus. Pt is scheduled for HD MWF w/ outpatient site arranged. awaiting insurance approval for [facility]. Objective - Vital Signs/Intake and Output Vital Signs (last 24 hours): Temp Pulse Resp BP Pulse Ox 98.6 F 67 20 123/65 96 01/22/19 06:00 01/22/19 06:00 01/22/19 06:00 01/22/19 06:00 01/22/19 06:00 Intake and Output: 01/22/19 01/22/19 06:59 18:59 Intake Total 360 Output Total 450 Balance -90 - Medications Medications: Current Medications Benzocaine/Menthol (Cepacol Sore Throat) 1 alyssa MT Q2H PRN PRN Reason: Sore Throat Carvedilol (Coreg) 12.5 mg PO BID [facility] Last Admin: 01/21/19 17:12 Dose: Not Given Docusate Sodium (Colace) 100 mg PO DAILY [facility] Famotidine (Pepcid) 20 mg PO 1000,2200 [facility] Last Admin: 01/21/19 21:58 Dose: 20 mg Furosemide (Lasix) 40 mg IV ONCE ONE Stop: 01/22/19 15:01 Heparin Sodium (Porcine) (Heparin) 5,000 units SC Q8 [facility]; Protocol Last Admin: 01/22/19 05:08 Dose: 5,000 units Home Med (Home Med) 1 unit PO DAILY [facility] Last Admin: 01/21/19 09:19 Dose: Not Given Hydralazine HCl (Apresoline) 5 mg IVP Q6 PRN PRN Reason: Systolic Blood Pressure Last Admin: 01/19/19 14:41 Dose: 5 mg Insulin Detemir (Levemir) 15 unit SC Q12 [facility] Last Admin: 01/15/19 15:58 Dose: Not Given Insulin Human Regular (Humulin R Low) 0 units SC ACHS [facility]; Protocol Last Admin: 01/22/19 08:26 Dose: 1 unit Levalbuterol HCl (Xopenex) 0.63 mg IH [id number] PRN PRN Reason: Shortness of Breath Last Admin: 01/19/19 10:07 Dose: 0.63 mg Ondansetron HCl (Zofran Inj) 4 mg IVP Q4H PRN PRN Reason: Nausea/Vomiting Last Admin: 01/14/19 05:36 Dose: 4 mg Oxycodone HCl (Oxycodone Immediate Release Tab) 5 mg PO Q6H PRN PRN Reason: Pain, severe (8-10) Last Admin: 01/21/19 08:04 Dose: 5 mg Polyethylene Glycol (Miralax) 17 gm PO DAILY [facility] Last Admin: 01/21/19 17:12 Dose: Not Given Vitamin B Complex/Vit C/Folic Acid (Nephro-Mohinder) 1 tab PO 0800 [facility] - Labs Labs: 01/22/19 06:00 01/22/19 06:00 PT 18.8 SECONDS (9.4-12.5) H 01/15/19 16:09 INR 1.69 01/15/19 16:09 APTT 29.1 Seconds (26.9-38.3) 01/15/19 16:09 - Constitutional Appears: Non-toxic, No Acute Distress - Head Exam Head Exam: NORMAL INSPECTION - Eye Exam Eye Exam: Normal appearance - ENT Exam ENT Exam: Mucous Membranes Moist - Respiratory Exam Respiratory Exam: NORMAL BREATHING PATTERN. absent: Accessory Muscle Use, Respiratory Distress - Cardiovascular Exam Cardiovascular Exam: absent: Bradycardia, Tachycardia - GI/Abdominal Exam GI & Abdominal Exam: Soft, Tenderness (appropriate TTP liza-incisional). absent: Distended, Firm, Guarding, Rigid, Rebound Additional comments: incision c/d/i - Extremities Exam Extremities Exam: Normal Inspection - Neurological Exam Neurological Exam: Alert, Awake, Oriented x3 - Psychiatric Exam Psychiatric exam: Normal Affect, Normal Mood - Skin Skin Exam: Dry, Intact, Normal Color, Warm Assessment and Plan - Assessment and Plan (Free Text) Assessment: 73 y/o F s/p ex-lap w/ SBR for ischemic bowel Plan: - resume plavix/pletal/AC per PMD prior to discharge - cont regular diet - cont aggressive PT/Incentive spirometry - f/u SW for [facility] approval - HD as per Nephro - clear for discharge from surgical standpoint Pt discussed w/ Dr Lonny Boothe PGY3
[2019-01-22] MEDS: CALCIFEDIOL 30 MCG PO SCH (11:02)
[2019-01-22] MEDS: POLYETHYLENE GLYCOL 3350 17 GM/Dose PACKET PO SCH (11:08)
--- NOTE | 2019-01-22 12:34 | CP.PCM.PN ---
<Roger Marie - Last Filed: 01/22/19 14:55> Subjective - Date & Time of Evaluation Date of Evaluation: 01/22/19 Time of Evaluation: 07:25 - Subjective Subjective: Infectious disease progress note: Patient seen and examined at bedside. No acute events overnight. No n/v or abd pain. No fevers. No other complaints. 12 point ROS performed and negative unless stated above. Objective - Vital Signs/Intake and Output Vital Signs (last 24 hours): Temp Pulse Resp BP Pulse Ox 98.6 F 67 20 123/65 96 01/22/19 06:00 01/22/19 10:00 01/22/19 06:00 01/22/19 06:00 01/22/19 06:00 Intake and Output: 01/22/19 01/22/19 06:59 18:59 Intake Total 360 Output Total 450 Balance -90 - Medications Medications: Current Medications Aspirin (Aspirin Chewable) 81 mg PO DAILY [facility] Benzocaine/Menthol (Cepacol Sore Throat) 1 alyssa MT Q2H PRN PRN Reason: Sore Throat Carvedilol (Coreg) 12.5 mg PO BID [facility] Last Admin: 01/22/19 11:08 Dose: Not Given Clopidogrel Bisulfate (Plavix) 75 mg PO DAILY [facility] Docusate Sodium (Colace) 100 mg PO DAILY [facility] Last Admin: 01/22/19 11:07 Dose: 100 mg Famotidine (Pepcid) 20 mg PO 1000,2200 [facility] Last Admin: 01/22/19 11:07 Dose: 20 mg Furosemide (Lasix) 40 mg IV ONCE ONE Stop: 01/22/19 15:01 Heparin Sodium (Porcine) (Heparin) 5,000 units SC Q8 [facility]; Protocol Last Admin: 01/22/19 05:08 Dose: 5,000 units Home Med (Home Med) 1 unit PO DAILY [facility] Last Admin: 01/22/19 11:02 Dose: Not Given Hydralazine HCl (Apresoline) 5 mg IVP Q6 PRN PRN Reason: Systolic Blood Pressure Last Admin: 01/19/19 14:41 Dose: 5 mg Insulin Detemir (Levemir) 15 unit SC Q12 [facility] Last Admin: 01/15/19 15:58 Dose: Not Given Insulin Human Regular (Humulin R Low) 0 units SC ACHS [facility]; Protocol Last Admin: 01/22/19 08:26 Dose: 1 unit Levalbuterol HCl (Xopenex) 0.63 mg IH [id number] PRN PRN Reason: Shortness of Breath Last Admin: 01/19/19 10:07 Dose: 0.63 mg Ondansetron HCl (Zofran Inj) 4 mg IVP Q4H PRN PRN Reason: Nausea/Vomiting Last Admin: 01/14/19 05:36 Dose: 4 mg Oxycodone HCl (Oxycodone Immediate Release Tab) 5 mg PO Q6H PRN PRN Reason: Pain, severe (8-10) Last Admin: 01/21/19 08:04 Dose: 5 mg Polyethylene Glycol (Miralax) 17 gm PO DAILY [facility] Last Admin: 01/22/19 11:08 Dose: 17 gm Vitamin B Complex/Vit C/Folic Acid (Nephro-Mohinder) 1 tab PO 0800 [facility] - Labs Labs: 01/22/19 06:00 01/22/19 06:00 PT 18.8 SECONDS (9.4-12.5) H 01/15/19 16:09 INR 1.69 01/15/19 16:09 APTT 29.1 Seconds (26.9-38.3) 01/15/19 16:09 - Constitutional Appears: No Acute Distress - Head Exam Head Exam: ATRAUMATIC, NORMOCEPHALIC - Eye Exam Eye Exam: EOMI - ENT Exam ENT Exam: Mucous Membranes Moist - Respiratory Exam Respiratory Exam: Clear to Ausculation Bilateral. absent: Wheezes - Cardiovascular Exam Cardiovascular Exam: REGULAR RHYTHM, +S1, +S2 - GI/Abdominal Exam GI & Abdominal Exam: Soft. absent: Distended, Tenderness Additional comments: dressing c/d/i - Psychiatric Exam Psychiatric exam: Normal Mood - Skin Skin Exam: Dry, Warm Assessment and Plan - Assessment and Plan (Free Text) Assessment: Septic shock secondary to bowel obstruction with ischemic bowel S/P resection , Off of pressors Uterine cancer status post radiation Elevated troponins Acute on chronic kidney disease Coronary artery disease Diabetes Referral vascular disease Hypertension History of carotid stenosis S/P endarterectomy Completed course of meropenem Cont to monitor off abx - patient is at risk for nosocomial infection Follow-up septic work-up Continue to monitor for any changes Case and plan to be reviewed and discussed with Dr. Fraga. <Esteban Fraga - Last Filed: 01/22/19 21:11> Objective - Vital Signs/Intake and Output Vital Signs (last 24 hours): Temp Pulse Resp BP Pulse Ox 99.3 F 73 19 120/62 96 01/22/19 13:01 01/22/19 18:08 01/22/19 13:01 01/22/19 18:08 01/22/19 06:00 - Labs Labs: 01/22/19 06:00 01/22/19 06:00 PT 18.8 SECONDS (9.4-12.5) H 01/15/19 16:09 INR 1.69 01/15/19 16:09 APTT 29.1 Seconds (26.9-38.3) 01/15/19 16:09 Attending/Attestation - Attestation I have personally seen and examined this patient.: Yes I have fully participated in the care of the patient.: Yes I have reviewed all pertinent clinical information, including history, physical exam and plan: Yes
[2019-01-22 13:05] VITALS: RESP 19; TEMP 99.3
--- NOTE | 2019-01-22 13:55 | PN ---
DATE: 01/22/2019 REASON FOR THE CONSULTATION AND FOLLOWUP: Cardiac evaluation, admitted with small-bowel obstruction, history of coronary artery disease, peripheral artery disease and status post small bowel ischemia, status post resection of the bowel and I have started p.o. medications. SUBJECTIVE: Denies any chest pain, shortness of breath and any palpitation. OBJECTIVE: GENERAL: Not in apparent distress. VITAL SIGNS: Temperature afebrile. Heart rate 66 and blood pressure 123/65. HEENT: PERRLA. Extraocular muscles intact. NECK: Supple. No carotid bruits. No thyromegaly. CHEST: Clear to auscultation. HEART: S1 and S2, regular. ABDOMEN: Soft. EXTREMITY: Clubbing and cyanosis, negative. LABORATORY DATA: Blood workup, WBC 7.5, hemoglobin 7.7, hematocrit 23.7 and platelet count 82. Chemistry shows sodium 130, potassium 4, chloride 104, carbon dioxide of 26, anion gap of 9, BUN is 16 and creatinine is 6. IMPRESSION: A 73-year-old female with past medical history significant for coronary artery disease, status post angioplasty 2013 at [place], status post percutaneous transluminal coronary angioplasty 2015 of at [place], history of 3 peripheral stents, status post amputation of toes, history of carotid endarterectomy followed by carotid stenting in the left internal carotid artery admitted with acute sepsis and small bowel obstruction and bowel ischemia, status post 6 feet of bowel resection. She went into multiorgan dysfunction including acute kidney injury, creatinine 7.5, now it is trending down. Echo revealed preserved left ventricular ejection fraction 5% to 55% trivial mitral regurgitation, trivial tricuspid regurgitation, mild tricuspid regurgitation, right ventricular systolic pressure 33, borderline troponin was positive, most likely secondary to acute kidney injury. RECOMMENDATIONS: Continue Coreg. Continue amlodipine. Continue hydralazine. Avoid nephrotoxic medication. Discussed with the patient since the patient has underlying coronary artery disease. Suggestive followup a stress test in 6 weeks. The patient is being followed by Dr. Monson and wanted to continue Dr. Monson. Since the patient , we will give 2 units of packed RBC. We will follow with you. Paula Coronel MD
--- NOTE | 2019-01-22 16:14 | CP.PCM.PN ---
Subjective - Date & Time of Evaluation Date of Evaluation: 01/22/19 Time of Evaluation: 16:12 - Subjective Subjective: Nephrology Consultation Note: Assessment: stable SBO with ischemic bowel and lactic acidosis s/p ex lap and small bowel resection 01/15/19 oligoanuric GUIDO due to ATN with hyperkalemia: NOW not oliguric shock liver Diabetic chronic Kidney Disease (E11.22) Hypertensive Chronic Kidney Disease (I12.9) with HTN urgency Chronic Kidney Disease (N18.4) Stage 4 Anemia (D64.9), Hyperphosphatemia (E83.39), Secondary Hyperparathyroidism (E21. 1), HTN (I12.9) obesity uterine ca s/p recent radiation therapy CAD s/p stents, PVD, L-sided carotid stenosis s/p endarterectomy thrombocytopenia Plan HD today 2nd session Maintain hemodynamics stable. Avoid hypotension. Patient not on ACEI/ARB due to GUIDO and hyperkalemia. d/c hydralazine. d/c norvasc Monitor Input/Output, daily weights and renal function with basic metabolic panel PRBC getting today. ordered for TRANG and IV iron as well Dose meds/antibiotics for reduced GFR. Avoid fleets enema/magnesium based laxatives. Avoid nephrotoxins/NSAIDs/ iodinated contrast (unless needed emergently) Glycemic control Further work up/management as per primary team pt for dc to [facility] today. pt arranged to start HD there tomorrow. stable from renal perspective. will follow up for renal recovery as outpt Thanks for allowing me to participate in care of your patient. Will follow patient with you. Please call if any Qs. had d/w team and family bedside Dr Ant Burrell Office: [phone] Chief Complaint; pain abdomen Reason for consult: CKD management HPI: Pt is a 73 y/o F with PMHx of uterine ca s/p radiation therapy which she completed in december 2018, CAD s/p stents, DM, CKD 4 with baseline cr 2.4, PVD, HTN, L-sided carotid stenosis s/p endarterectomy, obesity presented with complaints of pain abdomen and found to have partial SBO. renal consult for CKD management. she feels better at present. pain abdomen is better. denies CP/SOB Denies OTC/herbal meds or NSAIDs ROS: noted ovenight events. pt extubated. pt feels better now. says breathing better s/p ex lap 01/15/19 as she had ischemic bowel. Physical Examination: seen during HD General Appearance: comfortable, in no acute respiratory distress, obese. stable appearing Vitals reviewed and noted as below Head; Atraumatic, normocephalic ENT: extubated. oral mucosa dry EYES: Pupils are equal, round and reactive to light accommodation. Eye muscles and extraocular movement intact. Sclera is anicteric. Neck; supple no lymphadenopathy, no thyromegaly or bruit Lungs: improved respiratory rate/effort. Breath sounds bilateral reduced at bases with crackles Heart: normal rate. s1s2 normal. No rub or gallop. Extremities: 1+ edema. No varicose veins Neurological: Patient is awake alert follow commands but not fully oriented. confused Skin: Warm and dry. Normal turgor. No rash. Palpitation: Normal elasticity for age Abdomen: There is mild abdominal tenderness no organomegaly. s/p ex lap. soft now Psych: improved insight and flat affect/mood MSK: no joint tenderness or swelling. Digits and nails normal, no deformity : kidney or bladder not palpable. Labs/imaging reviewed. Past medical history, past surgical history, family history, social history, allergy reviewed and noted as below Family hx: hx of ESKD in son. Rest non-contributory Objective - Vital Signs/Intake and Output Vital Signs (last 24 hours): Temp Pulse Resp BP Pulse Ox 99.3 F 67 19 136/68 96 01/22/19 13:01 01/22/19 13:01 01/22/19 13:01 01/22/19 13:01 01/22/19 06:00 Intake and Output: 01/22/19 01/22/19 06:59 18:59 Intake Total 360 Output Total 450 Balance -90 - Medications Medications: Current Medications Aspirin (Aspirin Chewable) 81 mg PO DAILY [facility] Benzocaine/Menthol (Cepacol Sore Throat) 1 alyssa MT Q2H PRN PRN Reason: Sore Throat Carvedilol (Coreg) 12.5 mg PO BID [facility] Last Admin: 01/22/19 11:08 Dose: Not Given Clopidogrel Bisulfate (Plavix) 75 mg PO DAILY [facility] Docusate Sodium (Colace) 100 mg PO DAILY [facility] Last Admin: 01/22/19 11:07 Dose: 100 mg Famotidine (Pepcid) 20 mg PO 1000,2200 [facility] Last Admin: 01/22/19 11:07 Dose: 20 mg Heparin Sodium (Porcine) (Heparin) 5,000 units SC Q8 [facility]; Protocol Last Admin: 01/22/19 15:08 Dose: Not Given Home Med (Home Med) 1 unit PO DAILY [facility] Last Admin: 01/22/19 11:02 Dose: Not Given Hydralazine HCl (Apresoline) 5 mg IVP Q6 PRN PRN Reason: Systolic Blood Pressure Last Admin: 01/19/19 14:41 Dose: 5 mg Insulin Detemir (Levemir) 15 unit SC Q12 [facility] Last Admin: 01/15/19 15:58 Dose: Not Given Insulin Human Regular (Humulin R Low) 0 units SC ACHS [facility]; Protocol Last Admin: 01/22/19 12:30 Dose: Not Given Levalbuterol HCl (Xopenex) 0.63 mg IH [id number] PRN PRN Reason: Shortness of Breath Last Admin: 01/19/19 10:07 Dose: 0.63 mg Ondansetron HCl (Zofran Inj) 4 mg IVP Q4H PRN PRN Reason: Nausea/Vomiting Last Admin: 01/14/19 05:36 Dose: 4 mg Oxycodone HCl (Oxycodone Immediate Release Tab) 5 mg PO Q6H PRN PRN Reason: Pain, severe (8-10) Last Admin: 01/21/19 08:04 Dose: 5 mg Polyethylene Glycol (Miralax) 17 gm PO DAILY [facility] Last Admin: 01/22/19 11:08 Dose: 17 gm Vitamin B Complex/Vit C/Folic Acid (Nephro-Mohinder) 1 tab PO 0800 [facility] - Labs Labs: 01/22/19 06:00 01/22/19 06:00 PT 18.8 SECONDS (9.4-12.5) H 01/15/19 16:09 INR 1.69 01/15/19 16:09 APTT 29.1 Seconds (26.9-38.3) 01/15/19 16:09
[2019-01-22 18:10] VITALS: BP 120/62; PULSE 73
--- NOTE | 2019-01-22 18:47 | CP.PCM.PN ---
Subjective - Date & Time of Evaluation Date of Evaluation: 01/22/19 Time of Evaluation: 18:00 - Subjective Subjective: Jason eHrnandez Internal Medicine Resident-Developer Programmer Resident Progress Note Subjective: CC: Called for evaluation of SOB HPI: Patient seen and examined at bedside. Patient resting comfortably in bed. States SOB has resolved. Vitals stable. Oxygen saturation 99% on 3 liters via NC. Offers no new complaints at this time. Patient informed that she is being discharged and is agreeable to plan. Further denies headache, dizziness, chest pain, palpitations, and N/V. Physical Examination: - Constitutional Appears: Non-toxic, No Acute Distress - Head Exam Head Exam: ATRAUMATIC, NORMOCEPHALIC - Respiratory Exam Respiratory Exam: NORMAL BREATHING PATTERN. absent: Accessory Muscle Use, Rhonchi, Wheezes - Cardiovascular Exam Cardiovascular Exam: RRR +S1, +S2 - GI/Abdominal Exam GI & Abdominal Exam: absent: Distended, Firm, Guarding, Rigid - Extremities Exam Extremities Exam: Normal Inspection - Neurological Exam Neurological Exam: Alert, Awake, Oriented x3 - Psychiatric Exam Psychiatric exam: Normal Affect, Normal Mood - Skin Skin Exam: Incision site clean, dry, intact Studies Reviewed: 01/02/2019 CXR reviewed- vascular congestion improved from previous study, no pn eumothorax Plan: Midline removed. Pressure held at site. No bleeding from site. Pressure bandage applied. No complications. Nurse informed to check bandage and peripheral pulse prior to discharge. Patient to be discharged to [facility]. code enforcement supervisor scheduled for 7pm. Patient case discussed with and plan approved by attending physician, Dr. Donovan. Objective - Vital Signs/Intake and Output Vital Signs (last 24 hours): Temp Pulse Resp BP Pulse Ox 99.3 F 73 19 120/62 96 01/22/19 13:01 01/22/19 18:08 01/22/19 13:01 01/22/19 18:08 01/22/19 06:00 Intake and Output: 01/22/19 01/22/19 06:59 18:59 Intake Total 360 Output Total 450 Balance -90 - Medications Medications: Current Medications Aspirin (Aspirin Chewable) 81 mg PO DAILY [facility] Benzocaine/Menthol (Cepacol Sore Throat) 1 alyssa MT Q2H PRN PRN Reason: Sore Throat Carvedilol (Coreg) 12.5 mg PO BID [facility] Last Admin: 01/22/19 18:08 Dose: 12.5 mg Clopidogrel Bisulfate (Plavix) 75 mg PO DAILY [facility] Docusate Sodium (Colace) 100 mg PO DAILY [facility] Last Admin: 01/22/19 11:07 Dose: 100 mg Famotidine (Pepcid) 20 mg PO 1000,2200 [facility] Last Admin: 01/22/19 11:07 Dose: 20 mg Heparin Sodium (Porcine) (Heparin) 5,000 units SC Q8 [facility]; Protocol Last Admin: 01/22/19 15:08 Dose: Not Given Home Med (Home Med) 1 unit PO DAILY [facility] Last Admin: 01/22/19 11:02 Dose: Not Given Hydralazine HCl (Apresoline) 5 mg IVP Q6 PRN PRN Reason: Systolic Blood Pressure Last Admin: 01/19/19 14:41 Dose: 5 mg Insulin Detemir (Levemir) 15 unit SC Q12 [facility] Last Admin: 01/15/19 15:58 Dose: Not Given Insulin Human Regular (Humulin R Low) 0 units SC ACHS [facility]; Protocol Last Admin: 01/22/19 18:09 Dose: 1 unit Levalbuterol HCl (Xopenex) 0.63 mg IH [id number] PRN PRN Reason: Shortness of Breath Last Admin: 01/19/19 10:07 Dose: 0.63 mg Ondansetron HCl (Zofran Inj) 4 mg IVP Q4H PRN PRN Reason: Nausea/Vomiting Last Admin: 01/14/19 05:36 Dose: 4 mg Oxycodone HCl (Oxycodone Immediate Release Tab) 5 mg PO Q6H PRN PRN Reason: Pain, severe (8-10) Last Admin: 01/21/19 08:04 Dose: 5 mg Polyethylene Glycol (Miralax) 17 gm PO DAILY [facility] Last Admin: 01/22/19 11:08 Dose: 17 gm Vitamin B Complex/Vit C/Folic Acid (Nephro-Mohinder) 1 tab PO 0800 [facility] - Labs Labs: 01/22/19 06:00 01/22/19 06:00 PT 18.8 SECONDS (9.4-12.5) H 01/15/19 16:09 INR 1.69 01/15/19 16:09 APTT 29.1 Seconds (26.9-38.3) 01/15/19 16:09
--- NOTE | 2019-01-22 21:14 | CP.PCM.DIS ---
Provider - Provider Date of Admission: 01/13/19 15:37 Attending physician: Nanci Hernandez DO Consults: 01/13/19 04:59 Consult [Physician Consult] Stat Comment: Consulting Provider: Kayode Mukherjee Consulting Physician: Kayode Mukherjee Reason for Consult: SBO 01/13/19 09:38 Cardiology Consult Routine Comment: Consulting Provider: Paula Castillo Consulting Physician: Paula Castillo Reason for Consult: LBBB, hx of CAD s/p stents 01/14/19 14:38 Physician Consult Routine Comment: Consulting Provider: Marybel Cevallos Consulting Physician: Marybel Cevallos Reason for Consult: hypotension, SBO 01/14/19 21:45 Palliative Care Consult Routine Comment: Consulting Provider: Junie Quiles Physician Instructions: Reason For Exam: SBO, multiple comorbid conditions, family support 01/15/19 15:40 Infectious Disease Consult Routine Comment: Consulting Provider: Esteban Fraga Consulting Physician: Esteban Fraga Reason for Consult: nectrotic bowel; s/p OR; abx approval 01/17/19 10:25 Nephrology Consult Routine Comment: Consulting Provider: Ant Burrell Consulting Physician: Ant Burrell Reason for Consult: eugenio on ckd 01/21/19 07:00 Wound Care [Nursing Referral for Wound Care] Routine Comment: Physician Instructions: Reason For Exam: Pressure ulcer 01/21/19 09:35 Physician Consult Routine Comment: Consulting Provider: Yan Pino Consulting Physician: Yan Pino Reason for Consult: EUGENIO on CKD 3. Plan to start dialysis with permacath Additional Comments: permacath placement for dialysis initiation Time Spent in preparation of Discharge (in minutes): 55 Hospital Course - Lab Results Lab Results: Micro Results 01/15/19 15:28 Peritoneal Fluid Gram Stain - Final 01/15/19 15:28 Peritoneal Fluid Body Fluid Culture - Final No growth. 01/14/19 17:47 Blood-Thru Central Line Blood Culture - Final NO GROWTH AFTER 5 DAYS 01/14/19 17:47 Blood-Thru Central Line Gram Stain - Final TEST NOT PERFORMED 01/14/19 17:25 Blood-Venous Blood Culture - Final NO GROWTH AFTER 5 DAYS 01/14/19 17:25 Blood-Venous Gram Stain - Final TEST NOT PERFORMED 01/14/19 21:07 Naris MRSA Culture (Admit) - Final MRSA NOT DETECTED 01/13/19 22:29 Urine,Clean Catch Urine Culture - Final No Growth (<1,000 CFU/ML) Most Recent Lab Values WBC 7.4 10^3/uL (4.5-11.0) 01/22/19 06:00 RBC 3.05 10^6/uL (3.5-6.1) L 01/22/19 06:00 Hgb 7.7 g/dL (12.0-16.0) L 01/22/19 06:00 Hct 23.7 % (36.0-48.0) L 01/22/19 06:00 MCV 77.7 fl (80.0-105.0) L 01/22/19 06:00 MCH 25.2 pg (25.0-35.0) 01/22/19 06:00 MCHC 32.5 g/dl (31.0-37.0) 01/22/19 06:00 RDW 18.9 % (11.5-14.5) H 01/22/19 06:00 Plt Count 82 10^3/uL (120.0-450.0) L 01/22/19 06:00 MPV 10.1 fl (7.0-11.0) 01/18/19 06:00 Neut % (Auto) 79.5 % (50.0-68.0) H 01/22/19 06:00 Lymph % (Auto) 12.4 % (22.0-35.0) L 01/22/19 06:00 [place] % (Auto) 5.6 % (1.0-6.0) 01/22/19 06:00 Eos % (Auto) 2.4 % (1.5-5.0) 01/22/19 06:00 Baso % (Auto) 0.1 % (0.0-3.0) 01/22/19 06:00 Lymph # (Auto) 0.9 (1.2-3.4) L 01/22/19 06:00 [place] # (Auto) 0.4 (0.1-0.6) 01/22/19 06:00 Eos # (Auto) 0.2 (0.0-0.7) 01/22/19 06:00 Baso # (Auto) 0.01 K/mm3 (0.0-2.0) 01/22/19 06:00 Absolute Neuts (auto) 5.84 (1.4-6.5) 01/22/19 06:00 Neutrophils % (Manual) 77 % (50.0-70.0) H 01/15/19 06:00 Band Neutrophils % 9 % (0-2) H 01/15/19 06:00 Lymphocytes % (Manual) 8 % (22.0-35.0) L 01/15/19 06:00 Monocytes % (Manual) 6 % (1.0-6.0) 01/15/19 06:00 Platelet Evaluation Normal (NORMAL) 01/15/19 06:00 Anisocytosis (manual) 1+ 01/15/19 06:00 Microcytosis (manual) 1+ 01/15/19 06:00 Schistocytes Slight 01/15/19 06:00 PT 18.8 SECONDS (9.4-12.5) H 01/15/19 16:09 INR 1.69 01/15/19 16:09 APTT 29.1 Seconds (26.9-38.3) 01/15/19 16:09 pCO2 41 mm/Hg (35-45) 01/19/19 05:00 pO2 114.0 mm/Hg (80-100) H 01/19/19 05:00 HCO3 21.6 mmol/L (21-28) 01/19/19 05:00 ABG pH 7.33 (7.35-7.45) L 01/19/19 05:00 ABG Total CO2 22.9 mmol.L (22-28) 01/19/19 05:00 ABG O2 Saturation 99.2 % (95-98) H 01/19/19 05:00 ABG O2 Content 15.2 ML/dl (15-23) 01/19/19 05:00 ABG Base Excess -4.1 mmol/L (-2.0-3.0) L 01/19/19 05:00 ABG Hemoglobin 11.1 g/dL (11.7-17.4) L 01/19/19 05:00 ABG Carboxyhemoglobin 1.7 % (0.5-1.5) H 01/19/19 05:00 POC ABG HHb (Measured) 0.8 % (0-5) 01/19/19 05:00 ABG Methemoglobin 1.1 % (0.0-3.0) 01/19/19 05:00 ABG O2 Capacity 15.3 mL/dl (16-24) L 01/19/19 05:00 ABG Potassium 4.2 mmol/L (3.6-5.2) 01/16/19 05:00 Hgb O2 Saturation 96.4 % (95.0-98.0) 01/19/19 05:00 Sodium 141.0 mmol/L (132-148) 01/16/19 05:00 Chloride 116.0 mmol/L (98-107) H 01/16/19 05:00 Glucose 83 mg/dl (65-105) 01/16/19 05:00 Lactate 1.5 mmol/L (0.7-2.1) 01/16/19 05:00 FiO2 32.0 % 01/19/19 05:00 Crit Value Called To 01/15/19 21:20 Crit Value Called By Kayode pino 01/15/19 21:20 Blood Gas Notified Time 213201/15/19 21:20 Sodium 137 mmol/L (132-148) 01/22/19 06:00 Potassium 4.1 mmol/L (3.6-5.0) 01/22/19 06:00 Chloride 104 mmol/L (98-107) 01/22/19 06:00 Carbon Dioxide 27 mmol/L (21-33) 01/22/19 06:00 Anion Gap 9 (10-20) L 01/22/19 06:00 BUN 62 mg/dL (7-21) H 01/22/19 06:00 Creatinine 6.0 mg/dl (0.7-1.2) H 01/22/19 06:00 Est GFR ( Amer) 8 01/22/19 06:00 Est GFR (Non-Af Amer) 7 01/22/19 06:00 POC Glucose (mg/dL) 164 mg/dL (65-110) H 01/22/19 16:51 Random Glucose 176 mg/dL (70-110) H 01/22/19 06:00 Hemoglobin A1c 6.8 % (4.2-6.5) H 01/13/19 08:00 Lactic Acid 5.9 mmol/L (0.7-2.1) H* 01/14/19 20:00 Calcium 7.4 mg/dL (8.4-10.5) L 01/22/19 06:00 Phosphorus 5.0 mg/dL (2.5-4.5) H 01/22/19 06:00 Magnesium 1.8 mg/dL (1.7-2.2) 01/22/19 06:00 Iron 76 ug/dL (45-180) 01/13/19 08:00 TIBC 232 ug/dL (265-497) L 01/13/19 08:00 % Saturation 33 % (20-55) 01/13/19 08:00 Transferrin 148.95 mg/dL (206-381) L 01/13/19 08:00 Ferritin 151.0 ng/mL 01/13/19 08:00 Total Bilirubin 0.3 mg/dL (0.2-1.3) 01/22/19 06:00 AST 37 U/L (14-36) H 01/22/19 06:00 ALT 104 U/L (7-56) H 01/22/19 06:00 Alkaline Phosphatase 69 U/L (38-126) 01/22/19 06:00 Total Creatine Kinase 110 U/L (35-230) 01/13/19 02:45 Troponin I 0.78 ng/mL H* D 01/15/19 21:31 Total Protein 5.3 g/dL (5.8-8.3) L 01/22/19 06:00 Albumin 2.4 g/dL (3.0-4.8) L 01/22/19 06:00 Globulin 3.0 gm/dL 01/22/19 06:00 Albumin/Globulin Ratio 0.8 (1.1-1.8) L 01/22/19 06:00 Triglycerides 74 mg/dL (35-160) 01/13/19 08:00 Cholesterol 136 mg/dL (130-200) 01/13/19 08:00 LDL Cholesterol Direct 72 mg/dL (0-129) 01/13/19 08:00 HDL Cholesterol 34 mg/dL (29-60) 01/13/19 08:00 Lipase 88 U/L (23-300) 01/13/19 08:00 Vitamin B12 426 pg/mL (239-931) 01/13/19 08:00 Folate 10.7 ng/mL 01/13/19 08:00 Free T4 1.12 ng/dL (0.78-2.19) 01/13/19 08:00 TSH 3rd Generation 2.69 mIU/mL (0.46-4.68) 01/13/19 08:00 Arterial Blood Potassium 4.2 mmol/L (3.6-5.2) 01/16/19 05:00 Urine Color Yellow (YELLOW) 01/13/19 18:13 Urine Appearance Clear (CLEAR) 01/13/19 18:13 Urine pH 6.0 (4.7-8.0) 01/13/19 18:13 Ur Specific [place] >= 1.030 (1.005-1.035) 01/13/19 18:13 Urine Protein >=300 mg/dL (<30 mg/dL) H 01/13/19 18:13 Urine Glucose (UA) Negative mg/dL (NEGATIVE) 01/13/19 18:13 Urine Ketones Negative mg/dL (NEGATIVE) 01/13/19 18:13 Urine Blood Small (NEGATIVE) H 01/13/19 18:13 Urine Nitrate Negative (NEGATIVE) 01/13/19 18:13 Urine Bilirubin Negative (NEGATIVE) 01/13/19 18:13 Urine Urobilinogen 0.2 E.U./dL (<1 E.U./dL) 01/13/19 18:13 Ur Leukocyte Esterase Negative [place]/uL (NEGATIVE) 01/13/19 18:13 Urine RBC 1 - 3 /hpf (0-2) H 01/13/19 18:13 Urine WBC 0 - 2 /hpf (0-6) 01/13/19 18:13 Ur Epithelial Cells 0 - 2 /hpf (0-5) 01/13/19 18:13 Urine Bacteria Trace /hpf (NONE) 01/13/19 18:13 Hep Bs Antigen Negative (NEGATIVE) 01/21/19 14:00 Hep Bs Antibody Negative (NEGATIVE) 01/21/19 14:00 Hep B Core IgM Ab Negative (NEGATIVE) 01/21/19 14:00 Blood Type O POSITIVE 01/22/19 08:40 Blood Type Confirm O POSITIVE 01/14/19 17:30 Antibody Screen Negative 01/22/19 08:40 Crossmatch See Detail 01/22/19 08:40 BBK History Checked Patient has bt 01/22/19 08:40 - Hospital Course Hospital Course: 73 year old female with PMH uterine ca s/p radiation therapy, CAD s/p 6 stents, IDDM2, CKD, PVD, HTN, chronic iron-deficiency anemia (previously had aranesp infusions), PVD, L-sided carotid stenosis s/p endarterectomy, obesity presented to [facility] [place] with abdomial pain found to have SBO. CT A/P 01/13 showed moderate partial uncomplicated small bowel obstruction. No bowel perforation or pneumatosis intestinalis. Transition zone in the RLQ. Patient was afebrile, no leukocytosis, IVF given, serial abdominal exam, pain controlled with oxycodone. Patient developed bowel ischemia with hypotension, transfered to ICU for fluid resuscitation and pressors. Taken to the OR for ex-lap. Bowel resection with anastomosis performed. Patient developed shock liver, EUGENIO in the setting of septic shock. Patient condition slowly recovered, LFT trended down. Creatinine was elevated and patient went for permacat for dialysis. Patient received dialysis and she tolerated well. She also received 4 units of RBC during hospital course. Patient was followed by cardiology for CAD s/p PCI. She was on ISS for her DM. Blood pressure and DM were managed appropriately. Patient was followed by PT who recommended acute rehab. Today, patient is hemodynamically stable, afebrile, no leukocytosis, clinically stabilized for discharge for continued dialysis and therapy. Discharge Exam - Head Exam Head Exam: ATRAUMATIC, NORMOCEPHALIC Discharge Plan - Follow Up Plan Condition: FAIR Disposition: REHAB FACILITY/REHAB UNIT Instructions: Small Bowel Obstruction, Hemodialysis Additional Instructions: Patient to continue with HD while in Rehab. Patient is to get a session of HD to [facility]. Patient will continue with all the medications as listed on the instructions. Patient will need to follow up with Dr. Mukherjee in 10 days to get the sutures removed. Patient need to follow up with her primary care doctor in 3-5 days. May take oxycodone 5 mg q6 prn for pain, patient mat also take miralax prn for constipation. Please return if symptoms returns or call 911. Referrals: Elvi Camacho MD [Non-Staff] - Ant Burrell MD [Staff Provider] - Kayode Mukherjee MD [Staff Provider] -
[2019-01-23] MEDS ORDERED: Multivitamin Vitamin B Complex (Nephro-Vite) Tab PO SCH (08:00)
--- NOTE | 2019-01-23 09:01 | RAD ---
Date of service: 01/22/2019 HISTORY: shortness of breath COMPARISON: No prior. TECHNIQUE: 1 view obtained. FINDINGS: LUNGS: No active pulmonary disease. PLEURA: No significant pleural effusion identified, no pneumothorax apparent. CARDIOVASCULAR: No aortic atherosclerotic calcification present. Normal cardiac size. No pulmonary vascular congestion. OSSEOUS STRUCTURES: No significant abnormalities. VISUALIZED UPPER ABDOMEN: Normal. OTHER FINDINGS: Right-sided IJ dialysis catheter in the right atrium. Right-sided PICC line in satisfactory position IMPRESSION: No active disease.
== END 2019-01-22 20:15 | DRG 329 ==
LOC: ED 01:59 → ERH 05:18 → 3RNO 06:48 → 3RSO 06:59 → OBSVTOIN 15:37 → ICU 01-14 19:29 → 2RSO 01-19 18:37
PROVIDERS: ADMIT Hospitalist; ATTEND Hospitalist
PROC: 0DNW0ZZ Release Peritoneum, Open Approach (ICD-10-PCS; 2019-01-15)
PROC: 5A1945Z Respiratory Ventilation, 24-96 Consecutive Hours (ICD-10-PCS; 2019-01-15)
PROC: 0BH17EZ Insertion of Endotracheal Airway into Trachea, Via Natural or Artificial Opening (ICD-10-PCS; 2019-01-15)
PROC: 04HY32Z Insertion of Monitoring Device into Lower Artery, Percutaneous Approach (ICD-10-PCS; 2019-01-15)
PROC: 30233N1 Transfusion of Nonautologous Red Blood Cells into Peripheral Vein, Percutaneous Approach (ICD-10-PCS; 2019-01-15)
PROC: 0DT80ZZ Resection of Small Intestine, Open Approach (ICD-10-PCS; principal; 2019-01-15 07:00)
PROC: 05HM33Z Insertion of Infusion Device into Right Internal Jugular Vein, Percutaneous Approach (ICD-10-PCS; 2019-01-21)
PROC: B543ZZA Ultrasonography of Right Jugular Veins, Guidance (ICD-10-PCS; 2019-01-21)
PROC: B5131ZA Fluoroscopy of Right Jugular Veins using Low Osmolar Contrast, Guidance (ICD-10-PCS; 2019-01-21)
PROC: 5A1D70Z Performance of Urinary Filtration, Intermittent, Less than 6 Hours Per Day (ICD-10-PCS; 2019-01-21)
PROC: 5A1D70Z Performance of Urinary Filtration, Intermittent, Less than 6 Hours Per Day (ICD-10-PCS; 2019-01-22)
DX: K56.52 Intestinal adhesions [bands] with complete obstruction (principal); R65.21 Severe sepsis with septic shock; K55.059 Acute (reversible) ischemia of intestine, part and extent unspecified; I21.A1 Myocardial infarction type 2; K72.00 Acute and subacute hepatic failure without coma; A41.9 Sepsis, unspecified organism; N17.0 Acute kidney failure with tubular necrosis; K55.069 Acute infarction of intestine, part and extent unspecified; N18.4 Chronic kidney disease, stage 4 (severe); Z68.42 Body mass index [BMI] 45.0-49.9, adult; N25.81 Secondary hyperparathyroidism of renal origin; I31.3 Pericardial effusion (noninflammatory); E87.2 Acidosis; R18.8 Other ascites; K46.0 Unspecified abdominal hernia with obstruction, without gangrene; Z68.43 Body mass index [BMI] 50.0-59.9, adult; K21.9 Gastro-esophageal reflux disease without esophagitis; E66.01 Morbid (severe) obesity due to excess calories; E11.22 Type 2 diabetes mellitus with diabetic chronic kidney disease; E11.51 Type 2 diabetes mellitus with diabetic peripheral angiopathy without gangrene; I16.0 Hypertensive urgency; D63.1 Anemia in chronic kidney disease; I25.10 Atherosclerotic heart disease of native coronary artery without angina pectoris; I12.9 Hypertensive chronic kidney disease with stage 1 through stage 4 chronic kidney disease, or unspecified chronic kidney disease; D50.9 Iron deficiency anemia, unspecified; K57.30 Diverticulosis of large intestine without perforation or abscess without bleeding; K80.20 Calculus of gallbladder without cholecystitis without obstruction; C55 Malignant neoplasm of uterus, part unspecified; E83.39 Other disorders of phosphorus metabolism; Z92.3 Personal history of irradiation; I95.9 Hypotension, unspecified; T40.2X5A Adverse effect of other opioids, initial encounter; Z53.9 Procedure and treatment not carried out, unspecified reason; E87.5 Hyperkalemia; Z80.3 Family history of malignant neoplasm of breast; D25.1 Intramural leiomyoma of uterus; E78.00 Pure hypercholesterolemia, unspecified; F41.9 Anxiety disorder, unspecified; I25.2 Old myocardial infarction; I44.7 Left bundle-branch block, unspecified; I51.7 Cardiomegaly; I65.22 Occlusion and stenosis of left carotid artery; K44.9 Diaphragmatic hernia without obstruction or gangrene; N30.90 Cystitis, unspecified without hematuria; Z78.1 Physical restraint status; Z79.4 Long term (current) use of insulin; Z86.73 Personal history of transient ischemic attack (TIA), and cerebral infarction without residual deficits; Z89.412 Acquired absence of left great toe; Z95.5 Presence of coronary angioplasty implant and graft; Z99.2 Dependence on renal dialysis